=== PATIENT | female | born 1965 | race American Indian/Alaskan Native ===

== ENCOUNTER 2016-09-18 05:38 | Inpatient (IN) | payer MEDICARE ==
[2016-09-18 06:38] LABS: Urine Drugs of Abuse Note Disclamer
[2016-09-18 06:41] LABS: Bilirubin,Urine NEG (Negative); Blood,Urine NEG (Negative); Ketones,Urine NEG (Negative); Leukocyte Esterase,Urine NEG (Negative); Mucus,Urine FEW /HPF; Nitrite,Urine NEG (Negative); Urobilinogen,Urine < 2.0 mg/dL (<2.0)
[2016-09-18 06:42] LABS: Protein,Urine >500 mg/dL (Negative)
[2016-09-18 06:57] LABS: BUN/Creatinine Ratio 9.44; Calcium 8.9 mg/dL (8.4-10.2); Chloride 104.8 mmol/L (98-107); Potassium 4.7 mmol/L (3.6-5.0)
[2016-09-18] MEDS ORDERED: NACL 0.9% 1000 ML 2,000 ML IV ONE (06:59)
[2016-09-18] MEDS ORDERED: MAXIPIME/NS 2 GM/100 ML 2 GM/100 ML BAG IV ONE (07:00)
--- NOTE | 2016-09-18 07:02 | Emergency Department Report ---
ED General Adult HPI - General Chief complaint: Altered Mental Status Stated complaint: AMS Time Seen by Provider: 09/18/16 06:52 Source: EMS, RN notes reviewed Mode of arrival: Stretcher Limitations: Altered Mental Status - History of Present Illness Initial comments: This is a 51-year-old female. She is previously unknown to me. She is brought to the hospital by EMS. As per EMS documentation, the patient is a 51-year-old female, found unresponsive laying supine in her bedroom. As per EMS documentation, patient's son indicated that he hurt his mom call for help. The son stated that he came over to the patient, and that she was not talking or responding to his voice, so 911 was contacted. [facility] documentation, GCS initially 11. No indication of trauma. Patient was found to be hypoglycemic, given D50 in the field, fingerstick improved to 168, with persistent altered mental status. Upon arrival to the ER, patient was found to be hypothermic with a core temperature of 89. She denied headache, neck pain, chest pain. Denies extremity weakness. She does not endorse extremity numbness. She does complain of abdominal pain, but cannot further describe the quality or nature of the abdominal pain. Patient is unable to describe exacerbating or relieving factors -: unknown Severity scale (0 -10): 0 Consistency: constant Improves with: other (as per history of present illness) Worsens with: other (as per history of present illness) Associated Symptoms: confusion, weakness - Related Data Home Medications Medication Instructions Recorded Confirmed Last Taken Amitriptyline [Elavil] 75 mg PO DAILY 09/18/16 09/18/16 Unknown Amoxicillin [Amoxicillin TAB] 875 mg PO DAILY 09/18/16 09/18/16 Unknown Cetirizine HCl [24Hour Allergy] 10 mg PO DAILY 09/18/16 09/18/16 Unknown Clonidine HCl [Catapres] 0.3 mg PO TID 09/18/16 09/18/16 Unknown Colchicine [Colcrys] 0.6 mg PO DAILY 09/18/16 09/18/16 Unknown Diclofenac Sodium [Diclofenac 75 mg PO DAILY 09/18/16 09/18/16 Unknown Sodium ER] Doxepin [SINEquan] 25 mg PO DAILY 09/18/16 09/18/16 Unknown Eletriptan HBr [Relpax] 20 mg PO Q4H 09/18/16 09/18/16 Unknown ISOSORBIDE MONOnitrate [Imdur ER] 60 mg PO DAILY 09/18/16 09/18/16 Unknown Insulin Detemir [Levemir] 50 unit SUB-Q QHS 09/18/16 09/18/16 09/18/16 Levothyroxine [Synthroid] 100 mcg PO QAM 09/18/16 09/18/16 Unknown Methadone [Dolophine] 10 mg PO TID 09/18/16 09/18/16 Unknown Metoprolol [Lopressor TAB] 100 mg PO DAILY 09/18/16 09/18/16 Unknown [place] 5-325 mg TAB 5 mg PO Q6HR 09/18/16 09/18/16 Unknown Omeprazole [Omeprazole] 40 mg PO DAILY 09/18/16 09/18/16 Unknown Promethazine HCl [Promethazine TAB] 12.5 mg PO DAILY 09/18/16 09/18/16 Unknown Rosuvastatin (Nf) [Crestor] 10 mg PO DAILY 09/18/16 09/18/16 Unknown Sulfamethoxazole-Tmp Susp 1 tab PO BID 09/18/16 09/18/16 Unknown Tizanidine HCl [Zanaflex] 2 mg PO DAILY 09/18/16 09/18/16 09/17/16 Topiramate [Topamax] 100 mg PO DAILY 09/18/16 09/18/16 Unknown Allergies Allergy/AdvReac Type Severity Reaction Status Date / Time acetaminophen [From Percocet] AdvReac Hives Verified 08/17/15 17:52 codeine AdvReac Swelling Verified 08/17/15 17:52 oxycodone HCl [From Percocet] AdvReac Hives Verified 08/17/15 17:52 Penicillins AdvReac Swelling Verified 08/17/15 17:52 ED Review of Systems ROS: Stated complaint: AMS Other details as noted in HPI Comment: Unobtainable due to pts medical conditions ED Past Medical Hx - Past Medical History Hx Hypertension: Yes Hx Diabetes: Yes Hx Renal Disease: Yes Hx Headaches / Migraines: Yes Hx Asthma: Yes - Surgical History Hx Cholecystectomy: Yes Additional Surgical History: umbilical hernia repair. tonsilectomy. left foot fracture/[place]. right kidney removal - Social History Smoking Status: Unknown if ever smoked Substance Use Type: Other - Medications Home Medications: Home Medications Medication Instructions Recorded Confirmed Last Taken Type Amitriptyline [Elavil] 75 mg PO DAILY 09/18/16 09/18/16 Unknown History Amoxicillin [Amoxicillin TAB] 875 mg PO DAILY 09/18/16 09/18/16 Unknown History Cetirizine HCl [24Hour Allergy] 10 mg PO DAILY 09/18/16 09/18/16 Unknown History Clonidine HCl [Catapres] 0.3 mg PO TID 09/18/16 09/18/16 Unknown History Colchicine [Colcrys] 0.6 mg PO DAILY 09/18/16 09/18/16 Unknown History Diclofenac Sodium [Diclofenac 75 mg PO DAILY 09/18/16 09/18/16 Unknown History Sodium ER] Doxepin [SINEquan] 25 mg PO DAILY 09/18/16 09/18/16 Unknown History Eletriptan HBr [Relpax] 20 mg PO Q4H 09/18/16 09/18/16 Unknown History ISOSORBIDE MONOnitrate [Imdur ER] 60 mg PO DAILY 09/18/16 09/18/16 Unknown History Insulin Detemir [Levemir] 50 unit SUB-Q QHS 09/18/16 09/18/16 09/18/16 History Levothyroxine [Synthroid] 100 mcg PO QAM 09/18/16 09/18/16 Unknown History Methadone [Dolophine] 10 mg PO TID 09/18/16 09/18/16 Unknown History Metoprolol [Lopressor TAB] 100 mg PO DAILY 09/18/16 09/18/16 Unknown History [place] 5-325 mg TAB 5 mg PO Q6HR 09/18/16 09/18/16 Unknown History Omeprazole [Omeprazole] 40 mg PO DAILY 09/18/16 09/18/16 Unknown History Promethazine HCl [Promethazine TAB] 12.5 mg PO DAILY 09/18/16 09/18/16 Unknown History Rosuvastatin (Nf) [Crestor] 10 mg PO DAILY 09/18/16 09/18/16 Unknown History Sulfamethoxazole-Tmp Susp 1 tab PO BID 09/18/16 09/18/16 Unknown History Tizanidine HCl [Zanaflex] 2 mg PO DAILY 09/18/16 09/18/16 09/17/16 History Topiramate [Topamax] 100 mg PO DAILY 09/18/16 09/18/16 Unknown History ED Physical Exam - General Limitations: Altered Mental Status General appearance: in no apparent distress, lethargic - Head Head exam: Present: atraumatic, normocephalic - Eye Eye exam: Present: normal appearance, EOMI. Absent: nystagmus - ENT ENT exam: Present: normal exam, normal orophraynx, mucous membranes moist, normal external ear exam - Neck Neck exam: Present: normal inspection, full ROM. Absent: tenderness, meningismus - Respiratory Respiratory exam: Present: normal lung sounds bilaterally. Absent: respiratory distress, wheezes, rales, rhonchi, stridor, chest wall tenderness, accessory muscle use, decreased breath sounds, prolonged expiratory - Cardiovascular Cardiovascular Exam: Present: regular rate, normal rhythm, normal heart sounds. Absent: bradycardia, tachycardia, irregular rhythm, systolic murmur, diastolic murmur, rubs, gallop - GI/Abdominal GI/Abdominal exam: Present: soft, normal bowel sounds, other (there is mild lower abdominal tenderness, there is no rebound, guarding or peritoneal signs). Absent: distended, guarding, rebound, rigid, pulsatile mass - Extremities Exam Extremities exam: Present: normal inspection, full ROM, normal capillary refill. Absent: tenderness, pedal edema, joint swelling, calf tenderness - Back Exam Back exam: Present: normal inspection, full ROM. Absent: tenderness, CVA tenderness (R), CVA tenderness (L), muscle spasm, paraspinal tenderness, vertebral tenderness - Neurological Exam Neurological exam: Present: alert, oriented X3, other (Extraocular movements intact. Tongue midline. No facial droop. Facial sensation intact to light touch in the V1, V2, V3 distribution bilaterally. 5 and 5 strength in 4 extremities.. Sensation is intact to light touch in 4 extremities.). Absent: motor sensory deficit - Psychiatric Psychiatric exam: Present: flat affect - Skin Skin exam: Present: warm, dry, intact, normal color. Absent: rash ED Course Vital Signs 09/18/16 09/18/16 09/18/16 05:47 05:50 06:00 Temperature 89 F L Pulse Rate 60 60 57 L Respiratory 12 11 L 13 Rate Blood Pressure 178/103 177/93 Blood Pressure 178/103 [Left] O2 Sat by Pulse 94 Oximetry 04/08/17 04/08/17 04/08/17 06:10 06:20 06:30 Temperature Pulse Rate 61 60 63 Respiratory 11 L 9 L 10 L Rate Blood Pressure 177/93 167/100 167/106 Blood Pressure [Left] O2 Sat by Pulse Oximetry 09/18/16 09/18/16 09/18/16 06:40 06:49 06:50 Temperature Pulse Rate 61 63 Respiratory 7 L 16 9 L Rate Blood Pressure 167/106 145/81 Blood Pressure [Left] O2 Sat by Pulse Oximetry 09/18/16 09/18/16 09/18/16 06:59 07:00 07:10 Temperature Pulse Rate 62 61 62 Respiratory 16 8 L 10 L Rate Blood Pressure 136/93 136/93 Blood Pressure 132/83 [Left] O2 Sat by Pulse 100 Oximetry 09/18/16 09/18/16 09/18/16 07:20 07:30 08:14 Temperature Pulse Rate 61 60 63 Respiratory 12 12 14 Rate Blood Pressure 133/91 147/93 147/93 Blood Pressure [Left] O2 Sat by Pulse Oximetry 09/18/16 09/18/16 09/18/16 08:20 08:30 08:40 Temperature Pulse Rate 60 59 L 59 L Respiratory 9 L 11 L 7 L Rate Blood Pressure 126/73 132/83 132/83 Blood Pressure [Left] O2 Sat by Pulse Oximetry 09/18/16 09/18/16 09/18/16 08:50 09:00 09:10 Temperature Pulse Rate 67 69 70 Respiratory 11 L 12 10 L Rate Blood Pressure 147/93 147/93 133/92 Blood Pressure [Left] O2 Sat by Pulse Oximetry 09/18/16 09/18/16 09/18/16 09:20 09:30 09:40 Temperature Pulse Rate 68 68 67 Respiratory 9 L 11 L 16 Rate Blood Pressure 149/83 158/93 158/93 Blood Pressure [Left] O2 Sat by Pulse Oximetry 09/18/16 09/18/16 09/18/16 09:50 10:00 10:10 Temperature Pulse Rate 71 72 74 Respiratory 12 12 12 Rate Blood Pressure 146/108 146/108 110/80 Blood Pressure [Left] O2 Sat by Pulse Oximetry 09/18/16 09/18/16 09/18/16 10:20 10:30 10:40 Temperature Pulse Rate 72 69 73 Respiratory 18 12 13 Rate Blood Pressure 141/87 128/82 128/82 Blood Pressure [Left] O2 Sat by Pulse Oximetry 09/18/16 09/18/16 09/18/16 10:50 11:00 11:10 Temperature Pulse Rate 73 75 75 Respiratory 9 L 11 L 13 Rate Blood Pressure 136/88 143/86 143/86 Blood Pressure [Left] O2 Sat by Pulse Oximetry 09/18/16 09/18/16 09/18/16 11:20 11:23 11:30 Temperature 97.2 F L Pulse Rate 72 77 74 Respiratory 11 L 11 L Rate Blood Pressure 147/97 140/83 Blood Pressure [Left] O2 Sat by Pulse 100 Oximetry 09/18/16 09/18/16 09/18/16 11:40 11:50 12:00 Temperature Pulse Rate 73 75 74 Respiratory 10 L 11 L 11 L Rate Blood Pressure 140/83 142/88 124/80 Blood Pressure [Left] O2 Sat by Pulse Oximetry 09/18/16 09/18/16 09/18/16 12:10 12:20 12:30 Temperature Pulse Rate 82 82 77 Respiratory 11 L 13 11 L Rate Blood Pressure 142/88 136/88 131/88 Blood Pressure [Left] O2 Sat by Pulse Oximetry 09/18/16 09/18/16 09/18/16 12:40 12:50 13:00 Temperature Pulse Rate 95 H 77 76 Respiratory 16 12 11 L Rate Blood Pressure 136/88 135/85 140/76 Blood Pressure [Left] O2 Sat by Pulse Oximetry 09/18/16 09/18/16 09/18/16 13:10 13:20 13:30 Temperature Pulse Rate 77 78 84 Respiratory 16 16 12 Rate Blood Pressure 140/76 130/76 126/83 Blood Pressure [Left] O2 Sat by Pulse Oximetry 09/18/16 09/18/16 09/18/16 13:40 13:50 14:00 Temperature Pulse Rate 89 87 91 H Respiratory 16 14 19 Rate Blood Pressure 126/83 123/87 133/94 Blood Pressure [Left] O2 Sat by Pulse Oximetry 09/18/16 09/18/16 09/18/16 14:10 14:20 14:30 Temperature 98.2 F Pulse Rate 80 92 H 91 H Respiratory 16 15 15 Rate Blood Pressure 133/94 140/97 139/88 Blood Pressure 132/92 [Left] O2 Sat by Pulse 100 Oximetry 09/18/16 14:40 Temperature Pulse Rate 94 H Respiratory 12 Rate Blood Pressure 133/94 Blood Pressure [Left] O2 Sat by Pulse Oximetry - Reevaluation(s) Reevaluation #1: 09/18/16 08:18 Differential diagnosis: Bacteremia, dehydration, electrolyte derangement, acute on chronic renal insufficiency, intra-abdominal infection, intracranial injury, cervical spine injury, pneumonia, urinary tract infection Assessment and plan: 51-year-old female with acute on chronic renal failure, resolving altered mental status. She is found to be hypothermic with a core temperature of 89. Her neck is supple, she moves 4 extremities spontaneously, she is alert to name, place, year, month. Given this, I think meningitis is unlikely. An ammonia level was slightly elevated, I think patient most likely has a complex multifactorial encephalopathy. She will be treated empirically with active rewarming, IV fluids, empiric antibiotics with cefepime. As a fourth generation cephalosporin, it is structurally dissimilar to penicillin, and very unlikely for the patient to have an anaphylactic reaction. A CT scan of the head, cervical spine, abdomen/pelvis are ordered. Blood cultures, lactic acid, urine cultures ordered. The Hospital physician has been paged to arrange admission at this time. Reevaluation #2: 09/18/16 15:52 [address] Gonzalez accepts patient ct CT scan of the head, cervical spine, abdomen pelvis negative for acute traumatic intracranial pathology. Constipation suggested. The Hospital physician has contacted the critical care physician for further management recommendations. ED Medical Decision Making - Lab Data Result diagrams: 09/18/16 06:19 09/18/16 06:19 Vital Signs 09/18/16 09/18/16 09/18/16 05:47 05:50 06:00 Temperature 89 F L Pulse Rate 60 60 57 L Respiratory 12 11 L 13 Rate Blood Pressure 178/103 177/93 Blood Pressure 178/103 [Left] O2 Sat by Pulse 94 Oximetry 09/18/16 09/18/16 09/18/16 06:10 06:20 06:30 Temperature Pulse Rate 61 60 63 Respiratory 11 L 9 L 10 L Rate Blood Pressure 177/93 167/100 167/106 Blood Pressure [Left] O2 Sat by Pulse Oximetry 04/08/17 04/08/17 04/08/17 06:40 06:49 06:50 Temperature Pulse Rate 61 63 Respiratory 7 L 16 9 L Rate Blood Pressure 167/106 145/81 Blood Pressure [Left] O2 Sat by Pulse Oximetry 09/18/16 09/18/16 09/18/16 07:00 07:10 07:20 Temperature Pulse Rate 61 62 61 Respiratory 8 L 10 L 12 Rate Blood Pressure 136/93 136/93 133/91 Blood Pressure [Left] O2 Sat by Pulse Oximetry 09/18/16 07:30 Temperature Pulse Rate 60 Respiratory 12 Rate Blood Pressure 147/93 Blood Pressure [Left] O2 Sat by Pulse Oximetry Lab Results 09/18/16 09/18/16 09/18/16 Range/Units 06:19 06:19 06:19 WBC 5.0 (4.5-11.0) K/mm3 RBC 3.63 L (3.65-5.03) M/mm3 Hgb 9.7 L (10.1-14.3) gm/dl Hct 30.9 (30.3-42.9) % MCV 85 (79-97) fl MCH 27 L (28-32) pg MCHC 31 (30-34) % RDW 18.1 H (13.2-15.2) % Plt Count 285 (140-440) K/mm3 Lymph % (Auto) 24.6 (13.4-35.0) % [place] % (Auto) 6.2 (0.0-7.3) % Eos % (Auto) 1.6 (0.0-4.3) % Baso % (Auto) 0.6 (0.0-1.8) % Lymph # 1.2 (1.2-5.4) K/mm3 [place] # 0.3 (0.0-0.8) K/mm3 Eos # 0.1 (0.0-0.4) K/mm3 Baso # 0.0 (0.0-0.1) K/mm3 Seg Neutrophils % 67.0 (40.0-70.0) % Seg Neutrophils # 3.3 (1.8-7.7) K/mm3 Sodium 140 (137-145) mmol/L Potassium 4.7 (3.6-5.0) mmol/L Chloride 104.8 (98-107) mmol/L Carbon Dioxide 20 L (22-30) mmol/L Anion Gap 20 mmol/L BUN 34 H (7-17) mg/dL Creatinine 3.6 H (0.7-1.2) mg/dL Estimated GFR 16 ml/min BUN/Creatinine Ratio 9.44 % Glucose 114 H (65-100) mg/dL Lactic Acid (0.7-2.0) mmol/L Calcium 8.9 (8.4-10.2) mg/dL Magnesium (1.7-2.3) mg/dL Total Bilirubin (0.1-1.2) mg/dL Direct Bilirubin (0-0.2) mg/dL Indirect Bilirubin mg/dL AST (5-40) units/L ALT (7-56) units/L Alkaline Phosphatase (35-129) units/L Ammonia (25-60) umol/L Total Creatine Kinase (30-135) units/L Total Protein (6.3-8.2) g/dL Albumin (3.9-5) g/dL Albumin/Globulin Ratio % Urine Color (Yellow) Urine Turbidity (Clear) Urine pH (5.0-7.0) Ur Specific [place] (1.003-1.030) Urine Protein (Negative) mg/dL Urine Glucose (UA) (Negative) mg/dL Urine Ketones (Negative) mg/dL Urine Blood (Negative) Urine Nitrite (Negative) Ur Reducing Substances Urine Bilirubin (Negative) Urine Ictotest Urine Urobilinogen (<2.0) mg/dL Ur Leukocyte Esterase (Negative) Urine WBC (Auto) (0.0-6.0) /HPF Urine RBC (Auto) (0.0-6.0) /HPF U Epithel Cells (Auto) (0-13.0) /HPF Amorphous Crystals Urine Mucus /HPF Urine HCG, Qual (Negative) Salicylates (2.8-20.0) mg/dL Urine Opiates Screen Urine Methadone Screen Acetaminophen (10.0-30.0) ug/mL Ur Barbiturates Screen Ur Phencyclidine Scrn Ur Amphetamines Screen U Benzodiazepines Scrn Urine Cocaine Screen U Marijuana (THC) Screen Drugs of Abuse Note Plasma/Serum Alcohol < 0.01 (0-0.07) gm% 09/18/16 09/18/16 09/18/16 Range/Units 06:19 06:19 06:19 WBC (4.5-11.0) K/mm3 RBC (3.65-5.03) M/mm3 Hgb (10.1-14.3) gm/dl Hct (30.3-42.9) % MCV (79-97) fl MCH (28-32) pg MCHC (30-34) % RDW (13.2-15.2) % Plt Count (140-440) K/mm3 Lymph % (Auto) (13.4-35.0) % [place] % (Auto) (0.0-7.3) % Eos % (Auto) (0.0-4.3) % Baso % (Auto) (0.0-1.8) % Lymph # (1.2-5.4) K/mm3 [place] # (0.0-0.8) K/mm3 Eos # (0.0-0.4) K/mm3 Baso # (0.0-0.1) K/mm3 Seg Neutrophils % (40.0-70.0) % Seg Neutrophils # (1.8-7.7) K/mm3 Sodium (137-145) mmol/L Potassium (3.6-5.0) mmol/L Chloride (98-107) mmol/L Carbon Dioxide (22-30) mmol/L Anion Gap mmol/L BUN (7-17) mg/dL Creatinine (0.7-1.2) mg/dL Estimated GFR ml/min BUN/Creatinine Ratio % Glucose (65-100) mg/dL Lactic Acid (0.7-2.0) mmol/L Calcium (8.4-10.2) mg/dL Magnesium 1.9 (1.7-2.3) mg/dL Total Bilirubin 0.2 (0.1-1.2) mg/dL Direct Bilirubin < 0.2 (0-0.2) mg/dL Indirect Bilirubin 0.0 mg/dL AST 16 (5-40) units/L ALT 30 (7-56) units/L Alkaline Phosphatase 144 H (35-129) units/L Ammonia (25-60) umol/L Total Creatine Kinase 262 H (30-135) units/L Total Protein 7.9 (6.3-8.2) g/dL Albumin 3.6 L (3.9-5) g/dL Albumin/Globulin Ratio 0.8 % Urine Color (Yellow) Urine Turbidity (Clear) Urine pH (5.0-7.0) Ur Specific [place] (1.003-1.030) Urine Protein (Negative) mg/dL Urine Glucose (UA) (Negative) mg/dL Urine Ketones (Negative) mg/dL Urine Blood (Negative) Urine Nitrite (Negative) Ur Reducing Substances Urine Bilirubin (Negative) Urine Ictotest Urine Urobilinogen (<2.0) mg/dL Ur Leukocyte Esterase (Negative) Urine WBC (Auto) (0.0-6.0) /HPF Urine RBC (Auto) (0.0-6.0) /HPF U Epithel Cells (Auto) (0-13.0) /HPF Amorphous Crystals Urine Mucus /HPF Urine HCG, Qual (Negative) Salicylates < 0.3 L (2.8-20.0) mg/dL Urine Opiates Screen Urine Methadone Screen Acetaminophen < 15.0 (10.0-30.0) ug/mL Ur Barbiturates Screen Ur Phencyclidine Scrn Ur Amphetamines Screen U Benzodiazepines Scrn Urine Cocaine Screen U Marijuana (THC) Screen Drugs of Abuse Note Plasma/Serum Alcohol (0-0.07) gm% 09/18/16 09/18/16 09/18/16 Range/Units 06:21 06:21 07:33 WBC (4.5-11.0) K/mm3 RBC (3.65-5.03) M/mm3 Hgb (10.1-14.3) gm/dl Hct (30.3-42.9) % MCV (79-97) fl MCH (28-32) pg MCHC (30-34) % RDW (13.2-15.2) % Plt Count (140-440) K/mm3 Lymph % (Auto) (13.4-35.0) % [place] % (Auto) (0.0-7.3) % Eos % (Auto) (0.0-4.3) % Baso % (Auto) (0.0-1.8) % Lymph # (1.2-5.4) K/mm3 [place] # (0.0-0.8) K/mm3 Eos # (0.0-0.4) K/mm3 Baso # (0.0-0.1) K/mm3 Seg Neutrophils % (40.0-70.0) % Seg Neutrophils # (1.8-7.7) K/mm3 Sodium (137-145) mmol/L Potassium (3.6-5.0) mmol/L Chloride (98-107) mmol/L Carbon Dioxide (22-30) mmol/L Anion Gap mmol/L BUN (7-17) mg/dL Creatinine (0.7-1.2) mg/dL Estimated GFR ml/min BUN/Creatinine Ratio % Glucose (65-100) mg/dL Lactic Acid 1.2 (0.7-2.0) mmol/L Calcium (8.4-10.2) mg/dL Magnesium (1.7-2.3) mg/dL Total Bilirubin (0.1-1.2) mg/dL Direct Bilirubin (0-0.2) mg/dL Indirect Bilirubin mg/dL AST (5-40) units/L ALT (7-56) units/L Alkaline Phosphatase (35-129) units/L Ammonia (25-60) umol/L Total Creatine Kinase (30-135) units/L Total Protein (6.3-8.2) g/dL Albumin (3.9-5) g/dL Albumin/Globulin Ratio % Urine Color Yellow (Yellow) Urine Turbidity Clear (Clear) Urine pH 5.0 (5.0-7.0) Ur Specific [place] 1.012 (1.003-1.030) Urine Protein >500 (Negative) mg/dL Urine Glucose (UA) 50 (Negative) mg/dL Urine Ketones Neg (Negative) mg/dL Urine Blood Neg (Negative) Urine Nitrite Neg (Negative) Ur Reducing Substances Not Reportable Urine Bilirubin Neg (Negative) Urine Ictotest Not Reportable Urine Urobilinogen < 2.0 (<2.0) mg/dL Ur Leukocyte Esterase Neg (Negative) Urine WBC (Auto) 3.0 (0.0-6.0) /HPF Urine RBC (Auto) 3.0 (0.0-6.0) /HPF U Epithel Cells (Auto) < 1.0 (0-13.0) /HPF Amorphous Crystals 1+ Urine Mucus Few /HPF Urine HCG, Qual Negative (Negative) Salicylates (2.8-20.0) mg/dL Urine Opiates Screen Presumptive negative Urine Methadone Screen Presumptive positive Acetaminophen (10.0-30.0) ug/mL Ur Barbiturates Screen Presumptive negative Ur Phencyclidine Scrn Presumptive negative Ur Amphetamines Screen Presumptive negative U Benzodiazepines Scrn Presumptive negative Urine Cocaine Screen Presumptive negative U Marijuana (THC) Screen Presumptive negative Drugs of Abuse Note Disclamer Plasma/Serum Alcohol (0-0.07) gm% 09/18/16 Range/Units 07:33 WBC (4.5-11.0) K/mm3 RBC (3.65-5.03) M/mm3 Hgb (10.1-14.3) gm/dl Hct (30.3-42.9) % MCV (79-97) fl MCH (28-32) pg MCHC (30-34) % RDW (13.2-15.2) % Plt Count (140-440) K/mm3 Lymph % (Auto) (13.4-35.0) % [place] % (Auto) (0.0-7.3) % Eos % (Auto) (0.0-4.3) % Baso % (Auto) (0.0-1.8) % Lymph # (1.2-5.4) K/mm3 [place] # (0.0-0.8) K/mm3 Eos # (0.0-0.4) K/mm3 Baso # (0.0-0.1) K/mm3 Seg Neutrophils % (40.0-70.0) % Seg Neutrophils # (1.8-7.7) K/mm3 Sodium (137-145) mmol/L Potassium (3.6-5.0) mmol/L Chloride (98-107) mmol/L Carbon Dioxide (22-30) mmol/L Anion Gap mmol/L BUN (7-17) mg/dL Creatinine (0.7-1.2) mg/dL Estimated GFR ml/min BUN/Creatinine Ratio % Glucose (65-100) mg/dL Lactic Acid (0.7-2.0) mmol/L Calcium (8.4-10.2) mg/dL Magnesium (1.7-2.3) mg/dL Total Bilirubin (0.1-1.2) mg/dL Direct Bilirubin (0-0.2) mg/dL Indirect Bilirubin mg/dL AST (5-40) units/L ALT (7-56) units/L Alkaline Phosphatase (35-129) units/L Ammonia 77.0 H (25-60) umol/L Total Creatine Kinase (30-135) units/L Total Protein (6.3-8.2) g/dL Albumin (3.9-5) g/dL Albumin/Globulin Ratio % Urine Color (Yellow) Urine Turbidity (Clear) Urine pH (5.0-7.0) Ur Specific [place] (1.003-1.030) Urine Protein (Negative) mg/dL Urine Glucose (UA) (Negative) mg/dL Urine Ketones (Negative) mg/dL Urine Blood (Negative) Urine Nitrite (Negative) Ur Reducing Substances Urine Bilirubin (Negative) Urine Ictotest Urine Urobilinogen (<2.0) mg/dL Ur Leukocyte Esterase (Negative) Urine WBC (Auto) (0.0-6.0) /HPF Urine RBC (Auto) (0.0-6.0) /HPF U Epithel Cells (Auto) (0-13.0) /HPF Amorphous Crystals Urine Mucus /HPF Urine HCG, Qual (Negative) Salicylates (2.8-20.0) mg/dL Urine Opiates Screen Urine Methadone Screen Acetaminophen (10.0-30.0) ug/mL Ur Barbiturates Screen Ur Phencyclidine Scrn Ur Amphetamines Screen U Benzodiazepines Scrn Urine Cocaine Screen U Marijuana (THC) Screen Drugs of Abuse Note Plasma/Serum Alcohol (0-0.07) gm% - EKG Data -: EKG Interpreted by Me EKG shows normal: sinus rhythm Rate: normal - EKG Data 09/18/16 08:21 normal sinus bradycardia, 58 bpm, borderline left ventricular hypertrophy, T-wave inversion in aVL, QTC 481 ms, abnormal EKG, not morphologically consistent with STEMI. - Radiology Data Radiology results: pending, report reviewed, image reviewed interpreted by me: X-ray of the chest demonstrates borderline cardiomegaly, lower lobe atelectasis , no acute disease Critical Care Time: Yes Critical care time in (mins) excluding proc time.: 35 Critical care attestation.: If time is entered above; I have spent that time in minutes in the direct care of this critically ill patient, excluding procedure time. Critical Care Time: Critical care time includes multiple bedside evaluations, interpretation of laboratory studies, radiology studies, time sent resuscitating critically ill patient with acute on chronic renal failure, hypothermia, encephalopathy, requiring IV fluids, broad-spectrum antibiotics, consultation with hospital medicine. This exclusive procedure time. ED Disposition Clinical Impression: Hypothermia, Acute on chronic renal failure, Hypothyroidism Disposition: OP ADMITTED IP TO THIS HOSP Is pt being admited?: Yes Condition: Fair
[2016-09-18 07:13] LABS: Basophils % (Auto) 0.6 % (0.0-1.8); Eosinophils % (Auto) 1.6 % (0.0-4.3); Hematocrit 30.9 % (30.3-42.9); Hemoglobin 9.7 gm/dl (10.1-14.3); Mean Corpuscular HGB Conc 31 % (30-34); Mean Corpuscular Hemoglobin 27 pg (28-32); Mean Corpuscular Volume 85 fl (79-97); Platelet Count 285 K/mm3 (140-440); Red Blood Count 3.63 M/mm3 (3.65-5.03); Red Cell Distribution Width 18.1 % (13.2-15.2)
[2016-09-18 07:20] LABS: Alanine Aminotransferase 30 units/L (7-56); Albumin 3.6 g/dL (3.9-5); Albumin/Globulin Ratio 0.8 %; Alkaline Phosphatase 144 units/L (35-129); Bilirubin,Total 0.2 mg/dL (0.1-1.2); Creatine Kinase 262 units/L (30-135); Magnesium 1.9 mg/dL (1.7-2.3); Total Protein 7.9 g/dL (6.3-8.2)
[2016-09-18 07:26] LABS: Bilirubin,Direct < 0.2 mg/dL (0-0.2)
--- NOTE | 2016-09-18 08:18 | Cat Scan Report ---
FINAL REPORT PROCEDURE: CT HEAD/BRAIN WO CON TECHNIQUE: Computerized tomography of the head was performed without contrast material. HISTORY: ams COMPARISON: No prior studies are available for comparison. FINDINGS: Skull and scalp: Normal. Paranasal sinuses: Normal. Ventricles and subarachnoid spaces: Normal. Cerebrum: No evidence of acute intracranial bleed. Possible 6 x 4 millimeter macrolacunar infarct in the right temporal insula axial image 24 of indeterminate age. This could reflect an acute macrolacunar infarct. No prior CT head on file for correlation. If there is concern or clinical possibility of TIA or ischemic change followup MRI is advised to further corroborate. Cerebellum and brainstem: No evidence of hemorrhage, acute infarction or mass. Vasculature: Normal. Comments: Mild atrophy and possible minimal microischemic change with tiny micro lacunar infarct disease above the left head of caudate nucleus. IMPRESSION: No acute intracranial bleed Rule-out acute macro- lacunar infarct right temporal insula No prior CT head on file Consider followup MRI to further evaluate as warranted
--- NOTE | 2016-09-18 08:21 | Cat Scan Report ---
FINAL REPORT PROCEDURE: CT CERVICAL SPINE WO CON TECHNIQUE: Computerized tomography of the cervical spine was performed from the skull base to T1 without contrast material. HISTORY: fall, ams COMPARISON: No prior studies are available for comparison. FINDINGS: Moderate degenerative changes at the mid to lower cervical spine primarily at the levels of C5-6 with anterior osteophytes. Skull base appears intact. Trace fluid left mastoid. Facet arthropathy neuroforaminal narrowing at the upper to mid cervical spine areas mostly on the left extending from C3 through C5 and right greater than left at C5-6. No prevertebral soft tissue swelling. No evidence of acute fracture. Medial ribs clavicles appear intact. Morbid obesity IMPRESSION: No acute fracture seen at this time
--- NOTE | 2016-09-18 08:51 | Cat Scan Report ---
FINAL REPORT PROCEDURE: CT ABDOMEN PELVIS WO CON TECHNIQUE: Computerized axial tomography of the abdomen and pelvis was performed without intravenous contrast. This study is performed without intravascular contrast material and its sensitivity for abdominal and pelvic pathology, including neoplasms, inflammation, abscess, free fluid, thrombosis, arterial dissection and infarction, is reduced compared with a contrast enhanced study. HISTORY: abdomen pain COMPARISON: 08/17/2015 FINDINGS: Visualized lower thorax: Possible 9 x 6 millimeter nodule right lower lung zone near distal bronchiolectasis, stable may warrant followup CT chest. Patchy atelectasis. Posterior pleural thickening. Small calcified granuloma right lung base.. Liver: Diffuse fatty infiltration liver with low attenuated lesion towards central upper dome area 9 millimeters likely small cyst, stable Spleen: Normal size and attenuation. Gallbladder and biliary system: Metallic clips gallbladder fossa from prior cholecystectomy. Pancreas: Normal. Adrenals: Indeterminate left adrenal gland mass measuring 2.5 x 1.9 centimeters attenuation measurement 24 HU. This may warrant further workup. Adreniform enlargement of the lateral limb right adrenal gland with undulating tri-nodular change measuring in the 1.0 centimeters width range may reflect hyperplasia. These findings appear stable Kidneys: Solitary left kidney with cortical lobulation and scarring. No obstructive uropathy seen at this time.. GI tract: No oral contrast. Moderate large amount of stool throughout the large bowel consistent with constipation.. Normal caliber appendix with slight endoluminal high attenuated contents could reflect early appendicolith formation. Possible rectal wall thickening in the 1.1 centimeter range exaggerated by contraction. Underlying bowel malignancy not excludable without the use of IV and oral contrast. No definitive evidence of mesenteric stranding or evidence of colitis/diverticulitis at this time. Lymph nodes and mesentery: Scattered small lymph nodes in the 1 centimeter range denise hepatis retroperitoneum and scattered mild adenopathy in the 1.4 x 0.8 centimeter range left upper quadrant near renal vein axial 71 for example. Vasculature: Normal. Bladder: Decompressed bladder with Jackson balloon catheter. Reproductive organs: Mildly heterogeneous atrophic uterus. Calcifications in the atrophic ovaries in the adnexa Peritoneum: No free fluid. Musculoskeletal structures: Moderate disc bulging L4-5 L5-S1. Morbid obesity with over hanging panniculus. Other: Right para umbilical ventral herniation of fat without bowel involvement. Small left inguinal herniation fat without bowel involvement IMPRESSION: No acute abdominal pelvic pathology seen at this time Moderate constipation Chronic findings as described Details above Consider CT chest correlation to rule-out nodule If symptoms and or concern persist consider followup IV and oral contrast
[2016-09-18] MEDS ORDERED: CEPHULAC PO ONE (08:56)
[2016-09-18] MEDS ORDERED: SYNTHROID PO ONE ×2 (08:57→10:00)
--- NOTE | 2016-09-18 09:44 | XRay Report ---
AP CHEST: History: Hypothermia, altered mental status. Findings: There is mild cardiomegaly. Pulmonary vessels are within normal limits. The lungs are clear and fully expanded. No infiltrate, pleural effusion or pneumothorax. Normal thoracic cage. IMPRESSION: Cardiomegaly.
[2016-09-18] MEDS ORDERED: SYNTHROID IV ONE (09:54)
--- NOTE | 2016-09-18 10:19 | History and Physical Report ---
History of Present Illness Date of examination: 09/18/16 Date of admission: 09/18/16 Chief complaint: Found unresponsive at home by family this morning History of present illness: 51-year-old morbidly obese female patient with significant past medical history of hypertension , diabetes mellitus, hypothyroidism and gout and dyslipidemia, was found unresponsive in her bedroom by her son, 911 was called, EMS found her to be hypoglycemic patient received D50 with significant improvement of blood sugars Upon arrival patient was severely hypothermic with "temperature of 89 lethargic , based on warm blankets Patient became more awake responding to simple questions Complains of generalized weakness and feeling very cold, initial workup revealed very high TSH of 155.7 as well as acute on chronic renal failure, and hyperammoniemia When I evaluated the patient patient is alert and awake responding to simple questions appropriately Patient has history of hypothyroidism on Synthroid claims compliance withmeds Denies Chest pain shortness of breath,Denies headache dizziness Complaints of generalized weakness and feeling cold,Denies nausea vomiting or abdominal pain Denies urinary symptoms Past History Past Medical History: diabetes, hypertension, hyperlipidemia, hypothyroidism, other (gout) Past Surgical History: cholecystectomy, hernia repair (umbilical hernia repair) , tonsillectomy, Other (ankle surgery, tubal ligation) Social history: lives with family, full code. denies: smoking, alcohol abuse, prescription drug abuse Family history: hypertension Medications and Allergies Allergies Allergy/AdvReac Type Severity Reaction Status Date / Time acetaminophen [From Percocet] AdvReac Hives Verified 08/17/15 17:52 codeine AdvReac Swelling Verified 08/17/15 17:52 oxycodone HCl [From Percocet] AdvReac Hives Verified 08/17/15 17:52 Penicillins AdvReac Swelling Verified 08/17/15 17:52 Home Medications Medication Instructions Recorded Confirmed Last Taken Type Amitriptyline [Elavil] 75 mg PO DAILY 09/18/16 09/18/16 Unknown History Amoxicillin [Amoxicillin TAB] 875 mg PO DAILY 09/18/16 09/18/16 Unknown History Cetirizine HCl [24Hour Allergy] 10 mg PO DAILY 09/18/16 09/18/16 Unknown History Clonidine HCl [Catapres] 0.3 mg PO TID 09/18/16 09/18/16 Unknown History Colchicine [Colcrys] 0.6 mg PO DAILY 09/18/16 09/18/16 Unknown History Diclofenac Sodium [Diclofenac 75 mg PO DAILY 09/18/16 09/18/16 Unknown History Sodium ER] Doxepin [SINEquan] 25 mg PO DAILY 09/18/16 09/18/16 Unknown History Eletriptan HBr [Relpax] 20 mg PO Q4H 09/18/16 09/18/16 Unknown History ISOSORBIDE MONOnitrate [Imdur ER] 60 mg PO DAILY 09/18/16 09/18/16 Unknown History Insulin Detemir [Levemir] 50 unit SUB-Q QHS 09/18/16 09/18/16 09/18/16 History Levothyroxine [Synthroid] 100 mcg PO QAM 09/18/16 09/18/16 Unknown History Methadone [Dolophine] 10 mg PO TID 09/18/16 09/18/16 Unknown History Metoprolol [Lopressor TAB] 100 mg PO DAILY 09/18/16 09/18/16 Unknown History [place] 5-325 mg TAB 5 mg PO Q6HR 09/18/16 09/18/16 Unknown History Omeprazole [Omeprazole] 40 mg PO DAILY 09/18/16 09/18/16 Unknown History Promethazine HCl [Promethazine TAB] 12.5 mg PO DAILY 09/18/16 09/18/16 Unknown History Rosuvastatin (Nf) [Crestor] 10 mg PO DAILY 09/18/16 09/18/16 Unknown History Sulfamethoxazole-Tmp Susp 1 tab PO BID 09/18/16 09/18/16 Unknown History Tizanidine HCl [Zanaflex] 2 mg PO DAILY 09/18/16 09/18/16 09/17/16 History Topiramate [Topamax] 100 mg PO DAILY 09/18/16 09/18/16 Unknown History Review of Systems Constitutional: chills, weakness, no weight loss, no weight gain, no fever Eyes: bilateral: blurred vision (denies), diplopia (denies) Ears, nose, mouth and throat: no nasal congestion, no nasal discharge Cardiovascular: no chest pain, no orthopnea, no palpitations Respiratory: no cough with sputum, no shortness of breath Gastrointestinal: no abdominal pain, no nausea, no vomiting Genitourinary Female: no pelvic pain, no dysuria, no hematuria Musculoskeletal: no neck pain, no myalgias, no arthritis Integumentary: no rash, no lesions Neurological: no weakness, no parathesias, no seizures, no syncope Psychiatric: no anxiety, no depression Endocrine: cold intolerance, low blood sugars, no heat intolerance, no polydipsia, no polyuria Hematologic/Lymphatic: no easy bruising, no easy bleeding Allergic/Immunologic: no urticaria, no allergic rhinitis Exam - Constitutional Vitals: Temp Pulse Resp BP Pulse Ox 89 F L 60 12 147/93 94 09/18/16 05:50 09/18/16 07:30 09/18/16 07:30 09/18/16 07:30 09/18/16 05:50 General appearance: Present: mild distress, well-nourished, obese (morbidly obese) - EENT Eyes: Present: PERRL, EOM intact - Neck Neck: Present: supple, normal ROM - Respiratory Respiratory effort: normal Respiratory: bilateral: diminished, negative: rales, rhonchi, wheezing - Cardiovascular Rhythm: regular Heart Sounds: Present: S1 & S2 - Extremities Extremities: no ischemia, pulses intact, pulses symmetrical Peripheral Pulses: within normal limits - Abdominal General gastrointestinal: Present: soft, non-tender, non-distended, normal bowel sounds - Integumentary Integumentary: Present: clear, warm - Musculoskeletal Musculoskeletal: generalized weakness - Psychiatric Psychiatric: appropriate mood/affect, cooperative - Neurologic Neurologic: CNII-XII intact, moves all extremities Results - Labs CBC & Chem 7: 09/18/16 06:19 09/18/16 06:19 Labs: Abnormal lab results 09/18/16 09/18/16 09/18/16 Range/Units 06:19 06:19 06:19 RBC 3.63 L (3.65-5.03) M/mm3 Hgb 9.7 L (10.1-14.3) gm/dl MCH 27 L (28-32) pg RDW 18.1 H (13.2-15.2) % Carbon Dioxide 20 L (22-30) mmol/L BUN 34 H (7-17) mg/dL Creatinine 3.6 H (0.7-1.2) mg/dL Glucose 114 H (65-100) mg/dL Alkaline Phosphatase (35-129) units/L Ammonia (25-60) umol/L Total Creatine Kinase (30-135) units/L Albumin (3.9-5) g/dL TSH (0.270-4.200) mlU/mL Free T4 (0.76-1.46) ng/dL Salicylates < 0.3 L (2.8-20.0) mg/dL 09/18/16 09/18/16 09/18/16 Range/Units 06:19 06:19 07:33 RBC (3.65-5.03) M/mm3 Hgb (10.1-14.3) gm/dl MCH (28-32) pg RDW (13.2-15.2) % Carbon Dioxide (22-30) mmol/L BUN (7-17) mg/dL Creatinine (0.7-1.2) mg/dL Glucose (65-100) mg/dL Alkaline Phosphatase 144 H (35-129) units/L Ammonia 77.0 H (25-60) umol/L Total Creatine Kinase 262 H (30-135) units/L Albumin 3.6 L (3.9-5) g/dL TSH 155.700 H (0.270-4.200) mlU/mL Free T4 (0.76-1.46) ng/dL Salicylates (2.8-20.0) mg/dL 09/18/16 Range/Units 08:59 RBC (3.65-5.03) M/mm3 Hgb (10.1-14.3) gm/dl MCH (28-32) pg RDW (13.2-15.2) % Carbon Dioxide (22-30) mmol/L BUN (7-17) mg/dL Creatinine (0.7-1.2) mg/dL Glucose (65-100) mg/dL Alkaline Phosphatase (35-129) units/L Ammonia (25-60) umol/L Total Creatine Kinase (30-135) units/L Albumin (3.9-5) g/dL TSH (0.270-4.200) mlU/mL Free T4 0.47 L (0.76-1.46) ng/dL Salicylates (2.8-20.0) mg/dL Assessment and Plan --Severe Myxedema Labs revealed very high TSH, low T4, hypothermia Hypoglycemia, altered level of consciousness Admit to ICU, IV Synthroid, IV steroids Symptomatic management, Endocrine evaluation if available --Toxic metabolic encephalopathy Secondary to severe hypothyroidism, hypothermia Neurochecks, symptoms significantly improved --Hypothermia Due to severe hypothyroidism, supportive care, heating blankets Closely monitor in ICU --Acute on Chronic renal failure stage IV Gentle hydration, closely monitor renal function, avoid nephrotoxic medications Discussed the case with supervisor inspection room , for assistance with management Input-output monitoring --Hyperammonemia Liver function tests are normal Patient is clinically not in hepatic encephalopathy Closely monitor, lactulose if needed --Type 2 diabetes mellitus Accu-Chek sliding scale coverage and ADA diet Start low-dose of Lantus and advance as tolerated Check A1c --Chronic pain syndrome Pain medications, patient is on methadone will resume --Morbid obesity Counseling done patient strongly advised dietary modification and exercise as tolerated, weight reduction when medically stable Verbalized understanding --DVT prophylaxis Lovenox Closely monitor the patient and adjust the management as needed Critical care consult, case discussed with Dr. Suhail Reddy the Nephrology consult, case discussed with Dr. Jay Plan of care discussed with the patient and ER physician as well as the nurse Medical records reviewed Disposition; admitted to ICU for close observation Follow repeat labs Critical care time 50 minutes
--- NOTE | 2016-09-18 10:55 | Consultation ---
History of Present Illness - Reason for Consult Consult date: 09/18/16 acute renal failure, chronic renal failure, metabolic acidosis - History of Present Illness This patient is a 51-year-old AAF with history significant for Obesity, Type 2 DM, Hypertension, Hyperuricemia / Gout and chronic pain syndrome was brought to the hospital by EMS after she was found unresponsive lying in her bedroom. Her son found her unresposive and hence called 911. She was hypoglycemic and D50 was given. Upon arrival to the ER, her core temperature was 89. Patient could not much history except she woke up in the hospital. Patient c/o pain all over the body, which is not a new symptom. No h/o N, V, D, fever, chills, cough, headache, chest pain, sob, rash, dysuria, hematuria or weakness. her pcp is at [place] and baseline creatinine is unknown. Creatinine is 3.6 today increased from 2.6 last month. She is not currently followed by any [employer]. Past History Past Medical History: diabetes, hypertension Medications and Allergies Allergies Allergy/AdvReac Type Severity Reaction Status Date / Time acetaminophen [From Percocet] AdvReac Hives Verified 08/17/15 17:52 codeine AdvReac Swelling Verified 08/17/15 17:52 oxycodone HCl [From Percocet] AdvReac Hives Verified 08/17/15 17:52 Penicillins AdvReac Swelling Verified 08/17/15 17:52 Home Medications Medication Instructions Recorded Confirmed Last Taken Type Amitriptyline [Elavil] 75 mg PO DAILY 09/18/16 09/18/16 Unknown History Amoxicillin [Amoxicillin TAB] 875 mg PO DAILY 09/18/16 09/18/16 Unknown History Cetirizine HCl [24Hour Allergy] 10 mg PO DAILY 09/18/16 09/18/16 Unknown History Clonidine HCl [Catapres] 0.3 mg PO TID 09/18/16 09/18/16 Unknown History Colchicine [Colcrys] 0.6 mg PO DAILY 09/18/16 09/18/16 Unknown History Diclofenac Sodium [Diclofenac 75 mg PO DAILY 09/18/16 09/18/16 Unknown History Sodium ER] Doxepin [SINEquan] 25 mg PO DAILY 09/18/16 09/18/16 Unknown History Eletriptan HBr [Relpax] 20 mg PO Q4H 09/18/16 09/18/16 Unknown History ISOSORBIDE MONOnitrate [Imdur ER] 60 mg PO DAILY 09/18/16 09/18/16 Unknown History Insulin Detemir [Levemir] 50 unit SUB-Q QHS 09/18/16 09/18/16 09/18/16 History Levothyroxine [Synthroid] 100 mcg PO QAM 09/18/16 09/18/16 Unknown History Methadone [Dolophine] 10 mg PO TID 09/18/16 09/18/16 Unknown History Metoprolol [Lopressor TAB] 100 mg PO DAILY 09/18/16 09/18/16 Unknown History [place] 5-325 mg TAB 5 mg PO Q6HR 09/18/16 09/18/16 Unknown History Omeprazole [Omeprazole] 40 mg PO DAILY 09/18/16 Unknown History Promethazine HCl [Promethazine TAB] 12.5 mg PO DAILY 09/18/16 09/18/16 Unknown History Rosuvastatin (Nf) [Crestor] 10 mg PO DAILY 09/18/16 09/18/16 Unknown History Sulfamethoxazole-Tmp Susp 1 tab PO BID 09/18/16 09/18/16 Unknown History Tizanidine HCl [Zanaflex] 2 mg PO DAILY 09/18/16 09/18/16 09/17/16 History Topiramate [Topamax] 100 mg PO DAILY 09/18/16 09/18/16 Unknown History Active Meds: Active Medications Doxepin HCl (Sinequan) 25 mg PO QHS [facility] Heparin Sodium (Porcine) (Heparin) 5,000 unit SUB-Q Q12HR [facility] Sodium Chloride (Nacl 0.9% 1000 Ml) 1,000 mls @ 75 mls/hr IV DIRECT EMI Insulin Detemir (Levemir) 20 units SUB-Q QHS [facility] Isosorbide Mononitrate (Imdur) 60 mg PO DAILY [facility] Levothyroxine Sodium (Synthroid) 150 mcg IV DAILY@0600 [facility] Methadone HCl (Dolophine) 10 mg PO TID [facility] Methylprednisolone Sodium Succinate (Solu-Medrol) 80 mg IV Q8HR [facility] Metoprolol Tartrate (Lopressor) 100 mg PO DAILY [facility] Miscellaneous Medication (Colchicine [Mitigare]) 0.6 mg PO DAILY [facility] Pantoprazole Sodium (Protonix) 40 mg IV QDAY [facility] Topiramate (Topamax) 100 mg PO DAILY [facility] Review of Systems Constitutional: chronic pain, no weight loss, no weight gain, no fever, no chills, no anorexia, no weakness Ears, nose, mouth and throat: no sinus pain, no epistaxis Breasts: deferred Cardiovascular: no chest pain, no orthopnea, no palpitations, no edema, no shortness of breath Respiratory: no cough, no hemoptysis, no shortness of breath Gastrointestinal: no abdominal pain, no nausea, no vomiting, no diarrhea, no melena Genitourinary Female: no dysuria, no hematuria Rectal: no bleeding Musculoskeletal: neck pain, low back pain, other (pain all over the body) Integumentary: no rash, no wounds, no jaundice Neurological: no paralysis, no seizures, no lack of coordination, no vertigo Psychiatric: no hallucinations Hematologic/Lymphatic: no easy bleeding Allergic/Immunologic: no persistent infections Exam - Vital Signs Vital signs: Vital Signs Pulse Resp 60 12 09/18/16 05:47 09/18/16 05:47 - General Appearance General appearance: well-developed, well-nourished, appears stated age, obese, other (no distress) EENT: ATNC, PERRL, mucous membranes moist, hearing intact, vision intact Neck: Present: neck supple, trachea midline Respiratory: Clear to Ascultation Heart: regular, S1S2, no murmurs Gastrointestinal: Present: normoactive bowel sounds. Absent: tenderness, distended Integumentary: no rash, warm and dry Neurologic: no focal deficit, no asterixis, alert and oriented x3, CN 3-12 intact Musculoskeletal: Present: other (no edema) Psychiatric: mood/affect appropriate, cooperative Results - Lab Results 09/18/16 06:19 09/18/16 06:19 Most recent lab results Calcium 8.9 mg/dL (8.4-10.2) 09/18/16 06:19 Magnesium 1.9 mg/dL (1.7-2.3) 09/18/16 06:19 - Image Kidney/bladder ultrasound: other Assessment and Plan - Patient Problems (1) Acute on chronic renal failure Current Visit: Yes Status: Acute Plan to address problem: Acute Kidney Injury superimposed on CKD (?stage) in the setting of Hypothermia and volume depletion. CT abdomen was negative for hydronephrosis. Continue IV fluids. Monitor renal function. Suspect CKD 3-4 secondary to Diabetic Nephropathy. Renal prognosis is guarded. (2) Proteinuria Current Visit: Yes Status: Chronic Plan to address problem: Secondary to Diabetic Nephropathy. 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
[2016-09-18 11:26] LABS: Creatine Kinase MB 3.8 ng/mL (0.0-4.0)
[2016-09-18 11:27] LABS: Creatine Kinase 240 units/L (30-135)
[2016-09-18] MEDS ORDERED: NACL 0.9% 1000 ML 1,000 ML ONE (11:28)
[2016-09-18] MEDS: NACL 0.9% 1000 ML 1,000 ML IV SCH ×2 (12:33→23:39)
--- NOTE | 2016-09-18 15:07 | Consultation ---
History of Present Illness Consult date: 09/18/16 Requesting physician: SERJIO MIRZA Reason for consult: other (Altered Mental Status; Myxedema) History of present illness: PULMONARY/CCM CONSULT NOTE (Full dictation # [id number]) Please see dictated notes for full details Past History Past Medical History: diabetes, hypertension, hyperlipidemia, hypothyroidism, other (gout) Past Surgical History: cholecystectomy, hernia repair (umbilical hernia repair) , tonsillectomy, Other (ankle surgery, tubal ligation) Social history: lives with family, full code. denies: smoking, alcohol abuse, prescription drug abuse Family history: hypertension Medications and Allergies Allergies Allergy/AdvReac Type Severity Reaction Status Date / Time acetaminophen [From Percocet] AdvReac Hives Verified 08/17/15 17:52 codeine AdvReac Swelling Verified 08/17/15 17:52 oxycodone HCl [From Percocet] AdvReac Hives Verified 08/17/15 17:52 Penicillins AdvReac Swelling Verified 08/17/15 17:52 Home Medications Medication Instructions Recorded Confirmed Last Taken Type Amitriptyline [Elavil] 75 mg PO DAILY 09/18/16 09/18/16 Unknown History Amoxicillin [Amoxicillin TAB] 875 mg PO DAILY 09/18/16 09/18/16 Unknown History Cetirizine HCl [24Hour Allergy] 10 mg PO DAILY 09/18/16 09/18/16 Unknown History Clonidine HCl [Catapres] 0.3 mg PO TID 09/18/16 09/18/16 Unknown History Colchicine [Colcrys] 0.6 mg PO DAILY 09/18/16 09/18/16 Unknown History Diclofenac Sodium [Diclofenac 75 mg PO DAILY 09/18/16 09/18/16 Unknown History Sodium ER] Doxepin [SINEquan] 25 mg PO DAILY 09/18/16 09/18/16 Unknown History Eletriptan HBr [Relpax] 20 mg PO Q4H 09/18/16 09/18/16 Unknown History ISOSORBIDE MONOnitrate [Imdur ER] 60 mg PO DAILY 09/18/16 09/18/16 Unknown History Insulin Detemir [Levemir] 50 unit SUB-Q QHS 09/18/16 09/18/16 09/18/16 History Levothyroxine [Synthroid] 100 mcg PO QAM 09/18/16 09/18/16 Unknown History Methadone [Dolophine] 10 mg PO TID 09/18/16 09/18/16 Unknown History Metoprolol [Lopressor TAB] 100 mg PO DAILY 09/18/16 09/18/16 Unknown History [place] 5-325 mg TAB 5 mg PO Q6HR 09/18/16 09/18/16 Unknown History Omeprazole [Omeprazole] 40 mg PO DAILY 09/18/16 09/18/16 Unknown History Promethazine HCl [Promethazine TAB] 12.5 mg PO DAILY 09/18/16 09/18/16 Unknown History Rosuvastatin (Nf) [Crestor] 10 mg PO DAILY 09/18/16 09/18/16 Unknown History Sulfamethoxazole-Tmp Susp 1 tab PO BID 09/18/16 09/18/16 Unknown History Tizanidine HCl [Zanaflex] 2 mg PO DAILY 09/18/16 09/18/16 09/17/16 History Topiramate [Topamax] 100 mg PO DAILY 09/18/16 09/18/16 Unknown History Active Meds: Active Medications Colchicine (Colcrys) 0.6 mg PO QDAY [facility] Doxepin HCl (Sinequan) 25 mg PO QHS [facility] Heparin Sodium (Porcine) (Heparin) 5,000 unit SUB-Q Q12HR [facility] Sodium Chloride (Nacl 0.9% 1000 Ml) 1,000 mls @ 75 mls/hr IV DIRECT [facility] Last Admin: 09/18/16 12:33 Dose: 75 mls/hr Insulin Detemir (Levemir) 20 units SUB-Q QHS [facility] Isosorbide Mononitrate (Imdur) 60 mg PO DAILY [facility] Levothyroxine Sodium (Synthroid) 150 mcg IV DAILY@0600 [facility] Methadone HCl (Dolophine) 10 mg PO TID [facility] Methylprednisolone Sodium Succinate (Solu-Medrol) 80 mg IV Q8H [facility] Last Admin: 09/18/16 12:17 Dose: Not Given Metoprolol Tartrate (Lopressor) 100 mg PO DAILY [facility] Pantoprazole Sodium (Protonix) 40 mg IV QDAY [facility] Topiramate (Topamax) 100 mg PO DAILY [facility] Physical Examination Vital signs: Vital Signs Pulse Resp 60 12 09/18/16 05:47 09/18/16 05:47 Results - Laboratory Findings CBC and BMP: 09/18/16 06:19 09/18/16 06:19 Abnormal lab findings: Abnormal Labs 09/18/16 09/18/16 09/18/16 10:53 13:33 14:15 Total Creatine Kinase 240 H TSH 79.250 H Urine Creatinine 95.0 H
[2016-09-18] MEDS: DOLOPHINE PO SCH ×2 (19:21→21:33)
--- NOTE | 2016-09-18 20:58 | Consultation ---
CONSULTING PHYSICIAN: Celena Gonzalez MD REASON FOR CONSULTATION: Altered mental status, myxedema. CHIEF COMPLAINT AND HISTORY OF PRESENT ILLNESS: The patient is a 51-year-old -[place] female with past medical history significant amongst other things for a diagnosis of hypothyroidism. She was reportedly found unresponsive, lying supine in her bedroom. Her son thought that he had hurt his mother. He called for help. Emergency medical services documented a [place] Coma Scale initially of 11. She was hypoglycemic. She received some D50 in the field. When she was first found she had a core temperature of 89 degrees Fahrenheit and the plan was at that time I received a call and ICU admission and was accepted for altered mental status. When I stopped by to see her; however, she is sitting up in bed, alert, oriented, asking me for some pain medication. She states she has chronic pain all over her body. She denied nausea, vomiting, chest pain, fever or chills. This really is as much of the history of presentation as I have. Now, with regards to her tobacco use/abuse history, she denied any tobacco use. PAST MEDICAL HISTORY: Diabetes, hypertension, hyperlipidemia, hypothyroidism, gout, chronic pain. She is obese. PAST SURGICAL HISTORY: She has had a cholecystectomy. She has had a hernia repair, umbilical hernia. She has had tonsillectomy and ankle surgery, left ankle, as well as tubal ligation. MEDICATIONS: Medications she was on at the time I stopped by to see her according to the medication administration record included the following, colchicine 0.6 mg p.o. daily, doxepin 25 mg p.o. at bedtime, heparin 5000 units subcutaneous q.12h, Levemir insulin 20 units subcutaneous at bedtime, Imdur 60 mg p.o. daily. Other medications include Levoxyl 150 mcg IV daily, methadone 10 mg p.o. t.i.d., Solu-Medrol 80 mg IV q.8h. Metoprolol 100 mg p.o. daily, Protonix 40 mg IV daily and Topamax 100 mg p.o. daily. She had some normal saline going at 75 mL an hour. ALLERGIES: TYLENOL, CODEINE, OXYCODONE, PENICILLINS. NATURE OF THESE ALLERGIES IS UNKNOWN. DIET: Obese lady, denies acute weight loss or gain in the preceding few weeks to months. FAMILY AND SOCIAL HISTORY: Lives in the community, lives with family. Denies alcohol, tobacco, or illicit drug use or abuse. REVIEW OF SYSTEMS: She was found obtunded. No new onset seizures. No new onset focal weakness. No gross hematochezia or melena. No gross hematuria or dysuria. No hematemesis, no hemoptysis. No palpitations. Complete review of systems obtained. Pertinent positives and/or negatives as in body of the history above, otherwise noncontributory. PHYSICAL EXAMINATION: VITAL SIGNS: At presentation, she was hypothermic, temperature 89 degrees Fahrenheit with a pulse of 60, respiratory rate of 12, blood pressure 178/103 and oxygen saturation 94%, inspired oxygen concentration was not recorded. Most recent temperature is 98.2 degrees Fahrenheit. HEAD, EYES, EARS, NOSE AND THROAT: Pupils are equal and round, 4 mm reactive to light. Extraocular muscle movements are intact. Grossly, no palpable lymph nodes in the supraclavicular or submandibular lymph node chains. LUNGS: Auscultation of both lung kumar is unremarkable. Lungs are clear bilaterally. HEART: Heart sounds 1 and 2 are heard, regular rate and rhythm at time of my evaluation. ABDOMEN: Soft. Bowel sounds are positive, nontender. EXTREMITIES: Without overt digital clubbing, cyanosis, or pedal edema. NEUROLOGIC: The exam was grossly nonfocal. LABORATORY DATA: From my review are as follows: White cell count 5000, hemoglobin 9.7, hematocrit 30.9 and platelets 285. Serum sodium 140, potassium 4.7, chloride 105, bicarbonate 20, BUN 34, creatinine 3.6 and glucose 114. Lactic acid level is 1.2. Liver function tests within normal limits. Ammonia level was up at 77. Albumin is low at 3.6. TSH elevated at 155.7. Urinalysis is negative for nitrites and leukocyte esterase and really a bland study. Urine test is negative. Urine drug screen is positive for methadone. Alcohol, Tylenol, aspirin levels within expected limits. Radiographic studies have been reviewed. I have also reviewed the radiologist's interpretation. CT of the head was done and it was read as no acute intracranial process, but rule out an acute microlacunar infarct in the right temporal insular according to the notes. C-spine CT scan was done, no acute fracture was seen. The CT of the abdomen and pelvis was done, no acute pathology was found. It reports a possible 9 x 6 mm nodule in the right lower lobe on the CT of the abdomen and pelvis. We will pull that open and review this. Chest x-ray was also done. The chest x-ray was reported as cardiomegaly and no other finding. ASSESSMENT AND PLAN: We have a 51-year-old middle-aged lady in with altered mental status. I do not want to blame this on myxedema. She should not have turned around this fast if it was all due to myxedema. I do note the elevated TSH. We will continue the replacement of thyroid hormone. I do feel that opiate use might also have contributed significantly to her status when she had been found. All she has done since being in the room is ask for more pain medications. Respiratory messer, she is doing well. We will give supplemental oxygen as needed to keep saturations greater than or equal to over 92-94%. Aspiration precautions will be maintained as necessary. Blood pressure control will be maintained p.r.n. as needed. We will continue replacement of the hormones. We will continue stress dose steroids. The lesion in the right lower lobe appears to be calcified. I am not so sure that a CT scan of the chest will be of much benefit down the line; however, we certainly do not want to rule out an occult lung nodule or some other process going on, so we will probably get a CT of the chest to rule out any acute pathology that is unexpected. She is appropriately on GI and DVT prophylaxis. Flu and pneumonia vaccination will be per protocol. Thank you very much for the consult, Dr. Gonzalez. I must say the patient is stable now and will be transferred to the telemetry floor, so she can still be monitored. JOB# [id number] WILBUR/CHARMAINE
[2016-09-18] MEDS: HEPARIN SUB-Q SCH (21:32)
[2016-09-18] MEDS: SINEquan PO SCH (21:33)
[2016-09-18] MEDS: LEVEMIR SUB-Q SCH (21:34)
[2016-09-18] MEDS ORDERED: LEVEMIR SUB-Q SCH (22:00)
[2016-09-19 05:40] LABS: Eosinophils % (Auto) 0.1 % (0.0-4.3)
[2016-09-19 05:50] LABS: Alanine Aminotransferase 25 units/L (7-56); Albumin 3.2 g/dL (3.9-5); Albumin/Globulin Ratio 0.7 %; Alkaline Phosphatase 75 units/L (35-129); Anion Gap 18 mmol/L; Bilirubin,Direct 0.4 mg/dL (0-0.2); Bilirubin,Indirect 0.9 mg/dL; Bilirubin,Total 1.3 mg/dL (0.1-1.2); Blood Urea Nitrogen 8 mg/dL (7-17); Calcium 8.8 mg/dL (8.4-10.2); Carbon Dioxide 24 mmol/L (22-30); Chloride 102.4 mmol/L (98-107); Glucose 177 mg/dL (65-100); Phosphorous 2.2 mg/dL (2.5-4.5); Potassium 3.9 mmol/L (3.6-5.0); Sodium 140 mmol/L (137-145); Total Protein 7.5 g/dL (6.3-8.2)
[2016-09-19] MEDS ORDERED: SYNTHROID IV SCH (06:00)
[2016-09-19] MEDS ORDERED: SYNTHROID PO SCH (06:00)
[2016-09-19 06:49] LABS: Hematocrit 36.4 % (30.3-42.9); Hemoglobin 12.5 gm/dl (10.1-14.3); Red Blood Count 5.07 M/mm3 (3.65-5.03); White Blood Count 15.7 K/mm3 (4.5-11.0)
[2016-09-19 06:50] LABS: Basophils % (Auto) 0.3 % (0.0-1.8); Mean Corpuscular HGB Conc 34 % (30-34); Mean Corpuscular Hemoglobin 27 pg (28-32); Mean Corpuscular Volume 83 fl (79-97); Platelet Count 179 K/mm3 (140-440); Red Cell Distribution Width 15.5 % (13.2-15.2)
--- NOTE | 2016-09-19 07:19 | Progress Note ---
Assessment and Plan Assessment and plan: --Severe hyperparathyroidism /Myxedema very high TSH, low T4, hypothermia, Hypoglycemia, altered level of consciousness Received IV Synthroid and IV steroids at the time of admission Discontinued improvement of TSH and symptoms taper steroid dose, change Synthroid to by mouth --Toxic metabolic encephalopathy Secondary to severe hypothyroidism, hypothermia Resolved patient alert awake oriented 3 --Hypothermia Due to severe hypothyroidism, improved, temperature subnormal range --Acute on Chronic renal failure stage IV Renal function significantly improved back to baseline Closely monitor renal function avoid nephrotoxic medications Nephrology evaluation and recommendations noted and appreciated --Hyperammonemia, unknown etiology Ammonia levels trended down to normal range --Type 2 diabetes mellitus moderate control Accu-Chek sliding scale coverage and ADA diet Adjust Lantus dose Check A1c --Chronic pain syndrome Pain medications, patient is on methadone will resume --Morbid obesity Counseling done patient strongly advised dietary modification and exercise as tolerated, weight reduction when medically stable Verbalized understanding --DVT prophylaxis Lovenox Closely monitor the patient and adjust the management as needed Critical care consult, case discussed with Dr. Suhail Reddy the Nephrology consult, case discussed with Dr. Jay Plan of care discussed with the patient and ER physician as well as the nurse Medical records reviewed Disposition; admitted to ICU for close observation Follow repeat labs Critical care time 50 minutes History Interval history: Patient seen and evaluated medical records reviewed Patient's symptoms significantly improved TSH levels improved, patient feels better Denies any chest pain shortness of breath Alert awake oriented 3 not in acute distress Hospitalist Physical - Constitutional Vitals: Temp Pulse Resp BP Pulse Ox 97.6 F 92 H 18 148/64 98 09/19/16 05:21 09/19/16 05:21 09/19/16 05:21 09/19/16 05:21 09/19/16 05:21 General appearance: Present: no acute distress, well-nourished, obese (morbidly obese) - EENT Eyes: Present: PERRL, EOM intact - Neck Neck: Present: supple, normal ROM - Respiratory Respiratory effort: normal Respiratory: bilateral: diminished, negative: rales, rhonchi, wheezing - Cardiovascular Rhythm: regular Heart Sounds: Present: S1 & S2 - Extremities Extremities: no ischemia, pulses intact, pulses symmetrical Peripheral Pulses: within normal limits - Abdominal General gastrointestinal: soft, non-tender, non-distended, normal bowel sounds - Integumentary Integumentary: Present: clear, warm - Psychiatric Psychiatric: appropriate mood/affect, cooperative - Neurologic Neurologic: CNII-XII intact, moves all extremities Results - Labs CBC & Chem 7: 09/19/16 04:54 09/19/16 04:54 Labs: Laboratory Last Values WBC 15.7 K/mm3 (4.5-11.0) H 09/19/16 04:54 RBC 5.07 M/mm3 (3.65-5.03) H 09/19/16 04:54 Hgb 12.5 gm/dl (10.1-14.3) 09/19/16 04:54 Hct 36.4 % (30.3-42.9) 09/19/16 04:54 MCV 83 fl (79-97) 09/19/16 04:54 MCH 27 pg (28-32) L 09/19/16 04:54 MCHC 34 % (30-34) 09/19/16 04:54 RDW 15.5 % (13.2-15.2) H 09/19/16 04:54 Plt Count 179 K/mm3 (140-440) 09/19/16 04:54 Lymph % (Auto) 8.1 % (13.4-35.0) L 09/19/16 04:54 [place] % (Auto) 8.4 % (0.0-7.3) H 09/19/16 04:54 Eos % (Auto) 0.1 % (0.0-4.3) 09/19/16 04:54 Baso % (Auto) 0.3 % (0.0-1.8) 09/19/16 04:54 Lymph # 1.3 K/mm3 (1.2-5.4) 09/19/16 04:54 [place] # 1.3 K/mm3 (0.0-0.8) H 09/19/16 04:54 Eos # 0.0 K/mm3 (0.0-0.4) 09/19/16 04:54 Baso # 0.0 K/mm3 (0.0-0.1) 09/19/16 04:54 Seg Neutrophils % 83.1 % (40.0-70.0) H 09/19/16 04:54 Seg Neutrophils # 13.1 K/mm3 (1.8-7.7) H 09/19/16 04:54 Sodium 140 mmol/L (137-145) 09/19/16 04:54 Potassium 3.9 mmol/L (3.6-5.0) 09/19/16 04:54 Chloride 102.4 mmol/L (98-107) 09/19/16 04:54 Carbon Dioxide 24 mmol/L (22-30) 09/19/16 04:54 Anion Gap 18 mmol/L 09/19/16 04:54 BUN 8 mg/dL (7-17) 09/19/16 04:54 Creatinine 1.0 mg/dL (0.7-1.2) D 09/19/16 04:54 Estimated GFR > 60 ml/min 09/19/16 04:54 BUN/Creatinine Ratio 8.00 % 09/19/16 04:54 Glucose 177 mg/dL (65-100) H 09/19/16 04:54 POC Glucose 301 (70-105) H 09/18/16 21:27 Lactic Acid 1.2 mmol/L (0.7-2.0) 09/18/16 07:33 Calcium 8.8 mg/dL (8.4-10.2) 09/19/16 04:54 Phosphorus 2.2 mg/dL (2.5-4.5) L 09/19/16 04:54 Magnesium 2.0 mg/dL (1.7-2.3) 09/19/16 04:54 Total Bilirubin 1.3 mg/dL (0.1-1.2) H 09/19/16 04:54 Direct Bilirubin 0.4 mg/dL (0-0.2) H 09/19/16 04:54 Indirect Bilirubin 0.9 mg/dL 09/19/16 04:54 AST 22 units/L (5-40) 09/19/16 04:54 ALT 25 units/L (7-56) 09/19/16 04:54 Alkaline Phosphatase 75 units/L (35-129) 09/19/16 04:54 Ammonia 14.0 umol/L (25-60) L 09/19/16 04:54 Total Creatine Kinase 240 units/L (30-135) H 09/18/16 10:53 CK-MB (CK-2) 3.8 ng/mL (0.0-4.0) 09/18/16 10:53 CK-MB (CK-2) Rel Index 1.5 (0-4) 09/18/16 10:53 Troponin T < 0.010 ng/mL (0.00-0.029) 09/18/16 10:53 Total Protein 7.5 g/dL (6.3-8.2) 09/19/16 04:54 Albumin 3.2 g/dL (3.9-5) L 09/19/16 04:54 Albumin/Globulin Ratio 0.7 % 09/19/16 04:54 TSH 1.650 mlU/mL (0.270-4.200) 09/19/16 04:54 Free T4 0.76 ng/dL (0.76-1.46) 09/18/16 13:33 PTH Intact 70.24 pg/mL (15-65) H 09/19/16 04:54 Urine Color Yellow (Yellow) 09/18/16 06:21 Urine Turbidity Clear (Clear) 09/18/16 06:21 Urine pH 5.0 (5.0-7.0) 09/18/16 06:21 Ur Specific [place] 1.012 (1.003-1.030) 09/18/16 06:21 Urine Protein >500 mg/dL (Negative) 09/18/16 06:21 Urine Glucose (UA) 50 mg/dL (Negative) 09/18/16 06:21 Urine Ketones Neg mg/dL (Negative) 09/18/16 06:21 Urine Blood Neg (Negative) 09/18/16 06:21 Urine Nitrite Neg (Negative) 09/18/16 06:21 Ur Reducing Substances Not Reportable 09/18/16 06:21 Urine Bilirubin Neg (Negative) 09/18/16 06:21 Urine Ictotest Not Reportable 09/18/16 06:21 Urine Urobilinogen < 2.0 mg/dL (<2.0) 09/18/16 06:21 Ur Leukocyte Esterase Neg (Negative) 09/18/16 06:21 Urine WBC (Auto) 3.0 /HPF (0.0-6.0) 09/18/16 06:21 Urine RBC (Auto) 3.0 /HPF (0.0-6.0) 09/18/16 06:21 U Epithel Cells (Auto) < 1.0 /HPF (0-13.0) 09/18/16 06:21 Amorphous Crystals 1+ 09/18/16 06:21 Urine Mucus Few /HPF 09/18/16 06:21 Urine Eosinophils None seen (None Seen) 09/18/16 14:15 Urine Creatinine 95.0 mg/dL (0.1-20.0) H 09/18/16 14:15 Protein/Creatinin Ratio 7.69 09/18/16 14:15 Urine Sodium 67 mEq/L 09/18/16 14:15 Urine Total Protein 731 mg/dL (5-11.8) H 09/18/16 14:15 Urine HCG, Qual Negative (Negative) 09/18/16 06:21 Salicylates < 0.3 mg/dL (2.8-20.0) L 09/18/16 06:19 Urine Opiates Screen Presumptive negative 09/18/16 06:21 Urine Methadone Screen Presumptive positive 09/18/16 06:21 Acetaminophen < 15.0 ug/mL (10.0-30.0) 09/18/16 06:19 Ur Barbiturates Screen Presumptive negative 09/18/16 06:21 Ur Phencyclidine Scrn Presumptive negative 09/18/16 06:21 Ur Amphetamines Screen Presumptive negative 09/18/16 06:21 U Benzodiazepines Scrn Presumptive negative 09/18/16 06:21 Urine Cocaine Screen Presumptive negative 09/18/16 06:21 U Marijuana (THC) Screen Presumptive negative 09/18/16 06:21 Drugs of Abuse Note Disclamer 09/18/16 06:21 Plasma/Serum Alcohol < 0.01 gm% (0-0.07) 09/18/16 06:19
--- NOTE | 2016-09-19 08:34 | Progress Note ---
Assessment and Plan - Patient Problems (1) Acute on chronic renal failure Current Visit: Yes Status: Acute Plan to address problem: Acute Kidney Injury superimposed in the setting of Hypothermia and volume depletion. Renal function has improved. (2) Proteinuria Current Visit: Yes Status: Chronic Plan to address problem: Secondary to Diabetic Nephropathy. Start on Losartan. (3) Hypothermia Current Visit: Yes Status: Acute Qualifiers: Encounter type: E Plan to address problem: Improved. (4) Encephalopathy Current Visit: Yes Status: Acute (5) DM type 2 (diabetes mellitus, type 2) Current Visit: Yes Status: Chronic Qualifiers: Diabetes mellitus complication status: D Diabetes mellitus complication detail: D Diabetic retinopathy severity: D Proliferative retinopathy type: P Diabetes mellitus macular edema: D Diabetes mellitus fci insulin use : D Laterality: L Chronic kidney disease stage: C (6) Chronic pain syndrome Current Visit: Yes Status: Chronic Subjective Date of service: 09/19/16 Interval history: Patient is doing better. Objective - Vital Signs Vital signs: Vital Signs - 12hr 09/18/16 09/19/16 09/19/16 21:00 00:35 05:21 Temperature 98.2 F 97.6 F Pulse Rate [ 89 92 H From Monitor] Respiratory 20 20 18 Rate Blood Pressure 164/99 148/64 [Left Arm] O2 Sat by Pulse 94 98 Oximetry 09/19/16 08:00 Temperature 97.5 F L Pulse Rate [ 89 From Monitor] Respiratory 20 Rate Blood Pressure 164/98 [Left Arm] O2 Sat by Pulse 96 Oximetry - General Appearance General appearance: well-developed, well-nourished, appears stated age, obese, other (no distress) EENT: ATNC, PERRL, mucous membranes moist, hearing intact, vision intact Neck: supple Respiratory: Present: Clear to Ascultation Cardiology: regular, S1S2, no murmurs Gastrointestinal: normoactive bowel sounds, no tenderness, no distended Integumentary: no rash Neurologic: no focal deficit, no asterixis, alert and oriented x3, CN 3-12 intact Musculoskeletal: other (no edema) Psychiatric: mood/affect appropriate, cooperative - Lab 09/19/16 04:54 09/19/16 04:54 Most recent lab results Calcium 8.8 mg/dL (8.4-10.2) 09/19/16 04:54 Phosphorus 2.2 mg/dL (2.5-4.5) L 09/19/16 04:54 Magnesium 2.0 mg/dL (1.7-2.3) 09/19/16 04:54 Urine Creatinine 95.0 mg/dL (0.1-20.0) H 09/18/16 14:15 Urine Sodium 67 mEq/L 09/18/16 14:15 Urine Total Protein 731 mg/dL (5-11.8) H 09/18/16 14:15
--- NOTE | 2016-09-19 08:47 | Progress Note ---
Hospitalist Physical - Constitutional Vitals: Temp Pulse Resp BP Pulse Ox 97.5 F L 89 20 164/98 96 09/19/16 08:00 09/19/16 08:00 09/19/16 08:00 09/19/16 08:00 09/19/16 08:00 General appearance: Present: mild distress, well-nourished, obese (morbidly obese) Results - Labs CBC & Chem 7: 09/19/16 04:54 09/19/16 04:54 Labs: Laboratory Last Values WBC 15.7 K/mm3 (4.5-11.0) H 09/19/16 04:54 RBC 5.07 M/mm3 (3.65-5.03) H 09/19/16 04:54 Hgb 12.5 gm/dl (10.1-14.3) 09/19/16 04:54 Hct 36.4 % (30.3-42.9) 09/19/16 04:54 MCV 83 fl (79-97) 09/19/16 04:54 MCH 27 pg (28-32) L 09/19/16 04:54 MCHC 34 % (30-34) 09/19/16 04:54 RDW 15.5 % (13.2-15.2) H 09/19/16 04:54 Plt Count 179 K/mm3 (140-440) 09/19/16 04:54 Lymph % (Auto) 8.1 % (13.4-35.0) L 09/19/16 04:54 [place] % (Auto) 8.4 % (0.0-7.3) H 09/19/16 04:54 Eos % (Auto) 0.1 % (0.0-4.3) 09/19/16 04:54 Baso % (Auto) 0.3 % (0.0-1.8) 09/19/16 04:54 Lymph # 1.3 K/mm3 (1.2-5.4) 09/19/16 04:54 [place] # 1.3 K/mm3 (0.0-0.8) H 09/19/16 04:54 Eos # 0.0 K/mm3 (0.0-0.4) 09/19/16 04:54 Baso # 0.0 K/mm3 (0.0-0.1) 09/19/16 04:54 Seg Neutrophils % 83.1 % (40.0-70.0) H 09/19/16 04:54 Seg Neutrophils # 13.1 K/mm3 (1.8-7.7) H 09/19/16 04:54 Sodium 140 mmol/L (137-145) 09/19/16 04:54 Potassium 3.9 mmol/L (3.6-5.0) 09/19/16 04:54 Chloride 102.4 mmol/L (98-107) 09/19/16 04:54 Carbon Dioxide 24 mmol/L (22-30) 09/19/16 04:54 Anion Gap 18 mmol/L 09/19/16 04:54 BUN 8 mg/dL (7-17) 09/19/16 04:54 Creatinine 1.0 mg/dL (0.7-1.2) D 09/19/16 04:54 Estimated GFR > 60 ml/min 09/19/16 04:54 BUN/Creatinine Ratio 8.00 % 09/19/16 04:54 Glucose 177 mg/dL (65-100) H 09/19/16 04:54 POC Glucose 301 (70-105) H 09/18/16 21:27 Lactic Acid 1.2 mmol/L (0.7-2.0) 09/18/16 07:33 Calcium 8.8 mg/dL (8.4-10.2) 09/19/16 04:54 Phosphorus 2.2 mg/dL (2.5-4.5) L 09/19/16 04:54 Magnesium 2.0 mg/dL (1.7-2.3) 09/19/16 04:54 Total Bilirubin 1.3 mg/dL (0.1-1.2) H 09/19/16 04:54 Direct Bilirubin 0.4 mg/dL (0-0.2) H 09/19/16 04:54 Indirect Bilirubin 0.9 mg/dL 09/19/16 04:54 AST 22 units/L (5-40) 09/19/16 04:54 ALT 25 units/L (7-56) 09/19/16 04:54 Alkaline Phosphatase 75 units/L (35-129) 09/19/16 04:54 Ammonia 14.0 umol/L (25-60) L 09/19/16 04:54 Total Creatine Kinase 240 units/L (30-135) H 09/18/16 10:53 CK-MB (CK-2) 3.8 ng/mL (0.0-4.0) 09/18/16 10:53 CK-MB (CK-2) Rel Index 1.5 (0-4) 09/18/16 10:53 Troponin T < 0.010 ng/mL (0.00-0.029) 09/18/16 10:53 Total Protein 7.5 g/dL (6.3-8.2) 09/19/16 04:54 Albumin 3.2 g/dL (3.9-5) L 09/19/16 04:54 Albumin/Globulin Ratio 0.7 % 09/19/16 04:54 TSH 1.650 mlU/mL (0.270-4.200) 09/19/16 04:54 Free T4 0.76 ng/dL (0.76-1.46) 09/18/16 13:33 PTH Intact 70.24 pg/mL (15-65) H 09/19/16 04:54 Urine Color Yellow (Yellow) 09/18/16 06:21 Urine Turbidity Clear (Clear) 09/18/16 06:21 Urine pH 5.0 (5.0-7.0) 09/18/16 06:21 Ur Specific [place] 1.012 (1.003-1.030) 09/18/16 06:21 Urine Protein >500 mg/dL (Negative) 09/18/16 06:21 Urine Glucose (UA) 50 mg/dL (Negative) 09/18/16 06:21 Urine Ketones Neg mg/dL (Negative) 09/18/16 06:21 Urine Blood Neg (Negative) 09/18/16 06:21 Urine Nitrite Neg (Negative) 09/18/16 06:21 Ur Reducing Substances Not Reportable 09/18/16 06:21 Urine Bilirubin Neg (Negative) 09/18/16 06:21 Urine Ictotest Not Reportable 09/18/16 06:21 Urine Urobilinogen < 2.0 mg/dL (<2.0) 09/18/16 06:21 Ur Leukocyte Esterase Neg (Negative) 09/18/16 06:21 Urine WBC (Auto) 3.0 /HPF (0.0-6.0) 09/18/16 06:21 Urine RBC (Auto) 3.0 /HPF (0.0-6.0) 09/18/16 06:21 U Epithel Cells (Auto) < 1.0 /HPF (0-13.0) 09/18/16 06:21 Amorphous Crystals 1+ 09/18/16 06:21 Urine Mucus Few /HPF 09/18/16 06:21 Urine Eosinophils None seen (None Seen) 09/18/16 14:15 Urine Creatinine 95.0 mg/dL (0.1-20.0) H 09/18/16 14:15 Protein/Creatinin Ratio 7.69 09/18/16 14:15 Urine Sodium 67 mEq/L 09/18/16 14:15 Urine Total Protein 731 mg/dL (5-11.8) H 09/18/16 14:15 Urine HCG, Qual Negative (Negative) 09/18/16 06:21 Salicylates < 0.3 mg/dL (2.8-20.0) L 09/18/16 06:19 Urine Opiates Screen Presumptive negative 09/18/16 06:21 Urine Methadone Screen Presumptive positive 09/18/16 06:21 Acetaminophen < 15.0 ug/mL (10.0-30.0) 09/18/16 06:19 Ur Barbiturates Screen Presumptive negative 09/18/16 06:21 Ur Phencyclidine Scrn Presumptive negative 09/18/16 06:21 Ur Amphetamines Screen Presumptive negative 09/18/16 06:21 U Benzodiazepines Scrn Presumptive negative 09/18/16 06:21 Urine Cocaine Screen Presumptive negative 09/18/16 06:21 U Marijuana (THC) Screen Presumptive negative 09/18/16 06:21 Drugs of Abuse Note Disclamer 09/18/16 06:21 Plasma/Serum Alcohol < 0.01 gm% (0-0.07) 09/18/16 06:19
[2016-09-19] MEDS: DOLOPHINE PO SCH ×3 (09:17→20:56)
[2016-09-19] MEDS: COLCRYS PO SCH (09:18)
[2016-09-19] MEDS: LOPRESSOR PO SCH (09:19)
[2016-09-19] MEDS: IMDUR PO SCH (09:20)
[2016-09-19] MEDS: PROTONIX IV SCH (09:21)
[2016-09-19] MEDS: PHOS-NAK PO SCH ×2 (09:21→22:57)
[2016-09-19] MEDS: HEPARIN SUB-Q SCH ×2 (09:23→22:58)
[2016-09-19] MEDS: TOPAMAX PO SCH (09:38)
[2016-09-19] MEDS ORDERED: COLCHICINE 0.6 MG PO SCH (10:00)
[2016-09-19] MEDS ORDERED: COZAAR PO SCH (10:00)
[2016-09-19] MEDS ORDERED: ZOFRAN IM ONE (13:15)
[2016-09-19] MEDS ORDERED: ZOFRAN IV ONE (14:00)
[2016-09-19] MEDS: NOVOLOG SUB-Q SCH ×3 (14:23→23:34)
--- NOTE | 2016-09-19 15:27 | Progress Note ---
Subjective Date of service: 09/19/16 Principal diagnosis: Altered Mental Status Interval history: Seen and examined at bedside; 24 hour events reviewed; nursing and respiratory care staff consulted; no adverse overnight events reported to me; Objective Vital Signs - 12hr 09/19/16 09/19/16 09/19/16 05:21 08:00 09:19 Temperature 97.6 F 97.5 F L Pulse Rate 92 H Pulse Rate [ 92 H 89 From Monitor] Respiratory 18 20 Rate Blood Pressure 148/64 Blood Pressure 148/64 164/98 [Left Arm] O2 Sat by Pulse 98 96 Oximetry 09/19/16 09/19/16 09:20 11:00 Temperature 98.4 F Pulse Rate 92 H Pulse Rate [ 80 From Monitor] Respiratory 20 Rate Blood Pressure 148/64 Blood Pressure 140/102 [Left Arm] O2 Sat by Pulse 96 Oximetry CBC and BMP: 09/19/16 04:54 09/19/16 04:54 Abnormal lab findings: Abnormal Labs 09/18/16 09/18/16 09/18/16 10:53 12:07 13:33 WBC RBC MCH RDW Lymph % (Auto) [place] % (Auto) [place] # Seg Neutrophils % Seg Neutrophils # Glucose POC Glucose 294 H Phosphorus Total Bilirubin Direct Bilirubin Ammonia Total Creatine Kinase 240 H Albumin TSH 79.250 H PTH Intact Urine Creatinine Urine Total Protein 09/18/16 09/18/16 09/19/16 14:15 21:27 04:54 WBC 15.7 H RBC 5.07 H MCH 27 L RDW 15.5 H Lymph % (Auto) 8.1 L [place] % (Auto) 8.4 H [place] # 1.3 H Seg Neutrophils % 83.1 H Seg Neutrophils # 13.1 H Glucose POC Glucose 301 H Phosphorus Total Bilirubin Direct Bilirubin Ammonia Total Creatine Kinase Albumin TSH PTH Intact Urine Creatinine 95.0 H Urine Total Protein 731 H 09/19/16 09/19/16 09/19/16 04:54 04:54 04:54 WBC RBC MCH RDW Lymph % (Auto) [place] % (Auto) [place] # Seg Neutrophils % Seg Neutrophils # Glucose 177 H POC Glucose Phosphorus 2.2 L Total Bilirubin 1.3 H Direct Bilirubin 0.4 H Ammonia 14.0 L Total Creatine Kinase Albumin 3.2 L TSH PTH Intact 70.24 H Urine Creatinine Urine Total Protein 09/19/16 08:11 WBC RBC MCH RDW Lymph % (Auto) [place] % (Auto) [place] # Seg Neutrophils % Seg Neutrophils # Glucose POC Glucose 495 H Phosphorus Total Bilirubin Direct Bilirubin Ammonia Total Creatine Kinase Albumin TSH PTH Intact Urine Creatinine Urine Total Protein
[2016-09-19] MEDS: MORPHINE IV PRN (17:11)
[2016-09-19] MEDS: SINEquan PO SCH (22:56)
[2016-09-19] MEDS: LEVEMIR SUB-Q SCH (23:34)
[2016-09-20] MEDS ORDERED: SYNTHROID PO SCH ×2 (06:00→08:40)
[2016-09-20 07:03] LABS: BUN/Creatinine Ratio 12.12; Calcium 8.8 mg/dL (8.4-10.2); Chloride 101.8 mmol/L (98-107); Phosphorous 4.3 mg/dL (2.5-4.5)
[2016-09-20 07:07] LABS: Potassium 6.2 mmol/L (3.6-5.0)
[2016-09-20] MEDS ORDERED: CALCIUM CHLORIDE 1,000 MG in NACL 0.9% 100 ML IV ONE (08:30)
--- NOTE | 2016-09-20 08:54 | Progress Note ---
Assessment and Plan - Patient Problems (1) Acute on chronic renal failure Current Visit: Yes Status: Acute Plan to address problem: Acute Kidney Injury superimposed in the setting of Hypothermia and volume depletion. Creatinine is 3.3 today from 1 yesterday, was 3.6 on admission. Doubt the yesterday results are real. Suspect lab error. Stop Losartan for now. (2) Hyperkalemia Current Visit: Yes Status: Acute Plan to address problem: Kayexalate, Insulin-Dextrose ordered. Monitor potassium levels. (3) Proteinuria Current Visit: Yes Status: Chronic Plan to address problem: Secondary to Diabetic Nephropathy. (4) Hypothermia Current Visit: Yes Status: Acute Qualifiers: Encounter type: E Plan to address problem: Improved. (5) Encephalopathy Current Visit: Yes Status: Acute (6) DM type 2 (diabetes mellitus, type 2) Current Visit: Yes Status: Chronic Qualifiers: Diabetes mellitus complication status: D Diabetes mellitus complication detail: D Diabetic retinopathy severity: D Proliferative retinopathy type: P Diabetes mellitus macular edema: D Diabetes mellitus retirement insulin use : D Laterality: L Chronic kidney disease stage: C (7) Chronic pain syndrome Current Visit: Yes Status: Chronic Subjective Date of service: 09/20/16 Principal diagnosis: Altered Mental Status Interval history: Patient is doing better. Objective - Vital Signs Vital signs: Vital Signs - 12hr 09/19/16 09/20/16 09/20/16 22:00 00:00 04:00 Temperature 98.4 F 98.4 F Pulse Rate 80 Pulse Rate [ 78 78 From Monitor] Respiratory 20 20 Rate Blood Pressure 167/112 165/108 [Left Arm] O2 Sat by Pulse 90 95 Oximetry - General Appearance General appearance: well-developed, well-nourished, appears stated age, obese, other (no distress) EENT: ATNC, PERRL, mucous membranes moist, hearing intact, vision intact Neck: supple Respiratory: Present: Clear to Ascultation Cardiology: regular, S1S2, no murmurs Gastrointestinal: normoactive bowel sounds, no tenderness, no distended Integumentary: no rash, warm and dry Neurologic: no focal deficit, no asterixis, alert and oriented x3, CN 3-12 intact Musculoskeletal: other (trace pedal edema noted) Psychiatric: mood/affect appropriate, cooperative - Lab 09/19/16 04:54 09/20/16 06:15 Most recent lab results Calcium 8.8 mg/dL (8.4-10.2) 09/20/16 06:15 Phosphorus 4.3 mg/dL (2.5-4.5) D 09/20/16 06:15 Magnesium 2.0 mg/dL (1.7-2.3) 09/19/16 04:54 Urine Creatinine 95.0 mg/dL (0.1-20.0) H 09/18/16 14:15 Urine Sodium 67 mEq/L 09/18/16 14:15 Urine Total Protein 731 mg/dL (5-11.8) H 09/18/16 14:15
--- NOTE | 2016-09-20 08:59 | Admit Criteria Form ---
Admission Criteria Documentation: INTENSIVE CARE UNIT ADMISSION Intensive Care Admission Guidelines ( Place 'X' for any and all applicable criteria): Admission to ICU may be indicated when need is demonstrated by ANY ONE of the following (1)(2)(3)(4)(5)(6)(7)(8)(9) : [ ]I. Vital sign abnormalities, including ANY ONE of the following: [ ]a) Systolic arterial pressure less than 90 mm Hg, or 20 mm Hg below the patient's usual pressure [ ]b) Diastolic arterial pressure greater than 120 mm Hg [ ]c) Mean arterial pressure less than 70 mm Hg [A] [ ]d) Pulse less than 40 or greater than 140 beats per minute (in adult) [ ]e) Respiratory rate greater than 35 or less than 8 breaths per minute [ ]II. Laboratory findings (new), including ANY ONE of the following (10): [ ]a) Saturation of arterial oxygen less than 88% or partial pressure of oxygen less than 60 mm Hg (8.0 kPa) despite oxygen supplementation [ ]b) Rising partial pressure of carbon dioxide with respiratory acidosis [ ]c) pH less than 7.2 or greater than 7.65 [ ]d) Serum glucose greater than 800 mg/dL (44.4 mmol/L) [ ]e) Serum sodium less than 110 mEq/L (mmol/L) or greater than 160 mEq/L (mmol/L) [ ]f) Serum potassium less than 2 mEq/L (mmol/L) or greater than 7 mEq /L (mmol/L) [ ]g) Serum calcium greater than 15 mg/dL (3.75 mmol/L) [ ]h) Serum phosphorus less than 1 mg/dL (0.32 mmol/L) [ ]i) Toxic drug level or poisoning causing or likely to cause neurologic or Hemodynamic instability [ ]j) Less severe laboratory abnormalities contributing to ANY ONE of the following: [ ]i) Seizure [ ]ii) Altered mental status [ ]iii) Muscle weakness [ ]iv) Arrhythmias [ ]v) Hemodynamic instability [ ]vi) Other significant clinical manifestations [ ]III. Electrocardiogram (or cardiac monitoring) findings, including ANY ONE of the following: [ ]a) Inherently unstable or life-threatening arrhythmia (eg, sustained ventricular tachycardia, ventricular fibrillation, asystole) [ ]b) Arrhythmia causing severe hypotension (eg, bradycardia, tachycardia) [ ]c) Complete heart block causing severe hypotension [ ]d) Other findings indicative of a need for intensive care (eg , CT) [ ]IV.Physical findings, including ANY ONE of the following: [ ]a) Threatened airway [ ]b) Sudden altered mental status [ ]c) Repeated or prolonged seizures [ ]d) Coma [ ]e) New-onset anuria (urine output <0.1 mL/kg/hr over 4 h) [ ]f) Cyanosis (new) [ ]g) Cardiac tamponade [ ]h) Status post respiratory or cardiac arrest [ ]i) Severe friend (eg, partial thickness friend over more than 10% of body surface, third-degree friend) [ ]j) Findings consistent with abdominal emergency (eg, peritoneal signs) [ ]V.Imaging findings, such as dissecting aneurysm or ruptured viscus [ ].Specific intervention or monitoring needed, as indicated by ANY ONE of the following: [ ]a) New need for assisted ventilation, invasive or noninvasive(11) [ ]b) New need for intubation (eg, to protect airway) [ ]c) New tracheostomy (less than 48 hours old) [ ]d) Hourly vital signs or neurologic checks [ ]e) Pulmonary artery line monitoring needed [ ]f) Continuous arterial line monitoring needed [ ]g) Continuous IV vasoactive drugs [ ]h) Continuous IV antiarrhythmics [ ]i) Large volume IV fluid resuscitation (eg, greater than 6 L per day ) [ ]j) Large or rapid transfusion needs (eg, more than 6 units within 24 hours) [ ]k) High-risk IV treatment, such as bolus IV medicatns or mannitol infusion [ ]l) Acute cardiac pacing [ ]m) Intra-aortic balloon pump [ ]n) Ventricular assist device [ ]o) Cardioversion [ ]p) Pericardiocentesis [ ]q) Hemodialysis in unstable patient [ ]r) Continuous renal replacement therapy (eg, continuous veno-venous hemofiltration) [ ]s) Peritoneal dialysis initiation [ ]t) Emergency bronchoscopic therapy (eg, for hemoptysis) [ ]u) Emergency endoscopic therapy for bleeding [ ]v) Balloon tamponade for variceal bleeding [ ]w) Intracranial pressure monitoring or tissue oxygen monitoring [ ]x) Ventriculostomy monitoring [ ]y) Treatment of ongoing seizures [ ]z) Induced hypothermia or coma [ ]aa) Ongoing frequent testing and treatment for acute conditions, including ANY ONE of the following: [ ]i) Correction of severe metabolic acidosis/ alkalosis [ ]ii). Severe fluid overload [ ]iii) Cerebral edema [ ]iv) Monitoring or suctioning for respiratory insufficiency or acidosis [ ]v) Monitoring for active bleeding [ ]bb) Rapid desensitization for high-risk hypersensitivity reaction to required medication (eg, penicillin)(12) [ ]cc) Other need for treatment or monitoring not available outside the ICU [ ]VII.Cardiology diagnoses or procedures, including ANY ONE of the following (13)(14)(15)(16)(17): [ ]a) Chest pain with ANY ONE of the following: [ ]i) Hemodynamic instability [ ]ii) Suspicion of diagnoses needing ICU care (eg, aortic dissection) [ ]iii) New unstable or symptomatic arrhythmia or ECG finding (eg, ventricular tachycardia, ventricular fibrillation, advanced heart block) [ ]iv) Syncope or near-syncope [ ]v) SBP less than 100 mm Hg [ ]vi) Pulmonary edema thought to be due to ischemia [ ]vii) New or worsening mitral regurgitation murmur, S3 , or rales [ ]b) Acute CT with complications as indicated by ANY ONE of the following: [ ]i) Persistent chest pain [ ]ii) Hemodynamic instability [ ]iii) New unstable or symptomatic arrhythmia or ECG finding (eg, ventricular tachycardia, ventricular fibrillation, advanced heart block) [ ]iv) Syncope or near-syncope [ ]v) Pulmonary edema thought to be due to ischemia [ ]vi) New or worsening mitral regurgitation murmur, S3 , or rales [ ]vii) New-onset bundle branch block [ ]viii) Hemorrhagic complication (eg, intracranial or access site bleed following thrombolysis) [ ]c) Cardiac arrhythmia or conduction defect with Hemodynamic instability [ ]d) Complication of cardiac ablation, including ANY ONE of the following(18): [ ]i) Pericardial tamponade [ ]ii) Hemodynamic instability [ ]iii) Thromboembolic stroke [ ]iv) Aortic valve injury [ ]v) Vascular injuries [ ]vi) Esophageal perforation [ ]vii) Severe arrhythmia [ ]viii) Air embolism [ ]ix) Other severe complication [ ]e) Cardiogenic shock [ ]f) Hypertensive emergency, with need for ANY ONE of the following(19): [ ]i) IV antihypertensive therapy [ ]ii) Invasive hemodynamic monitoring (eg, arterial line) [ ]g) Pericardial tamponade [ ]h) Severe heart failure, with ANY ONE of the following(15): [ ]i) Respiratory failure [ ]ii) Cardiogenic shock [ ]iii) Severe arrhythmias [ ]iv) Evidence of cardiac ischemia [ ]i Myocarditis, with ANY ONE of the following [ ]i) Hemodynamic instability [ ]ii) Respiratory failure [ ]iii) Severe arrhythmias [ ]iv) Need for cardiac assist device (eg, left ventricular assist device or extracorporeal membrane oxygenator) [ ]j) Status post cardiac arrest(20) [ ]VIII. Cardiovascular Surgery diagnoses or procedures, including ANY ONE of the following.(21)(22): [ ]a) Acute aortic dissection [ ]b) Aortic surgery for ANY ONE of the following: [ ]i) Thoracic aneurysm [ ]ii) Abdominal aneurysm with ANY ONE of the following(23): [ ]1) Emergency repair [ ]2) Severe cardiopulmonary disease [ ]3) Dialysis-dependent renal failure [ ]4) Need for IV blood pressure control [ ]5) Need for ongoing ventilatory support [ ]6) Perioperative complications, including ANY ONE of the following: [ ]A. Sustained Hemodynamic instability [ ]B. Cardiac ischemia or arrhythmia [ ]C. Hypothermia (less than 35 degrees C (95 degrees F)) [ ]D. Blood transfusion greater than 3 L [ ]iii) Aortic coarctation operative excision or repair [ ]iv) Aortofemoral or aortoiliac bypass with ANY ONE of the following: [ ]1) Continued intubation [ ]2) Hemodynamic instability [ ]3) Need for IV blood pressure control [ ]4) Severe cardiopulmonary disease [ ]c) Cardiac surgery [ ]d) Carotid endarterectomy or stent placement with ANY ONE of the following: [ ]i) Blood pressure <100/60 mm Hg or >160/90 mm Hg despite 4 h of postanesthetic management [ ]ii) New or progressive neurologic defect [ ]iii) Chest pain [ ]iv) Continued intubation [ ]v) Heart failure [ ]vi) Airway compromise by hematoma or vocal cord paralysis [ ]vi) Need for IV blood pressure control [ ]e) Heart transplant [ ]f) Infrainguinal peripheral vascular surgery with ANY ONE of the following: [ ]i) Hemodynamic instability [ ]ii) Acute complications such as persistent chest pain or respiratory distress [ ]iii) Requirement for IV antiarrhythmic or vasoactive agent [ ]iv) Requirement for pulmonary artery catheter [ ]v) Severe hypertension despite 6 hours of recovery room management [ ]g) Complications of any surgery requiring ICU intervention as indicated by ANY ONE of the following(24): [ ]i) Hemodynamic instability [ ]ii) Myocardial infarction with complications (eg, severe arrhythmia, hypotension) [ ]iii) Excessive bleeding or severe coagulopathy [ ]iv) Respiratory failure [ ]v) Renal failure [ ]vi) Airway instability or obstruction [ ]vii) Neurologic deterioration [ ]viii) Infection with likelihood of sepsis syndrome or significant fluid shifts [ ]IX.Endocrinology diagnoses or procedures, including ANY ONE of the following(25)(26): [ ]a) Adrenal crisis with Hemodynamic instability(27) [ ]b) Pheochromocytoma with ANY ONE of the following(28): [ ]i) Hypertensive crisis [ ]ii) Postoperative Hemodynamic instability [ ]iii) Need for IV vasoactive therapy [ ]iv) Need for invasive arterial or central venous pressure monitoring [ ]v) Organ ischemia [ ]c) Diabetic hyperosmolar state with obtundation or coma [ ]d) Diabetic ketoacidosis with ANY ONE of the following: [ ]i) Serum pH less than 7.10 or bicarbonate level less than 10 mEq/L (mmol/L) [ ]ii) Rapidly changing electrolytes [ ]iii) Hypotension [ ]iv) Requirement for large-volume fluid resuscitation [ ]v) Respiratory insufficiency [ ]vi) Life-threatening cardiac dysrhythmias [ ]vii) Obtundation [ ]viii) Severe precipitating condition such as sepsis, stroke, or acute CT [ ]e) Severe hypoglycemia requiring continuous glucose infusion with frequent adjustment or glucagon infusion [ ]f) Hyperthyroidism associated with thyroid storm (also known as thyrotoxic crisis)(29) [X]g) Myxedema with life-threatening neurologic, cardiovascular, electrolyte, or renal dysfunction(29) [ ]h) Diabetes insipidus that cannot be controlled with routine medication (30) [ ]X. Gastroenterology diagnoses or procedures, including ANY ONE of the following: [ ]a) Esophageal perforation(31) [ ]b) Severe caustic esophageal injury(31) [ ]c) Liver disease complications with ANY ONE of the following(32): [ ]i) Severe hepatic encephalopathy (eg, stage 3 (somnolent) or higher) [ ]ii) Type 1 hepatorenal syndrome [ ]iii) Other cirrhosis-associated causes of acute renal failure ( eg, severe hypovolemia, acute tubular necrosis, abdominal compartment syndrome) [ ]iv) Hemodynamic instability [ ]v) Respiratory insufficiency due to severe ascites [ ]vi) Sepsis due to spontaneous bacterial peritonitis [ ]d) Fulminant hepatic failure when aggressive intervention or transplant is anticipated (32) [ ]e) Gastrointestinal hemorrhage (upper or lower) with ANY ONE of the following(33)(34): [ ]i) Active ongoing bleeding [ ]ii) Transfusion requirement greater than 2 units of packed red cells [ ]iii) Bleeding ulcer or nonbleeding visible vessel seen on endoscopy [ ]iv) Bleeding ulcer, visible blood vessel, bleeding (or recently bleeding) esophageal varices seen on endoscopy [ ]v) Hypotension [ ]vi) Syncope [ ]vii) Coagulopathy [ ]viii) Hepatic cirrhosis [ ]ix) Abnormal mental status [ ]x) Unstable comorbid condition or end organ dysfunction [ ]xi) Ischemia due to poor perfusion [ ]xii) Need for hemodynamic monitoring (eg, for patients with heart failure or valvular disease) [ ]f) Severe pancreatitis indicated by ANY ONE of the following (35)(36): [ ]i) Requirement for aggressive fluid resuscitation [ ]ii) Life-threatening electrolyte abnormality [ ]iii) SBP less than 90 mm Hg [ ]iv) Persistent tachycardia greater than 120 beats per minute [ ]v) Patients at high risk of rapid deterioration, including ANY ONE of the following: [ ]1) Calculated [place] II score greater than 8 [ ]2) Age older than 55 years [ ]3) BMI greater than 30 [ ]4) Greater than 30% pancreatic necrosis on CT scan [ ]5) Admission hematocrit greater than 47% (0.47) [ ]vi) Organ failure as indicated by ANY ONE of the following: [ ]1) Serum creatinine greater than 1.9 mg/dL (168 micromoles/L) [ ]2) Requirement for mechanical ventilation [ ]3) Urine output less than 50 mL/hour [ ]4) Arterial partial pressure of oxygen less than 60 mm Hg (8.0 kPa) despite supplemental oxygen [ ]5) PiO2/FiO2 ratio less than 300 [ ]vii) Expanding pseudocyst [ ]viii) Infected pancreas [ ]ix) Pleural effusion [ ]x) Encephalopathy [ ]xi) Severe comorbidities [ ]XI. General Surgery diagnoses or procedures, including ANY ONE of the following (9)(24)(37): [ ]a) Acute abdominal catastrophe (eg, ischemic bowel, perforated viscus, abdominal compartment syndrome) [ ]b) Complications of any surgery requiring ICU intervention as indicated by ANY ONE of the following: [ ]i) Hemodynamic instability [ ]ii) CT with complications (eg, severe arrhythmia, hypotension) [ ]iii) Excessive bleeding or severe coagulopathy [ ]iv) Respiratory failure [ ]v) Renal failure [ ]vi) Airway instability or obstruction [ ]vii) Neurologic deterioration [ ]viii) Infection with likelihood of sepsis syndrome or significant fluid shifts [ ]c) Multiple trauma with complicating features as indicated by ANY ONE of the following(38): [ ]i) Impending acute respiratory failure due to lung contusion, unstable chest wall, aspiration, or hemorrhage [ ]ii) Facial or neck injury threatening airway patency [ ]iii) Cardiac contusion [ ]iv) Pericardial effusion [ ]v) Bronchial tear [ ]vi) Hemodynamic instability [ ]vii) Rhabdomyolisis requiring large volume IV fluid resuscitation [ ]viii)Other significant complicating feature [ ]d) Organ transplant(39)(40) [ ]e) Esophagectomy(31) [ ]f) Whipple procedure [ ]g) Preoperative or postoperative patients requiring ICU intervention, such as hemodynamic optimization, pulmonary artery monitoring, mechanical ventilation, or extensive nursing care [ ]h) Obesity surgery patients with ANY ONE of the following(41): [ ]i) ICU management needs for comorbid conditions, such as sleep apnea or airway management needs [ ]ii) Failed postoperative extubation [ ]iii) Intraoperative complications [ ]XII. Nephrology diagnoses or procedures, including acute, or acute on chronic renal insufficiency with ANY ONE of the following(44)(45): [ ]a) Life-threatening electrolyte or acid-base disorder [ ]b) Acute pulmonary edema [ ]c) Hypotension or significant volume depletion [ ]d) Hypertensive emergency [ ]e) Underlying critical illness contributing to renal failure (eg, septic shock, hepatorenal syndrome) [ ]f) Need for continuous renal replacement therapy [ ]XIII. Neurology diagnoses or procedures, including ANY ONE of the following (46)(47) [B] : [ ]a) Intracranial hypertension requiring ANY ONE of the following(49 ): [ ]i) Induced barbiturate coma [ ]ii) Pharmacologic paralysis or deep sedation and mechanical ventilation [ ]iii) Intracranial pressure or cerebral perfusion pressure monitoring [ ]iv) IV mannitol or hypertonic saline [ ]v) Frequent serum osmolality measurements [ ]b) Seizures with ANY ONE of the following(50): [ ]i) Status epilepticus [ ]ii) Airway compromise requiring or likely to require mechanical ventilation [ ]iii) Severe electrolyte abnormalities causing seizures [ ]c) Progressive acute neurologic dysfunction requiring or likely to require ANY ONE of the following: [ ]i) Mechanical ventilation [ ]ii) Intracranial pressure or cerebral perfusion pressure monitoring [ ]d) Meningitis with obtundation or respiratory insufficiency [C])(51 ) [ ]e) Stroke with ANY ONE of the following(52)(53): [ ]i) Need for observation after thrombolysis [ ]ii) Altered mental status [ ]iii) Need for mechanical ventilation [ ]iv) Elevated intracranial pressure [ ]v) Hypertensive emergency [ ]vi) High risk of progressive infarction or deterioration based on CT scan or MRI [ ]vii) Hemorrhage [ ]f) Acute coma [ ]g) Acute spontaneous intracranial hemorrhage(53)(54) [ ]h) Drug ingestion with ANY ONE of the following(56)(57): [ ]i) Hemodynamic instability [ ]ii) Respiratory depression (partial pressure of carbon dioxide >45 mm Hg (6.0 kPa), new) [ ]iii) Patient requires or is likely to require mechanical ventilation. [ ]iv) Arrhythmias [ ]v) Seizures [ ]vi) Altered mental status ([place] coma scale score less than 12, new) [ ]vii) Significant risk for acute deterioration (eg, toxic level of hypotension or arrhythmia-producing drug) [ ]viii) Drug-induced hypothermia or hyperthermia [ ]ix) Increasing metabolic acidosis [ ]x) Severe hypoglycemia requiring glucose infusion with frequent adjustment or glucagon administration [ ]xi) Ongoing antidote administration (eg, continuous naloxone infusion, organophosphate toxicity treatment) [ ]xii) Emergency intervention need (eg, dialysis, hemoperfusion, restraints) [ ]i) Brain with preparation for organ donation [ ]j) Traumatic brain injury with ANY ONE of the following(55): [ ]i) Altered mental status (eg, new onset [place] coma scale score less than 10) [ ]ii) Cerebral edema [ ]iii) Cerebral hemorrhage [ ]iv) Increased intracranial pressure [ ]XIV. Neurosurgery diagnoses or procedures, including ANY ONE of the following(49)(58)(59): [ ]a) Emergency craniotomy for tumor, hematoma, or trauma [ ]b) Elective craniotomy for posterior fossa tumor [ ]c) Elective craniotomy (supratentorial) for tumor with ANY ONE of the following: [ ]i) Postoperative neurologic deficit or impaired consciousness 6 hours after completion of procedure [ ]ii) SBP less than 110 mm Hg or greater than 180 mm Hg despite therapy [ ]iii) Extensive operative blood loss [ ]iv) High anesthesia risk (eg, [place] [employer] score greater than 3 [ ]d) Craniotomy for aneurysm with ANY ONE of the following: [ ]i) Postoperative neurologic deficit or impaired consciousness 6 hours after completion of procedure [ ]ii) Preoperative Til[place]-Ponce grade 3 or higher [ ]iii) SBP less than 110 mm Hg or greater than 180 mm Hg despite therapy [ ]iv) Intracranial pressure monitoring [ ]e) Acute spinal cord injury [ ]f) Subarachnoid hemorrhage [ ]g) Traumatic brain injury with ANY ONE of the following: [ ]i) Acute mental status change ([place] coma scale score less than 10) [ ]ii) CT scan showing cerebral edema or hemorrhage [ ]iii) Intracranial pressure monitoring [ ]h) Complications of any surgery requiring ICU intervention as indicated by ANY ONE of the following(60): [ ]i) Hemodynamic instability [ ]ii) CT with complications (eg, severe arrhythmia, hypotension) [ ]iii) Excessive bleeding or severe coagulopathy [ ]iv) Respiratory failure [ ] v) Renal failure [ ]vi) Airway instability or obstruction [ ]vii) Neurologic deterioration [ ]viii) Infection with likelihood of sepsis syndrome or significant fluid shifts [ ]i) Preoperative or postoperative patients requiring ICU intervention, such as hemodynamic optimization, pulmonary artery monitoring, mechanical ventilation, or extensive nursing care [ ]XV.Obstetrics and Gynecology diagnoses or procedures, including ANY ONE of the ffg. (61)(62)(63): [ ]a) Severe peripartum condition as indicated by ANY ONE of the following: [ ]i) Eclampsia [ ]ii) Hypertensive emergency [ ]iii) HELLP syndrome (hemolysis, elevated liver enzymes, and low platelet count) [ ]iv) Pulmonary edema [ ]v) Respiratory failure [ ]vi) Pulmonary embolism [ ]vii) Anaphylactoid syndrome of (amniotic fluid embolus) [ ]viii) Ovarian hyperstimulation syndrome [D] [ ]ix) Acute fatty liver of (hepatic failure) [ ]x) Complications such as placental abruption or severe hemorrhage [ ]xi) Sepsis (eg, puerperal sepsis, chorioamnionitis, septic ) [ ]xii) cardiomyopathy with severe congestive heart failure (eg, respiratory failure, cardiogenic shock) [ ]b) Ruptured ectopic [ ]c) Complications of any surgery requiring ICU intervention as indicated by ANY ONE of the following: [ ]i) Hemodynamic instability [ ]ii) CT with complications (eg, severe arrhythmia, hypotension) [ ]iii) Excessive bleeding or severe coagulopathy [ ]iv) Respiratory failure [ ]v) Renal failure [ ]vi) Airway instability or obstruction [ ]vii) Neurologic deterioration [ ]viii) Infection with likelihood of sepsis syndrome or significant fluid shifts [ ]d) Preoperative or postoperative patients requiring ICU intervention , such as hemodynamic optimization, pulmonary artery monitoring, mechanical ventilation, or extensive nursing care [ ]XVI.Ophthalmology diagnoses or procedures, including ANY ONE of the following (64): [ ]a) Complications of any surgery requiring ICU intervention, such as ANY ONE of the following: [ ]i) Hemodynamic instability [ ]ii) CT with complications (eg, severe arrhythmia, hypotension) [ ]iii) Excessive bleeding or severe coagulopathy [ ]iv) Respiratory failure [ ]v) Renal failure [ ]vi) Airway instability or obstruction [ ]vii) Neurologic deterioration [ ]viii) Infection with likelihood of sepsis syndrome or significant fluid shifts [ ]b) Preoperative or postoperative patients requiring ICU intervention , such as hemodynamic optimization, pulmonary artery monitoring, mechanical ventilation, or extensive nursing care [ ]XVII.Orthopedics diagnoses or procedures, including ANY ONE of the following [phone]): [ ]a) Complications of any surgery requiring ICU intervention as indicated by ANY ONE of the following: [ ]i) Hemodynamic instability [ ]ii) CT with complications (eg, severe arrhythmia, hypotension) [ ]iii) Excessive bleeding or severe coagulopathy [ ]iv) Respiratory failure [ ]v) Renal failure [ ]vi) Airway instability or obstruction [ ] vii) Neurologic deterioration [ ]viii) Infection with likelihood of sepsis syndrome or significant fluid shifts [ ]b) Multiple trauma with complicating features as indicated by ANY ONE of the following(38): [ ]i) Impending acute respiratory failure due to lung contusion, unstable chest wall, pneumothorax, aspiration, or hemorrhage [ ]ii) Facial or neck injury threatening airway patency [ ]iii) Cardiac contusion [ ]iv) Rhabdomyolysis requiring large volume IV fluid resuscitation [ ]v) Pericardial effusion [ ]vi) Bronchial tear [ ]vii) Hemodynamic instability [ ]viii) Other significant complicating feature [ ]c) Threatened compartment syndrome [ ]d) Severe friend with ANY ONE of the following(68)(69)(70): [ ]i) Hypotension or requirement for aggressive fluid resuscitation [ ]ii) Respiratory insufficiency with requirement for high- flow oxygen or mechanical ventilation [ ]iii) Carbon monoxide poisoning [ ]iv) Life-threatening cardiac, renal, pulmonary, or neurologic dysfunction [ ]v) High-voltage (eg, 1000 volts or more) electrical burn [ ]vi) Requirement for frequent or intensive debridement and dressing changes; examples include: [ ]1) Partial thickness friend greater than 10% of body surface [ ]2) Friend on face, hands, feet, genitalia, perineum , or major joints [ ]3) Third-degree friend [ ]4) Any burn greater than 15% of body surface area [ ]vii) Inhalation lung injury [ ]viii) Concomitant trauma or other medical condition requiring ICU care [ ]e) Preoperative or postoperative patients requiring ICU intervention , such as hemodynamic optimization, pulmonary artery monitoring, mechanical ventilation, or extensive nursing care [ ]XVIII.Otolaryngology diagnoses or procedures, including ANY ONE of the following (71)(72): [ ]a) Complications of any surgery requiring ICU intervention as indicated by ANY ONE of the following: [ ]i) Hemodynamic instability [ ]ii) CT with complications (eg, severe arrhythmia, hypotension) [ ]iii) Excessive bleeding or severe coagulopathy [ ]iv) Respiratory failure [ ]v) Renal failure [ ]vi) Airway instability or obstruction [ ]vii) Neurologic deterioration [ ]viii) Infection with likelihood of sepsis syndrome or significant fluid shifts [ ]b) Airway or hemodynamic compromise that persists after 3 hours of observation in postanesthesia care unit following nasal, palate (eg, uvulopalatopharyngoplasty or palatoplasty), or tongue surgery for sleep apnea [ ]c) Preoperative or postoperative patient requiring ICU intervention, such as hemodynamic optimization, pulmonary artery monitoring, mechanical ventilation, or extensive nursing care [ ]d) Symptomatic upper airway compromise (eg, laryngeal edema, mass) [ ]e) Other airway-compromising procedure (eg, posterior nasal packing) [ ]XIX.Thoracic Surgery and Pulmonary Disease Diagnosis or procedures, including ANY ONE of the following(6): [ ]a) Asthma with ANY ONE of the following(73)(74): [ ]i) Impending or actual respiratory arrest [ ]ii) Need for mechanical ventilation [ ]iii) Peak expiratory flow rate less than 30% of predicted or personal best [ ]iv) Peak expiratory flow rate or FEV1 less than 40% predicted after 1 hour of initial treatment [ ]v) Acidosis [ ]vi) Persistent or worsening hypoxia after initial treatment [ ]vii) Hypercapnia (eg, partial pressure of carbon dioxide greater than 43 mm Hg (5.7 kPa)) [ ]viii) Severe drowsiness, confusion, or coma [ ]ix) Requiring continuous inhaled bronchodilator [ ]b) COPD with ANY ONE of the following(75): [ ]i) Need for assisted ventilation [ ]ii) Hemodynamic instability [ ]iii) Severe dyspnea unresponsive to initial treatment [ ]iv) Change in level of consciousness [ ]v) Persistent findings despite oxygen and outpatient management, including ANY ONE of the following: [ ]1) Partial pressure of oxygen less than 40 mm Hg ( 5.3 kPa) [ ]2) Partial pressure of carbon dioxide greater than 60 mm Hg (8.0 kPa) [ ]3) pH less than 7.25 [ ]4) Worsening hypoxemia or acidosis [ ]c) Cor pulmonale with ANY ONE of the following(75)(76)(77): [ ]i) Hemodynamic instability [ ]ii) Need for IV inotropic or vasoactive agent [ ]iii) Need for invasive hemodynamic monitoring (eg, central venous, pulmonary artery, or arterial catheter) [ ]iv) Hypoxemia with partial pressure of oxygen less than 40 mm Hg (5.3 kPa) [ ]v) Worsening hypoxemia or acidosis despite oxygen therapy [ ]vi) Need for assisted ventilation [ ]vii) Need for right ventricular assist device [ ]viii) Unstable atrial tachyarrhythmia [ ]ix) Need for inhaled nitric oxide [ ]d) Aspiration pneumonia with ANY ONE of the following(78): [ ]i) Acute respiratory distress syndrome (PaO2/FiO2 ratio of 300 or less) [ ]ii) Impending or actual respiratory arrest [ ]iii) Need for invasive or noninvasive mechanical ventilation [ ]e) Pneumocystis jiroveci pneumonia with ANY ONE of the following(79): [ ]i) Impending or actual respiratory arrest [ ]ii) Hypoxia (eg, PO260 mmGh (8.0 kPa) or less despite oxygen therapy) [ ]iii) Need for invasive or noninvasive mechanical ventilation [ ]f) Pneumonia with ANY ONE of the following(80)(81)(82): [ ]i) Need for invasive or noninvasive assisted ventilation [ ]ii) Hemodynamic instability [ ]iii) Severity factors as indicated by 3 or MORE of the following: [ ]1) Respiratory rate 30 breaths per minute or greater [ ]2) PaO2/FiO2 ratio of 250 or less [ ]3) Multilobed infiltrates [ ]4) Altered mental status [ ]5) BUN 20 mg/dL (7.1 mmol/L) or greater [ ]6) WBC count less than 4000/mm3 (4 x109/L) [ ]7) Platelet count <100,000/mm3 (100 x109/L) [ ]8) Temperature less than 36 degrees C (96.8 degrees F ) [ ]9) Hypotension requiring aggressive fluid resuscitation [ ]g) Pulmonary hypertension requiring initiation of parenteral pulmonary vasodilator or trial of inhaled nitric oxide (eg, need for right heart catheterization)(76) [ ]h) Impending respiratory failure as indicated by ANY ONE of the following: [ ]i) Respiratory rate greater than 30 or partial pressure of oxygen less than 60 mm Hg (8.0 kPa) on 50% oxygen or more [ ]ii) Partial pressure of carbon dioxide greater than 45 mm Hg (6.0 kPa) with pH less than 7.35 [ ]i) Respiratory failure with ANY ONE of the following (47): [ ]i) Need for invasive or noninvasive mechanical ventilation [ ]ii) High likelihood of requiring mechanical ventilation within 24 hours [ ]iii) Observation in the first several hours immediately after extubation from mechanical ventilation [ ]iv) Need for close observation and aggressive therapy, such as suctioning, chest physiotherapy, or inhalation treatments at intervals less than 1 hour [ ]v) Pharmacologic ventilatory paralysis [ ]j) Venous thromboembolism with need for systemic or catheter- directed thrombolysis (eg, for limb-threatening thrombosis, phlegmasia cerulea dolens) (83) [ ]k) Pulmonary embolus with ANY ONE of the following(83): [ ]i) Hypotension [ ]ii) Severe hypoxia [ ]iii) Dangerous arrhythmia [ ]iv) Bleeding [ ]v) Need for systemic or catheter-directed thrombolysis [ ]l) Lobectomy or other major thoracic surgery [ ]m) Lung transplant [ ]n) Symptomatic upper airway obstruction (eg, laryngeal edema, mass) [ ]o) Massive hemoptysis [ ]p) Infection or thrombosis of an intravenous device with ANY ONE of the following(6)(84): [ ]i) Hemodynamic instability [ ]ii) Requirement for frequent hemodynamic measurements [ ]iii) Shock [ ]iv) End organ dysfunction [ ] v) Acute renal failure due to missed dialysis [ ]vi) Unstable acute complication (eg, pericardial tamponade , tension pneumothorax) [ ]q) Traumatic rib fracture or fractures with ANY ONE of the following(85): [ ]i) Injury severity score of 19 or greater [ ]ii) Respiratory insufficiency [ ]iii) Flail chest [ ]iv) Sternum fracture [ ]v) Vascular injury (eg, heart or great vessels) [ ]r) Pleural effusion with ANY ONE of the following(86): [ ]i) Respiratory insufficiency [ ]ii) Hemothorax with active ongoing bleeding [ ]iii) Hemodynamic instability [ ]iv) Unstable comorbid condition (eg, sepsis or heart failure [ ]XX. Urology diagnoses or procedures, including ANY ONE of the following ( 87)(88): [ ]a) Renal transplant [ ]b) Complications of any surgery requiring ICU intervention as indicated by ANY ONE of the following: [ ]i) Hemodynamic instability [ ]ii) CT with complications (eg, severe arrhythmia, hypotension) [ ]iii) Excessive bleeding or severe coagulopathy [ ]iv) Respiratory failure [ ]v) Renal failure [ ]vi) Airway instability or obstruction [ ]vii) Neurologic deterioration [ ]viii) Infection with likelihood of sepsis syndrome or significant fluid shifts [ ]c) Preoperative or postoperative patients requiring ICU intervention , such as hemodynamic optimization, pulmonary artery monitoring, mechanical ventilation , or extensive nursing care [ ]XXI.Infectious Disease diagnoses or procedures, with ANY ONE of the following (6)(43): [ ]a) Hemodynamic instability [ ]b) Shock [ ]c) Requirement for frequent hemodynamic measurements (eg, arterial catheter, pulmonary artery catheter) [ ]d) Sepsis or suspected sepsis with end organ dysfunction (eg, acute kidney injury, acute respiratory distress syndrome) [ ]e) Necrotizing soft tissue infection [ ] XXII.Hematology - Oncology diagnoses or procedures, including chemotherapy administration with ANY ONE of the following(42): [ ]a) Hemodynamic instability [ ]b) Tumor lysis syndrome with ANY ONE of the following : [ ]1) Acute kidney injury [ ]2) Severe electrolyte abnormality [ ]3) Cardiac dysrhythmia [ ]XXIII. Systemic conditions, including ANY ONE of the following: [ ]a) Severe electrolyte or metabolic disturbance causing or likely to cause ANY ONE of the following(10)(89)(90): [ ]i) Life-threatening cardiac dysrhythmia [ ]ii) Respiratory insufficiency [ ]iii) Altered mental status [ ]iv) Seizures [ ]v) Hemodynamic instability [ ]vi) Muscular weakness [ ]b) Environmental injuries such as hypothermia, hyperthermia, electrical injuries, or near drowning(70)(91)(92) The original [facility] content created by [employer] has been revised. The portions of the content which have been revised are identified through the use of italic text or in bold, and [facility] has neither reviewed nor approved the modified material. All other unmodified content is copyright [employer]. Please see references footnoted in the original [facility] edition 2016 Admission Criteria Met: Yes
[2016-09-20] MEDS ORDERED: NACL 0.9% 1000 ML 1,000 ML IV SCH (09:00)
[2016-09-20] MEDS ORDERED: CALCIUM GLUCONATE 1,000 MG in NACL 0.9% 100 ML IV ONE (09:30)
--- NOTE | 2016-09-20 09:59 | Progress Note ---
Assessment and Plan Assessment and plan: --Severe hypothyroidism /Myxedema Presented with very high TSH, low T4, hypothermia, Hypoglycemia, altered level of consciousness Received IV Synthroid and IV steroids symptoms significantly improved Continue oral Synthroid tapering dose of steroids Patient needs to see outpatient assistant golf coach upon discharge --Toxic metabolic encephalopathy Secondary to severe hypothyroidism, hypothermia Resolved patient alert awake oriented 3 --Hypothermia, treated --Hyperkalemia Calcium gluconate, Kayexalate, closely monitor potassium levels --Acute on Chronic renal failure stage IV Closely monitor renal function avoid nephrotoxic medications Nephrology following --Type 2 diabetes mellitus uncontrolled Probably secondary to steroids Accu-Chek sliding scale coverage and ADA diet Adjust Lantus dose , Check A1c --Chronic pain syndrome Pain medications, patient is on methadone will resume --Morbid obesity Counseling done patient strongly advised dietary modification and exercise as tolerated, weight reduction when medically stable Verbalized understanding --DVT prophylaxis ,Lovenox Closely monitor the patient and adjust the management as needed Medical records reviewed Possible discharge in 1-2 days if stable History Interval history: Patient seen and evaluated in her room medical records reviewed Patient feels slightly better, complains of generalized weakness Alert awake oriented 3 not in acute distress Vital signs reviewed stable Hospitalist Physical - Constitutional Vitals: Temp Pulse Resp BP Pulse Ox 98.4 F 78 20 165/108 95 09/20/16 04:00 09/20/16 04:00 09/20/16 04:00 09/20/16 04:00 09/20/16 04:00 General appearance: Present: no acute distress, well-nourished, obese (morbidly obese) - EENT Eyes: Present: PERRL, EOM intact - Neck Neck: Present: supple, normal ROM - Respiratory Respiratory effort: normal Respiratory: bilateral: diminished, negative: rales, rhonchi, wheezing - Cardiovascular Rhythm: regular Heart Sounds: Present: S1 & S2 - Extremities Extremities: no ischemia, pulses intact, pulses symmetrical Peripheral Pulses: within normal limits - Abdominal General gastrointestinal: soft, non-tender, non-distended, normal bowel sounds - Integumentary Integumentary: Present: clear, warm - Psychiatric Psychiatric: appropriate mood/affect, cooperative - Neurologic Neurologic: CNII-XII intact, moves all extremities Results - Labs CBC & Chem 7: 09/19/16 04:54 09/20/16 06:15 Labs: Laboratory Last Values WBC 15.7 K/mm3 (4.5-11.0) H 09/19/16 04:54 RBC 5.07 M/mm3 (3.65-5.03) H 09/19/16 04:54 Hgb 12.5 gm/dl (10.1-14.3) 09/19/16 04:54 Hct 36.4 % (30.3-42.9) 09/19/16 04:54 MCV 83 fl (79-97) 09/19/16 04:54 MCH 27 pg (28-32) L 09/19/16 04:54 MCHC 34 % (30-34) 09/19/16 04:54 RDW 15.5 % (13.2-15.2) H 09/19/16 04:54 Plt Count 179 K/mm3 (140-440) 09/19/16 04:54 Lymph % (Auto) 8.1 % (13.4-35.0) L 09/19/16 04:54 [place] % (Auto) 8.4 % (0.0-7.3) H 09/19/16 04:54 Eos % (Auto) 0.1 % (0.0-4.3) 09/19/16 04:54 Baso % (Auto) 0.3 % (0.0-1.8) 09/19/16 04:54 Lymph # 1.3 K/mm3 (1.2-5.4) 09/19/16 04:54 [place] # 1.3 K/mm3 (0.0-0.8) H 09/19/16 04:54 Eos # 0.0 K/mm3 (0.0-0.4) 09/19/16 04:54 Baso # 0.0 K/mm3 (0.0-0.1) 09/19/16 04:54 Seg Neutrophils % 83.1 % (40.0-70.0) H 09/19/16 04:54 Seg Neutrophils # 13.1 K/mm3 (1.8-7.7) H 09/19/16 04:54 Sodium 132 mmol/L (137-145) L D 09/20/16 06:15 Potassium 6.2 mmol/L (3.6-5.0) H* D 09/20/16 06:15 Chloride 101.8 mmol/L (98-107) 09/20/16 06:15 Carbon Dioxide 16 mmol/L (22-30) L D 09/20/16 06:15 Anion Gap 20 mmol/L 09/20/16 06:15 BUN 40 mg/dL (7-17) H 09/20/16 06:15 Creatinine 3.3 mg/dL (0.7-1.2) H D 09/20/16 06:15 Estimated GFR 18 ml/min 09/20/16 06:15 BUN/Creatinine Ratio 12.12 % 09/20/16 06:15 Glucose 236 mg/dL (65-100) H 09/20/16 06:15 POC Glucose 250 (70-105) H 09/20/16 05:30 Lactic Acid 1.2 mmol/L (0.7-2.0) 09/18/16 07:33 Calcium 8.8 mg/dL (8.4-10.2) 09/20/16 06:15 Phosphorus 4.3 mg/dL (2.5-4.5) D 09/20/16 06:15 Magnesium 2.0 mg/dL (1.7-2.3) 09/19/16 04:54 Total Bilirubin 1.3 mg/dL (0.1-1.2) H 09/19/16 04:54 Direct Bilirubin 0.4 mg/dL (0-0.2) H 09/19/16 04:54 Indirect Bilirubin 0.9 mg/dL 09/19/16 04:54 AST 22 units/L (5-40) 09/19/16 04:54 ALT 25 units/L (7-56) 09/19/16 04:54 Alkaline Phosphatase 75 units/L (35-129) 09/19/16 04:54 Ammonia 14.0 umol/L (25-60) L 09/19/16 04:54 Total Creatine Kinase 240 units/L (30-135) H 09/18/16 10:53 CK-MB (CK-2) 3.8 ng/mL (0.0-4.0) 09/18/16 10:53 CK-MB (CK-2) Rel Index 1.5 (0-4) 09/18/16 10:53 Troponin T < 0.010 ng/mL (0.00-0.029) 09/18/16 10:53 Total Protein 7.5 g/dL (6.3-8.2) 09/19/16 04:54 Albumin 3.2 g/dL (3.9-5) L 09/19/16 04:54 Albumin/Globulin Ratio 0.7 % 09/19/16 04:54 TSH 14.350 mlU/mL (0.270-4.200) H 09/20/16 06:15 Free T4 0.76 ng/dL (0.76-1.46) 09/18/16 13:33 PTH Intact 70.24 pg/mL (15-65) H 09/19/16 04:54 Urine Color Yellow (Yellow) 09/18/16 06:21 Urine Turbidity Clear (Clear) 09/18/16 06:21 Urine pH 5.0 (5.0-7.0) 09/18/16 06:21 Ur Specific [place] 1.012 (1.003-1.030) 09/18/16 06:21 Urine Protein >500 mg/dL (Negative) 09/18/16 06:21 Urine Glucose (UA) 50 mg/dL (Negative) 09/18/16 06:21 Urine Ketones Neg mg/dL (Negative) 09/18/16 06:21 Urine Blood Neg (Negative) 09/18/16 06:21 Urine Nitrite Neg (Negative) 09/18/16 06:21 Ur Reducing Substances Not Reportable 09/18/16 06:21 Urine Bilirubin Neg (Negative) 09/18/16 06:21 Urine Ictotest Not Reportable 09/18/16 06:21 Urine Urobilinogen < 2.0 mg/dL (<2.0) 09/18/16 06:21 Ur Leukocyte Esterase Neg (Negative) 09/18/16 06:21 Urine WBC (Auto) 3.0 /HPF (0.0-6.0) 09/18/16 06:21 Urine RBC (Auto) 3.0 /HPF (0.0-6.0) 09/18/16 06:21 U Epithel Cells (Auto) < 1.0 /HPF (0-13.0) 09/18/16 06:21 Amorphous Crystals 1+ 09/18/16 06:21 Urine Mucus Few /HPF 09/18/16 06:21 Urine Eosinophils None seen (None Seen) 09/18/16 14:15 Urine Creatinine 95.0 mg/dL (0.1-20.0) H 09/18/16 14:15 Protein/Creatinin Ratio 7.69 09/18/16 14:15 Urine Sodium 67 mEq/L 09/18/16 14:15 Urine Total Protein 731 mg/dL (5-11.8) H 09/18/16 14:15 Urine HCG, Qual Negative (Negative) 09/18/16 06:21 Salicylates < 0.3 mg/dL (2.8-20.0) L 09/18/16 06:19 Urine Opiates Screen Presumptive negative 09/18/16 06:21 Urine Methadone Screen Presumptive positive 09/18/16 06:21 Acetaminophen < 15.0 ug/mL (10.0-30.0) 09/18/16 06:19 Ur Barbiturates Screen Presumptive negative 09/18/16 06:21 Ur Phencyclidine Scrn Presumptive negative 09/18/16 06:21 Ur Amphetamines Screen Presumptive negative 09/18/16 06:21 U Benzodiazepines Scrn Presumptive negative 09/18/16 06:21 Urine Cocaine Screen Presumptive negative 09/18/16 06:21 U Marijuana (THC) Screen Presumptive negative 09/18/16 06:21 Drugs of Abuse Note Disclamer 09/18/16 06:21 Plasma/Serum Alcohol < 0.01 gm% (0-0.07) 09/18/16 06:19
[2016-09-20] MEDS ORDERED: D50W (25GM) IV ONE ×2 (10:31→11:30)
[2016-09-20] MEDS: LOPRESSOR PO SCH (10:40)
[2016-09-20] MEDS: COLCRYS PO SCH (10:40)
[2016-09-20] MEDS: IMDUR PO SCH (10:42)
[2016-09-20] MEDS: TOPAMAX PO SCH (10:43)
[2016-09-20] MEDS: PROTONIX IV SCH (10:43)
[2016-09-20] MEDS: KIONEX PO SCH ×2 (10:48→18:00)
[2016-09-20] MEDS: HEPARIN SUB-Q SCH ×2 (11:26→21:15)
[2016-09-20] MEDS: NOVOLOG SUB-Q SCH ×2 (11:49→18:00)
[2016-09-20] MEDS ORDERED: PNEUMOVAX 23 IM ONE (12:00)
[2016-09-20] MEDS ORDERED: FLUARIX QUAD 2016-2017(36 MOS+) IM ONE (12:00)
[2016-09-20] MEDS: DOLOPHINE PO SCH ×3 (12:45→21:13)
[2016-09-20] MEDS: SYNTHROID PO SCH (13:00)
[2016-09-20] MEDS ORDERED: APRESOLINE ONE (15:27)
[2016-09-20] MEDS ORDERED: KIONEX PO ONE (17:47)
[2016-09-20] MEDS ORDERED: AMBIEN PO PRN (17:50)
[2016-09-20] MEDS ORDERED: ELETRIPTAN HBR 20 MG PO SCH (18:00)
--- NOTE | 2016-09-20 18:17 | Progress Note ---
Assessment and Plan Patient alert, awake,Oriented. Resting on room air. No acute respiratory distress. Patient has history of asthma Patient morbidly Obese. Patient says she snores, feeling tired get up in the morning and has insomnia. Patient may have sleep apnea. - Patient Problems (1) Bronchial asthma Current Visit: Yes Status: Acute Qualifiers: Asthma severity: A Asthma complication type: A Plan to address problem: 1. Albuterol aerosol treatments q 6 hours. 2. ABGs on room air. 3. Continue Solumedral (2) Morbid obesity with BMI of 40.0-44.9, adult Current Visit: Yes Status: Acute Plan to address problem: Nutritional consultation for weight reduction diet. Continue S/C Heparine. (3) Sleep apnea Current Visit: Yes Status: Acute Qualifiers: Sleep apnea type: S Plan to address problem: Recommend sleep study as outpatient. (4) Hypothyroidism Current Visit: Yes Status: Acute Qualifiers: Hypothyroidism type: H Plan to address problem: Patient is on Levothyroxine. (5) Acute on chronic renal failure Current Visit: Yes Status: Acute Plan to address problem: Management as per nephrology. (6) Hyperkalemia Current Visit: Yes Status: Acute Plan to address problem: Management as per nephrology. Subjective Date of service: 09/20/16 Principal diagnosis: Altered Mental Status Interval history: Patient alert, awake,Oriented. Resting on room air. No acute respiratory distress. Patient has history of asthma Patient morbidly Obese. Patient says she snores, feeling tired get up in the morning and has insomnia. Patient may have sleep apnea. Objective Vital Signs - 12hr 09/20/16 09/20/16 09/20/16 08:00 10:40 10:42 Temperature 98.3 F Pulse Rate 88 88 Pulse Rate [ 81 From Monitor] Respiratory 20 Rate Blood Pressure Blood Pressure 143/103 [Left Arm] 09/20/16 09/20/16 13:19 18:02 Temperature 98.6 F Pulse Rate Pulse Rate [ 93 H From Monitor] Respiratory 20 Rate Blood Pressure 194/120 Blood Pressure 194/122 [Left Arm] Constitutional: no acute distress Eyes: non-icteric ENT: oropharynx moist Neck: supple, no lymphadenopathy Ascultation: Bilateral: diminished breath sounds Cardiovascular: regular rate and rhythm Gastrointestinal: normoactive bowel sounds, soft, non-tender Integumentary: normal Extremities: no cyanosis, no edema Neurologic: non-focal exam, pupils equal and round, CN II-XII normal Psychiatric: anxious, other CBC and BMP: 09/19/16 04:54 09/20/16 15:52 Abnormal lab findings: Abnormal Labs 09/18/16 09/18/16 09/18/16 10:53 12:07 13:33 WBC RBC MCH RDW Lymph % (Auto) [place] % (Auto) [place] # Seg Neutrophils % Seg Neutrophils # Sodium Potassium Carbon Dioxide BUN Creatinine Glucose POC Glucose 294 H Phosphorus Total Bilirubin Direct Bilirubin Ammonia Total Creatine Kinase 240 H Albumin TSH 79.250 H PTH Intact Urine Creatinine Urine Total Protein 09/18/16 09/18/16 09/19/16 14:15 21:27 04:54 WBC 15.7 H RBC 5.07 H MCH 27 L RDW 15.5 H Lymph % (Auto) 8.1 L [place] % (Auto) 8.4 H [place] # 1.3 H Seg Neutrophils % 83.1 H Seg Neutrophils # 13.1 H Sodium Potassium Carbon Dioxide BUN Creatinine Glucose POC Glucose 301 H Phosphorus Total Bilirubin Direct Bilirubin Ammonia Total Creatine Kinase Albumin TSH PTH Intact Urine Creatinine 95.0 H Urine Total Protein 731 H 09/19/16 09/19/16 09/19/16 04:54 04:54 04:54 WBC RBC MCH RDW Lymph % (Auto) [place] % (Auto) [place] # Seg Neutrophils % Seg Neutrophils # Sodium Potassium Carbon Dioxide BUN Creatinine Glucose 177 H POC Glucose Phosphorus 2.2 L Total Bilirubin 1.3 H Direct Bilirubin 0.4 H Ammonia 14.0 L Total Creatine Kinase Albumin 3.2 L TSH PTH Intact 70.24 H Urine Creatinine Urine Total Protein 09/19/16 09/19/16 09/19/16 08:11 13:53 17:18 WBC RBC MCH RDW Lymph % (Auto) [place] % (Auto) [place] # Seg Neutrophils % Seg Neutrophils # Sodium Potassium Carbon Dioxide BUN Creatinine Glucose POC Glucose 495 H 397 H 265 H Phosphorus Total Bilirubin Direct Bilirubin Ammonia Total Creatine Kinase Albumin TSH PTH Intact Urine Creatinine Urine Total Protein 09/19/16 09/20/16 09/20/16 22:32 05:30 06:15 WBC RBC MCH RDW Lymph % (Auto) [place] % (Auto) [place] # Seg Neutrophils % Seg Neutrophils # Sodium Potassium Carbon Dioxide BUN Creatinine Glucose POC Glucose 273 H 250 H Phosphorus Total Bilirubin Direct Bilirubin Ammonia Total Creatine Kinase Albumin TSH 14.350 H PTH Intact Urine Creatinine Urine Total Protein 09/20/16 09/20/16 06:15 15:52 WBC RBC MCH RDW Lymph % (Auto) [place] % (Auto) [place] # Seg Neutrophils % Seg Neutrophils # Sodium 132 L D Potassium 6.2 H* D 5.3 H Carbon Dioxide 16 L D BUN 40 H Creatinine 3.3 H D Glucose 236 H POC Glucose Phosphorus Total Bilirubin Direct Bilirubin Ammonia Total Creatine Kinase Albumin TSH PTH Intact Urine Creatinine Urine Total Protein
[2016-09-20] MEDS ORDERED: PROVENTIL IH SCH (20:00)
[2016-09-20] MEDS: MORPHINE IV PRN (21:11)
[2016-09-20] MEDS: SINEquan PO SCH (21:13)
[2016-09-20] MEDS: APRESOLINE PO SCH (21:14)
[2016-09-20] MEDS: LEVEMIR SUB-Q SCH (21:20)
[2016-09-21] MEDS: APRESOLINE PO SCH ×3 (06:19→21:36)
[2016-09-21] MEDS: SYNTHROID PO SCH (06:19)
[2016-09-21 07:05] LABS: Alanine Aminotransferase 33 units/L (7-56); Albumin 3.4 g/dL (3.9-5); Alkaline Phosphatase 141 units/L (35-129); Anion Gap 20 mmol/L; BUN/Creatinine Ratio 13.23; Bilirubin,Total < 0.2 mg/dL (0.1-1.2); Blood Urea Nitrogen 45 mg/dL (7-17); Calcium 8.3 mg/dL (8.4-10.2); Carbon Dioxide 21 mmol/L (22-30); Chloride 103.3 mmol/L (98-107); Glucose 230 mg/dL (65-100); Phosphorous 4.1 mg/dL (2.5-4.5); Potassium 3.8 mmol/L (3.6-5.0); Sodium 140 mmol/L (137-145); Total Protein 6.9 g/dL (6.3-8.2)
--- NOTE | 2016-09-21 07:33 | Progress Note ---
Assessment and Plan - Patient Problems (1) Acute on chronic renal failure Current Visit: Yes Status: Acute Plan to address problem: Acute Kidney Injury superimposed in the setting of Hypothermia and volume depletion. Creatinine remains the same. Patient is on IV fluids. Monitor renal function. (2) Hyperkalemia Current Visit: Yes Status: Acute Plan to address problem: Improved. (3) Proteinuria Current Visit: Yes Status: Chronic Plan to address problem: Patient has about 7.7 gms of protein on spot urine. She was diagnosed with Diabetes about a year ago. Antibodies results are pending. The cause for Nephrotic syndrome is unclear. D/w patient regarding Kidney biopsy. Explained the indications, benefits and risks involved. Agreed to proceed with kidney biopsy. (4) Hypothermia Current Visit: Yes Status: Acute Qualifiers: Encounter type: E Plan to address problem: Improved. (5) Encephalopathy Current Visit: Yes Status: Acute (6) DM type 2 (diabetes mellitus, type 2) Current Visit: Yes Status: Chronic Qualifiers: Diabetes mellitus complication status: D Diabetes mellitus complication detail: D Diabetic retinopathy severity: D Proliferative retinopathy type: P Diabetes mellitus macular edema: D Diabetes mellitus longterm insulin use : D Laterality: L Chronic kidney disease stage: C (7) Chronic pain syndrome Current Visit: Yes Status: Chronic Subjective Date of service: 09/21/16 Principal diagnosis: Altered Mental Status Interval history: Patient is doing better. Objective - Vital Signs Vital signs: Vital Signs - 12hr 09/20/16 09/20/16 09/20/16 20:00 20:19 20:25 Temperature 98.4 F Pulse Rate Pulse Rate [ 90 Anterior Bilateral Throughout] Pulse Rate [ 86 From Monitor] Respiratory 18 Rate Respiratory 20 Rate [Anterior Bilateral Throughout] Blood Pressure Blood Pressure 164/92 [Left Arm] O2 Sat by Pulse 98 94 Oximetry 09/20/16 09/20/16 09/21/16 20:40 21:14 00:00 Temperature 98.4 F Pulse Rate 115 H Pulse Rate [ 92 H Anterior Bilateral Throughout] Pulse Rate [ 92 H From Monitor] Respiratory 18 Rate Respiratory 20 Rate [Anterior Bilateral Throughout] Blood Pressure 141/64 Blood Pressure 141/81 [Left Arm] O2 Sat by Pulse 98 Oximetry 09/21/16 09/21/16 02:00 04:00 Temperature 98.1 F Pulse Rate Pulse Rate [ Anterior Bilateral Throughout] Pulse Rate [ 80 92 H From Monitor] Respiratory 18 Rate Respiratory Rate [Anterior Bilateral Throughout] Blood Pressure Blood Pressure 178/104 [Left Arm] O2 Sat by Pulse 98 Oximetry - General Appearance General appearance: well-developed, well-nourished, appears stated age, obese, other (no distress) EENT: ATNC, PERRL, mucous membranes moist, hearing intact, vision intact Neck: supple Respiratory: Present: Clear to Ascultation Cardiology: regular, S1S2, no murmurs Gastrointestinal: normoactive bowel sounds, no tenderness, no distended, obese Integumentary: no rash Neurologic: no focal deficit, no asterixis, alert and oriented x3, CN 3-12 intact Musculoskeletal: other (trace pedal edema noted) Psychiatric: mood/affect appropriate, cooperative - Lab 09/19/16 04:54 09/21/16 06:11 Most recent lab results Calcium 8.3 mg/dL (8.4-10.2) L 09/21/16 06:11 Phosphorus 4.1 mg/dL (2.5-4.5) 09/21/16 06:11 Magnesium 2.0 mg/dL (1.7-2.3) 09/19/16 04:54 Urine Creatinine 95.0 mg/dL (0.1-20.0) H 09/18/16 14:15 Urine Sodium 67 mEq/L 09/18/16 14:15 Urine Total Protein 731 mg/dL (5-11.8) H 09/18/16 14:15
[2016-09-21] MEDS: NOVOLOG SUB-Q SCH ×8 (08:26→21:39)
[2016-09-21] MEDS: DOLOPHINE PO SCH ×3 (09:05→21:36)
[2016-09-21] MEDS: LOPRESSOR PO SCH (09:09)
[2016-09-21] MEDS: IMDUR PO SCH (09:10)
[2016-09-21] MEDS: PROTONIX PO SCH (09:10)
[2016-09-21] MEDS: ELAVIL PO SCH (09:10)
[2016-09-21] MEDS: HEPARIN SUB-Q SCH ×2 (09:11→21:39)
[2016-09-21] MEDS: PROVENTIL IH SCH ×3 (09:28→19:46)
[2016-09-21] MEDS: COLCRYS PO SCH ×3 (10:00→15:52)
--- NOTE | 2016-09-21 10:31 | Progress Note ---
Assessment and Plan Assessment and plan: Severe hypothyroidism/Myxedema. She presented with very high TSH, low T4, hypothermia, Hypoglycemia, altered level of consciousness. She was given Synthroid iv and IV steroids symptoms significantly improved. Will continue oral Synthroid and tapering dose of steroids. She should follow with outpatient clearance coordinator upon discharge. Toxic metabolic encephalopathy, secondary to severe hypothyroidism, hypothermia. This is now resolved. She is now AAO x 3. Hypothermia,resolved. due to hypothyroidism. Acute on Chronic renal failure stage IV. Cr 3.4 today. Avoid nephrotoxic agents. Nephrology following Hyperkalemia, now resolved after calciium gluconate, Kayexalate. Diabetes mellitus type 2 . Fingerstick qac and hs Chronic pain syndrome. She has been on Methadone. Obesity. She was counseled on losing weight DVT prophylaxis ,Lovenox Full code status. Poss d/c home tomorrow. Hospitalist Physical - Physical exam Narrative exam: Gen: Not in acute distress,obese HEENT: Aormocephalic, atraumatic Neck: supple, no JVD Lungs: Clear to auscultation bilaterally, no crackles or wheeze Heart S1-S2 regular, no murmurs rubs or gallop, Abdomen: soft, non tender,non-distended, normal bowel sounds Ext: No edema, cyanosis or clubbing, Neuro: Awake alert oriented 3, normal speech, no focal neurological weakness, - Constitutional Vitals: Temp Pulse Resp BP Pulse Ox 97.8 F 92 H 16 201/100 98 09/21/16 08:45 09/21/16 04:00 09/21/16 08:45 09/21/16 08:45 09/21/16 08:45 General appearance: Present: no acute distress, well-nourished, obese (morbidly obese) Results - Labs CBC & Chem 7: 09/19/16 04:54 09/21/16 06:11 Labs: Laboratory Last Values WBC 15.7 K/mm3 (4.5-11.0) H 09/19/16 04:54 RBC 5.07 M/mm3 (3.65-5.03) H 09/19/16 04:54 Hgb 12.5 gm/dl (10.1-14.3) 09/19/16 04:54 Hct 36.4 % (30.3-42.9) 09/19/16 04:54 MCV 83 fl (79-97) 09/19/16 04:54 MCH 27 pg (28-32) L 09/19/16 04:54 MCHC 34 % (30-34) 09/19/16 04:54 RDW 15.5 % (13.2-15.2) H 09/19/16 04:54 Plt Count 179 K/mm3 (140-440) 09/19/16 04:54 Lymph % (Auto) 8.1 % (13.4-35.0) L 09/19/16 04:54 [place] % (Auto) 8.4 % (0.0-7.3) H 09/19/16 04:54 Eos % (Auto) 0.1 % (0.0-4.3) 09/19/16 04:54 Baso % (Auto) 0.3 % (0.0-1.8) 09/19/16 04:54 Lymph # 1.3 K/mm3 (1.2-5.4) 09/19/16 04:54 [place] # 1.3 K/mm3 (0.0-0.8) H 09/19/16 04:54 Eos # 0.0 K/mm3 (0.0-0.4) 09/19/16 04:54 Baso # 0.0 K/mm3 (0.0-0.1) 09/19/16 04:54 Seg Neutrophils % 83.1 % (40.0-70.0) H 09/19/16 04:54 Seg Neutrophils # 13.1 K/mm3 (1.8-7.7) H 09/19/16 04:54 Sodium 140 mmol/L (137-145) D 09/21/16 06:11 Potassium 3.8 mmol/L (3.6-5.0) D 09/21/16 06:11 Chloride 103.3 mmol/L (98-107) 09/21/16 06:11 Carbon Dioxide 21 mmol/L (22-30) L 09/21/16 06:11 Anion Gap 20 mmol/L 09/21/16 06:11 BUN 45 mg/dL (7-17) H 09/21/16 06:11 Creatinine 3.4 mg/dL (0.7-1.2) H 09/21/16 06:11 Estimated GFR 17 ml/min 09/21/16 06:11 BUN/Creatinine Ratio 13.23 % 09/21/16 06:11 Glucose 230 mg/dL (65-100) H 09/21/16 06:11 POC Glucose 313 (70-105) H 09/20/16 22:09 Hemoglobin A1c 8.4 % (4-6) H 09/21/16 06:11 Lactic Acid 1.2 mmol/L (0.7-2.0) 09/18/16 07:33 Calcium 8.3 mg/dL (8.4-10.2) L 09/21/16 06:11 Phosphorus 4.1 mg/dL (2.5-4.5) 09/21/16 06:11 Magnesium 2.0 mg/dL (1.7-2.3) 09/19/16 04:54 Total Bilirubin < 0.2 mg/dL (0.1-1.2) 09/21/16 06:11 Direct Bilirubin 0.4 mg/dL (0-0.2) H 09/19/16 04:54 Indirect Bilirubin 0.9 mg/dL 09/19/16 04:54 AST 19 units/L (5-40) 09/21/16 06:11 ALT 33 units/L (7-56) 09/21/16 06:11 Alkaline Phosphatase 141 units/L (35-129) H 09/21/16 06:11 Ammonia 14.0 umol/L (25-60) L 09/19/16 04:54 Total Creatine Kinase 240 units/L (30-135) H 09/18/16 10:53 CK-MB (CK-2) 3.8 ng/mL (0.0-4.0) 09/18/16 10:53 CK-MB (CK-2) Rel Index 1.5 (0-4) 09/18/16 10:53 Troponin T < 0.010 ng/mL (0.00-0.029) 09/18/16 10:53 Total Protein 6.9 g/dL (6.3-8.2) 09/21/16 06:11 Albumin 3.4 g/dL (3.9-5) L 09/21/16 06:11 Albumin/Globulin Ratio 1.0 % 09/21/16 06:11 TSH 13.830 mlU/mL (0.270-4.200) H 09/21/16 06:11 Free T4 0.76 ng/dL (0.76-1.46) 09/18/16 13:33 PTH Intact 70.24 pg/mL (15-65) H 09/19/16 04:54 Total Cortisol 25.3 mcg/dL () 09/18/16 08:59 Urine Color Yellow (Yellow) 09/18/16 06:21 Urine Turbidity Clear (Clear) 09/18/16 06:21 Urine pH 5.0 (5.0-7.0) 09/18/16 06:21 Ur Specific [place] 1.012 (1.003-1.030) 09/18/16 06:21 Urine Protein >500 mg/dL (Negative) 09/18/16 06:21 Urine Glucose (UA) 50 mg/dL (Negative) 09/18/16 06:21 Urine Ketones Neg mg/dL (Negative) 09/18/16 06:21 Urine Blood Neg (Negative) 09/18/16 06:21 Urine Nitrite Neg (Negative) 09/18/16 06:21 Ur Reducing Substances Not Reportable 09/18/16 06:21 Urine Bilirubin Neg (Negative) 09/18/16 06:21 Urine Ictotest Not Reportable 09/18/16 06:21 Urine Urobilinogen < 2.0 mg/dL (<2.0) 09/18/16 06:21 Ur Leukocyte Esterase Neg (Negative) 09/18/16 06:21 Urine WBC (Auto) 3.0 /HPF (0.0-6.0) 09/18/16 06:21 Urine RBC (Auto) 3.0 /HPF (0.0-6.0) 09/18/16 06:21 U Epithel Cells (Auto) < 1.0 /HPF (0-13.0) 09/18/16 06:21 Amorphous Crystals 1+ 09/18/16 06:21 Urine Mucus Few /HPF 09/18/16 06:21 Urine Eosinophils None seen (None Seen) 09/18/16 14:15 Urine Creatinine 95.0 mg/dL (0.1-20.0) H 09/18/16 14:15 Protein/Creatinin Ratio 7.69 09/18/16 14:15 Urine Sodium 67 mEq/L 09/18/16 14:15 Urine Total Protein 731 mg/dL (5-11.8) H 09/18/16 14:15 Urine HCG, Qual Negative (Negative) 09/18/16 06:21 Salicylates < 0.3 mg/dL (2.8-20.0) L 09/18/16 06:19 Urine Opiates Screen Presumptive negative 09/18/16 06:21 Urine Methadone Screen Presumptive positive 09/18/16 06:21 Acetaminophen < 15.0 ug/mL (10.0-30.0) 09/18/16 06:19 Ur Barbiturates Screen Presumptive negative 09/18/16 06:21 Ur Phencyclidine Scrn Presumptive negative 09/18/16 06:21 Ur Amphetamines Screen Presumptive negative 09/18/16 06:21 U Benzodiazepines Scrn Presumptive negative 09/18/16 06:21 Urine Cocaine Screen Presumptive negative 09/18/16 06:21 U Marijuana (THC) Screen Presumptive negative 09/18/16 06:21 Drugs of Abuse Note Disclamer 09/18/16 06:21 Plasma/Serum Alcohol < 0.01 gm% (0-0.07) 09/18/16 06:19
[2016-09-21 10:34] LABS: ISTAT Base Excess -5; ISTAT DEVICE 0; ISTAT HCO3 21.4; ISTAT PCO2 41.6 (35-45); ISTAT PH 7.319 (7.35-7.45); ISTAT PO2 70 (80-105); ISTAT SO2 92; ISTAT TCO2 23
[2016-09-21] MEDS: TOPAMAX PO SCH (15:06)
[2016-09-21] MEDS: APRESOLINE IV PRN (18:04)
--- NOTE | 2016-09-21 19:48 | Progress Note ---
Assessment and Plan Patient alert, awake,Oriented. Resting on room air. No complaint of chest pain or shortness of breath. O2 satuaration 99% on room air. Patient has history of asthma Patient morbidly Obese. Patient says she snores, feeling tired get up in the morning and has insomnia. Patient may have sleep apnea. - Patient Problems (1) Bronchial asthma Current Visit: Yes Status: Acute Qualifiers: Asthma severity: A Asthma complication type: A Plan to address problem: 1. Albuterol aerosol treatments q 6 hours 2. Continue Solumedral (2) Morbid obesity with BMI of 40.0-44.9, adult Current Visit: Yes Status: Acute Plan to address problem: Nutritional consultation for weight reduction diet. Continue S/C Heparine. (3) Sleep apnea Current Visit: Yes Status: Acute Qualifiers: Sleep apnea type: S Plan to address problem: Recommend sleep study as outpatient. (4) Hypothyroidism Current Visit: Yes Status: Acute Qualifiers: Hypothyroidism type: H Plan to address problem: Patient is on Levothyroxine. Management as per primary care. (5) Acute on chronic renal failure Current Visit: Yes Status: Acute Plan to address problem: Management as per nephrology. (6) Hyperkalemia Current Visit: Yes Status: Acute Plan to address problem: Management as per nephrology. (7) Metabolic acidosis Current Visit: Yes Status: Acute Plan to address problem: ABGs on room air PH 7.31, PCO2 42, PO2 70, HCO3 21,O2 satuaration 92%. Metabolic acidosis likely from renal failure. Management as per nephrology. Subjective Date of service: 09/21/16 Principal diagnosis: Altered Mental Status Interval history: Patient alert, awake,Oriented. Resting on room air. No complaint of chest pain or shortness of breath. O2 satuaration 99% on room air. Patient has history of asthma Patient morbidly Obese. Patient says she snores, feeling tired get up in the morning and has insomnia. Patient may have sleep apnea. Objective Vital Signs - 12hr 09/21/16 09/21/16 09/21/16 08:00 08:45 09:28 Temperature 97.8 F Pulse Rate Pulse Rate [ 91 H Anterior Bilateral Throughout] Pulse Rate [ Anterior Right Throughout] Respiratory 16 16 Rate Respiratory 18 Rate [Anterior Bilateral Throughout] Respiratory Rate [Anterior Right Throughout] Blood Pressure Blood Pressure 201/100 [Left Arm] Blood Pressure 194/102 [Right Arm] O2 Sat by Pulse 99 98 Oximetry 09/21/16 09/21/16 09/21/16 09:38 10:00 13:40 Temperature Pulse Rate 87 Pulse Rate [ 93 H 88 Anterior Bilateral Throughout] Pulse Rate [ 88 Anterior Right Throughout] Respiratory Rate Respiratory 20 20 Rate [Anterior Bilateral Throughout] Respiratory 20 Rate [Anterior Right Throughout] Blood Pressure Blood Pressure [Left Arm] Blood Pressure [Right Arm] O2 Sat by Pulse Oximetry 09/21/16 09/21/16 09/21/16 13:50 15:22 18:04 Temperature Pulse Rate 88 Pulse Rate [ Anterior Bilateral Throughout] Pulse Rate [ 93 H Anterior Right Throughout] Respiratory Rate Respiratory Rate [Anterior Bilateral Throughout] Respiratory 20 Rate [Anterior Right Throughout] Blood Pressure 194/102 Blood Pressure [Left Arm] Blood Pressure [Right Arm] O2 Sat by Pulse Oximetry Constitutional: no acute distress, alert Eyes: non-icteric ENT: oropharynx moist Neck: supple, no lymphadenopathy Ascultation: Bilateral: diminished breath sounds Cardiovascular: regular rate and rhythm Gastrointestinal: normoactive bowel sounds, soft, non-tender Integumentary: normal Extremities: no cyanosis, no edema Neurologic: non-focal exam, pupils equal and round, CN II-XII normal Psychiatric: anxious, other CBC and BMP: 09/19/16 04:54 09/21/16 06:11 ABG, PT/INR, D-dimer: ABG POC ABG pH 7.319 (7.35-7.45) L 09/21/16 10:07 POC ABG pCO2 41.6 (35-45) 09/21/16 10:07 POC ABG pO2 70 (80-105) L 09/21/16 10:07 POC ABG HCO3 21.4 09/21/16 10:07 POC ABG Total CO2 23 09/21/16 10:07 POC ABG O2 Sat 92 09/21/16 10:07 Abnormal lab findings: Abnormal Labs 09/18/16 09/18/16 09/18/16 10:53 12:07 13:33 WBC RBC MCH RDW Lymph % (Auto) [place] % (Auto) [place] # Seg Neutrophils % Seg Neutrophils # POC ABG pH POC ABG pO2 Sodium Potassium Carbon Dioxide BUN Creatinine Glucose POC Glucose 294 H Hemoglobin A1c Calcium Phosphorus Total Bilirubin Direct Bilirubin Alkaline Phosphatase Ammonia Total Creatine Kinase 240 H Albumin TSH 79.250 H PTH Intact Urine Creatinine Urine Total Protein 09/18/16 09/18/16 09/19/16 14:15 21:27 04:54 WBC 15.7 H RBC 5.07 H MCH 27 L RDW 15.5 H Lymph % (Auto) 8.1 L [place] % (Auto) 8.4 H [place] # 1.3 H Seg Neutrophils % 83.1 H Seg Neutrophils # 13.1 H POC ABG pH POC ABG pO2 Sodium Potassium Carbon Dioxide BUN Creatinine Glucose POC Glucose 301 H Hemoglobin A1c Calcium Phosphorus Total Bilirubin Direct Bilirubin Alkaline Phosphatase Ammonia Total Creatine Kinase Albumin TSH PTH Intact Urine Creatinine 95.0 H Urine Total Protein 731 H 09/19/16 09/19/16 09/19/16 04:54 04:54 04:54 WBC RBC MCH RDW Lymph % (Auto) [place] % (Auto) [place] # Seg Neutrophils % Seg Neutrophils # POC ABG pH POC ABG pO2 Sodium Potassium Carbon Dioxide BUN Creatinine Glucose 177 H POC Glucose Hemoglobin A1c Calcium Phosphorus 2.2 L Total Bilirubin 1.3 H Direct Bilirubin 0.4 H Alkaline Phosphatase Ammonia 14.0 L Total Creatine Kinase Albumin 3.2 L TSH PTH Intact 70.24 H Urine Creatinine Urine Total Protein 09/19/16 09/19/16 09/19/16 08:11 13:53 17:18 WBC RBC MCH RDW Lymph % (Auto) [place] % (Auto) [place] # Seg Neutrophils % Seg Neutrophils # POC ABG pH POC ABG pO2 Sodium Potassium Carbon Dioxide BUN Creatinine Glucose POC Glucose 495 H 397 H 265 H Hemoglobin A1c Calcium Phosphorus Total Bilirubin Direct Bilirubin Alkaline Phosphatase Ammonia Total Creatine Kinase Albumin TSH PTH Intact Urine Creatinine Urine Total Protein 09/19/16 09/20/16 09/20/16 22:32 05:30 06:15 WBC RBC MCH RDW Lymph % (Auto) [place] % (Auto) [place] # Seg Neutrophils % Seg Neutrophils # POC ABG pH POC ABG pO2 Sodium Potassium Carbon Dioxide BUN Creatinine Glucose POC Glucose 273 H 250 H Hemoglobin A1c Calcium Phosphorus Total Bilirubin Direct Bilirubin Alkaline Phosphatase Ammonia Total Creatine Kinase Albumin TSH 14.350 H PTH Intact Urine Creatinine Urine Total Protein 09/20/16 09/20/16 09/20/16 06:15 11:06 15:52 WBC RBC MCH RDW Lymph % (Auto) [place] % (Auto) [place] # Seg Neutrophils % Seg Neutrophils # POC ABG pH POC ABG pO2 Sodium 132 L D Potassium 6.2 H* D 5.3 H Carbon Dioxide 16 L D BUN 40 H Creatinine 3.3 H D Glucose 236 H POC Glucose 282 H Hemoglobin A1c Calcium Phosphorus Total Bilirubin Direct Bilirubin Alkaline Phosphatase Ammonia Total Creatine Kinase Albumin TSH PTH Intact Urine Creatinine Urine Total Protein 09/20/16 09/20/16 09/21/16 17:02 22:09 06:11 WBC RBC MCH RDW Lymph % (Auto) [place] % (Auto) [place] # Seg Neutrophils % Seg Neutrophils # POC ABG pH POC ABG pO2 Sodium Potassium Carbon Dioxide BUN Creatinine Glucose POC Glucose 280 H 313 H Hemoglobin A1c Calcium Phosphorus Total Bilirubin Direct Bilirubin Alkaline Phosphatase Ammonia Total Creatine Kinase Albumin TSH 13.830 H PTH Intact Urine Creatinine Urine Total Protein 09/21/16 09/21/16 09/21/16 06:11 06:11 10:07 WBC RBC MCH RDW Lymph % (Auto) [place] % (Auto) [place] # Seg Neutrophils % Seg Neutrophils # POC ABG pH 7.319 L POC ABG pO2 70 L Sodium Potassium Carbon Dioxide 21 L BUN 45 H Creatinine 3.4 H Glucose 230 H POC Glucose Hemoglobin A1c 8.4 H Calcium 8.3 L Phosphorus Total Bilirubin Direct Bilirubin Alkaline Phosphatase 141 H Ammonia Total Creatine Kinase Albumin 3.4 L TSH PTH Intact Urine Creatinine Urine Total Protein
[2016-09-21] MEDS: SINEquan PO SCH (21:36)
[2016-09-21] MEDS: LEVEMIR SUB-Q SCH (21:39)
[2016-09-21] MEDS: MORPHINE IV PRN (22:44)
[2016-09-22] MEDS: MORPHINE IV PRN (04:37)
[2016-09-22] MEDS: APRESOLINE PO SCH ×2 (05:54→13:56)
[2016-09-22] MEDS: SYNTHROID PO SCH (05:54)
[2016-09-22 07:12] LABS: BUN/Creatinine Ratio 14.68; Calcium 8.1 mg/dL (8.4-10.2); Chloride 99.3 mmol/L (98-107); Potassium 4.1 mmol/L (3.6-5.0)
[2016-09-22] MEDS: PROVENTIL IH SCH ×2 (07:33→13:47)
--- NOTE | 2016-09-22 07:54 | Progress Note ---
Assessment and Plan - Patient Problems (1) Acute on chronic renal failure Current Visit: Yes Status: Acute Plan to address problem: Patient with CKD stage 4 with baseline creatinine around 3. Mild TAYLOR in the setting of Hypothermia and volume depletion. Creatinine remains stable. Monitor renal function. (2) Hyperkalemia Current Visit: Yes Status: Acute Plan to address problem: Improved. (3) Proteinuria Current Visit: Yes Status: Chronic Plan to address problem: Patient has about 7.7 gms of protein on spot urine. Antibodies results are pending. S/p kidney biopsy. Patient to follow up with me in 1 week to discuss the results. (4) Hypothermia Current Visit: Yes Status: Acute Qualifiers: Encounter type: E Plan to address problem: Improved. (5) Encephalopathy Current Visit: Yes Status: Acute Plan to address problem: Improved. (6) DM type 2 (diabetes mellitus, type 2) Current Visit: Yes Status: Chronic Qualifiers: Diabetes mellitus complication status: D Diabetes mellitus complication detail: D Diabetic retinopathy severity: D Proliferative retinopathy type: P Diabetes mellitus macular edema: D Diabetes mellitus middle or intermediate school principal insulin use : D Laterality: L Chronic kidney disease stage: C (7) Chronic pain syndrome Current Visit: Yes Status: Chronic Subjective Date of service: 09/22/16 Principal diagnosis: Altered Mental Status Interval history: Patient had CT guided kidney biopsy done today. Objective - Vital Signs Vital signs: Vital Signs - 12hr 09/21/16 09/21/16 09/21/16 20:01 20:11 20:23 Temperature Pulse Rate 98 H Pulse Rate [ 92 H Apical] Pulse Rate [ 93 H Bilateral Throughout] Respiratory 22 Rate Respiratory 22 Rate [Abdomen] Respiratory 20 Rate [Bilateral Throughout] Blood Pressure Blood Pressure [Right Arm] O2 Sat by Pulse 99 Oximetry 09/21/16 09/21/16 09/21/16 21:36 22:36 22:44 Temperature 98.7 F Pulse Rate 101 H Pulse Rate [ 101 H Apical] Pulse Rate [ Bilateral Throughout] Respiratory 20 20 20 Rate Respiratory Rate [Abdomen] Respiratory Rate [Bilateral Throughout] Blood Pressure 180/84 Blood Pressure 180/84 [Right Arm] O2 Sat by Pulse 99 Oximetry 09/21/16 09/21/16 09/22/16 23:02 23:14 01:04 Temperature 98.4 F Pulse Rate Pulse Rate [ 101 H Apical] Pulse Rate [ Bilateral Throughout] Respiratory 20 20 Rate Respiratory 20 Rate [Abdomen] Respiratory Rate [Bilateral Throughout] Blood Pressure Blood Pressure 129/91 [Right Arm] O2 Sat by Pulse 95 Oximetry 09/22/16 09/22/16 09/22/16 04:37 05:07 05:54 Temperature Pulse Rate 90 Pulse Rate [ Apical] Pulse Rate [ Bilateral Throughout] Respiratory 20 20 Rate Respiratory Rate [Abdomen] Respiratory Rate [Bilateral Throughout] Blood Pressure 120/78 Blood Pressure [Right Arm] O2 Sat by Pulse Oximetry 09/22/16 09/22/16 06:04 07:34 Temperature 97.6 F Pulse Rate Pulse Rate [ 95 H Apical] Pulse Rate [ 94 H Bilateral Throughout] Respiratory 20 Rate Respiratory Rate [Abdomen] Respiratory 16 Rate [Bilateral Throughout] Blood Pressure Blood Pressure 167/88 [Right Arm] O2 Sat by Pulse 97 Oximetry - General Appearance General appearance: well-developed, well-nourished, appears stated age, obese, other (no distress) EENT: ATNC, PERRL, mucous membranes moist, hearing intact, vision intact Neck: supple Respiratory: Present: Clear to Ascultation Cardiology: regular, S1S2 Gastrointestinal: normoactive bowel sounds, no tenderness, no distended Integumentary: no rash, warm and dry Neurologic: no focal deficit, no asterixis, alert and oriented x3, CN 3-12 intact Musculoskeletal: other (no edema) Psychiatric: mood/affect appropriate, cooperative - Lab 09/19/16 04:54 09/22/16 06:23 Most recent lab results Calcium 8.1 mg/dL (8.4-10.2) L 09/22/16 06:23 Phosphorus 4.1 mg/dL (2.5-4.5) 09/21/16 06:11 Magnesium 2.0 mg/dL (1.7-2.3) 09/19/16 04:54 Urine Creatinine 95.0 mg/dL (0.1-20.0) H 09/18/16 14:15 Urine Sodium 67 mEq/L 09/18/16 14:15 Urine Total Protein 731 mg/dL (5-11.8) H 09/18/16 14:15
[2016-09-22] MEDS ORDERED: LEVEMIR SUB-Q SCH (07:56)
[2016-09-22] MEDS: ELAVIL PO SCH ×2 (08:52→09:05)
[2016-09-22] MEDS: COLCRYS PO SCH ×2 (08:52→09:05)
[2016-09-22] MEDS: LOPRESSOR PO SCH ×2 (08:52→09:06)
[2016-09-22] MEDS: HEPARIN SUB-Q SCH ×2 (08:53→09:06)
[2016-09-22] MEDS: IMDUR PO SCH ×2 (08:53→09:06)
[2016-09-22] MEDS: DOLOPHINE PO SCH ×2 (08:53→13:55)
[2016-09-22] MEDS: NOVOLOG SUB-Q SCH ×2 (08:54→13:57)
[2016-09-22] MEDS: PROTONIX PO SCH ×2 (08:54→09:06)
[2016-09-22] MEDS: TOPAMAX PO SCH (09:06)
[2016-09-22 09:39] LABS: INR 1.02 (0.87-1.13); Partial Thromboplastin Time 22.4 Sec. (24.2-36.6)
[2016-09-22] MEDS ORDERED: SUBLIMAZE ONE (10:40)
[2016-09-22] MEDS ORDERED: VERSED IV ONE ×2 (10:40→11:06)
--- NOTE | 2016-09-22 11:13 | Discharge Summary ---
Providers - Providers Date of Admission: 09/18/16 10:21 Date of discharge: 09/22/16 Attending physician: IDANIA JACKSON 09/18/16 10:25 Consult to Physician [CONS] Routine Consulting Provider: LUIS ENRIQUE MISHRA Reason For Exam: severe myxedema/cr care consult Place consult to:: CC CNA Notified:: Y Was contact made?: Yes Comment:: DR MIRZA 09/18/16 10:34 Consult to Physician [CONS] Routine Consulting Provider: RADHA CERVANTES Reason For Exam: ac on chronic renal failure Place consult to:: nephro Notified:: y Was contact made?: Yes If yes, spoke with:: DR CERVANTES Time called:: 10:45 Primary care physician: PCAT INSTRUCTOR Hospitalization Condition: Fair Disposition: DISCHARGED TO HOME OR SELFCARE - Discharge Diagnoses (1) Acute renal failure superimposed on stage 4 chronic kidney disease Status: Acute Core Measure Documentation - Palliative Care Palliative Care/ Comfort Measures: Not Applicable - Core Measures Any of the following diagnoses?: none Exam - Constitutional Vitals: Temp Pulse Resp BP Pulse Ox 98.6 F 96 H 16 195/95 97 09/22/16 08:47 09/22/16 09:38 09/22/16 09:18 09/22/16 08:53 09/22/16 08:47 Plan Activity: advance as tolerated Diet: low fat, low cholesterol, low salt, renal Additional Instructions: 1.Follow up with Dr. Romero, PCP in 1 week. 2.Follow up with Dr. Lucero, Nephrology in 1 week. 3.Follow up with Dr. Haynes in 1 week for outpatient sleep study Follow up with: PRIMARY CARE,MD [Primary Care Provider] - 3-5 Days Prescriptions: Albuterol Sulfate [Ventolin HFA] 2 puff IH Q4H PRN #1 pump PRN Reason: Shortness Of Breath hydrALAZINE [Apresoline TAB] 50 mg PO Q8HR #90 tablet Insulin Detemir [Levemir] 40 units SUB-Q QHS #1 vial Levothyroxine [Synthroid] 150 mcg PO DAILY@0600 #30 tablet Prednisone [predniSONE 10 mg (6-Day Pack, 21 Tabs)] 10 mg PO .TAPER #1 tab.ds.pk
[2016-09-22] MEDS ORDERED: SUBLIMAZE IV ONE (12:30)
--- NOTE | 2016-09-22 12:52 | Cat Scan Report ---
CT BIOPSY RENAL LEFT HISTORY: Nephrotic syndrome. DESCRIPTION OF PROCEDURE: Informed consent was obtained. Sterile technique was utilized. 1% lidocaine for skin anesthesia. Conscious sedation was accomplished with Versed and fentanyl. The patient was sedated for 15 minutes. Independent cardiorespiratory monitoring by RN. Intraobserver time of [address] guidance, a 17-gauge introducer needle was advanced to the inferior pole of the left kidney. Two 18-gauge core biopsies were obtained. Followup scan demonstrated a small perinephric hemorrhage at the biopsy site. The patient was asymptomatic. Impression: Successful CT-guided biopsy at the inferior pole of the left kidney.
[2016-09-22] MEDS: APRESOLINE IV PRN (17:16)
[2016-09-22 17:17] VITALS: BP 182/107
[2016-09-23 17:13] LABS: Gamma Globulin 1.2 g/dL (0.8-1.7)
[2016-09-23 17:57] LABS: Myeloperoxidase Antibody <1.0 AI (<1.0)
== END 2016-09-22 18:40 | disposition home or self-care (01) | DRG 643 ==
LOC: ED 05:38 → EEVIPCON 05:38 → CC1 10:21 → 4A 22:51
PROVIDERS: ADMIT Internal Medicine; ATTEND Internal Medicine
PROC: 4A033R1 Measurement of Arterial Saturation, Peripheral, Percutaneous Approach (ICD-10-PCS; 2016-09-21)
PROC: 0TB13ZX Excision of Left Kidney, Percutaneous Approach, Diagnostic (ICD-10-PCS; principal; 2016-09-22)
DX: E03.9 Hypothyroidism, unspecified (principal); G92 Toxic encephalopathy; N17.9 Acute kidney failure, unspecified; E72.20 Disorder of urea cycle metabolism, unspecified; E87.2 Acidosis; Z68.41 Body mass index [BMI] 40.0-44.9, adult; N18.4 Chronic kidney disease, stage 4 (severe); E66.01 Morbid (severe) obesity due to excess calories; E11.649 Type 2 diabetes mellitus with hypoglycemia without coma; G47.30 Sleep apnea, unspecified; E11.21 Type 2 diabetes mellitus with diabetic nephropathy; E11.65 Type 2 diabetes mellitus with hyperglycemia; G89.4 Chronic pain syndrome; J45.909 Unspecified asthma, uncomplicated; E11.22 Type 2 diabetes mellitus with diabetic chronic kidney disease; E78.5 Hyperlipidemia, unspecified; Z88.6 Allergy status to analgesic agent; Z88.0 Allergy status to penicillin; Z88.8 Allergy status to other drugs, medicaments and biological substances; Z90.49 Acquired absence of other specified parts of digestive tract; Z90.5 Acquired absence of kidney; Z79.899 Other long term (current) drug therapy; Z98.51 Tubal ligation status; Z82.49 Family history of ischemic heart disease and other diseases of the circulatory system; Z71.3 Dietary counseling and surveillance
CPT/HCPCS: 36415; 36600; 70450; 71010; 72125; 74176; 77012; 80048; 80053; 80074; 80307; 80320; 81001; 81025; 82140; 82533; 82550; 82553; 82570; 82803; 82962; 83036; 83735; 83970; 84100; 84132; 84156; 84165; 84300; 84439; 84443; 84484; 85025; 85610; 85730; 86021; 86038; 86160; 87040; 87086; 89050; 90686; 90732; 93005; 93010; 94640; 96365; 96375; C9113; G0480; J0360; J0610; J0692; J1644; J1720; J1815; J1818; J2250; J2270; J2405; J2920; J2930; J3010; J7030

== ENCOUNTER 2016-09-25 17:39 | Emergency (ER) | payer MEDICARE ==
[2016-09-25 19:34] VITALS: BP 174/100
[2016-09-25 20:16] LABS: Basophils % (Auto) 0.3 % (0.0-1.8); Eosinophils % (Auto) 1.5 % (0.0-4.3); Hematocrit 30.6 % (30.3-42.9); Hemoglobin 9.3 gm/dl (10.1-14.3); Mean Corpuscular HGB Conc 30 % (30-34); Mean Corpuscular Hemoglobin 27 pg (28-32); Mean Corpuscular Volume 88 fl (79-97); Platelet Count 225 K/mm3 (140-440); Red Blood Count 3.49 M/mm3 (3.65-5.03); Red Cell Distribution Width 18.5 % (13.2-15.2)
[2016-09-25 20:30] LABS: BUN/Creatinine Ratio 11.81; Calcium 8.9 mg/dL (8.4-10.2); Chloride 100.8 mmol/L (98-107); Potassium 4.5 mmol/L (3.6-5.0)
[2016-09-25 22:43] LABS: Bilirubin,Urine NEG (Negative); Blood,Urine NEG (Negative); Ketones,Urine NEG (Negative); Leukocyte Esterase,Urine TR (Negative); Mucus,Urine FEW /HPF; Nitrite,Urine NEG (Negative); Urobilinogen,Urine < 2.0 mg/dL (<2.0)
[2016-09-25 22:49] LABS: Protein,Urine >500 mg/dL (Negative)
--- NOTE | 2016-09-26 10:51 | ED Elopement Review ---
ED Pt Elopement review - Results review Lab results: Laboratory Tests 09/25/16 09/25/16 09/25/16 20:02 20:02 Unknown WBC 6.0 RBC 3.49 L Hgb 9.3 L Hct 30.6 MCV 88 MCH 27 L MCHC 30 RDW 18.5 H Plt Count 225 Lymph % (Auto) 11.8 L [place] % (Auto) 3.9 Eos % (Auto) 1.5 Baso % (Auto) 0.3 Lymph # 0.7 L [place] # 0.2 Eos # 0.1 Baso # 0.0 Seg Neutrophils % 82.5 H Seg Neutrophils # 4.9 Sodium 138 Potassium 4.5 Chloride 100.8 Carbon Dioxide 23 Anion Gap 19 BUN 39 H Creatinine 3.3 H Estimated GFR 18 BUN/Creatinine Ratio 11.81 Glucose 322 H Calcium 8.9 Urine Color Straw Urine Turbidity Clear Urine pH 6.0 Ur Specific [place] 1.011 Urine Protein >500 Urine Glucose (UA) >=500 Urine Ketones Neg Urine Blood Neg Urine Nitrite Neg Urine Bilirubin Neg Urine Urobilinogen < 2.0 Ur Leukocyte Esterase Tr Urine WBC (Auto) 15.0 H Urine RBC (Auto) 3.0 U Epithel Cells (Auto) 2.0 Urine Mucus Few Urine HCG, Qual Negative - Call Back decision Pt Call Back Decision: Pt to F/U with PMD (renal failure dropped hgb UTI?)
== END 2016-09-26 03:24 | disposition left against medical advice (07) ==
LOC: ED 17:39
DX: H57.13 Ocular pain, bilateral (principal); J02.9 Acute pharyngitis, unspecified; R10.9 Unspecified abdominal pain; J45.909 Unspecified asthma, uncomplicated; E11.9 Type 2 diabetes mellitus without complications; G43.909 Migraine, unspecified, not intractable, without status migrainosus; I10 Essential (primary) hypertension; Z88.8 Allergy status to other drugs, medicaments and biological substances; Z88.5 Allergy status to narcotic agent; Z88.0 Allergy status to penicillin; Z53.21 Procedure and treatment not carried out due to patient leaving prior to being seen by health care provider
CPT/HCPCS: 36415; 80048; 81001; 81025; 85025

== ENCOUNTER 2016-11-23 22:50 | Inpatient (IN) | payer MEDICARE ==
[2016-11-23] MEDS ORDERED: D50W (25GM) IV ONE ×3 (23:18→23:21)
--- NOTE | 2016-11-23 23:41 | Emergency Department Report ---
HPI - General Chief Complaint: Weakness Time Seen by Provider: 11/23/16 23:26 - HPI HPI: Room 26 The patient is a 51-year-old female presenting with a chief complaint of hypoglycemia. The patient states at home she began to feel dizzy. Patient states her son checked her blood sugar was found to be low in the 40s. The patient states she attempted to eat something to get her blood sugar that is her last memory. The patient states her next memory is coming to the emergency department. Patient was administered D50 and improved. Patient states she has had diffuse abdominal pain since she's been in the emergency department Location: Abdomen, blood sugar Duration: [see above] Quality: Pain, hyperglycemia Severity: Glucose 26 Modifying factors: [see above] Context: [see above] Mode of transportation: [not driving] ED Past Medical Hx - Past Medical History Hx Hypertension: Yes Hx Diabetes: Yes Hx Deep Vein Thrombosis: Yes Hx Renal Disease: Yes Hx Headaches / Migraines: Yes Hx Asthma: Yes Additional medical history: gout hyperthyroidism - Surgical History Hx Cholecystectomy: Yes Additional Surgical History: umbilical hernia repair x2. tonsilectomy. left foot fracture/[place]. right kidney removal - Family History Family history: no significant - Social History Smoking Status: Unknown if ever smoked Substance Use Type: None - Medications Home Medications: Home Medications Medication Instructions Recorded Confirmed Last Taken Type Amitriptyline [Elavil] 75 mg PO DAILY 09/18/16 10/31/16 Unknown History Cetirizine HCl [24Hour Allergy] 10 mg PO DAILY 09/18/16 10/31/16 Unknown History Colchicine [Colcrys] 0.6 mg PO DAILY 09/18/16 10/31/16 Unknown History Doxepin [SINEquan] 25 mg PO DAILY 09/18/16 10/31/16 Unknown History Eletriptan HBr [Relpax] 20 mg PO Q4H 09/18/16 10/31/16 Unknown History ISOSORBIDE MONOnitrate [Imdur ER] 60 mg PO DAILY 09/18/16 10/31/16 Unknown History Methadone [Dolophine] 10 mg PO TID 09/18/16 10/31/16 Unknown History Metoprolol [Lopressor TAB] 100 mg PO DAILY 09/18/16 10/31/16 Unknown History Omeprazole 40 mg PO DAILY 09/18/16 10/31/16 Unknown History Rosuvastatin (Nf) [Crestor] 10 mg PO DAILY 09/18/16 10/31/16 Unknown History Tizanidine HCl [Zanaflex] 2 mg PO DAILY 09/18/16 10/31/16 09/17/16 History Topiramate [Topamax] 100 mg PO DAILY 09/18/16 10/31/16 Unknown History Albuterol Sulfate [Ventolin HFA] 2 puff IH Q4H PRN #1 pump 09/22/16 10/31/16 Unknown Rx Levothyroxine [Synthroid] 150 mcg PO DAILY@0600 #30 tablet 09/22/16 10/31/16 Unknown Rx hydrALAZINE [Apresoline TAB] 50 mg PO Q8HR #90 tablet 09/22/16 10/31/16 Unknown Rx Insulin Detemir [Levemir] 20 units SUB-Q QHS #1 vial 11/12/16 10/31/16 Unknown Rx Lactulose 20 gm PO DAILY #900 ml 11/19/16 Unknown Rx Warfarin [Coumadin] 10 mg PO QDAY #7 tablet 11/19/16 Unknown Rx ED Review of Systems ROS: Stated complaint: HYPOGLYCEMIA Other details as noted in HPI Comment: All other systems reviewed and negative Eyes: denies: eye pain, eye discharge, vision change ENT: denies: ear pain, throat pain Respiratory: denies: cough, shortness of breath, wheezing Cardiovascular: denies: chest pain, palpitations Endocrine: other (hypoglycemia) Gastrointestinal: abdominal pain. denies: nausea, vomiting Genitourinary: denies: urgency, dysuria, discharge Musculoskeletal: denies: back pain, joint swelling, arthralgia Skin: denies: rash, lesions Neurological: confusion Psychiatric: denies: anxiety, depression Hematological/Lymphatic: denies: easy bleeding, easy bruising Physical Exam - Physical Exam Vital Signs: Vital Signs 11/23/16 23:05 Pulse Rate 78 Respiratory 18 Rate Blood Pressure 145/93 O2 Sat by Pulse 100 Oximetry Physical Exam: GENERAL: The patient is well-developed well-nourished female lying on stretcher not not appearing to be in acute distress. [] HEENT: Normocephalic. Atraumatic. Extraocular motions are intact. Patient has moist mucous membranes. NECK: Supple. Trachea midline CHEST/LUNGS: Clear to auscultation. There is no respiratory distress noted. HEART/CARDIOVASCULAR: Regular. There is no tachycardia. There is no gallop rub or murmur. ABDOMEN: Abdomen is soft, with diffuse discomfort to palpation. Patient has normal bowel sounds. There is no abdominal distention. SKIN: There is no rash. There is no edema. There is no diaphoresis. NEURO: The patient is awake, alert, and oriented. The patient is cooperative. The patient has normal speech MUSCULOSKELETAL: There is no evidence of acute injury. ED Course Vital Signs 11/23/16 23:05 Pulse Rate 78 Respiratory 18 Rate Blood Pressure 145/93 O2 Sat by Pulse 100 Oximetry ED Medical Decision Making - Lab Data Result diagrams: 11/23/16 23:32 11/23/16 23:39 Laboratory Tests 11/23/16 11/23/16 11/23/16 22:39 23:16 23:32 WBC 5.8 RBC 3.01 L Hgb 8.2 L Hct 26.6 L MCV 88 MCH 27 L MCHC 31 RDW 16.5 H Plt Count 247 Lymph % (Auto) 17.6 [place] % (Auto) 4.9 Eos % (Auto) 2.1 Baso % (Auto) 0.7 Lymph # 1.0 L [place] # 0.3 Eos # 0.1 Baso # 0.0 Seg Neutrophils % 74.7 H Seg Neutrophils # 4.3 PT 21.6 H INR 1.88 H APTT 42.1 H Sodium Potassium Chloride Carbon Dioxide Anion Gap BUN Creatinine Estimated GFR BUN/Creatinine Ratio Glucose POC Glucose 44 L Calcium Total Bilirubin AST ALT Alkaline Phosphatase Total Protein Albumin Albumin/Globulin Ratio Amylase Lipase 11/23/16 11/23/16 11/24/16 23:39 23:51 02:24 WBC RBC Hgb Hct MCV MCH MCHC RDW Plt Count Lymph % (Auto) [place] % (Auto) Eos % (Auto) Baso % (Auto) Lymph # [place] # Eos # Baso # Seg Neutrophils % Seg Neutrophils # PT INR APTT Sodium 138 Potassium 5.5 H Chloride 104.4 Carbon Dioxide 18 L Anion Gap 21 BUN 34 H Creatinine 5.1 H Estimated GFR 11 BUN/Creatinine Ratio 6.66 Glucose 129 H POC Glucose 132 H 125 H Calcium 7.9 L Total Bilirubin < 0.20 AST 16 ALT 25 Alkaline Phosphatase 205 H Total Protein 6.5 Albumin 2.3 L Albumin/Globulin Ratio 0.5 Amylase 45 Lipase 39 - EKG Data -: EKG Interpreted by Me EKG shows normal: sinus rhythm Rate: normal - EKG Data When compared to previous EKG there are: no significant change Interpretation: unchanged when compared t (11/01/2016) - Radiology Data Radiology results: report reviewed (CT abdomen and pelvis), image reviewed (CT abdomen and pelvis) CT abdomen and pelvis (read by radiologist)-previously seen by dilatation of small bowel loops has resolved. Large and small bowel loops are normal in caliber on today's exam. No inflammatory changes of the appendix. Stable inspissated stool versus appendicolith remain within the appendix. - Differential Diagnosis hypoglycemia, gastritis, gastroenteritis Critical care attestation.: If time is entered above; I have spent that time in minutes in the direct care of this critically ill patient, excluding procedure time. ED Disposition Clinical Impression: Hypoglycemia, Hyperkalemia, End stage renal disease, Hypocalcemia Disposition: 09 OP ADMIT IP TO THIS HOSP Is pt being admited?: Yes Does the pt Need Aspirin: Yes Condition: Fair Referrals: PRIMARY CARE, [Primary Care Provider] - 3-5 Days Time of Disposition: 03:34 (hospitalist paged)
[2016-11-24 00:16] LABS: Basophils % (Auto) 0.7 % (0.0-1.8); Eosinophils % (Auto) 2.1 % (0.0-4.3); Hematocrit 26.6 % (30.3-42.9); Hemoglobin 8.2 gm/dl (10.1-14.3); Mean Corpuscular HGB Conc 31 % (30-34); Mean Corpuscular Hemoglobin 27 pg (28-32); Mean Corpuscular Volume 88 fl (79-97); Platelet Count 247 K/mm3 (140-440); Red Blood Count 3.01 M/mm3 (3.65-5.03); Red Cell Distribution Width 16.5 % (13.2-15.2); White Blood Count 5.8 K/mm3 (4.5-11.0)
[2016-11-24 00:24] LABS: Alanine Aminotransferase 25 units/L (7-56); Albumin 2.3 g/dL (3.9-5); Albumin/Globulin Ratio 0.5 %; Alkaline Phosphatase 205 units/L (35-129); Amylase 45 units/L (27-131); BUN/Creatinine Ratio 6.66; Bilirubin,Total < 0.20 mg/dL (0.1-1.2); Blood Urea Nitrogen 34 mg/dL (7-17); Calcium 7.9 mg/dL (8.4-10.2); Carbon Dioxide 18 mmol/L (22-30); Chloride 104.4 mmol/L (98-107); Glucose 129 mg/dL (65-100); Lipase 39 units/L (13-60); Potassium 5.5 mmol/L (3.6-5.0); Sodium 138 mmol/L (137-145); Total Protein 6.5 g/dL (6.3-8.2)
[2016-11-24 00:26] LABS: INR 1.88 (0.87-1.13); Partial Thromboplastin Time 42.1 Sec. (24.2-36.6)
[2016-11-24 00:33] LABS: Anion Gap 21 mmol/L
[2016-11-24] MEDS ORDERED: CALCIUM GLUCONATE 1,000 MG in NACL 0.9% 100 ML IV ONE (00:53)
[2016-11-24] MEDS ORDERED: SODIUM BICARBONATE IV ONE (00:53)
[2016-11-24] MEDS ORDERED: KIONEX PO ONE (00:54)
--- NOTE | 2016-11-24 01:58 | Cat Scan Report ---
FINAL REPORT EXAM: CT ABDOMEN PELVIS WO CON HISTORY: diffuse abdominal pain COMPARISON: CT of the abdomen pelvis October 2016. TECHNIQUE: Contiguous axial images were obtained. Additional sagittal and coronal reformatted images were obtained. FINDINGS: Previously seen distension of small bowel loops has resolved. No residual ileus or small-bowel obstruction on today's exam. Large and small bowel loops are normal in caliber. Small to moderate amount of stool in the colon. There appendicular less versus inspissated barium or stool in the appendix. The appendix measures 5 millimeters in diameter. No adjacent fat stranding or fluid. Peritoneal dialysis catheter remains coiled left hemipelvis with small amount of fluid in the pelvis likely relating to presence of the catheter. No loculated collection. No free air in the pelvis. There is a small umbilical hernia containing fluid. This is stable from prior exam. Hernia sac measures approximately 4 x 3 centimeters in axial dimension. Mild linear scarring or atelectasis at the lung bases. Stable mild cardiac enlargement and trace pericardial fluid. Stable subcentimeter low-attenuation lesion in the caudate lobe likely reflecting a small cyst or benign hemangioma. Gallbladder surgically absent. Spleen and pancreas are grossly unremarkable. Stable nodular thickening of the adrenal glands. Stable left adrenal nodule measuring 2.6 x 1.2 centimeters. Internal Hounsfield units 8. Right kidney is surgically absent. No nephrolithiasis or hydronephrosis of the left kidney. Multiple pelvic phleboliths. No distal ureteral urinary bladder calculi. Uterus and ovaries are grossly unremarkable. Mild degenerative changes of the lumbar spine. Bony pelvis is grossly intact. IMPRESSION: Previously seen dilatation of small bowel loops has resolved. Large and small bowel loops are normal in caliber on today's exam. No inflammatory changes of the appendix. Stable inspissated stool versus appendicolith remain within the appendix. Left-sided peroneal dialysis catheter remains in place with small amount of fluid in the pelvis. No loculated collection to suggest abscess. Small umbilical hernia containing fluid. Prior right nephrectomy. No nephrolithiasis or hydronephrosis of the remaining left kidney. No other acute findings.
[2016-11-24] MEDS ORDERED: ZOFRAN IV ONE (02:22)
[2016-11-24] MEDS ORDERED: MORPHINE IV ONE (02:22)
[2016-11-24] MEDS ORDERED: MILK OF MAGNESIA PO PRN (04:57)
[2016-11-24] MEDS ORDERED: DULCOLAX PR PRN (04:57)
--- NOTE | 2016-11-24 05:01 | History and Physical Report ---
History of Present Illness Date of examination: 11/24/16 History of present illness: 51-year-old man history of hypertension, diabetes, hyperlipidemia, hypothyroidism, back comes emergency room with complaints of passing out. She states she was watching TV, passed out and now weeks up in the emergency room. Her blood sugar at home was found to be 40. She complains of abdominal pain, all over, has not improved since the last admission when pain started. Patient denies chest pain, palpitation, shortness of breath, cough, hematochezia, dysuria, frequency, focal weakness, dysarthria, fever chills, polydipsia polyuria, hot or cold intolerance, easy bruisability, or rash or bleeding from mucosal membrane, rhinorrhea, epistaxis, earache, tinnitus, blurry vision, eye discharge, anxiety, depression. Other review of systems negative PAST SURGICAL HISTORY: Nephrectomy, cholecystectomy, hernia repair, tonsillectomy, ankle, tubal ligation SOCIAL HISTORY: Denies alcohol, tobacco, drugs FAMILY HISTORY: Hypertension Medications and Allergies Allergies Allergy/AdvReac Type Severity Reaction Status Date / Time hydrocodone bitartrate Allergy Hives Verified 10/31/16 00:57 [From Lortab] acetaminophen [From Percocet] AdvReac Hives Verified 10/31/16 00:57 codeine AdvReac Swelling Verified 10/31/16 00:57 oxycodone HCl [From Percocet] AdvReac Hives Verified 10/31/16 00:57 Penicillins AdvReac Swelling Verified 10/31/16 00:57 Home Medications Medication Instructions Recorded Confirmed Last Taken Type Amitriptyline [Elavil] 75 mg PO DAILY 09/18/16 11/24/16 Unknown History Cetirizine HCl [24Hour Allergy] 10 mg PO DAILY 09/18/16 11/24/16 Unknown History Colchicine [Colcrys] 0.6 mg PO DAILY 09/18/16 11/24/16 Unknown History Doxepin [SINEquan] 25 mg PO DAILY 09/18/16 11/24/16 Unknown History Eletriptan HBr [Relpax] 20 mg PO Q4H 09/18/16 11/24/16 Unknown History ISOSORBIDE MONOnitrate [Imdur ER] 60 mg PO DAILY 09/18/16 11/24/16 Unknown History Methadone [Dolophine] 10 mg PO TID 09/18/16 11/24/16 Unknown History Metoprolol [Lopressor TAB] 100 mg PO DAILY 09/18/16 11/24/16 Unknown History Omeprazole 40 mg PO DAILY 09/18/16 11/24/16 Unknown History Rosuvastatin (Nf) [Crestor] 10 mg PO DAILY 09/18/16 11/24/16 Unknown History Tizanidine HCl [Zanaflex] 2 mg PO DAILY 09/18/16 11/24/16 09/17/16 History Topiramate [Topamax] 100 mg PO DAILY 09/18/16 11/24/16 Unknown History Albuterol Sulfate [Ventolin HFA] 2 puff IH Q4H PRN #1 pump 09/22/16 11/24/16 Unknown Rx Levothyroxine [Synthroid] 150 mcg PO DAILY@0600 #30 tablet 09/22/16 11/24/16 Unknown Rx hydrALAZINE [Apresoline TAB] 50 mg PO Q8HR #90 tablet 09/22/16 11/24/16 Unknown Rx Insulin Detemir [Levemir] 20 units SUB-Q QHS #1 vial 11/12/16 11/24/16 Unknown Rx Lactulose 20 gm PO DAILY #900 ml 11/19/16 11/24/16 Unknown Rx Warfarin [Coumadin] 10 mg PO QDAY #7 tablet 11/19/16 11/24/16 Unknown Rx Active Meds: Active Medications Acetaminophen (Tylenol) 650 mg PO Q4H PRN PRN Reason: Pain MILD(1-3)/Fever >100.5/LANDA Bisacodyl (Dulcolax) 10 mg UT QDAY PRN PRN Reason: Constipation unrelieved by MOM Magnesium Hydroxide (Milk Of Magnesia) 30 ml PO Q4H PRN PRN Reason: Constipation Ondansetron HCl (Zofran) 4 mg IV Q8H PRN PRN Reason: N/V unrelieved by Reglan Exam - Physical Exam Narrative exam: Gen. appearance: Patient lying in bed, no apparent distress HEENT: Normocephalic, atraumatic, pupils equally round and reactive to light, extraocular movement intact, and no sclericterus,. No JVD or thyromegaly or nodule,neck supple, no carotid bruit ,mucous membranes moist, no exudate or erythema Heart: S1, S2, regular rate and rhythm Lungs: Clear to auscultation bilaterally, breathing comfortable Abdomen: Positive bowel sounds, nontender, nondistended, no organomegaly Extremity: No edema, cyanosis, clubbing Skin: No rash, nodules, warm, dry Neuro: Oriented 3, cranial nerves II-12 intact, speech is fluent, motor and sensory intact - Constitutional Vitals: Temp Pulse Resp BP Pulse Ox 79 20 139/87 98 11/24/16 00:50 11/24/16 02:28 11/24/16 00:50 11/24/16 02:19 Results - Labs CBC & Chem 7: 11/28/16 08:35 11/27/16 06:22 Labs: Abnormal lab results 11/23/16 11/23/16 11/23/16 Range/Units 22:39 23:16 23:32 RBC 3.01 L (3.65-5.03) M/mm3 Hgb 8.2 L (10.1-14.3) gm/dl Hct 26.6 L (30.3-42.9) % MCH 27 L (28-32) pg RDW 16.5 H (13.2-15.2) % Lymph # 1.0 L (1.2-5.4) K/mm3 Seg Neutrophils % 74.7 H (40.0-70.0) % PT 21.6 H (12.2-14.9) Sec. INR 1.88 H (0.87-1.13) APTT 42.1 H (24.2-36.6) Sec. Potassium (3.6-5.0) mmol/L Carbon Dioxide (22-30) mmol/L BUN (7-17) mg/dL Creatinine (0.7-1.2) mg/dL Glucose (65-100) mg/dL POC Glucose 44 L (70-105) Calcium (8.4-10.2) mg/dL Alkaline Phosphatase (35-129) units/L Albumin (3.9-5) g/dL 11/23/16 11/23/16 11/24/16 Range/Units 23:39 23:51 02:24 RBC (3.65-5.03) M/mm3 Hgb (10.1-14.3) gm/dl Hct (30.3-42.9) % MCH (28-32) pg RDW (13.2-15.2) % Lymph # (1.2-5.4) K/mm3 Seg Neutrophils % (40.0-70.0) % PT (12.2-14.9) Sec. INR (0.87-1.13) APTT (24.2-36.6) Sec. Potassium 5.5 H (3.6-5.0) mmol/L Carbon Dioxide 18 L (22-30) mmol/L BUN 34 H (7-17) mg/dL Creatinine 5.1 H (0.7-1.2) mg/dL Glucose 129 H (65-100) mg/dL POC Glucose 132 H 125 H (70-105) Calcium 7.9 L (8.4-10.2) mg/dL Alkaline Phosphatase 205 H (35-129) units/L Albumin 2.3 L (3.9-5) g/dL - Imaging and Cardiology EKG: image reviewed CT scan - abdomen: report reviewed CT scan - pelvis: report reviewed Assessment and Plan Hypoglycemia improving End-stage renal disease on peritoneal dialysis Abdominal pain nonspecific Hypertension Diabetes of 2 Hyperlipidemia Hypothyroidism Gout Admit\ to medicine Check fingersticks, hold insulin Consult renal for dialysis Continue outpatient medication, DVT prophylaxis INR greater than 1.8
--- NOTE | 2016-11-24 05:11 | Admit Criteria Form ---
Admission Criteria Documentation: RENAL FAILURE, CHRONIC Clinical Indications for Admission to Inpatient Care (Place 'X' for any and all applicable criteria): Admission is indicated for ANY ONE of the following (1)(2)(3)(4)(5): [ X]I. Inpatient admission required rather than observation care (Use Renal Failure, Chronic: Observation Care Criteria as appropriate) because of ANY ONE of the following: [ ]a) Volume overload or uremic symptoms (eg, clinically significant pulmonary edema, hypertension, pericarditis, acidosis) too severe for, or not responsive (eg, for over 24 hours) to emergency department or observation care dialysis or treatment regimen (11) [ ]b) Hemodynamic instability that is severe or persistent [ ]c) Respiratory distress that is severe or persistent (11) [ X]d) Clinically significant electrolyte abnormality that requires inpatient care (eg,hyperkalemia with severe ECG findings)[B] [ ]e) Supplement O2 or respiratory therapy for over 24hrs that is performable only in acute inpatient setting [ ]f) Continuous IV infusion of anticoagulation, platelet inhibitor, vasoactive, or Antiarrhythmic medication (15), [ ]g) Pulmonary artery catheter monitoring [ ]h) Temporary pacemaker placement [ ]i) Emergent pericardiocentesis [ ]j) Other condition, treatment or monitoring requiring inpatient admission [ ]II. Unexplained syncope [A] [ ]III. Recurrent seizures [ ]IV. Severe infections not treatable in outpatient setting (eg, peritonitis)(9 ) [ ]V. Cardiac arrhythmias of immediate concern [ ]. Encephalopathy [ ]VII.Bleeding abnormalities (eg, platelet dysfunction) with active (eg, gastrointestinal) bleeding Extended stay beyond goal length of stay may be needed for (3)(4)(35)(36): [ ]a) Continuing uremic complications [ ]b) Comorbidities or complications The original [employer] content created by [employer] has been revised. The portions of the content which have been revised are identified through the use of italic text or in bold, and [employer] has neither reviewed nor approved the modified material. All other unmodified content is copyright [employer]. Please see references footnoted in the original [employer] edition 2016 Admission Criteria Met: Yes
[2016-11-24 06:33] LABS: Creatine Kinase MB 4.4 ng/mL (0.0-4.0)
[2016-11-24] MEDS ORDERED: TYLENOL ONE (07:51)
[2016-11-24 09:49] LABS: Creatine Kinase MB 4.1 ng/mL (0.0-4.0)
--- NOTE | 2016-11-24 11:20 | Progress Note ---
Assessment and Plan Assessment and plan: Hypoglycemia. Improving. Continue D5 IV fluids and monitor blood glucose closely. End-stage renal disease on peritoneal dialysis. Renal consultation pending. Abdominal pain. CT scan of the abdomen reveal previously seen dilatation of small bowel loops resolved. Large and small bowel loops are normal in caliber. Hypertension. Resume home medications. Diabetes mellitus type 2. As above. Hyperlipidemia. Hypothyroidism. Hyperkalemia. Patient status post Kayexalate. Continue dialysis per nephrology. Gout. History Interval history: No new issues overnight. Hospitalist Physical - Constitutional Vitals: Temp Pulse Resp BP Pulse Ox 99.1 F 91 H 20 166/102 98 11/24/16 09:05 11/24/16 09:05 11/24/16 09:05 11/24/16 09:05 11/24/16 09:05 General appearance: Present: no acute distress, well-nourished - EENT Eyes: Present: PERRL, EOM intact ENT: hearing intact, clear oral mucosa, dentition normal - Neck Neck: Present: supple, normal ROM - Respiratory Respiratory effort: normal Respiratory: bilateral: CTA - Cardiovascular Rhythm: regular Heart Sounds: Present: S1 & S2. Absent: gallop, rub - Extremities Extremities: no ischemia, No edema, Full ROM - Abdominal General gastrointestinal: soft, non-tender, non-distended, normal bowel sounds - Integumentary Integumentary: Present: clear, warm, dry - Neurologic Neurologic: CNII-XII intact, moves all extremities Results - Labs CBC & Chem 7: 11/23/16 23:32 11/23/16 23:39 Labs: Laboratory Last Values WBC 5.8 K/mm3 (4.5-11.0) 11/23/16 23:32 RBC 3.01 M/mm3 (3.65-5.03) L 11/23/16 23:32 Hgb 8.2 gm/dl (10.1-14.3) L 11/23/16 23:32 Hct 26.6 % (30.3-42.9) L 11/23/16 23:32 MCV 88 fl (79-97) 11/23/16 23:32 MCH 27 pg (28-32) L 11/23/16 23:32 MCHC 31 % (30-34) 11/23/16 23:32 RDW 16.5 % (13.2-15.2) H 11/23/16 23:32 Plt Count 247 K/mm3 (140-440) 11/23/16 23:32 Lymph % (Auto) 17.6 % (13.4-35.0) 11/23/16 23:32 [place] % (Auto) 4.9 % (0.0-7.3) 11/23/16 23:32 Eos % (Auto) 2.1 % (0.0-4.3) 11/23/16 23:32 Baso % (Auto) 0.7 % (0.0-1.8) 11/23/16 23:32 Lymph # 1.0 K/mm3 (1.2-5.4) L 11/23/16 23:32 [place] # 0.3 K/mm3 (0.0-0.8) 11/23/16 23:32 Eos # 0.1 K/mm3 (0.0-0.4) 11/23/16 23:32 Baso # 0.0 K/mm3 (0.0-0.1) 11/23/16 23:32 Seg Neutrophils % 74.7 % (40.0-70.0) H 11/23/16 23:32 Seg Neutrophils # 4.3 K/mm3 (1.8-7.7) 11/23/16 23:32 PT 21.6 Sec. (12.2-14.9) H 11/23/16 22:39 INR 1.88 (0.87-1.13) H 11/23/16 22:39 APTT 42.1 Sec. (24.2-36.6) H 11/23/16 22:39 D-Dimer 787.66 ng/mlDDU (0-234) H 11/24/16 05:25 Sodium 138 mmol/L (137-145) 11/23/16 23:39 Potassium 5.5 mmol/L (3.6-5.0) H 11/23/16 23:39 Chloride 104.4 mmol/L (98-107) 11/23/16 23:39 Carbon Dioxide 18 mmol/L (22-30) L 11/23/16 23:39 Anion Gap 21 mmol/L 11/23/16 23:39 BUN 34 mg/dL (7-17) H 11/23/16 23:39 Creatinine 5.1 mg/dL (0.7-1.2) H 11/23/16 23:39 Estimated GFR 11 ml/min 11/23/16 23:39 BUN/Creatinine Ratio 6.66 % 11/23/16 23:39 Glucose 129 mg/dL (65-100) H 11/23/16 23:39 POC Glucose 125 (70-105) H 11/24/16 02:24 Calcium 7.9 mg/dL (8.4-10.2) L 11/23/16 23:39 Total Bilirubin < 0.20 mg/dL (0.1-1.2) 11/23/16 23:39 AST 16 units/L (5-40) 11/23/16 23:39 ALT 25 units/L (7-56) 11/23/16 23:39 Alkaline Phosphatase 205 units/L (35-129) H 11/23/16 23:39 Total Creatine Kinase 65 units/L (30-135) 11/24/16 08:51 CK-MB (CK-2) 4.1 ng/mL (0.0-4.0) H 11/24/16 08:51 CK-MB (CK-2) Rel Index 6.3 (0-4) H 11/24/16 08:51 Troponin T 0.063 ng/mL (0.00-0.029) H 11/24/16 08:51 Total Protein 6.5 g/dL (6.3-8.2) 11/23/16 23:39 Albumin 2.3 g/dL (3.9-5) L 11/23/16 23:39 Albumin/Globulin Ratio 0.5 % 11/23/16 23:39 Triglycerides 101 mg/dL (2-149) 11/24/16 05:25 Cholesterol 137 mg/dL (50-199) 11/24/16 05:25 LDL Cholesterol Direct 60 mg/dL (50-130) 11/24/16 05:25 HDL Cholesterol 57 mg/dL (40-59) 11/24/16 05:25 Cholesterol/HDL Ratio 2.40 % 11/24/16 05:25 Amylase 45 units/L (27-131) 11/23/16 23:39 Lipase 39 units/L (13-60) 11/23/16 23:39
--- NOTE | 2016-11-24 11:20 | Consultation ---
History of Present Illness - Reason for Consult Consult date: 11/24/16 end stage renal disease - History of Present Illness This is a 51 year old female who presented to the E.R with a chief complaint of having abdominal pain which is generalized. Patient was found to be Hypoglycemic and was treated with D50. Abdominal CT scan did not reveal any acute findings. Patient does have a PD catheter to left lower quadrant of abdomen that is not in use due to malfunctioning. Patient has history of ESRD, Hypertension, Diabetes Mellitus and Hypothyroidism. Patient was previously admitted here last week and was treated for Ileus and Pulmonary Embolism. We are being consulted for management of this patient's renal disease. Past History Past Medical History: diabetes, ESRD, hypertension, hypothyroidism, pulmonary embolism, renal failure Past Surgical History: Other (PD catheter placement) Social history: no significant social history Family history: no significant family history Medications and Allergies Allergies Allergy/AdvReac Type Severity Reaction Status Date / Time hydrocodone bitartrate Allergy Hives Verified 10/31/16 00:57 [From Lortab] acetaminophen [From Percocet] AdvReac Hives Verified 10/31/16 00:57 codeine AdvReac Swelling Verified 10/31/16 00:57 oxycodone HCl [From Percocet] AdvReac Hives Verified 10/31/16 00:57 Penicillins AdvReac Swelling Verified 10/31/16 00:57 Home Medications Medication Instructions Recorded Confirmed Last Taken Type Amitriptyline [Elavil] 75 mg PO DAILY 09/18/16 11/24/16 Unknown History Cetirizine HCl [24Hour Allergy] 10 mg PO DAILY 09/18/16 11/24/16 Unknown History Colchicine [Colcrys] 0.6 mg PO DAILY 09/18/16 11/24/16 Unknown History Doxepin [SINEquan] 25 mg PO DAILY 09/18/16 11/24/16 Unknown History Eletriptan HBr [Relpax] 20 mg PO Q4H 09/18/16 11/24/16 Unknown History ISOSORBIDE MONOnitrate [Imdur ER] 60 mg PO DAILY 09/18/16 11/24/16 Unknown History Methadone [Dolophine] 10 mg PO TID 09/18/16 11/24/16 Unknown History Metoprolol [Lopressor TAB] 100 mg PO DAILY 09/18/16 11/24/16 Unknown History Omeprazole 40 mg PO DAILY 09/18/16 11/24/16 Unknown History Rosuvastatin (Nf) [Crestor] 10 mg PO DAILY 09/18/16 11/24/16 Unknown History Tizanidine HCl [Zanaflex] 2 mg PO DAILY 09/18/16 11/24/16 09/17/16 History Topiramate [Topamax] 100 mg PO DAILY 09/18/16 11/24/16 Unknown History Albuterol Sulfate [Ventolin HFA] 2 puff IH Q4H PRN #1 pump 09/22/16 11/24/16 Unknown Rx Levothyroxine [Synthroid] 150 mcg PO DAILY@0600 #30 tablet 09/22/16 11/24/16 Unknown Rx hydrALAZINE [Apresoline TAB] 50 mg PO Q8HR #90 tablet 09/22/16 11/24/16 Unknown Rx Insulin Detemir [Levemir] 20 units SUB-Q QHS #1 vial 11/12/16 11/24/16 Unknown Rx Lactulose 20 gm PO DAILY #900 ml 11/19/16 11/24/16 Unknown Rx Warfarin [Coumadin] 10 mg PO QDAY #7 tablet 11/19/16 11/24/16 Unknown Rx Active Meds: Active Medications Acetaminophen (Tylenol) 650 mg PO Q4H PRN PRN Reason: Pain MILD(1-3)/Fever >100.5/LANDA Bisacodyl (Dulcolax) 10 mg IN QDAY PRN PRN Reason: Constipation unrelieved by [facility] Magnesium Hydroxide (Milk Of Magnesia) 30 ml PO Q4H PRN PRN Reason: Constipation Ondansetron HCl (Zofran) 4 mg IV Q8H PRN PRN Reason: N/V unrelieved by Reglan Review of Systems Constitutional: fatigue, no weight loss, no weight gain, no fever, no chills, no sweats Ears, nose, mouth and throat: no ear pain, no ear discharge, no tinnitis, no decreased hearing, no nose pain, no nasal congestion Cardiovascular: no chest pain, no orthopnea, no palpitations, no rapid/ irregular heart beat, no edema, no syncope Respiratory: no cough with sputum, no excessive sputum, no hemoptysis, no shortness of breath Gastrointestinal: abdominal pain, no nausea, no vomiting, no diarrhea, no constipation, no change in bowel habits Genitourinary Female: no dysmenorrhea, no pelvic pain, no flank pain, no menorrhagia, no dysuria, no urinary frequency Menstruation: no premenarcheal, no post hysterectomy, no ammenorrhea, no ammenorrhea on BC, no period normal Musculoskeletal: no neck stiffness, no neck pain, no shooting arm pain, no arm numbness/tingling, no low back pain Integumentary: no rash, no pruritis, no redness, no sores, no wounds Neurological: no paralysis, no weakness, no parathesias, no numbness, no tingling, no seizures Psychiatric: no memory loss, no change in sleep habits, no sleep disturbances, no insomnia, no hypersomnia Endocrine: no cold intolerance, no heat intolerance, no polyphagia, no excessive thirst, no polydipsia, no polyuria, no nocturia Exam - Vital Signs Vital signs: Vital Signs Pulse Resp 83 15 11/23/16 22:54 11/23/16 22:54 - General Appearance General appearance: well-developed, well-nourished, appears stated age EENT: ATNC, PERRL, hearing intact, vision intact Neck: Present: neck supple, trachea midline Respiratory: Clear to Ascultation Heart: tachycardia, S1S2 Gastrointestinal: Present: normoactive bowel sounds, other (generalized tenderness on palpation) Integumentary: warm and dry Neurologic: alert and oriented x3 Musculoskeletal: Present: other (No edema to bLE) Psychiatric: cooperative Results - Lab Results 11/23/16 23:32 11/23/16 23:39 Most recent lab results Calcium 7.9 mg/dL (8.4-10.2) L 11/23/16 23:39 Assessment and Plan - Patient Problems (1) CKD (chronic kidney disease) stage 5, GFR less than 15 ml/min Current Visit: No Status: Acute Plan to address problem: Chronic Kidney Disease, Stage 5, secondary to Hypertensive Nephrosclerosis and Diabetic Nephropathy Will consult Dr. Garcia for malfunctioning PD catheter Avoid Nephrotoxins Renally dose medications Obtain daily weights Monitor I/O's (2) Hypoglycemia Current Visit: Yes Status: Acute Plan to address problem: Treated with D50 (3) Hyperkalemia Current Visit: Yes Status: Acute Plan to address problem: Received Kayexalate and Bicarb (4) Anemia in chronic kidney disease (CKD) Current Visit: No Status: Acute Qualifiers: Chronic kidney disease stage: C Plan to address problem: Epogen 10,000 units SQ TIW (5) Hypertensive nephrosclerosis, 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 Current Visit: No Status: Acute Plan to address problem: Resume anti-hypertensive agents
[2016-11-24] MEDS: MORPHINE IV PRN ×3 (13:58→22:32)
[2016-11-24] MEDS ORDERED: PNEUMOVAX 23 IM ONE (14:00)
--- NOTE | 2016-11-24 16:16 | Consultation ---
History of Present Illness Consult date: 11/24/16 Reason for consult: abdominal pain (passed out) Requesting physician: RIAZ MCCONNELL - History of present illness History of present illness: This is a 51-year-old female with a history of end-stage disease who was recently readmitted to the hospital after passing out. In the ED patient was found to have a glucose level of 40 given her diagnosis of hypoglycemia. She is well-known to the service, as she has had an insertion of a peritoneal dialysis catheter done by Dr. Jose khan in September. She was recently discharged from [facility] for a PE. The plan at that time was to continue treatment for her PE and follow-up with us as an outpatient. We have been reconsult at this time for malfunctioning of her peritoneal dialysis catheter. Is being maintained with hemodialysis. Currently the patient complains of generalized abdominal pain. He denies fevers , chills, diarrhea, or constipation. She does admit to some pain with eating. She is currently undergoing a workup for peritonitis. Past History Past Medical History: diabetes, ESRD, hypertension, hypothyroidism, pulmonary embolism, renal failure Past Surgical History: Other (PD catheter placement) Social history: no significant social history Family history: no significant family history Medications and Allergies Allergies Allergy/AdvReac Type Severity Reaction Status Date / Time hydrocodone bitartrate Allergy Hives Verified 10/31/16 00:57 [From Lortab] acetaminophen [From Percocet] AdvReac Hives Verified 10/31/16 00:57 codeine AdvReac Swelling Verified 10/31/16 00:57 oxycodone HCl [From Percocet] AdvReac Hives Verified 10/31/16 00:57 Penicillins AdvReac Swelling Verified 10/31/16 00:57 Home Medications Medication Instructions Recorded Confirmed Last Taken Type Amitriptyline [Elavil] 75 mg PO DAILY 09/18/16 11/24/16 Unknown History Cetirizine HCl [24Hour Allergy] 10 mg PO DAILY 09/18/16 11/24/16 Unknown History Colchicine [Colcrys] 0.6 mg PO DAILY 09/18/16 11/24/16 Unknown History Doxepin [SINEquan] 25 mg PO DAILY 09/18/16 11/24/16 Unknown History Eletriptan HBr [Relpax] 20 mg PO Q4H 09/18/16 11/24/16 Unknown History ISOSORBIDE MONOnitrate [Imdur ER] 60 mg PO DAILY 09/18/16 11/24/16 Unknown History Methadone [Dolophine] 10 mg PO TID 09/18/16 11/24/16 Unknown History Metoprolol [Lopressor TAB] 100 mg PO DAILY 09/18/16 11/24/16 Unknown History Omeprazole 40 mg PO DAILY 09/18/16 11/24/16 Unknown History Rosuvastatin (Nf) [Crestor] 10 mg PO DAILY 09/18/16 11/24/16 Unknown History Tizanidine HCl [Zanaflex] 2 mg PO DAILY 09/18/16 11/24/16 09/17/16 History Topiramate [Topamax] 100 mg PO DAILY 09/18/16 11/24/16 Unknown History Albuterol Sulfate [Ventolin HFA] 2 puff IH Q4H PRN #1 pump 09/22/16 11/24/16 Unknown Rx Levothyroxine [Synthroid] 150 mcg PO DAILY@0600 #30 tablet 09/22/16 11/24/16 Unknown Rx hydrALAZINE [Apresoline TAB] 50 mg PO Q8HR #90 tablet 09/22/16 11/24/16 Unknown Rx Insulin Detemir [Levemir] 20 units SUB-Q QHS #1 vial 11/12/16 11/24/16 Unknown Rx Lactulose 20 gm PO DAILY #900 ml 11/19/16 11/24/16 Unknown Rx Warfarin [Coumadin] 10 mg PO QDAY #7 tablet 11/19/16 11/24/16 Unknown Rx Active Meds: Active Medications Acetaminophen (Tylenol) 650 mg PO Q4H PRN PRN Reason: Pain MILD(1-3)/Fever >100.5/LANDA Bisacodyl (Dulcolax) 10 mg NM QDAY PRN PRN Reason: Constipation unrelieved by MOM Epoetin Primo (Procrit) 10,000 unit SUB-Q SYED EMI Lactulose (Cephulac) 20 gm PO Q6HR EMI Magnesium Hydroxide (Milk Of Magnesia) 30 ml PO Q4H PRN PRN Reason: Constipation Morphine Sulfate (Morphine) 1 mg IV Q4H PRN PRN Reason: Pain, Moderate (4-6) Last Admin: 11/24/16 13:58 Dose: 1 mg Ondansetron HCl (Zofran) 4 mg IV Q8H PRN PRN Reason: N/V unrelieved by Reglan Peritoneal Dialysis Solution (Dianeal Low Calcium W/1.5% Dextrose) 500 ml IP ONCE ONE Stop: 11/24/16 16:31 Exam Vital Signs Pulse Resp 83 15 11/23/16 22:54 11/23/16 22:54 - General physical appearance Positive: well developed, well nourished, no distress - Respiratory Positive: normal expansion, normal respiratory effort - Cardiovascular Rhythm: regular - Abdomen Abdomen: Present: soft, tender, other (peritoneal dialysis catheter Noted in the left lower quadrant). Absent: rebound (neurolysed), guarding - Neurologic Neurologic: alert and oriented to time, place and person, motor strength and sensation are grossly intact - Psychiatric Psychiatric: appropriate mood/affect, cooperative Results - Labs 11/23/16 23:32 11/23/16 23:39 Abnormal lab results 11/24/16 11/24/16 11/24/16 Range/Units 05:25 05:25 08:51 D-Dimer 787.66 H (0-234) ng/mlDDU CK-MB (CK-2) 4.4 H 4.1 H (0.0-4.0) ng/mL CK-MB (CK-2) Rel Index 6.0 H 6.3 H (0-4) Troponin T 0.053 H 0.063 H (0.00-0.029) ng/mL Diabetes panel 11/24/16 Range/Units 05:25 Triglycerides 101 (2-149) mg/dL HDL Cholesterol 57 (40-59) mg/dL Assessment and Plan 1. MalFunctioning PD-catheter. The patient is currently undergoing treatment for her PE. She has been taking Coumadin to achieve her current INR of 1.8 which is subtherapeutic. This would preclude her from having any surgical intervention and as she is undergoing hemodialysis, repositioning of the catheter can be done on an elective basis. 2. Generalized abdominal pain. The patient is currently undergoing treatment and workup for peritonitis. She would need antibiotic therapy and monitoring. Surgery for removal of the catheter only for failure of medical management. 3. Hypoglycemia. Management per primary. 4. End-stage renal disease. Patient being managed with hemodialysis. Given the current medical state of the patient, I do not recommend any surgical intervention at this time. Patient has been seen and we have discussed her surgical options. She is to follow-up as an outpatient once she has been cleared to discontinue anticoagulation for the repositioning of her malfunctioning catheter. We'll sign off at this time please call for any questions thank you for allowing us to participate in the treatment of this patient.
[2016-11-24] MEDS ORDERED: DIANEAL LOW CALCIUM W/1.5% DEXTROSE IP ONE (16:30)
[2016-11-24] MEDS: CEPHULAC PO SCH (19:01)
[2016-11-24] MEDS: ZOFRAN IV PRN (22:32)
[2016-11-25] MEDS: MORPHINE IV PRN ×4 (01:59→18:24)
[2016-11-25] MEDS: CEPHULAC PO SCH ×3 (04:03→18:13)
[2016-11-25 08:30] LABS: Basophils % (Auto) 0.6 % (0.0-1.8); Eosinophils % (Auto) 2.5 % (0.0-4.3); Hematocrit 24.5 % (30.3-42.9); Hemoglobin 8.1 gm/dl (10.1-14.3); Mean Corpuscular HGB Conc 33 % (30-34); Mean Corpuscular Hemoglobin 28 pg (28-32); Mean Corpuscular Volume 86 fl (79-97); Platelet Count 224 K/mm3 (140-440); Red Blood Count 2.86 M/mm3 (3.65-5.03); Red Cell Distribution Width 16.6 % (13.2-15.2); White Blood Count 7.1 K/mm3 (4.5-11.0)
[2016-11-25 09:14] LABS: Basophils Body Fluid 0 %; Eosinophils Body Fluid 0 %; Reactive Lymph Body Fluid 0 %
[2016-11-25 11:23] LABS: BUN/Creatinine Ratio 6.59; Calcium 7.6 mg/dL (8.4-10.2); Chloride 111.6 mmol/L (98-107); Phosphorous 3.3 mg/dL (2.5-4.5); Potassium 5.3 mmol/L (3.6-5.0)
--- NOTE | 2016-11-25 12:25 | Progress Note ---
Assessment and Plan Assessment and plan: Hypoglycemia. Improving. Continue D5 IV fluids and monitor blood glucose closely. End-stage renal disease on peritoneal dialysis. Renal following. Surgery consulted for malfunctioning PD catheter. Abdominal pain. CT scan of the abdomen reveal previously seen dilatation of small bowel loops resolved. Large and small bowel loops are normal in caliber. Patient showing no signs of acute peritonitis. GI consultation. Hypertension. Resume home medications. Diabetes mellitus type 2. As above. Hyperlipidemia. Hypothyroidism. Hyperkalemia. Patient status post Kayexalate. Continue dialysis per nephrology. Gout. s/p fall. Patient complains of headache. CT scan of the head without contrast. History Interval history: No new issues overnight. Patient states that she has some bleeding at her peritoneal site yesterday. Patient also found by a nurse this morning on the floor. She reports a fall and headache Hospitalist Physical - Constitutional Vitals: Temp Pulse Resp BP Pulse Ox 98.2 F 110 H 22 180/98 98 11/25/16 11:08 11/25/16 11:08 11/25/16 11:08 11/25/16 11:08 11/25/16 07:00 General appearance: Present: no acute distress, well-nourished - EENT Eyes: Present: PERRL, EOM intact ENT: hearing intact, clear oral mucosa, dentition normal - Neck Neck: Present: supple, normal ROM - Respiratory Respiratory effort: normal Respiratory: bilateral: CTA - Cardiovascular Rhythm: regular Heart Sounds: Present: S1 & S2. Absent: gallop, rub - Extremities Extremities: no ischemia, No edema, Full ROM - Abdominal General gastrointestinal: soft, non-tender, non-distended, normal bowel sounds - Integumentary Integumentary: Present: clear, warm, dry - Neurologic Neurologic: CNII-XII intact, moves all extremities Results - Labs CBC & Chem 7: 11/25/16 08:05 11/25/16 08:05 Labs: Laboratory Last Values WBC 7.1 K/mm3 (4.5-11.0) 11/25/16 08:05 RBC 2.86 M/mm3 (3.65-5.03) L 11/25/16 08:05 Hgb 8.1 gm/dl (10.1-14.3) L 11/25/16 08:05 Hct 24.5 % (30.3-42.9) L 11/25/16 08:05 MCV 86 fl (79-97) 11/25/16 08:05 MCH 28 pg (28-32) 11/25/16 08:05 MCHC 33 % (30-34) 11/25/16 08:05 RDW 16.6 % (13.2-15.2) H 11/25/16 08:05 Plt Count 224 K/mm3 (140-440) 11/25/16 08:05 Lymph % (Auto) 11.7 % (13.4-35.0) L 11/25/16 08:05 [place] % (Auto) 4.5 % (0.0-7.3) 11/25/16 08:05 Eos % (Auto) 2.5 % (0.0-4.3) 11/25/16 08:05 Baso % (Auto) 0.6 % (0.0-1.8) 11/25/16 08:05 Lymph # 0.8 K/mm3 (1.2-5.4) L 11/25/16 08:05 [place] # 0.3 K/mm3 (0.0-0.8) 11/25/16 08:05 Eos # 0.2 K/mm3 (0.0-0.4) 11/25/16 08:05 Baso # 0.0 K/mm3 (0.0-0.1) 11/25/16 08:05 Seg Neutrophils % 80.7 % (40.0-70.0) H 11/25/16 08:05 Seg Neutrophils # 5.7 K/mm3 (1.8-7.7) 11/25/16 08:05 PT 21.6 Sec. (12.2-14.9) H 11/23/16 22:39 INR 1.88 (0.87-1.13) H 11/23/16 22:39 APTT 42.1 Sec. (24.2-36.6) H 11/23/16 22:39 D-Dimer 787.66 ng/mlDDU (0-234) H 11/24/16 05:25 Sodium 140 mmol/L (137-145) 11/25/16 08:05 Potassium 5.3 mmol/L (3.6-5.0) H 11/25/16 08:05 Chloride 111.6 mmol/L (98-107) H 11/25/16 08:05 Carbon Dioxide 18 mmol/L (22-30) L 11/25/16 08:05 Anion Gap 16 mmol/L 11/25/16 08:05 BUN 29 mg/dL (7-17) H 11/25/16 08:05 Creatinine 4.4 mg/dL (0.7-1.2) H 11/25/16 08:05 Estimated GFR 13 ml/min 11/25/16 08:05 BUN/Creatinine Ratio 6.59 % 11/25/16 08:05 Glucose 133 mg/dL (65-100) H 11/25/16 08:05 POC Glucose 97 (70-105) 11/25/16 11:51 Calcium 7.6 mg/dL (8.4-10.2) L 11/25/16 08:05 Phosphorus 3.30 mg/dL (2.5-4.5) 11/25/16 08:05 Total Bilirubin < 0.20 mg/dL (0.1-1.2) 11/23/16 23:39 AST 16 units/L (5-40) 11/23/16 23:39 ALT 25 units/L (7-56) 11/23/16 23:39 Alkaline Phosphatase 205 units/L (35-129) H 11/23/16 23:39 Total Creatine Kinase 65 units/L (30-135) 11/24/16 08:51 CK-MB (CK-2) 4.1 ng/mL (0.0-4.0) H 11/24/16 08:51 CK-MB (CK-2) Rel Index 6.3 (0-4) H 11/24/16 08:51 Troponin T 0.063 ng/mL (0.00-0.029) H 11/24/16 08:51 Total Protein 6.5 g/dL (6.3-8.2) 11/23/16 23:39 Albumin 2.3 g/dL (3.9-5) L 11/23/16 23:39 Albumin/Globulin Ratio 0.5 % 11/23/16 23:39 Triglycerides 101 mg/dL (2-149) 11/24/16 05:25 Cholesterol 137 mg/dL (50-199) 11/24/16 05:25 LDL Cholesterol Direct 60 mg/dL (50-130) 11/24/16 05:25 HDL Cholesterol 57 mg/dL (40-59) 11/24/16 05:25 Cholesterol/HDL Ratio 2.40 % 11/24/16 05:25 Amylase 45 units/L (27-131) 11/23/16 23:39 Lipase 39 units/L (13-60) 11/23/16 23:39 Fluid Type Peritoneal 11/25/16 06:30 Fluid Color [place] 11/25/16 06:30 Fluid Appearance Cloudy 11/25/16 06:30 Fluid WBC 4750 /mm3 11/25/16 06:30 Fluid RBC 9600 /mm3 11/25/16 06:30 Fluid Seg Neutrophils 90.0 % 11/25/16 06:30 Fluid Lymphocytes 5.0 % 11/25/16 06:30 Fluid Reactive Lymphs 0 % 11/25/16 06:30 Fluid Monocytes 5.0 % 11/25/16 06:30 Fluid Eosinophils 0 % 11/25/16 06:30 Fluid Basophils 0 % 11/25/16 06:30
--- NOTE | 2016-11-25 13:00 | Cat Scan Report ---
CT HEAD WITHOUT CONTRAST: HISTORY: Head injury. Serial contiguous axial images were obtained through the cranium. Intravenous contrast material was not administered. The ventricles are normal in size and appearance. There is no mass effect or midline shift. No areas of abnormally increased or decreased attenuation are seen. No mass lesion is seen. The mastoid air cells and visualized portions of the sinuses are normal. IMPRESSION: Cranial CT scan within normal limits. No change since 11/04/16.
[2016-11-25] MEDS ORDERED: VANCOMYCIN PHARMACY TO DOSE IV SCH (14:00)
--- NOTE | 2016-11-25 14:06 | Progress Note ---
Assessment and Plan (1) CKD (chronic kidney disease) stage 5, GFR less than 15 ml/min Current Visit: No Status: Acute Plan to address problem: Chronic Kidney Disease, Stage 5, secondary to Hypertensive Nephrosclerosis and Diabetic Nephropathy PD fluid suggestive of peritonitis, will start vanco and levaquin IV, possible need for PD cathter removal, Dr Mg group was consulted Avoid Nephrotoxins Renally dose medications Obtain daily weights Monitor I/O's (2) Hypoglycemia Current Visit: Yes Status: Acute Plan to address problem: resolved (3) Hyperkalemia Current Visit: Yes Status: Acute Plan to address problem: stable (4) Anemia in chronic kidney disease (CKD) Current Visit: No Status: Acute Qualifiers: Chronic kidney disease stage: C Plan to address problem: Epogen 10,000 units SQ TIW (5) Hypertensive nephrosclerosis, 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 Current Visit: No Status: Acute Plan to address problem: Resume anti-hypertensive agents Subjective Date of service: 11/25/16 Principal diagnosis: ESRD Interval history: cont to have abdominal pain Objective - Vital Signs Vital signs: Vital Signs - 12hr 11/25/16 11/25/16 11/25/16 07:00 09:52 11:08 Temperature 98.1 F 98.2 F Pulse Rate [ 99 H 110 H Left Radial] Respiratory 20 18 22 Rate Blood Pressure 162/94 180/98 [Left Arm] O2 Sat by Pulse 98 Oximetry 11/25/16 11/25/16 12:00 14:00 Temperature 98.3 F Pulse Rate [ 107 H Left Radial] Respiratory 20 18 Rate Blood Pressure 184/105 [Left Arm] O2 Sat by Pulse 98 Oximetry - General Appearance General appearance: well-developed, well-nourished, obese EENT: ATNC, PERRL, mucous membranes moist Neck: no JVD, no carotid bruit Respiratory: Present: Clear to Ascultation, Normal Exam Cardiology: regular, S1S2 Gastrointestinal: normoactive bowel sounds, no tenderness, no distended, no masses Integumentary: no rash, warm and dry Neurologic: no focal deficit, no asterixis, alert and oriented x3 Musculoskeletal: other (no edema in BLE) Psychiatric: mood/affect appropriate, cooperative - Lab 11/25/16 08:05 11/25/16 08:05 Most recent lab results Calcium 7.6 mg/dL (8.4-10.2) L 11/25/16 08:05 Phosphorus 3.30 mg/dL (2.5-4.5) 11/25/16 08:05
[2016-11-25] MEDS ORDERED: VANCOMYCIN VIAL IV ONE (14:15)
[2016-11-25] MEDS ORDERED: CATHFLO MC ONE ×3 (14:48→23:00)
[2016-11-25] MEDS ORDERED: LEVAQUIN 750MG/150ML 750 MG/150 ML BAG IV ONE (15:30)
[2016-11-25] MEDS ORDERED: VANCOMYCIN 1,500 MG in NACL 0.9% 500 ML 500 ML IV ONE (16:00)
[2016-11-25] MEDS: IMDUR PO SCH (17:20)
[2016-11-25] MEDS: TOPROL XL PO SCH (17:20)
[2016-11-25] MEDS ORDERED: WATER FOR INJ (PF) 10 ML ONE ×2 (17:44→23:00)
[2016-11-25] MEDS: ZOFRAN IV PRN (21:00)
[2016-11-25] MEDS: TYLENOL PO PRN (21:00)
[2016-11-26] MEDS: APRESOLINE PO SCH ×4 (04:32→22:00)
[2016-11-26] MEDS: ZOFRAN IV PRN (04:34)
[2016-11-26] MEDS: MORPHINE IV PRN ×5 (04:34→23:55)
[2016-11-26] MEDS: CEPHULAC PO SCH ×3 (04:59→18:13)
[2016-11-26 08:10] LABS: Basophils % (Auto) 0.2 % (0.0-1.8); Eosinophils % (Auto) 0.8 % (0.0-4.3); Hematocrit 23.1 % (30.3-42.9); Hemoglobin 7.6 gm/dl (10.1-14.3); Mean Corpuscular HGB Conc 33 % (30-34); Mean Corpuscular Hemoglobin 28 pg (28-32); Mean Corpuscular Volume 86 fl (79-97); Platelet Count 238 K/mm3 (140-440); Red Cell Distribution Width 16.8 % (13.2-15.2)
--- NOTE | 2016-11-26 09:09 | Progress Note ---
Assessment and Plan We will remain available and follow until it is known if the PD peritonitis can be cleared. If it can not be cleared then we will remove the PD catheter. If it can be cleared then we will set her up for PD catheter repositioning to try to get it functional. Subjective Date of service: 11/26/16 Patient Reports: Positive: other (She is complaining of abdominal pain) Objective Vital Signs - 12hr 11/25/16 11/26/16 11/26/16 23:00 04:32 04:49 Temperature 99.3 F 98.2 F Pulse Rate 80 Pulse Rate [ 82 74 Left Radial] Respiratory 18 18 Rate Blood Pressure 140/100 Blood Pressure 160/94 162/89 [Left Arm] O2 Sat by Pulse Oximetry 11/26/16 07:00 Temperature 98.3 F Pulse Rate Pulse Rate [ 74 Left Radial] Respiratory 18 Rate Blood Pressure Blood Pressure 151/88 [Left Arm] O2 Sat by Pulse 98 Oximetry - General physical appearance well developed, well nourished, no distress - Abdomen soft, tender (mild diffuse tenderness), bowel sounds normal, not distended, other (PD catheter in place) - Labs 11/26/16 07:43 11/25/16 08:05 Diabetes panel 11/25/16 Range/Units 08:05 Sodium 140 (137-145) mmol/L Potassium 5.3 H (3.6-5.0) mmol/L Chloride 111.6 H (98-107) mmol/L Carbon Dioxide 18 L (22-30) mmol/L BUN 29 H (7-17) mg/dL Creatinine 4.4 H (0.7-1.2) mg/dL Glucose 133 H (65-100) mg/dL Calcium 7.6 L (8.4-10.2) mg/dL Calcium panel 11/25/16 11/26/16 Range/Units 08:05 07:43 Calcium 7.6 L (8.4-10.2) mg/dL Phosphorus 3.30 3.70 (2.5-4.5) mg/dL Pituitary panel 11/25/16 Range/Units 08:05 Sodium 140 (137-145) mmol/L Potassium 5.3 H (3.6-5.0) mmol/L Chloride 111.6 H (98-107) mmol/L Carbon Dioxide 18 L (22-30) mmol/L BUN 29 H (7-17) mg/dL Creatinine 4.4 H (0.7-1.2) mg/dL Glucose 133 H (65-100) mg/dL Calcium 7.6 L (8.4-10.2) mg/dL Adrenal panel 11/25/16 Range/Units 08:05 Sodium 140 (137-145) mmol/L Potassium 5.3 H (3.6-5.0) mmol/L Chloride 111.6 H (98-107) mmol/L Carbon Dioxide 18 L (22-30) mmol/L BUN 29 H (7-17) mg/dL Creatinine 4.4 H (0.7-1.2) mg/dL Glucose 133 H (65-100) mg/dL Calcium 7.6 L (8.4-10.2) mg/dL
--- NOTE | 2016-11-26 09:51 | Progress Note ---
Assessment and Plan (1) CKD (chronic kidney disease) stage 5, GFR less than 15 ml/min Current Visit: No Status: Acute Plan to address problem: Chronic Kidney Disease, Stage 5, secondary to Hypertensive Nephrosclerosis and Diabetic Nephropathy cont to IV vanco and levaquin fir peritonitis TPA was placed in PD catheter, will try to flush it today Avoid Nephrotoxins Renally dose medications Obtain daily weights Monitor I/O's (2) Hypoglycemia Current Visit: Yes Status: Acute Plan to address problem: resolved (3) Hyperkalemia Current Visit: Yes Status: Acute Plan to address problem: stable (4) Anemia in chronic kidney disease (CKD) Current Visit: No Status: Acute Qualifiers: Chronic kidney disease stage: C Plan to address problem: iron studies in AM (5) Hypertensive nephrosclerosis, 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 Current Visit: No Status: Acute Plan to address problem: will add amlodipine 10 mg qday Subjective Date of service: 11/26/16 Principal diagnosis: ESRD Interval history: abdominal is mildly better this AM Objective - Vital Signs Vital signs: Vital Signs - 12hr 11/25/16 11/26/16 11/26/16 23:00 04:32 04:49 Temperature 99.3 F 98.2 F Pulse Rate 80 Pulse Rate [ 82 74 Left Radial] Respiratory 18 18 Rate Blood Pressure 140/100 Blood Pressure 160/94 162/89 [Left Arm] O2 Sat by Pulse Oximetry 11/26/16 07:00 Temperature 98.3 F Pulse Rate Pulse Rate [ 74 Left Radial] Respiratory 18 Rate Blood Pressure Blood Pressure 151/88 [Left Arm] O2 Sat by Pulse 98 Oximetry - General Appearance General appearance: well-developed, well-nourished EENT: ATNC, PERRL, mucous membranes moist Neck: no JVD, no carotid bruit Respiratory: Present: Clear to Ascultation. Absent: Rales, Ronchi Cardiology: regular, S1S2 Gastrointestinal: normoactive bowel sounds, no tenderness, no distended, no masses, obese Integumentary: no rash, warm and dry Neurologic: no focal deficit, no asterixis, alert and oriented x3 Musculoskeletal: other (no edema in BLE) Psychiatric: mood/affect appropriate, cooperative - Lab 11/26/16 07:43 11/25/16 08:05 Most recent lab results Calcium 7.6 mg/dL (8.4-10.2) L 11/25/16 08:05 Phosphorus 3.70 mg/dL (2.5-4.5) 11/26/16 07:43
[2016-11-26] MEDS: TOPROL XL PO SCH (10:07)
[2016-11-26] MEDS: IMDUR PO SCH (10:10)
[2016-11-26] MEDS: BENTYL PO SCH ×4 (10:16→21:12)
[2016-11-26] MEDS: NORVASC PO SCH (10:31)
[2016-11-26] MEDS ORDERED: DIANEAL LOW CALCIUM W/1.5% DEXTROSE IP ONE (11:00)
--- NOTE | 2016-11-26 11:47 | Progress Note ---
Assessment and Plan Assessment and plan: Acute peritonitis. Continue current antibiotics. PD catheter to remain at present in hopes to possibly cleared the infection. Surgery following. Follow- up culture results. Hypoglycemia. Resolved. End-stage renal disease on peritoneal dialysis. Renal following. Surgery following for malfunctioning PD catheter. Catheter was repositioned. Continue to monitor function. Avoid nephrotoxins. Renally dose medications. Monitor daily weights and I & Os. Hypertension. Resume home medications. Diabetes mellitus type 2. As above. Hyperlipidemia. Hypothyroidism. Hyperkalemia. Patient status post Kayexalate. Continue dialysis per nephrology. Gout. s/p fall. Headache resolved. CT scan of the head negative. History Interval history: No new issues overnight. Patient complains of abdominal pain. Hospitalist Physical - Constitutional Vitals: Temp Pulse Resp BP Pulse Ox 98.3 F 74 18 160/86 98 11/26/16 07:00 11/26/16 07:00 11/26/16 07:00 11/26/16 10:10 11/26/16 07:00 General appearance: Present: no acute distress, well-nourished - EENT Eyes: Present: PERRL, EOM intact ENT: hearing intact, clear oral mucosa, dentition normal - Neck Neck: Present: supple, normal ROM - Respiratory Respiratory effort: normal Respiratory: bilateral: CTA - Cardiovascular Rhythm: regular Heart Sounds: Present: S1 & S2. Absent: gallop, rub - Extremities Extremities: no ischemia, No edema, Full ROM - Abdominal General gastrointestinal: soft, tender, non-distended, normal bowel sounds Localized gastrointestinal: tender: diffuse - Integumentary Integumentary: Present: clear, warm, dry - Neurologic Neurologic: CNII-XII intact, moves all extremities Results - Labs CBC & Chem 7: 11/26/16 07:43 11/25/16 08:05 Labs: Laboratory Last Values WBC 9.0 K/mm3 (4.5-11.0) 11/26/16 07:43 RBC 2.70 M/mm3 (3.65-5.03) L 11/26/16 07:43 Hgb 7.6 gm/dl (10.1-14.3) L 11/26/16 07:43 Hct 23.1 % (30.3-42.9) L 11/26/16 07:43 MCV 86 fl (79-97) 11/26/16 07:43 MCH 28 pg (28-32) 11/26/16 07:43 MCHC 33 % (30-34) 11/26/16 07:43 RDW 16.8 % (13.2-15.2) H 11/26/16 07:43 Plt Count 238 K/mm3 (140-440) 11/26/16 07:43 Lymph % (Auto) 8.3 % (13.4-35.0) L 11/26/16 07:43 [place] % (Auto) 5.7 % (0.0-7.3) 11/26/16 07:43 Eos % (Auto) 0.8 % (0.0-4.3) 11/26/16 07:43 Baso % (Auto) 0.2 % (0.0-1.8) 11/26/16 07:43 Lymph # 0.7 K/mm3 (1.2-5.4) L 11/26/16 07:43 [place] # 0.5 K/mm3 (0.0-0.8) 11/26/16 07:43 Eos # 0.1 K/mm3 (0.0-0.4) 11/26/16 07:43 Baso # 0.0 K/mm3 (0.0-0.1) 11/26/16 07:43 Seg Neutrophils % 85.0 % (40.0-70.0) H 11/26/16 07:43 Seg Neutrophils # 7.6 K/mm3 (1.8-7.7) 11/26/16 07:43 PT 21.6 Sec. (12.2-14.9) H 11/23/16 22:39 INR 1.88 (0.87-1.13) H 11/23/16 22:39 APTT 42.1 Sec. (24.2-36.6) H 11/23/16 22:39 D-Dimer 787.66 ng/mlDDU (0-234) H 11/24/16 05:25 Sodium 140 mmol/L (137-145) 11/25/16 08:05 Potassium 5.3 mmol/L (3.6-5.0) H 11/25/16 08:05 Chloride 111.6 mmol/L (98-107) H 11/25/16 08:05 Carbon Dioxide 18 mmol/L (22-30) L 11/25/16 08:05 Anion Gap 16 mmol/L 11/25/16 08:05 BUN 29 mg/dL (7-17) H 11/25/16 08:05 Creatinine 4.4 mg/dL (0.7-1.2) H 11/25/16 08:05 Estimated GFR 13 ml/min 11/25/16 08:05 BUN/Creatinine Ratio 6.59 % 11/25/16 08:05 Glucose 133 mg/dL (65-100) H 11/25/16 08:05 POC Glucose 193 (70-105) H 11/26/16 06:27 Calcium 7.6 mg/dL (8.4-10.2) L 11/25/16 08:05 Phosphorus 3.70 mg/dL (2.5-4.5) 11/26/16 07:43 Total Bilirubin < 0.20 mg/dL (0.1-1.2) 11/23/16 23:39 AST 16 units/L (5-40) 11/23/16 23:39 ALT 25 units/L (7-56) 11/23/16 23:39 Alkaline Phosphatase 205 units/L (35-129) H 11/23/16 23:39 Total Creatine Kinase 65 units/L (30-135) 11/24/16 08:51 CK-MB (CK-2) 4.1 ng/mL (0.0-4.0) H 11/24/16 08:51 CK-MB (CK-2) Rel Index 6.3 (0-4) H 11/24/16 08:51 Troponin T 0.025 ng/mL (0.00-0.029) 11/26/16 Unknown Total Protein 6.5 g/dL (6.3-8.2) 11/23/16 23:39 Albumin 2.3 g/dL (3.9-5) L 11/23/16 23:39 Albumin/Globulin Ratio 0.5 % 11/23/16 23:39 Triglycerides 101 mg/dL (2-149) 11/24/16 05:25 Cholesterol 137 mg/dL (50-199) 11/24/16 05:25 LDL Cholesterol Direct 60 mg/dL (50-130) 11/24/16 05:25 HDL Cholesterol 57 mg/dL (40-59) 11/24/16 05:25 Cholesterol/HDL Ratio 2.40 % 11/24/16 05:25 Amylase 45 units/L (27-131) 11/23/16 23:39 Lipase 39 units/L (13-60) 11/23/16 23:39 Fluid Type Peritoneal 11/25/16 06:30 Fluid Color [place] 11/25/16 06:30 Fluid Appearance Cloudy 11/25/16 06:30 Fluid WBC 4750 /mm3 11/25/16 06:30 Fluid RBC 9600 /mm3 11/25/16 06:30 Fluid Diff Comment 11/25/16 06:30 Fluid Seg Neutrophils 90.0 % 11/25/16 06:30 Fluid Lymphocytes 5.0 % 11/25/16 06:30 Fluid Reactive Lymphs 0 % 11/25/16 06:30 Fluid Monocytes 5.0 % 11/25/16 06:30 Fluid Eosinophils 0 % 11/25/16 06:30 Fluid Basophils 0 % 11/25/16 06:30
--- NOTE | 2016-11-26 12:53 | Gastroenterology Progress Note ---
Assessment and Plan - Patient Problems (1) Peritonitis associated with peritoneal dialysis Current Visit: Yes Status: Acute Qualifiers: Encounter type: E Plan to address problem: The patient has an apparent staph peritonitis. She is on antibiotics. I will s /o at this point and f/u PRN. Subjective Date of service: 11/26/16 Principal diagnosis: peritonitis Interval history: The patient reports abdominal pain Objective - Constitutional Vitals: Temp Pulse Resp BP Pulse Ox 97.8 F 78 19 181/101 98 11/26/16 12:00 11/26/16 12:00 11/26/16 12:00 11/26/16 12:00 11/26/16 07:00 General appearance: no acute distress - EENT ENT: hearing intact, clear oral mucosa, dentition normal - Neck Neck: supple, normal ROM - Respiratory Respiratory effort: normal Respiratory: bilateral: CTA - Cardiovascular Rhythm: regular - Gastrointestinal General gastrointestinal: Present: soft, tender (Diffusely), non-distended, normal bowel sounds - Neurologic Neurological: alert and oriented x3 - Labs CBC & Chem 7: 11/26/16 07:43 11/25/16 08:05 Labs: Laboratory Results - last 24 hr 11/25/16 11/25/16 11/25/16 06:30 08:05 15:58 WBC RBC Hgb Hct MCV MCH MCHC RDW Plt Count Lymph % (Auto) [place] % (Auto) Eos % (Auto) Baso % (Auto) Lymph # [place] # Eos # Baso # Seg Neutrophils % Seg Neutrophils # POC Glucose 127 H Phosphorus Troponin T 0.032 H D Fluid Diff Comment 11/26/16 11/26/16 11/26/16 06:27 07:43 07:43 WBC 9.0 RBC 2.70 L Hgb 7.6 L Hct 23.1 L MCV 86 MCH 28 MCHC 33 RDW 16.8 H Plt Count 238 Lymph % (Auto) 8.3 L [place] % (Auto) 5.7 Eos % (Auto) 0.8 Baso % (Auto) 0.2 Lymph # 0.7 L [place] # 0.5 Eos # 0.1 Baso # 0.0 Seg Neutrophils % 85.0 H Seg Neutrophils # 7.6 POC Glucose 193 H Phosphorus 3.70 Troponin T Fluid Diff Comment 11/26/16 11/26/16 07:43 Unknown WBC RBC Hgb Hct MCV MCH MCHC RDW Plt Count Lymph % (Auto) [place] % (Auto) Eos % (Auto) Baso % (Auto) Lymph # [place] # Eos # Baso # Seg Neutrophils % Seg Neutrophils # POC Glucose Phosphorus Troponin T 0.022 0.025 Fluid Diff Comment
--- NOTE | 2016-11-26 18:59 | Consultation ---
INDICATION: Abdominal pain. HISTORY OF PRESENT ILLNESS: The patient is a 51-year-old black female with history of hypertension, diabetes, high cholesterol, and hypothyroidism. The patient was brought back to the Emergency Room, after she was reportedly passed out while watching TV. The patient reports that she has been having abdominal pain. The patient recently was seen in the hospital when she was admitted and had a CT scan, which showed some dilated small bowel. She reports no diarrhea or constipation. She reports no rectal bleeding. The patient reports the pain has no obvious inciting factor. She reports no fevers or chills. She denies any other specific problems or complaints. The patient does have a history of end-stage renal disease and is on dialysis. The patient is unclear as to when her last colonoscopy was. PAST MEDICAL HISTORY: 1. End-stage renal disease, on dialysis. 2. Hypertension. 3. High cholesterol. 4. Diabetes. PAST SURGICAL HISTORY: 1. Status post nephrectomy. 2. Status post cholecystectomy. 3. Status post hernia repair. 4. Status post tubal ligation. MEDICATIONS: See chart. ALLERGIES: No known drug allergies. SOCIAL HISTORY: Denies alcohol, tobacco, or drug abuse. FAMILY HISTORY: Negative for colon cancer. REVIEW OF SYSTEMS: GENERAL: Reports mild weakness. HEENT: No visual complaints or tinnitus. PULMONARY: No shortness of breath. No cough. No chest pain. GASTROINTESTINAL: Reports abdominal pain. All points of 13-point review of systems otherwise negative. PHYSICAL EXAMINATION: VITAL SIGNS: Temperature 99.2, pulse 120, blood pressure 180/90. GENERAL: Fairly nourished black female, in no acute distress. HEENT: Pupils equal, round, reactive to light and accommodation. Extraocular movements intact. PULMONARY: Clear to auscultation bilaterally. CARDIOVASCULAR: Regular rate and rhythm. Normal S1, S2. ABDOMEN: Positive bowel sounds, soft, mild diffuse pain. No guarding, no rebound. SKIN: No obvious rashes. LABORATORY DATA: Labs pertinent for white count 7.1, hemoglobin and hematocrit of 8.1 and 24.5, platelet count of 224. Chem-7: Sodium of 140, potassium 5.3, chloride 112, CO2 of 18, BUN and creatinine of 29 and 4.4. ASSESSMENT AND PLAN: This is a 51-year-old female who presented with recent abdominal pain with CT scan showing reportedly some dilated ducts. The patient presented with weakness and reported syncopal episode. CT scan showed no obvious GI pathology, previously small bowel loops, but now resolved. There is a small amount of free fluid around the dialysis catheter. ASSESSMENT: This is a 51-year-old female with history as noted above with end-stage renal disease, on peritoneal dialysis, now with abdominal pain. CT scan was benign except for small amount of free fluid in the area of the peritoneal catheter. Possibility of peritonitis versus colitis versus other. Surgery has seen the patient and decided that there is no surgical intervention necessary. PLAN: 1. We will await fluid analysis from peritoneal fluid. 2. Bentyl 20 mg p.o. q.8 hours p.r.n. 3. We will review CT scan. 4. No plans for colonoscopy at this time. 5. We will follow. [facility]# [id number] SHREYA/CHARMAINE BRAMBILA
[2016-11-27] MEDS: CEPHULAC PO SCH ×4 (00:04→19:54)
[2016-11-27] MEDS: MORPHINE IV PRN ×4 (04:08→20:37)
[2016-11-27] MEDS: APRESOLINE PO SCH ×3 (06:00→21:24)
[2016-11-27 07:09] LABS: Basophils % (Auto) 0.4 % (0.0-1.8); Eosinophils % (Auto) 1.5 % (0.0-4.3); Hematocrit 25.4 % (30.3-42.9); Hemoglobin 8.1 gm/dl (10.1-14.3); Mean Corpuscular HGB Conc 32 % (30-34); Mean Corpuscular Hemoglobin 27 pg (28-32); Mean Corpuscular Volume 86 fl (79-97); Platelet Count 261 K/mm3 (140-440); Red Blood Count 2.97 M/mm3 (3.65-5.03); Red Cell Distribution Width 16.8 % (13.2-15.2); White Blood Count 5.2 K/mm3 (4.5-11.0)
[2016-11-27 07:28] LABS: BUN/Creatinine Ratio 6.95; Chloride 107.8 mmol/L (98-107); Phosphorous 3.5 mg/dL (2.5-4.5); Potassium 5.3 mmol/L (3.6-5.0)
--- NOTE | 2016-11-27 09:53 | Progress Note ---
Assessment and Plan (1) CKD (chronic kidney disease) stage 5, GFR less than 15 ml/min Current Visit: No Status: Acute Plan to address problem: catheter remians malfunctioned after TPA, case discussed with Dr Mg, he thinks she is a poor candidate for PD catheter repair due to a lot of adhesions and poor compliance will request permcath palacement and start HD when available case management consult requested for for outpatient HD in [facility] peritoneal fluid culture is + for Staph Aureus, currnetly on vanc, will discuss with surgery regarding removing PD catheter Avoid Nephrotoxins Renally dose medications Obtain daily weights Monitor I/O's (2) Hypoglycemia Current Visit: Yes Status: Acute Plan to address problem: resolved (3) Hyperkalemia Current Visit: Yes Status: Acute Plan to address problem: stable (4) Anemia in chronic kidney disease (CKD) Current Visit: No Status: Acute Qualifiers: Chronic kidney disease stage: C Plan to address problem: on Epogen (5) Hypertensive nephrosclerosis, 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 Current Visit: No Status: Acute Plan to address problem: cont amlodipine 10 mg qday Subjective Date of service: 11/27/16 Principal diagnosis: peritonitis Interval history: was not able to flush catheter after after TPA placement yesterday Objective - Vital Signs Vital signs: Vital Signs - 12hr 11/26/16 11/26/16 11/27/16 22:00 23:00 00:25 Temperature 99.1 F Pulse Rate 80 Pulse Rate [ 80 Left Radial] Respiratory 20 16 18 Rate Respiratory 18 Rate [unable to assess] Blood Pressure 171/107 Blood Pressure 166/91 [Left Arm] 11/27/16 11/27/16 11/27/16 04:00 04:08 04:38 Temperature 98.9 F Pulse Rate Pulse Rate [ 78 Left Radial] Respiratory 16 18 18 Rate Respiratory Rate [unable to assess] Blood Pressure Blood Pressure 154/89 [Left Arm] 11/27/16 11/27/16 06:00 08:00 Temperature 98.3 F Pulse Rate 82 Pulse Rate [ 80 Left Radial] Respiratory 18 Rate Respiratory Rate [unable to assess] Blood Pressure 154/84 Blood Pressure 148/88 [Left Arm] - General Appearance General appearance: well-developed, well-nourished EENT: ATNC, PERRL, mucous membranes moist Neck: no JVD, no carotid bruit Respiratory: Present: Clear to Ascultation Cardiology: regular, S1S2 Gastrointestinal: normoactive bowel sounds, no distended, no masses, no guarding Integumentary: no rash, warm and dry Neurologic: no focal deficit, no asterixis, alert and oriented x3 Musculoskeletal: other (no edema in BLE) Psychiatric: mood/affect appropriate, cooperative - Lab 11/27/16 06:22 11/27/16 06:22 Most recent lab results Calcium 8.0 mg/dL (8.4-10.2) L 11/27/16 06:22 Phosphorus 3.50 mg/dL (2.5-4.5) 11/27/16 06:22
[2016-11-27] MEDS: NORVASC PO SCH (11:18)
[2016-11-27] MEDS: BENTYL PO SCH ×4 (11:19→21:24)
[2016-11-27] MEDS: IMDUR PO SCH (11:19)
[2016-11-27] MEDS: TOPROL XL PO SCH (11:20)
--- NOTE | 2016-11-27 12:37 | Consultation ---
History of Present Illness - Reason for Consult Consult date: 11/27/16 Requesting physician: TIMOTHY CABALLERO - History of Present Illness The patient is a 51-year-old female who was admitted to the hospital after being brought to the emergency department with mental status changes secondary to hypoglycemia. She has a history of end-stage renal disease and is currently on peritoneal dialysis. Since admission he was discovered that her peritoneal dialysis catheter does not function well despite indwelling TPA. Per the notes general surgery does not follow this recommended to adjust catheter secondary to multiple abdominal adhesions. We were consulted for placement of a permacath for initiation of hemodialysis. Past History Past Medical History: diabetes, ESRD, hypertension, hypothyroidism, pulmonary embolism, renal failure Past Surgical History: Other (PD catheter placement) Social history: no significant social history Family history: no significant family history Medications and Allergies Allergies Allergy/AdvReac Type Severity Reaction Status Date / Time hydrocodone bitartrate Allergy Hives Verified 10/31/16 00:57 [From Lortab] acetaminophen [From Percocet] AdvReac Hives Verified 10/31/16 00:57 codeine AdvReac Swelling Verified 10/31/16 00:57 oxycodone HCl [From Percocet] AdvReac Hives Verified 10/31/16 00:57 Penicillins AdvReac Swelling Verified 10/31/16 00:57 Home Medications Medication Instructions Recorded Confirmed Last Taken Type Amitriptyline [Elavil] 75 mg PO DAILY 09/18/16 11/24/16 Unknown History Cetirizine HCl [24Hour Allergy] 10 mg PO DAILY 09/18/16 11/24/16 Unknown History Colchicine [Colcrys] 0.6 mg PO DAILY 09/18/16 11/24/16 Unknown History Doxepin [SINEquan] 25 mg PO DAILY 09/18/16 11/24/16 Unknown History Eletriptan HBr [Relpax] 20 mg PO Q4H 09/18/16 11/24/16 Unknown History ISOSORBIDE MONOnitrate [Imdur ER] 60 mg PO DAILY 09/18/16 11/24/16 Unknown History Methadone [Dolophine] 10 mg PO TID 09/18/16 11/24/16 Unknown History Metoprolol [Lopressor TAB] 100 mg PO DAILY 09/18/16 11/24/16 Unknown History Omeprazole 40 mg PO DAILY 09/18/16 11/24/16 Unknown History Rosuvastatin (Nf) [Crestor] 10 mg PO DAILY 09/18/16 11/24/16 Unknown History Tizanidine HCl [Zanaflex] 2 mg PO DAILY 09/18/16 11/24/16 09/17/16 History Topiramate [Topamax] 100 mg PO DAILY 09/18/16 11/24/16 Unknown History Albuterol Sulfate [Ventolin HFA] 2 puff IH Q4H PRN #1 pump 09/22/16 11/24/16 Unknown Rx Levothyroxine [Synthroid] 150 mcg PO DAILY@0600 #30 tablet 09/22/16 11/24/16 Unknown Rx hydrALAZINE [Apresoline TAB] 50 mg PO Q8HR #90 tablet 09/22/16 11/24/16 Unknown Rx Insulin Detemir [Levemir] 20 units SUB-Q QHS #1 vial 11/12/16 11/24/16 Unknown Rx Lactulose 20 gm PO DAILY #900 ml 11/19/16 11/24/16 Unknown Rx Warfarin [Coumadin] 10 mg PO QDAY #7 tablet 11/19/16 11/24/16 Unknown Rx Active Meds: Active Medications Acetaminophen (Tylenol) 650 mg PO Q4H PRN PRN Reason: Pain MILD(1-3)/Fever >100.5/LANDA Last Admin: 11/25/16 21:00 Dose: 650 mg Amlodipine Besylate (Norvasc) 10 mg PO QDAY [facility] Last Admin: 11/27/16 11:18 Dose: 10 mg Bisacodyl (Dulcolax) 10 mg [place] QDAY PRN PRN Reason: Constipation unrelieved by MOM Dicyclomine HCl (Bentyl) 20 mg PO QID [facility] Last Admin: 11/27/16 11:19 Dose: 20 mg Epoetin Primo (Procrit) 10,000 unit SUB-Q SYED EMI Hydralazine HCl (Apresoline) 50 mg PO Q8HR [facility] Last Admin: 11/27/16 06:00 Dose: 50 mg Levofloxacin/Dextrose (Levaquin 500mg/100ml) 500 mg in 100 mls @ 100 mls/hr IV Q48H [facility] Isosorbide Mononitrate (Imdur) 60 mg PO QDAY [facility] Last Admin: 11/27/16 11:19 Dose: 60 mg Lactulose (Cephulac) 20 gm PO Q6HR [facility] Last Admin: 11/27/16 06:00 Dose: Not Given Magnesium Hydroxide (Milk Of Magnesia) 30 ml PO Q4H PRN PRN Reason: Constipation Metoprolol Succinate (Toprol Xl) 100 mg PO QDAY [facility] Last Admin: 11/26/16 10:07 Dose: 100 mg Morphine Sulfate (Morphine) 2 mg IV Q4H PRN PRN Reason: Pain, Moderate (4-6) Last Admin: 11/27/16 11:20 Dose: 2 mg Ondansetron HCl (Zofran) 4 mg IV Q8H PRN PRN Reason: N/V unrelieved by Cari Last Admin: 11/26/16 04:34 Dose: 4 mg Vancomycin HCl (Vancomycin Pharmacy To Dose) 1 each IV PKCONSULT [facility] PRN Reason: Protocol Review of Systems All systems: negative Exam - Constitutional Vitals: Temp Pulse Resp BP Pulse Ox 98.3 F 80 18 148/88 97 11/27/16 08:00 11/27/16 08:00 11/27/16 08:00 11/27/16 08:00 11/27/16 08:00 General appearance: Present: no acute distress - Respiratory Respiratory effort: normal - Extremities Extremities: no ischemia - Abdominal General gastrointestinal: Present: soft, other (peritoneal dialysis catheter in place) - Psychiatric Psychiatric: agitated Results - Labs CBC & Chem 7: 11/27/16 06:22 11/27/16 06:22 Labs: Abnormal lab results 11/27/16 11/27/16 11/27/16 Range/Units 06:22 06:22 06:34 RBC 2.97 L (3.65-5.03) M/mm3 Hgb 8.1 L (10.1-14.3) gm/dl Hct 25.4 L (30.3-42.9) % MCH 27 L (28-32) pg RDW 16.8 H (13.2-15.2) % Lymph # 0.8 L (1.2-5.4) K/mm3 Seg Neutrophils % 77.1 H (40.0-70.0) % Potassium 5.3 H (3.6-5.0) mmol/L Chloride 107.8 H (98-107) mmol/L Carbon Dioxide 20 L (22-30) mmol/L BUN 32 H (7-17) mg/dL Creatinine 4.6 H (0.7-1.2) mg/dL Glucose 140 H (65-100) mg/dL POC Glucose 164 H (70-105) Calcium 8.0 L (8.4-10.2) mg/dL Iron 28 L (37-170) ug/dL TIBC 87 L (250-450) mcg/dL Assessment and Plan Patient is a 51-year-old female with a history of end-stage renal disease currently on peritoneal dialysis. She has a poorly functioning catheter and it is felt that she is not a candidate for revision of the catheter. I discussed with her the placement of a permacath for initiation of hemodialysis. She has agreed to the permacath placement however is adamant that she will not be on long-term hemodialysis and will like a second opinion for adjustment of the peritoneal dialysis catheter. We will plan to place the permacath on Tuesday.
[2016-11-27] MEDS ORDERED: D50W (25GM) IV PRN (13:48)
--- NOTE | 2016-11-27 13:50 | Progress Note ---
Assessment and Plan Assessment and plan: Acute peritonitis. Continue current antibiotics. PD catheter to remain at present in hopes to possibly cleared the infection. Surgery following. Follow- up culture results. Preliminary culture results reveal Staph aureus Hypoglycemia. Resolved. End-stage renal disease on peritoneal dialysis. Renal following. Vascular Surgery following for malfunctioning PD catheter. Catheter was repositioned. Continue to monitor function. Avoid nephrotoxins. Renally dose medications. Monitor daily weights and I & Os. Permacath placement on Tuesday per vascular surgery. Hypertension. Resume home medications. Diabetes mellitus type 2. As above. Hyperlipidemia. Hypothyroidism. Hyperkalemia. Patient status post Kayexalate. Continue dialysis per nephrology. Gout. s/p fall. Headache resolved. CT scan of the head negative. History Interval history: No new issues overnight. Patient complains of abdominal pain but reports slight improvement. Hospitalist Physical - Constitutional Vitals: Temp Pulse Resp BP Pulse Ox 98.5 F 91 H 18 168/91 98 11/27/16 12:00 11/27/16 12:00 11/27/16 12:00 11/27/16 12:00 11/27/16 12:00 General appearance: Present: no acute distress - EENT Eyes: Present: PERRL, EOM intact ENT: hearing intact, clear oral mucosa, dentition normal - Neck Neck: Present: supple, normal ROM - Respiratory Respiratory effort: normal Respiratory: bilateral: CTA - Cardiovascular Rhythm: regular Heart Sounds: Present: S1 & S2. Absent: gallop, rub - Extremities Extremities: no ischemia, No edema, Full ROM - Abdominal General gastrointestinal: soft, non-tender, non-distended, normal bowel sounds - Integumentary Integumentary: Present: clear, warm, dry - Neurologic Neurologic: CNII-XII intact, moves all extremities Results - Labs CBC & Chem 7: 11/27/16 06:22 11/27/16 06:22 Labs: Laboratory Last Values WBC 5.2 K/mm3 (4.5-11.0) 11/27/16 06:22 RBC 2.97 M/mm3 (3.65-5.03) L 11/27/16 06:22 Hgb 8.1 gm/dl (10.1-14.3) L 11/27/16 06:22 Hct 25.4 % (30.3-42.9) L 11/27/16 06:22 MCV 86 fl (79-97) 11/27/16 06:22 MCH 27 pg (28-32) L 11/27/16 06:22 MCHC 32 % (30-34) 11/27/16 06:22 RDW 16.8 % (13.2-15.2) H 11/27/16 06:22 Plt Count 261 K/mm3 (140-440) 11/27/16 06:22 Lymph % (Auto) 15.1 % (13.4-35.0) 11/27/16 06:22 [place] % (Auto) 5.9 % (0.0-7.3) 11/27/16 06:22 Eos % (Auto) 1.5 % (0.0-4.3) 11/27/16 06:22 Baso % (Auto) 0.4 % (0.0-1.8) 11/27/16 06:22 Lymph # 0.8 K/mm3 (1.2-5.4) L 11/27/16 06:22 [place] # 0.3 K/mm3 (0.0-0.8) 11/27/16 06:22 Eos # 0.1 K/mm3 (0.0-0.4) 11/27/16 06:22 Baso # 0.0 K/mm3 (0.0-0.1) 11/27/16 06:22 Seg Neutrophils % 77.1 % (40.0-70.0) H 11/27/16 06:22 Seg Neutrophils # 4.0 K/mm3 (1.8-7.7) 11/27/16 06:22 PT 21.6 Sec. (12.2-14.9) H 11/23/16 22:39 INR 1.88 (0.87-1.13) H 11/23/16 22:39 APTT 42.1 Sec. (24.2-36.6) H 11/23/16 22:39 D-Dimer 787.66 ng/mlDDU (0-234) H 11/24/16 05:25 Sodium 139 mmol/L (137-145) 11/27/16 06:22 Potassium 5.3 mmol/L (3.6-5.0) H 11/27/16 06:22 Chloride 107.8 mmol/L (98-107) H 11/27/16 06:22 Carbon Dioxide 20 mmol/L (22-30) L 11/27/16 06:22 Anion Gap 17 mmol/L 11/27/16 06:22 BUN 32 mg/dL (7-17) H 11/27/16 06:22 Creatinine 4.6 mg/dL (0.7-1.2) H 11/27/16 06:22 Estimated GFR 12 ml/min 11/27/16 06:22 BUN/Creatinine Ratio 6.95 % 11/27/16 06:22 Glucose 140 mg/dL (65-100) H 11/27/16 06:22 POC Glucose 84 (70-105) 11/27/16 12:26 Calcium 8.0 mg/dL (8.4-10.2) L 11/27/16 06:22 Phosphorus 3.50 mg/dL (2.5-4.5) 11/27/16 06:22 Iron 28 ug/dL (37-170) L 11/27/16 06:22 TIBC 87 mcg/dL (250-450) L 11/27/16 06:22 Total Bilirubin < 0.20 mg/dL (0.1-1.2) 11/23/16 23:39 AST 16 units/L (5-40) 11/23/16 23:39 ALT 25 units/L (7-56) 11/23/16 23:39 Alkaline Phosphatase 205 units/L (35-129) H 11/23/16 23:39 Total Creatine Kinase 65 units/L (30-135) 11/24/16 08:51 CK-MB (CK-2) 4.1 ng/mL (0.0-4.0) H 11/24/16 08:51 CK-MB (CK-2) Rel Index 6.3 (0-4) H 11/24/16 08:51 Troponin T 0.025 ng/mL (0.00-0.029) 11/26/16 Unknown Total Protein 6.5 g/dL (6.3-8.2) 11/23/16 23:39 Albumin 2.3 g/dL (3.9-5) L 11/23/16 23:39 Albumin/Globulin Ratio 0.5 % 11/23/16 23:39 Triglycerides 101 mg/dL (2-149) 11/24/16 05:25 Cholesterol 137 mg/dL (50-199) 11/24/16 05:25 LDL Cholesterol Direct 60 mg/dL (50-130) 11/24/16 05:25 HDL Cholesterol 57 mg/dL (40-59) 11/24/16 05:25 Cholesterol/HDL Ratio 2.40 % 11/24/16 05:25 Amylase 45 units/L (27-131) 11/23/16 23:39 Lipase 39 units/L (13-60) 11/23/16 23:39 Fluid Type Peritoneal 11/25/16 06:30 Fluid Color [place] 11/25/16 06:30 Fluid Appearance Cloudy 11/25/16 06:30 Fluid WBC 4750 /mm3 11/25/16 06:30 Fluid RBC 9600 /mm3 11/25/16 06:30 Fluid Diff Comment 11/25/16 06:30 Fluid Seg Neutrophils 90.0 % 11/25/16 06:30 Fluid Lymphocytes 5.0 % 11/25/16 06:30 Fluid Reactive Lymphs 0 % 11/25/16 06:30 Fluid Monocytes 5.0 % 11/25/16 06:30 Fluid Eosinophils 0 % 11/25/16 06:30 Fluid Basophils 0 % 11/25/16 06:30
[2016-11-27] MEDS: LEVAQUIN 500MG/100ML 500 MG/100 ML BAG IV SCH (19:55)
[2016-11-28] MEDS: MORPHINE IV PRN ×4 (03:40→21:19)
[2016-11-28 09:27] LABS: Basophils % (Auto) 0.5 % (0.0-1.8); Eosinophils % (Auto) 3.2 % (0.0-4.3); Hematocrit 22.4 % (30.3-42.9); Hemoglobin 7.3 gm/dl (10.1-14.3); Mean Corpuscular HGB Conc 32 % (30-34); Mean Corpuscular Hemoglobin 29 pg (28-32); Mean Corpuscular Volume 88 fl (79-97); Platelet Count 255 K/mm3 (140-440); Red Blood Count 2.54 M/mm3 (3.65-5.03); Red Cell Distribution Width 16.4 % (13.2-15.2)
--- NOTE | 2016-11-28 09:54 | Progress Note ---
Assessment and Plan (1) CKD (chronic kidney disease) stage 5, GFR less than 15 ml/min Current Visit: No Status: Acute Plan to address problem: permcath to be placed tomorrow, HD after case management consult requested for for outpatient HD in [facility] peritoneal fluid culture is + for Staph Aureus, currnetly on vanc, will discuss with surgery regarding removing PD catheter Avoid Nephrotoxins Renally dose medications Obtain daily weights Monitor I/O's (2) Hypoglycemia Current Visit: Yes Status: Acute Plan to address problem: resolved (3) Hyperkalemia Current Visit: Yes Status: Acute Plan to address problem: BMP is pending (4) Anemia in chronic kidney disease (CKD) Current Visit: No Status: Acute Qualifiers: Chronic kidney disease stage: C Plan to address problem: on Epogen (5) Hypertensive nephrosclerosis, 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 Current Visit: No Status: Acute Plan to address problem: cont amlodipine 10 mg qday Subjective Date of service: 11/28/16 Principal diagnosis: peritonitis Interval history: denies overnight events Objective - Vital Signs Vital signs: Vital Signs - 12hr 11/27/16 11/28/16 11/28/16 22:00 00:00 04:00 Temperature 98.0 F 98.4 F Pulse Rate [ Apical] Pulse Rate [ 80 80 86 Left Radial] Respiratory 20 20 20 Rate Respiratory Rate [unable to assess] Blood Pressure 127/80 134/76 [Left Arm] O2 Sat by Pulse 98 97 Oximetry 11/28/16 11/28/16 11/28/16 07:53 07:59 08:02 Temperature Pulse Rate [ 77 Apical] Pulse Rate [ Left Radial] Respiratory 18 18 Rate Respiratory 18 Rate [unable to assess] Blood Pressure [Left Arm] O2 Sat by Pulse Oximetry 11/28/16 08:27 Temperature 98.4 F Pulse Rate [ 72 Apical] Pulse Rate [ Left Radial] Respiratory 18 Rate Respiratory Rate [unable to assess] Blood Pressure 153/86 [Left Arm] O2 Sat by Pulse 98 Oximetry - General Appearance General appearance: well-developed, well-nourished EENT: ATNC, PERRL, mucous membranes moist Neck: no JVD, no carotid bruit Respiratory: Present: Clear to Ascultation. Absent: Rales, Ronchi Cardiology: regular, S1S2 Gastrointestinal: normoactive bowel sounds Integumentary: no rash, warm and dry Neurologic: no focal deficit, no asterixis, alert and oriented x3 Musculoskeletal: other (no edema in BLE) Psychiatric: mood/affect appropriate, cooperative - Lab 11/28/16 08:35 11/27/16 06:22 Most recent lab results Calcium 8.0 mg/dL (8.4-10.2) L 11/27/16 06:22 Phosphorus 3.80 mg/dL (2.5-4.5) 11/28/16 08:35
--- NOTE | 2016-11-28 10:05 | Progress Note ---
Assessment and Plan Assessment and plan: Acute peritonitis. Continue current antibiotics. PD catheter to remain at present in hopes to possibly clear the infection. Surgery following. Follow- up culture results. Preliminary culture results reveal Staph aureus Hypoglycemia. Resolved. End-stage renal disease on peritoneal dialysis. Renal following. Vascular Surgery following for malfunctioning PD catheter. Catheter was repositioned. Continue to monitor function. Avoid nephrotoxins. Renally dose medications. Monitor daily weights and I & Os. Permacath placement on Tuesday per vascular surgery. Hypertension. Resume home medications. Diabetes mellitus type 2. As above. Hyperlipidemia. Hypothyroidism. Hyperkalemia. Patient status post Kayexalate. Continue dialysis per nephrology. Gout. s/p fall. Headache resolved. CT scan of the head negative. History Interval history: No new issues overnight. Patient complains of abdominal pain but reports slight improvement. Hospitalist Physical - Constitutional Vitals: Temp Pulse Resp BP Pulse Ox 98.4 F 72 18 153/86 98 11/28/16 08:27 11/28/16 08:27 11/28/16 08:27 11/28/16 08:27 11/28/16 08:27 General appearance: Present: no acute distress - EENT Eyes: Present: PERRL, EOM intact ENT: hearing intact, clear oral mucosa, dentition normal - Neck Neck: Present: supple, normal ROM - Respiratory Respiratory effort: normal Respiratory: bilateral: CTA - Cardiovascular Rhythm: regular Heart Sounds: Present: S1 & S2. Absent: gallop, rub - Extremities Extremities: no ischemia, No edema, Full ROM - Abdominal General gastrointestinal: soft, non-tender, non-distended, normal bowel sounds - Integumentary Integumentary: Present: clear, warm, dry - Neurologic Neurologic: CNII-XII intact, moves all extremities Results - Labs CBC & Chem 7: 11/28/16 08:35 11/27/16 06:22 Labs: Laboratory Last Values WBC 5.0 K/mm3 (4.5-11.0) 11/28/16 08:35 RBC 2.54 M/mm3 (3.65-5.03) L 11/28/16 08:35 Hgb 7.3 gm/dl (10.1-14.3) L 11/28/16 08:35 Hct 22.4 % (30.3-42.9) L 11/28/16 08:35 MCV 88 fl (79-97) 11/28/16 08:35 MCH 29 pg (28-32) 11/28/16 08:35 MCHC 32 % (30-34) 11/28/16 08:35 RDW 16.4 % (13.2-15.2) H 11/28/16 08:35 Plt Count 255 K/mm3 (140-440) 11/28/16 08:35 Lymph % (Auto) 19.1 % (13.4-35.0) 11/28/16 08:35 [place] % (Auto) 6.2 % (0.0-7.3) 11/28/16 08:35 Eos % (Auto) 3.2 % (0.0-4.3) 11/28/16 08:35 Baso % (Auto) 0.5 % (0.0-1.8) 11/28/16 08:35 Lymph # 1.0 K/mm3 (1.2-5.4) L 11/28/16 08:35 [place] # 0.3 K/mm3 (0.0-0.8) 11/28/16 08:35 Eos # 0.2 K/mm3 (0.0-0.4) 11/28/16 08:35 Baso # 0.0 K/mm3 (0.0-0.1) 11/28/16 08:35 Seg Neutrophils % 71.0 % (40.0-70.0) H 11/28/16 08:35 Seg Neutrophils # 3.5 K/mm3 (1.8-7.7) 11/28/16 08:35 PT 21.6 Sec. (12.2-14.9) H 11/23/16 22:39 INR 1.88 (0.87-1.13) H 11/23/16 22:39 APTT 42.1 Sec. (24.2-36.6) H 11/23/16 22:39 D-Dimer 787.66 ng/mlDDU (0-234) H 11/24/16 05:25 Sodium 139 mmol/L (137-145) 11/27/16 06:22 Potassium 5.3 mmol/L (3.6-5.0) H 11/27/16 06:22 Chloride 107.8 mmol/L (98-107) H 11/27/16 06:22 Carbon Dioxide 20 mmol/L (22-30) L 11/27/16 06:22 Anion Gap 17 mmol/L 11/27/16 06:22 BUN 32 mg/dL (7-17) H 11/27/16 06:22 Creatinine 4.6 mg/dL (0.7-1.2) H 11/27/16 06:22 Estimated GFR 12 ml/min 11/27/16 06:22 BUN/Creatinine Ratio 6.95 % 11/27/16 06:22 Glucose 140 mg/dL (65-100) H 11/27/16 06:22 POC Glucose 83 (70-105) 11/28/16 05:18 Calcium 8.0 mg/dL (8.4-10.2) L 11/27/16 06:22 Phosphorus 3.80 mg/dL (2.5-4.5) 11/28/16 08:35 Iron 28 ug/dL (37-170) L 11/27/16 06:22 TIBC 87 mcg/dL (250-450) L 11/27/16 06:22 Total Bilirubin < 0.20 mg/dL (0.1-1.2) 11/23/16 23:39 AST 16 units/L (5-40) 11/23/16 23:39 ALT 25 units/L (7-56) 11/23/16 23:39 Alkaline Phosphatase 205 units/L (35-129) H 11/23/16 23:39 Total Creatine Kinase 65 units/L (30-135) 11/24/16 08:51 CK-MB (CK-2) 4.1 ng/mL (0.0-4.0) H 11/24/16 08:51 CK-MB (CK-2) Rel Index 6.3 (0-4) H 11/24/16 08:51 Troponin T 0.025 ng/mL (0.00-0.029) 11/26/16 Unknown Total Protein 6.5 g/dL (6.3-8.2) 11/23/16 23:39 Albumin 2.3 g/dL (3.9-5) L 11/23/16 23:39 Albumin/Globulin Ratio 0.5 % 11/23/16 23:39 Triglycerides 101 mg/dL (2-149) 11/24/16 05:25 Cholesterol 137 mg/dL (50-199) 11/24/16 05:25 LDL Cholesterol Direct 60 mg/dL (50-130) 11/24/16 05:25 HDL Cholesterol 57 mg/dL (40-59) 11/24/16 05:25 Cholesterol/HDL Ratio 2.40 % 11/24/16 05:25 Amylase 45 units/L (27-131) 11/23/16 23:39 Lipase 39 units/L (13-60) 11/23/16 23:39 Fluid Type Peritoneal 11/25/16 06:30 Fluid Color [place] 11/25/16 06:30 Fluid Appearance Cloudy 11/25/16 06:30 Fluid WBC 4750 /mm3 11/25/16 06:30 Fluid RBC 9600 /mm3 11/25/16 06:30 Fluid Diff Comment 11/25/16 06:30 Fluid Seg Neutrophils 90.0 % 11/25/16 06:30 Fluid Lymphocytes 5.0 % 11/25/16 06:30 Fluid Reactive Lymphs 0 % 11/25/16 06:30 Fluid Monocytes 5.0 % 11/25/16 06:30 Fluid Eosinophils 0 % 11/25/16 06:30 Fluid Basophils 0 % 11/25/16 06:30
[2016-11-28] MEDS: BENTYL PO SCH ×3 (10:47→21:32)
[2016-11-28] MEDS: IMDUR PO SCH (10:47)
[2016-11-28] MEDS: NORVASC PO SCH (10:47)
[2016-11-28] MEDS: TOPROL XL PO SCH (10:48)
[2016-11-28] MEDS: CEPHULAC PO SCH ×4 (13:01→19:30)
[2016-11-28] MEDS: APRESOLINE PO SCH ×2 (13:16→21:30)
[2016-11-28] MEDS ORDERED: VANCOMYCIN 1,500 MG in NACL 0.9% 500 ML 500 ML IV ONE (14:00)
[2016-11-29] MEDS: CEPHULAC PO SCH ×4 (00:45→20:26)
[2016-11-29] MEDS: APRESOLINE PO SCH ×3 (07:01→22:47)
[2016-11-29 07:54] LABS: Hematocrit 24.4 % (30.3-42.9); Hemoglobin 7.8 gm/dl (10.1-14.3); Mean Corpuscular HGB Conc 32 % (30-34); Mean Corpuscular Hemoglobin 28 pg (28-32); Mean Corpuscular Volume 87 fl (79-97); Platelet Count 278 K/mm3 (140-440); Red Cell Distribution Width 16.5 % (13.2-15.2); White Blood Count 4.9 K/mm3 (4.5-11.0)
[2016-11-29 08:10] LABS: BUN/Creatinine Ratio 6.95; Chloride 108.2 mmol/L (98-107); Phosphorous 3.8 mg/dL (2.5-4.5); Potassium 5.6 mmol/L (3.6-5.0)
[2016-11-29 09:00] LABS: Basophils % (Manual) 0 % (0.0-1.8); Blastocytes % (Manual) 0 %
[2016-11-29 09:01] LABS: Anisocytosis Few; Diff Status Complete
--- NOTE | 2016-11-29 09:01 | Progress Note ---
Assessment and Plan - Patient Problems (1) CKD (chronic kidney disease) stage 5, GFR less than 15 ml/min Current Visit: No Status: Acute Plan to address problem: Chronic Kidney Disease, Stage 5, secondary to Hypertensive Nephrosclerosis and Diabetic Nephropathy Peritoneal fluid culture is + for Staph Aureus, currently on vanc, Surgery will need to remove PD catheter Hemodialysis today after perm-catheter is placed Avoid Nephrotoxins Renally dose medications Obtain daily weights Monitor I/O's Assess dialysis needs daily Consult travelers' aid worker for outpatient HD arrangement to [facility] (2) Hyperkalemia Current Visit: Yes Status: Acute Plan to address problem: Hemodialysis today (3) Anemia in chronic kidney disease (CKD) Current Visit: No Status: Acute Qualifiers: Chronic kidney disease stage: C Plan to address problem: Epogen 10,000 units SQ TIW (4) Hypertensive nephrosclerosis, 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 States she is hungry. Awake and alert. Objective - Vital Signs Vital signs: Vital Signs - 12hr 11/28/16 11/28/16 11/29/16 21:30 22:00 00:00 Temperature 98.6 F Pulse Rate 80 Pulse Rate [ 80 Apical] Pulse Rate [ 87 Left Radial] Respiratory 22 20 Rate Blood Pressure 130/80 Blood Pressure 156/84 [Left Arm] O2 Sat by Pulse 95 94 Oximetry 11/29/16 08:00 Temperature 97.3 F L Pulse Rate Pulse Rate [ Apical] Pulse Rate [ 80 Left Radial] Respiratory 20 Rate Blood Pressure Blood Pressure 146/95 [Left Arm] O2 Sat by Pulse Oximetry - General Appearance General appearance: well-developed, appears stated age EENT: ATNC, PERRL, hearing intact, vision intact Neck: no JVD, supple Respiratory: Present: Decreased Breath Sounds Cardiology: regular, S1S2 Gastrointestinal: normal, other (PD catheter intact) Integumentary: warm and dry Neurologic: alert and oriented x3 Musculoskeletal: other (No edema) - Lab 11/29/16 07:10 11/29/16 07:10 Most recent lab results Calcium 8.0 mg/dL (8.4-10.2) L 11/29/16 07:10 Phosphorus 3.80 mg/dL (2.5-4.5) 11/29/16 07:10
[2016-11-29] MEDS: MORPHINE IV PRN ×3 (10:16→21:30)
--- NOTE | 2016-11-29 12:12 | Progress Note ---
Assessment and Plan Assessment and plan: Acute peritonitis. Continue current antibiotics. PD catheter to remain at present in hopes to possibly clear the infection. Surgery following. Follow- up culture results. Preliminary culture results reveal Staph aureus Hypoglycemia. Resolved. End-stage renal disease on peritoneal dialysis. Renal following. Vascular Surgery following for malfunctioning PD catheter. Catheter was repositioned. Continue to monitor function. Avoid nephrotoxins. Renally dose medications. Monitor daily weights and I & Os. Permacath placement on Tuesday per vascular surgery. Hypertension. Resume home medications. Diabetes mellitus type 2. As above. Hyperlipidemia. Hypothyroidism. Hyperkalemia. Patient status post Kayexalate. Continue dialysis per nephrology. Gout. s/p fall. Headache resolved. CT scan of the head negative. History Interval history: No new issues overnight. Patient complains of abdominal pain but reports slight improvement. Hospitalist Physical - Constitutional Vitals: Temp Pulse Resp BP Pulse Ox 97.8 F 84 20 161/94 95 11/29/16 11:45 11/29/16 11:45 11/29/16 11:45 11/29/16 11:45 11/29/16 11:45 General appearance: Present: no acute distress - EENT Eyes: Present: PERRL, EOM intact ENT: hearing intact, clear oral mucosa, dentition normal - Neck Neck: Present: supple, normal ROM - Respiratory Respiratory effort: normal Respiratory: bilateral: CTA - Cardiovascular Rhythm: regular Heart Sounds: Present: S1 & S2. Absent: gallop, rub - Extremities Extremities: no ischemia, No edema, Full ROM - Abdominal General gastrointestinal: soft, non-tender, non-distended, normal bowel sounds - Integumentary Integumentary: Present: clear, warm, dry - Neurologic Neurologic: CNII-XII intact, moves all extremities Results - Labs CBC & Chem 7: 11/29/16 07:10 11/29/16 07:10 Labs: Laboratory Last Values WBC 4.9 K/mm3 (4.5-11.0) 11/29/16 07:10 RBC 2.80 M/mm3 (3.65-5.03) L 11/29/16 07:10 Hgb 7.8 gm/dl (10.1-14.3) L 11/29/16 07:10 Hct 24.4 % (30.3-42.9) L 11/29/16 07:10 MCV 87 fl (79-97) 11/29/16 07:10 MCH 28 pg (28-32) 11/29/16 07:10 MCHC 32 % (30-34) 11/29/16 07:10 RDW 16.5 % (13.2-15.2) H 11/29/16 07:10 Plt Count 278 K/mm3 (140-440) 11/29/16 07:10 Lymph % (Auto) 19.1 % (13.4-35.0) 11/28/16 08:35 [place] % (Auto) 6.2 % (0.0-7.3) 11/28/16 08:35 Eos % (Auto) 3.2 % (0.0-4.3) 11/28/16 08:35 Baso % (Auto) 0.5 % (0.0-1.8) 11/28/16 08:35 Lymph # 1.0 K/mm3 (1.2-5.4) L 11/28/16 08:35 [place] # 0.3 K/mm3 (0.0-0.8) 11/28/16 08:35 Eos # 0.2 K/mm3 (0.0-0.4) 11/28/16 08:35 Baso # 0.0 K/mm3 (0.0-0.1) 11/28/16 08:35 Add Manual Diff Complete 11/29/16 07:10 Total Counted 100 11/29/16 07:10 Seg Neutrophils % 71.0 % (40.0-70.0) H 11/28/16 08:35 Seg Neuts % (Manual) 61.0 % (40.0-70.0) 11/29/16 07:10 Band Neutrophils % 4.0 % 11/29/16 07:10 Lymphocytes % (Manual) 29.0 % (13.4-35.0) 11/29/16 07:10 Reactive Lymphs % (Man) 0 % 11/29/16 07:10 Monocytes % (Manual) 4.0 % (0.0-7.3) 11/29/16 07:10 Eosinophils % (Manual) 2.0 % (0.0-4.3) 11/29/16 07:10 Basophils % (Manual) 0 % (0.0-1.8) 11/29/16 07:10 Metamyelocytes % 0 % 11/29/16 07:10 Myelocytes % 0 % 11/29/16 07:10 Promyelocytes % 0 % 11/29/16 07:10 Blast Cells % 0 % 11/29/16 07:10 Nucleated RBC % Not Reportable 11/29/16 07:10 Seg Neutrophils # 3.5 K/mm3 (1.8-7.7) 11/28/16 08:35 Seg Neutrophils # Man 3.0 K/mm3 (1.8-7.7) 11/29/16 07:10 Band Neutrophils # 0.2 K/mm3 11/29/16 07:10 Lymphocytes # (Manual) 1.4 K/mm3 (1.2-5.4) 11/29/16 07:10 Abs React Lymphs (Man) 0.0 K/mm3 11/29/16 07:10 Monocytes # (Manual) 0.2 K/mm3 (0.0-0.8) 11/29/16 07:10 Eosinophils # (Manual) 0.1 K/mm3 (0.0-0.4) 11/29/16 07:10 Basophils # (Manual) 0.0 K/mm3 (0.0-0.1) 11/29/16 07:10 Metamyelocytes # 0.0 K/mm3 11/29/16 07:10 Myelocytes # 0.0 K/mm3 11/29/16 07:10 Promyelocytes # 0.0 K/mm3 11/29/16 07:10 Blast Cells # 0.0 K/mm3 11/29/16 07:10 WBC Morphology Not Reportable 11/29/16 07:10 Hypersegmented Neuts Not Reportable 11/29/16 07:10 Hyposegmented Neuts Not Reportable 11/29/16 07:10 Hypogranular Neuts Not Reportable 11/29/16 07:10 Smudge Cells Not Reportable 11/29/16 07:10 Toxic Granulation Not Reportable 11/29/16 07:10 Toxic Vacuolation Not Reportable 11/29/16 07:10 Dohle Bodies Not Reportable 11/29/16 07:10 Pelger-Huet Anomaly Not Reportable 11/29/16 07:10 Jacob Rods Not Reportable 11/29/16 07:10 Platelet Estimate Not Reportable 11/29/16 07:10 Clumped Platelets Not Reportable 11/29/16 07:10 Plt Clumps, EDTA Not Reportable 11/29/16 07:10 Large Platelets Not Reportable 11/29/16 07:10 Giant Platelets Not Reportable 11/29/16 07:10 Platelet Satelliting Not Reportable 11/29/16 07:10 Plt Morphology Comment Not Reportable 11/29/16 07:10 RBC Morphology Not Reportable 11/29/16 07:10 Dimorphic RBCs Not Reportable 11/29/16 07:10 Polychromasia Not Reportable 11/29/16 07:10 Hypochromasia Not Reportable 11/29/16 07:10 Poikilocytosis Not Reportable 11/29/16 07:10 Anisocytosis Few 11/29/16 07:10 Microcytosis Not Reportable 11/29/16 07:10 Macrocytosis Not Reportable 11/29/16 07:10 Spherocytes Not Reportable 11/29/16 07:10 Pappenheimer Bodies Not Reportable 11/29/16 07:10 Sickle Cells Not Reportable 11/29/16 07:10 Target Cells Not Reportable 11/29/16 07:10 Tear Drop Cells Not Reportable 11/29/16 07:10 Ovalocytes Not Reportable 11/29/16 07:10 Helmet Cells Not Reportable 11/29/16 07:10 Henriquez-Anson Bodies Not Reportable 11/29/16 07:10 Jack Rings Not Reportable 11/29/16 07:10 [place] Cells Not Reportable 11/29/16 07:10 Bite Cells Not Reportable 11/29/16 07:10 Crenated Cell Not Reportable 11/29/16 07:10 Elliptocytes Not Reportable 11/29/16 07:10 Acanthocytes (Spur) Not Reportable 11/29/16 07:10 Rouleaux Not Reportable 11/29/16 07:10 Hemoglobin C Crystals Not Reportable 11/29/16 07:10 Schistocytes Not Reportable 11/29/16 07:10 Malaria parasites Not Reportable 11/29/16 07:10 Jarad Bodies Not Reportable 11/29/16 07:10 Hem Pathologist Commnt No 11/29/16 07:10 PT 21.6 Sec. (12.2-14.9) H 11/23/16 22:39 INR 1.88 (0.87-1.13) H 11/23/16 22:39 APTT 42.1 Sec. (24.2-36.6) H 11/23/16 22:39 D-Dimer 787.66 ng/mlDDU (0-234) H 11/24/16 05:25 Sodium 138 mmol/L (137-145) 11/29/16 07:10 Potassium 5.6 mmol/L (3.6-5.0) H 11/29/16 07:10 Chloride 108.2 mmol/L (98-107) H 11/29/16 07:10 Carbon Dioxide 18 mmol/L (22-30) L 11/29/16 07:10 Anion Gap 17 mmol/L 11/29/16 07:10 BUN 32 mg/dL (7-17) H 11/29/16 07:10 Creatinine 4.6 mg/dL (0.7-1.2) H 11/29/16 07:10 Estimated GFR 12 ml/min 11/29/16 07:10 BUN/Creatinine Ratio 6.95 % 11/29/16 07:10 Glucose 70 mg/dL (65-100) 11/29/16 07:10 POC Glucose 79 (70-105) 11/29/16 05:25 Calcium 8.0 mg/dL (8.4-10.2) L 11/29/16 07:10 Phosphorus 3.80 mg/dL (2.5-4.5) 11/29/16 07:10 Iron 28 ug/dL (37-170) L 11/27/16 06:22 TIBC 87 mcg/dL (250-450) L 11/27/16 06:22 Total Bilirubin < 0.20 mg/dL (0.1-1.2) 11/23/16 23:39 AST 16 units/L (5-40) 11/23/16 23:39 ALT 25 units/L (7-56) 11/23/16 23:39 Alkaline Phosphatase 205 units/L (35-129) H 11/23/16 23:39 Total Creatine Kinase 65 units/L (30-135) 11/24/16 08:51 CK-MB (CK-2) 4.1 ng/mL (0.0-4.0) H 11/24/16 08:51 CK-MB (CK-2) Rel Index 6.3 (0-4) H 11/24/16 08:51 Troponin T 0.025 ng/mL (0.00-0.029) 11/26/16 Unknown Total Protein 6.5 g/dL (6.3-8.2) 11/23/16 23:39 Albumin 2.3 g/dL (3.9-5) L 11/23/16 23:39 Albumin/Globulin Ratio 0.5 % 11/23/16 23:39 Triglycerides 101 mg/dL (2-149) 11/24/16 05:25 Cholesterol 137 mg/dL (50-199) 11/24/16 05:25 LDL Cholesterol Direct 60 mg/dL (50-130) 11/24/16 05:25 HDL Cholesterol 57 mg/dL (40-59) 11/24/16 05:25 Cholesterol/HDL Ratio 2.40 % 11/24/16 05:25 Amylase 45 units/L (27-131) 11/23/16 23:39 Lipase 39 units/L (13-60) 11/23/16 23:39 Fluid Type Peritoneal 11/25/16 06:30 Fluid Color [place] 11/25/16 06:30 Fluid Appearance Cloudy 11/25/16 06:30 Fluid WBC 4750 /mm3 11/25/16 06:30 Fluid RBC 9600 /mm3 11/25/16 06:30 Fluid Diff Comment 11/25/16 06:30 Fluid Seg Neutrophils 90.0 % 11/25/16 06:30 Fluid Lymphocytes 5.0 % 11/25/16 06:30 Fluid Reactive Lymphs 0 % 11/25/16 06:30 Fluid Monocytes 5.0 % 11/25/16 06:30 Fluid Eosinophils 0 % 11/25/16 06:30 Fluid Basophils 0 % 11/25/16 06:30 Random Vancomycin 13.3 ug/mL (0-40.0) 11/28/16 08:35
[2016-11-29] MEDS ORDERED: HEPARIN/NS 5000 UNIT/500ML(CATH LAB) 500 ML IR ONE (13:54)
[2016-11-29] MEDS ORDERED: XYLOCAINE 2% INFILTRATI ONE (13:54)
[2016-11-29] MEDS ORDERED: SUBLIMAZE ONE (13:54)
[2016-11-29] MEDS ORDERED: VERSED ONE (13:54)
[2016-11-29] MEDS ORDERED: VANCOMYCIN/NS 1 GM/250 ML 1 GM/250 ML BAG IV ONE (13:54)
[2016-11-29] MEDS: HEPARIN 10,000 UNITS/10 ML ONE ×2 (14:24→14:25)
--- NOTE | 2016-11-29 14:34 | Operative Report ---
Operative Report Operative Report: EXAM: ULTRASOUND AND FLUOROSCOPIC GUIDED PLACEMENT OF TUNNELED HEMODIALYSIS CATHETER CLINICAL INDICATION: END-STAGE RENAL DISEASE REQUIRING DIALYSIS ACCESS, PERITONEAL CATHETER NOT WORKING DATE: 11/29/2016 PROCEDURE: Following an explanation of the risks, benefits and alternatives; written informed consent was obtained. The patient was brought to the angiographic suite and placed in supine position on the examination table. Initial ultrasound evaluation of the right neck demonstrated a patent right internal jugular vein. The right neck and chest wall were prepped and draped in the usual sterile fashion. 1% lidocaine was used for anesthesia. Under ultrasound guidance, the right internal jugular vein was cannulated with a 7 cm 18-gauge needle. A 0.035 guidewire was advanced into the IVC under fluoroscopy to document intravenous positioning. The needle was removed. An appropriate catheter exit site was chosen along the anterior right chest wall. 1% lidocaine was used for anesthesia at the catheter exit site and along the tunnel tract. A Bard 23 cm glidepath tunneled hemodialysis catheter was then tunneled antegrade from the catheter exit site to the venotomy site. Following serial dilation over the guidewire under fluoroscopy, a 16 Japanese peel -away sheath was placed over the guidewire under fluoroscopy the guidewire and trocar were removed. The catheter was placed through the peel-away sheath and positioned with the tip in the proximal right atrium. The peel-away sheath was removed. Both ports flushed and aspirated easily and were then locked with appropriate volumes of heparin. The venotomy was closed using 3-0 Vicryl suture and Dermabond. Dermabond was also applied to the catheter exit site. Sterile dressings were then applied. The patient tolerated the procedure well. There were no immediate post procedure complications. Conscious sedation was performed under the guidance of radiologic nursing. Continuous cardiopulmonary monitoring was utilized. IMPRESSION: 1) Ultrasound and fluoroscopic guided placement of tunneled hemodialysis catheter.
--- NOTE | 2016-11-29 15:22 | Progress Note ---
Assessment and Plan A/P: 1. The patient's abdominal tenderness is improved. She is currently on vanco for staph in her PD fluid. We will f/u with nephrology regarding removal of PD catheter or if repositioning would be more appropriate. Subjective Date of service: 11/29/16 Narrative: The patient is resting in bed. She just underwent her vascath procedure. She states that her abdominal pain is much improved but still present. She denies any N/V. Objective Vital Signs - 12hr 11/29/16 11/29/16 08:00 11:45 Temperature 97.3 F L 97.8 F Pulse Rate [ 80 84 Left Radial] Respiratory 20 20 Rate Blood Pressure 146/95 161/94 [Left Arm] O2 Sat by Pulse 96 95 Oximetry - Abdomen soft (minimal mid abdominal tenderness to paplation, PD catheter in place) - Labs 11/29/16 07:10 11/29/16 07:10 Diabetes panel 11/29/16 Range/Units 07:10 Sodium 138 (137-145) mmol/L Potassium 5.6 H (3.6-5.0) mmol/L Chloride 108.2 H (98-107) mmol/L Carbon Dioxide 18 L (22-30) mmol/L BUN 32 H (7-17) mg/dL Creatinine 4.6 H (0.7-1.2) mg/dL Glucose 70 (65-100) mg/dL Calcium 8.0 L (8.4-10.2) mg/dL Calcium panel 11/29/16 Range/Units 07:10 Calcium 8.0 L (8.4-10.2) mg/dL Phosphorus 3.80 (2.5-4.5) mg/dL Pituitary panel 11/29/16 Range/Units 07:10 Sodium 138 (137-145) mmol/L Potassium 5.6 H (3.6-5.0) mmol/L Chloride 108.2 H (98-107) mmol/L Carbon Dioxide 18 L (22-30) mmol/L BUN 32 H (7-17) mg/dL Creatinine 4.6 H (0.7-1.2) mg/dL Glucose 70 (65-100) mg/dL Calcium 8.0 L (8.4-10.2) mg/dL Adrenal panel 11/29/16 Range/Units 07:10 Sodium 138 (137-145) mmol/L Potassium 5.6 H (3.6-5.0) mmol/L Chloride 108.2 H (98-107) mmol/L Carbon Dioxide 18 L (22-30) mmol/L BUN 32 H (7-17) mg/dL Creatinine 4.6 H (0.7-1.2) mg/dL Glucose 70 (65-100) mg/dL Calcium 8.0 L (8.4-10.2) mg/dL
[2016-11-29] MEDS: BENTYL PO SCH ×5 (16:13→22:45)
[2016-11-29] MEDS: LEVAQUIN 500MG/100ML 500 MG/100 ML BAG IV SCH (16:33)
[2016-11-29] MEDS ORDERED: NACL 0.9 (PRIMING MACHINE ONLY DIALYSIS) MC ONE (19:11)
[2016-11-29] MEDS: HEPARIN IV PRN ×2 (19:15→19:22)
[2016-11-29] MEDS: IMDUR PO SCH (20:26)
[2016-11-29] MEDS: NORVASC PO SCH (20:27)
[2016-11-29] MEDS: TOPROL XL PO SCH (20:27)
[2016-11-30] MEDS: CEPHULAC PO SCH ×6 (01:23→23:28)
[2016-11-30] MEDS: ZOFRAN IV PRN ×2 (04:06→16:19)
[2016-11-30] MEDS: MORPHINE IV PRN ×4 (04:06→20:53)
[2016-11-30 05:40] LABS: Basophils % (Auto) 0.8 % (0.0-1.8); Eosinophils % (Auto) 2.9 % (0.0-4.3); Hematocrit 26.9 % (30.3-42.9); Hemoglobin 8.9 gm/dl (10.1-14.3); Mean Corpuscular HGB Conc 33 % (30-34); Mean Corpuscular Hemoglobin 28 pg (28-32); Mean Corpuscular Volume 84 fl (79-97); Platelet Count 303 K/mm3 (140-440); Red Cell Distribution Width 16.2 % (13.2-15.2); White Blood Count 5.4 K/mm3 (4.5-11.0)
[2016-11-30] MEDS: APRESOLINE PO SCH ×3 (07:01→23:29)
--- NOTE | 2016-11-30 09:36 | Vascular Lab Report ---
MISCELLANEOUS VESSEL IDENTIFICATION: COMMENTS ON THE SCAN: The right internal jugular vein was identified and under real-time ultrasound guidance was cannulated. IMPRESSION: Successful ultrasound guided vein cannulation.
--- NOTE | 2016-11-30 11:01 | Progress Note ---
Assessment and Plan - Patient Problems (1) CKD (chronic kidney disease) stage 5, GFR less than 15 ml/min Current Visit: No Status: Acute Plan to address problem: Due to Peritoneal fluid culture + for Staph Aureus, PD catheter not draining coupled with poor sterile technique on patient's part as while attempts were being made to flush the PD catheter on 11/27/16, at one point patient had disconnected her PD catheter exposing her transfer set, went to bathroom and the got back in bed while transfer set was being exposed during that entire time creating more risk for infection. Patient is not a good candidate for PD Nephrology plans to keep patient on hemodialysis permanently Patient is in denial about this as she wants to stay on PD Surgery will need to make arrangements to remove PD catheter Eventually patient will need vein mapping and AVF placement but this can be done outpatiently Received short hemodialysis treatment yesterday Hemodialysis again today for UF and clearance Renally dose medications Obtain daily weights Monitor I/O's Assess dialysis needs daily Consulted drug abuse worker for outpatient HD arrangement to [facility]. (2) Anemia in chronic kidney disease (CKD) Current Visit: No Status: Acute Qualifiers: Chronic kidney disease stage: C Plan to address problem: Epogen 10,000 units SQ TIW (3) Hypertensive nephrosclerosis, 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 Current Visit: No Status: Acute Plan to address problem: Continue on anti-hypertensive agents Subjective Date of service: 11/30/16 Principal diagnosis: peritonitis Interval history: Patient seen in HD unit. Tolerating HD well. Awake and alert. Complains of pain all over body Objective - Vital Signs Vital signs: Vital Signs - 12hr 11/29/16 11/30/16 11/30/16 23:35 04:00 07:51 Temperature 99.1 F 97.7 F Pulse Rate [ 93 H Apical] Pulse Rate [ 93 H 104 H Right From Monitor] Respiratory 20 20 20 Rate Respiratory Rate [unable to assess] Blood Pressure 198/104 200/106 [Right Arm] O2 Sat by Pulse 97 98 Oximetry 11/30/16 11/30/16 11/30/16 07:59 08:00 08:01 Temperature 98.0 F Pulse Rate [ Apical] Pulse Rate [ 95 H Right From Monitor] Respiratory 20 18 Rate Respiratory 20 Rate [unable to assess] Blood Pressure 188/102 [Right Arm] O2 Sat by Pulse 97 Oximetry - General Appearance General appearance: well-developed, appears stated age EENT: ATNC, PERRL, hearing intact, vision intact Neck: no JVD, supple Respiratory: Present: Clear to Ascultation Cardiology: tachycardia, S1S2 Gastrointestinal: other (PD catheter intact ) Integumentary: warm and dry Neurologic: alert and oriented x3 Musculoskeletal: other (No edema to BLE. Right IJ perm-catheter intact) - Lab 11/30/16 05:11 11/29/16 07:10 Most recent lab results Calcium 8.0 mg/dL (8.4-10.2) L 11/29/16 07:10 Phosphorus 2.70 mg/dL (2.5-4.5) D 11/30/16 05:11
--- NOTE | 2016-11-30 11:32 | Progress Note ---
Assessment and Plan Assessment and plan: Acute peritonitis. Continue current antibiotics End-stage renal disease on peritoneal dialysis. Patient is not a good candidate for PD. Surgery to make arrangements to remove PD catheter. Nephrology plan is to keep on hemodialysis permanently. Eventually patient will need vein mapping and AVF placement as an outpatient. Bilateral pulmonary emboli. Patient with recent hospitalization/diagnosis of acute bilateral pulmonary emboli. Heparin drip for now. We'll discontinue heparin drip was surgery plans to do procedure as noted above. After procedure , we will transition to Coumadin. Hypertension. Resume home medications. Diabetes mellitus type 2. Continue sliding-scale insulin and Accu-Cheks. Hyperlipidemia. Hypothyroidism. Hyperkalemia. Resolved. Continue hemodialysis per nephrology. Gout. History Interval history: No new issues overnight. Patient complains of abdominal pain but reports slight improvement. Hospitalist Physical - Constitutional Vitals: Temp Pulse Resp BP Pulse Ox 98.0 F 95 H 20 188/102 97 11/30/16 08:00 11/30/16 08:00 11/30/16 08:01 11/30/16 08:00 11/30/16 08:00 General appearance: Present: no acute distress - EENT Eyes: Present: PERRL, EOM intact ENT: hearing intact, clear oral mucosa, dentition normal - Neck Neck: Present: supple, normal ROM - Respiratory Respiratory effort: normal Respiratory: bilateral: CTA - Cardiovascular Rhythm: regular Heart Sounds: Present: S1 & S2. Absent: gallop, rub - Extremities Extremities: no ischemia, No edema, Full ROM - Abdominal General gastrointestinal: soft, non-tender, non-distended, normal bowel sounds - Integumentary Integumentary: Present: clear, warm, dry - Neurologic Neurologic: CNII-XII intact, moves all extremities Results - Labs CBC & Chem 7: 11/30/16 05:11 11/29/16 07:10 Labs: Laboratory Last Values WBC 5.4 K/mm3 (4.5-11.0) 11/30/16 05:11 RBC 3.20 M/mm3 (3.65-5.03) L 11/30/16 05:11 Hgb 8.9 gm/dl (10.1-14.3) L 11/30/16 05:11 Hct 26.9 % (30.3-42.9) L 11/30/16 05:11 MCV 84 fl (79-97) D 11/30/16 05:11 MCH 28 pg (28-32) 11/30/16 05:11 MCHC 33 % (30-34) 11/30/16 05:11 RDW 16.2 % (13.2-15.2) H 11/30/16 05:11 Plt Count 303 K/mm3 (140-440) 11/30/16 05:11 Lymph % (Auto) 19.3 % (13.4-35.0) 11/30/16 05:11 [place] % (Auto) 7.2 % (0.0-7.3) 11/30/16 05:11 Eos % (Auto) 2.9 % (0.0-4.3) 11/30/16 05:11 Baso % (Auto) 0.8 % (0.0-1.8) 11/30/16 05:11 Lymph # 1.0 K/mm3 (1.2-5.4) L 11/30/16 05:11 [place] # 0.4 K/mm3 (0.0-0.8) 11/30/16 05:11 Eos # 0.2 K/mm3 (0.0-0.4) 11/30/16 05:11 Baso # 0.0 K/mm3 (0.0-0.1) 11/30/16 05:11 Add Manual Diff Complete 11/29/16 07:10 Total Counted 100 11/29/16 07:10 Seg Neutrophils % 69.8 % (40.0-70.0) 11/30/16 05:11 Seg Neuts % (Manual) 61.0 % (40.0-70.0) 11/29/16 07:10 Band Neutrophils % 4.0 % 11/29/16 07:10 Lymphocytes % (Manual) 29.0 % (13.4-35.0) 11/29/16 07:10 Reactive Lymphs % (Man) 0 % 11/29/16 07:10 Monocytes % (Manual) 4.0 % (0.0-7.3) 11/29/16 07:10 Eosinophils % (Manual) 2.0 % (0.0-4.3) 11/29/16 07:10 Basophils % (Manual) 0 % (0.0-1.8) 11/29/16 07:10 Metamyelocytes % 0 % 11/29/16 07:10 Myelocytes % 0 % 11/29/16 07:10 Promyelocytes % 0 % 11/29/16 07:10 Blast Cells % 0 % 11/29/16 07:10 Nucleated RBC % Not Reportable 11/29/16 07:10 Seg Neutrophils # 3.8 K/mm3 (1.8-7.7) 11/30/16 05:11 Seg Neutrophils # Man 3.0 K/mm3 (1.8-7.7) 11/29/16 07:10 Band Neutrophils # 0.2 K/mm3 11/29/16 07:10 Lymphocytes # (Manual) 1.4 K/mm3 (1.2-5.4) 11/29/16 07:10 Abs React Lymphs (Man) 0.0 K/mm3 11/29/16 07:10 Monocytes # (Manual) 0.2 K/mm3 (0.0-0.8) 11/29/16 07:10 Eosinophils # (Manual) 0.1 K/mm3 (0.0-0.4) 11/29/16 07:10 Basophils # (Manual) 0.0 K/mm3 (0.0-0.1) 11/29/16 07:10 Metamyelocytes # 0.0 K/mm3 11/29/16 07:10 Myelocytes # 0.0 K/mm3 11/29/16 07:10 Promyelocytes # 0.0 K/mm3 11/29/16 07:10 Blast Cells # 0.0 K/mm3 11/29/16 07:10 WBC Morphology Not Reportable 11/29/16 07:10 Hypersegmented Neuts Not Reportable 11/29/16 07:10 Hyposegmented Neuts Not Reportable 11/29/16 07:10 Hypogranular Neuts Not Reportable 11/29/16 07:10 Smudge Cells Not Reportable 11/29/16 07:10 Toxic Granulation Not Reportable 11/29/16 07:10 Toxic Vacuolation Not Reportable 11/29/16 07:10 Dohle Bodies Not Reportable 11/29/16 07:10 Pelger-Huet Anomaly Not Reportable 11/29/16 07:10 Jacob Rods Not Reportable 11/29/16 07:10 Platelet Estimate Not Reportable 11/29/16 07:10 Clumped Platelets Not Reportable 11/29/16 07:10 Plt Clumps, EDTA Not Reportable 11/29/16 07:10 Large Platelets Not Reportable 11/29/16 07:10 Giant Platelets Not Reportable 11/29/16 07:10 Platelet Satelliting Not Reportable 11/29/16 07:10 Plt Morphology Comment Not Reportable 11/29/16 07:10 RBC Morphology Not Reportable 11/29/16 07:10 Dimorphic RBCs Not Reportable 11/29/16 07:10 Polychromasia Not Reportable 11/29/16 07:10 Hypochromasia Not Reportable 11/29/16 07:10 Poikilocytosis Not Reportable 11/29/16 07:10 Anisocytosis Few 11/29/16 07:10 Microcytosis Not Reportable 11/29/16 07:10 Macrocytosis Not Reportable 11/29/16 07:10 Spherocytes Not Reportable 11/29/16 07:10 Pappenheimer Bodies Not Reportable 11/29/16 07:10 Sickle Cells Not Reportable 11/29/16 07:10 Target Cells Not Reportable 11/29/16 07:10 Tear Drop Cells Not Reportable 11/29/16 07:10 Ovalocytes Not Reportable 11/29/16 07:10 Helmet Cells Not Reportable 11/29/16 07:10 [place] Bodies Not Reportable 11/29/16 07:10 [place] Rings Not Reportable 11/29/16 07:10 Sarah Cells Not Reportable 11/29/16 07:10 Bite Cells Not Reportable 11/29/16 07:10 Crenated Cell Not Reportable 11/29/16 07:10 Elliptocytes Not Reportable 11/29/16 07:10 Acanthocytes (Spur) Not Reportable 11/29/16 07:10 Rouleaux Not Reportable 11/29/16 07:10 Hemoglobin C Crystals Not Reportable 11/29/16 07:10 Schistocytes Not Reportable 11/29/16 07:10 Malaria parasites Not Reportable 11/29/16 07:10 Jarad Bodies Not Reportable 11/29/16 07:10 Hem Pathologist Commnt No 11/29/16 07:10 PT 21.6 Sec. (12.2-14.9) H 11/23/16 22:39 INR 1.88 (0.87-1.13) H 11/23/16 22:39 APTT 42.1 Sec. (24.2-36.6) H 11/23/16 22:39 D-Dimer 787.66 ng/mlDDU (0-234) H 11/24/16 05:25 Sodium 138 mmol/L (137-145) 11/29/16 07:10 Potassium 5.6 mmol/L (3.6-5.0) H 11/29/16 07:10 Chloride 108.2 mmol/L (98-107) H 11/29/16 07:10 Carbon Dioxide 18 mmol/L (22-30) L 11/29/16 07:10 Anion Gap 17 mmol/L 11/29/16 07:10 BUN 32 mg/dL (7-17) H 11/29/16 07:10 Creatinine 4.6 mg/dL (0.7-1.2) H 11/29/16 07:10 Estimated GFR 12 ml/min 11/29/16 07:10 BUN/Creatinine Ratio 6.95 % 11/29/16 07:10 Glucose 70 mg/dL (65-100) 11/29/16 07:10 POC Glucose 94 (70-105) 11/30/16 05:44 Calcium 8.0 mg/dL (8.4-10.2) L 11/29/16 07:10 Phosphorus 2.70 mg/dL (2.5-4.5) D 11/30/16 05:11 Iron 28 ug/dL (37-170) L 11/27/16 06:22 TIBC 87 mcg/dL (250-450) L 11/27/16 06:22 Total Bilirubin < 0.20 mg/dL (0.1-1.2) 11/23/16 23:39 AST 16 units/L (5-40) 11/23/16 23:39 ALT 25 units/L (7-56) 11/23/16 23:39 Alkaline Phosphatase 205 units/L (35-129) H 11/23/16 23:39 Total Creatine Kinase 65 units/L (30-135) 11/24/16 08:51 CK-MB (CK-2) 4.1 ng/mL (0.0-4.0) H 11/24/16 08:51 CK-MB (CK-2) Rel Index 6.3 (0-4) H 11/24/16 08:51 Troponin T 0.025 ng/mL (0.00-0.029) 11/26/16 Unknown Total Protein 6.5 g/dL (6.3-8.2) 11/23/16 23:39 Albumin 2.3 g/dL (3.9-5) L 11/23/16 23:39 Albumin/Globulin Ratio 0.5 % 11/23/16 23:39 Triglycerides 101 mg/dL (2-149) 11/24/16 05:25 Cholesterol 137 mg/dL (50-199) 11/24/16 05:25 LDL Cholesterol Direct 60 mg/dL (50-130) 11/24/16 05:25 HDL Cholesterol 57 mg/dL (40-59) 11/24/16 05:25 Cholesterol/HDL Ratio 2.40 % 11/24/16 05:25 Amylase 45 units/L (27-131) 11/23/16 23:39 Lipase 39 units/L (13-60) 11/23/16 23:39 Fluid Type Peritoneal 11/25/16 06:30 Fluid Color Olean 11/25/16 06:30 Fluid Appearance Cloudy 11/25/16 06:30 Fluid WBC 4750 /mm3 11/25/16 06:30 Fluid RBC 9600 /mm3 11/25/16 06:30 Fluid Diff Comment 11/25/16 06:30 Fluid Seg Neutrophils 90.0 % 11/25/16 06:30 Fluid Lymphocytes 5.0 % 11/25/16 06:30 Fluid Reactive Lymphs 0 % 11/25/16 06:30 Fluid Monocytes 5.0 % 11/25/16 06:30 Fluid Eosinophils 0 % 11/25/16 06:30 Fluid Basophils 0 % 11/25/16 06:30 Random Vancomycin 28.2 ug/mL (0-40.0) 11/30/16 05:11 Hepatitis A IgM Ab Non-reactive (NonReactive) 11/29/16 19:15 Hep Bs Antigen Non-reactive (Negative) 11/29/16 19:15 Hep B Core IgM Ab Non-reactive (NonReactive) 11/29/16 19:15 Hepatitis C Antibody Non-reactive (NonReactive) 11/29/16 19:15
[2016-11-30] MEDS ORDERED: HEPARIN/ 0.45% NACL-25,000 UNIT/500 ML 25,000 UNIT/500 ML BAG IV SCH (12:00)
[2016-11-30] MEDS ORDERED: NACL 0.9% 100 ML IV PRN (13:16)
[2016-11-30 13:27] LABS: Hematocrit 24.6 % (30.3-42.9); Hemoglobin 8.3 gm/dl (10.1-14.3)
[2016-11-30 13:39] LABS: INR 1.15 (0.87-1.13); Partial Thromboplastin Time 25.1 Sec. (24.2-36.6)
[2016-11-30] MEDS ORDERED: NACL 0.9 (PRIMING MACHINE ONLY DIALYSIS) MC ONE (13:39)
[2016-11-30] MEDS: HEPARIN IV PRN (13:56)
--- NOTE | 2016-11-30 14:53 | Progress Note ---
Subjective Date of service: 11/30/16 Narrative: Pt is undergoing hemodialyssi now. Dr Garnica's progress noted, disc with him 2 times to day Abd - mild diffuse tenderness , no rebound , No exit site drainage or purulence On Vanoc/ Levo For PE she is switched over to IV Heparin Today INR 1.1 Imp - PD peritonitis, non compliance Plan - Agree with Dr Garnica - will remove the PD cath now to relieve sepsis and abd pain . No attempt at laparoscopy as there is greater risk of bowel injury due to peritonitis Pt is in denial , wants to do PD - will consider this at a later date - ui.e 3- 4 months later For PD cath removal on 12/02 - consent done [place] top IV heparin 4 hrs before Objective Vital Signs - 12hr 11/30/16 11/30/16 11/30/16 04:00 07:51 07:59 Temperature 97.7 F Pulse Rate Pulse Rate [ 93 H Apical] Pulse Rate [ 104 H Right From Monitor] Respiratory 20 20 20 Rate Respiratory Rate [unable to assess] Blood Pressure Blood Pressure 200/106 [Right Arm] O2 Sat by Pulse 98 Oximetry 11/30/16 11/30/16 11/30/16 08:00 08:01 10:25 Temperature 98.0 F 98.3 F Pulse Rate 101 H Pulse Rate [ Apical] Pulse Rate [ 95 H Right From Monitor] Respiratory 18 18 Rate Respiratory 20 Rate [unable to assess] Blood Pressure 181/108 Blood Pressure 188/102 [Right Arm] O2 Sat by Pulse 97 Oximetry 11/30/16 11/30/16 11/30/16 10:30 10:45 11:00 Temperature Pulse Rate 97 H 95 H 100 H Pulse Rate [ Apical] Pulse Rate [ Right From Monitor] Respiratory Rate Respiratory Rate [unable to assess] Blood Pressure 191/117 164/116 167/107 Blood Pressure [Right Arm] O2 Sat by Pulse Oximetry 11/30/16 11/30/16 11/30/16 11:15 11:30 11:45 Temperature Pulse Rate 114 H 107 H 102 H Pulse Rate [ Apical] Pulse Rate [ Right From Monitor] Respiratory Rate Respiratory Rate [unable to assess] Blood Pressure 163/121 181/121 160/102 Blood Pressure [Right Arm] O2 Sat by Pulse Oximetry 11/30/16 11/30/16 11/30/16 12:00 12:15 12:25 Temperature Pulse Rate 108 H 108 H 109 H Pulse Rate [ Apical] Pulse Rate [ Right From Monitor] Respiratory Rate Respiratory Rate [unable to assess] Blood Pressure 140/103 143/116 117/49 Blood Pressure [Right Arm] O2 Sat by Pulse Oximetry 11/30/16 11/30/16 11/30/16 12:30 12:45 13:00 Temperature Pulse Rate 102 H 95 H 97 H Pulse Rate [ Apical] Pulse Rate [ Right From Monitor] Respiratory Rate Respiratory Rate [unable to assess] Blood Pressure 170/109 163/106 150/113 Blood Pressure [Right Arm] O2 Sat by Pulse Oximetry 11/30/16 11/30/16 11/30/16 13:15 13:30 13:43 Temperature 98.2 F Pulse Rate 101 H 102 H 101 H Pulse Rate [ Apical] Pulse Rate [ Right From Monitor] Respiratory 18 Rate Respiratory Rate [unable to assess] Blood Pressure 152/109 143/110 171/114 Blood Pressure [Right Arm] O2 Sat by Pulse Oximetry - Labs 11/30/16 11:40 11/29/16 07:10 Calcium panel 11/30/16 Range/Units 05:11 Phosphorus 2.70 D (2.5-4.5) mg/dL
[2016-11-30] MEDS: Renal Caps PO SCH (15:25)
[2016-11-30] MEDS: NORVASC PO SCH (15:25)
[2016-11-30] MEDS: TOPROL XL PO SCH (15:26)
[2016-11-30] MEDS: IMDUR PO SCH (15:27)
[2016-11-30] MEDS: BENTYL PO SCH ×4 (15:28→23:30)
[2016-11-30] MEDS: ELAVIL PO SCH (23:29)
[2016-12-01] MEDS: APRESOLINE PO SCH ×5 (04:00→22:17)
[2016-12-01] MEDS: MORPHINE IV PRN ×3 (08:34→19:38)
[2016-12-01 09:02] LABS: Hematocrit 23.9 % (30.3-42.9); Hemoglobin 7.9 gm/dl (10.1-14.3); Mean Corpuscular HGB Conc 33 % (30-34); Mean Corpuscular Hemoglobin 28 pg (28-32); Mean Corpuscular Volume 85 fl (79-97); Platelet Count 211 K/mm3 (140-440); Red Blood Count 2.81 M/mm3 (3.65-5.03); Red Cell Distribution Width 16.1 % (13.2-15.2); White Blood Count 5.2 K/mm3 (4.5-11.0)
[2016-12-01 09:25] LABS: BUN/Creatinine Ratio 4.37; Calcium 7.5 mg/dL (8.4-10.2); Chloride 101.8 mmol/L (98-107); Phosphorous 3.1 mg/dL (2.5-4.5); Potassium 4.2 mmol/L (3.6-5.0)
[2016-12-01 10:14] LABS: Anisocytosis 2+; Basophils % (Manual) 0 % (0.0-1.8); Blastocytes % (Manual) 0 %; Diff Status Complete; Hypochromasia 1+; Microcytosis Few; Polychromasia Few; Tear Drop Cells Rare
[2016-12-01] MEDS: Renal Caps PO SCH (10:43)
[2016-12-01] MEDS: LEVAQUIN PO SCH (10:43)
--- NOTE | 2016-12-01 11:03 | Anesthesia Consultation ---
Anesthesia Consult and Med Hx Date of service: 12/01/16 - Airway Anesthetic Teeth Evaluation: Good ROM Head & Neck: Adequate Mental/Hyoid Distance: Adequate Mallampati Class: Class II Intubation Access Assessment: Probably Good - Pulmonary Exam CTA: Yes - Cardiac Exam Cardiac Exam: RRR - Pre-Operative Health Status ASA Pre-Surgery Classification: ASA3 Proposed Anesthetic Plan: General - Pulmonary Hx Smoking: No Hx Asthma: Yes (inhaler prn, last used 1 m ago) COPD: No Hx Pneumonia: No - Cardiovascular System Hx Hypertension: Yes Hx Heart Attack/AMI: No Hx Angina: No Hx Peripheral Vascular Disease: No (blood clot on heparin drip) - Central Nervous System Hx Seizures: No CVA: No Hx Back Pain: No (gout) Hx Psychiatric Problems: No - Endocrine Hx Renal Disease: Yes (rt nephrectomy at 14 yo) Hx End Stage Renal Disease: Yes (dialyse thur PD cath) Hx Liver Disease: No Hx Non-Insulin Dependent Diabetes: Yes Hx Hypothyroidism: Yes - Hematic Hx Anemia: Yes Hx Sickle Cell Disease: No - Other Systems Hx Obesity: Yes - Additional Comments Anesthesia Medical History Comments: NAC
--- NOTE | 2016-12-01 11:15 | Progress Note ---
Assessment and Plan Assessment and plan: Acute peritonitis. Continue current antibiotics End-stage renal disease on peritoneal dialysis. Patient is not a good candidate for PD. Surgery to make arrangements to remove PD catheter on . Nephrology plan is to keep on hemodialysis permanently. Eventually patient will need vein mapping and AVF placement as an outpatient. Bilateral pulmonary emboli. Patient with recent hospitalization/diagnosis of acute bilateral pulmonary emboli. Heparin drip for now. We'll discontinue heparin drip when surgery plans to do procedure as noted above. After procedure , we will transition to Coumadin. Hypertension. Resume home medications. Diabetes mellitus type 2. Continue sliding-scale insulin and Accu-Cheks. Hyperlipidemia. Hypothyroidism. Hyperkalemia. Resolved. Continue hemodialysis per nephrology. Gout. History Interval history: No new issues overnight. Patient complains of abdominal pain but reports slight improvement. Hospitalist Physical - Constitutional Vitals: Temp Pulse Resp BP Pulse Ox 98.7 F 80 20 161/86 99 12/01/16 08:00 12/01/16 08:00 12/01/16 08:00 12/01/16 08:00 12/01/16 08:00 General appearance: Present: no acute distress - EENT Eyes: Present: PERRL, EOM intact ENT: hearing intact, clear oral mucosa, dentition normal - Neck Neck: Present: supple, normal ROM - Respiratory Respiratory effort: normal Respiratory: bilateral: CTA - Cardiovascular Rhythm: regular Heart Sounds: Present: S1 & S2. Absent: gallop, rub - Extremities Extremities: no ischemia, No edema, Full ROM - Abdominal General gastrointestinal: soft, non-tender, non-distended, normal bowel sounds - Integumentary Integumentary: Present: clear, warm, dry - Neurologic Neurologic: CNII-XII intact, moves all extremities Results - Labs CBC & Chem 7: 12/01/16 08:32 12/01/16 08:32 Labs: Laboratory Last Values WBC 5.2 K/mm3 (4.5-11.0) 12/01/16 08:32 RBC 2.81 M/mm3 (3.65-5.03) L 12/01/16 08:32 Hgb 7.9 gm/dl (10.1-14.3) L 12/01/16 08:32 Hct 23.9 % (30.3-42.9) L 12/01/16 08:32 MCV 85 fl (79-97) 12/01/16 08:32 MCH 28 pg (28-32) 12/01/16 08:32 MCHC 33 % (30-34) 12/01/16 08:32 RDW 16.1 % (13.2-15.2) H 12/01/16 08:32 Plt Count 211 K/mm3 (140-440) 12/01/16 08:32 Lymph % (Auto) 19.3 % (13.4-35.0) 11/30/16 05:11 [place] % (Auto) 7.2 % (0.0-7.3) 11/30/16 05:11 Eos % (Auto) 2.9 % (0.0-4.3) 11/30/16 05:11 Baso % (Auto) 0.8 % (0.0-1.8) 11/30/16 05:11 Lymph # 1.0 K/mm3 (1.2-5.4) L 11/30/16 05:11 [place] # 0.4 K/mm3 (0.0-0.8) 11/30/16 05:11 Eos # 0.2 K/mm3 (0.0-0.4) 11/30/16 05:11 Baso # 0.0 K/mm3 (0.0-0.1) 11/30/16 05:11 Add Manual Diff Complete 12/01/16 08:32 Total Counted 100 12/01/16 08:32 Seg Neutrophils % 69.8 % (40.0-70.0) 11/30/16 05:11 Seg Neuts % (Manual) 70.0 % (40.0-70.0) 12/01/16 08:32 Band Neutrophils % 5.0 % 12/01/16 08:32 Lymphocytes % (Manual) 21.0 % (13.4-35.0) 12/01/16 08:32 Reactive Lymphs % (Man) 0 % 12/01/16 08:32 Monocytes % (Manual) 2.0 % (0.0-7.3) 12/01/16 08:32 Eosinophils % (Manual) 1.0 % (0.0-4.3) 12/01/16 08:32 Basophils % (Manual) 0 % (0.0-1.8) 12/01/16 08:32 Metamyelocytes % 1.0 % 12/01/16 08:32 Myelocytes % 0 % 12/01/16 08:32 Promyelocytes % 0 % 12/01/16 08:32 Blast Cells % 0 % 12/01/16 08:32 Nucleated RBC % Not Reportable 12/01/16 08:32 Seg Neutrophils # 3.8 K/mm3 (1.8-7.7) 11/30/16 05:11 Seg Neutrophils # Man 3.6 K/mm3 (1.8-7.7) 12/01/16 08:32 Band Neutrophils # 0.3 K/mm3 12/01/16 08:32 Lymphocytes # (Manual) 1.1 K/mm3 (1.2-5.4) L 12/01/16 08:32 Abs React Lymphs (Man) 0.0 K/mm3 12/01/16 08:32 Monocytes # (Manual) 0.1 K/mm3 (0.0-0.8) 12/01/16 08:32 Eosinophils # (Manual) 0.1 K/mm3 (0.0-0.4) 12/01/16 08:32 Basophils # (Manual) 0.0 K/mm3 (0.0-0.1) 12/01/16 08:32 Metamyelocytes # 0.1 K/mm3 12/01/16 08:32 Myelocytes # 0.0 K/mm3 12/01/16 08:32 Promyelocytes # 0.0 K/mm3 12/01/16 08:32 Blast Cells # 0.0 K/mm3 12/01/16 08:32 WBC Morphology Not Reportable 12/01/16 08:32 Hypersegmented Neuts Not Reportable 12/01/16 08:32 Hyposegmented Neuts Not Reportable 12/01/16 08:32 Hypogranular Neuts Not Reportable 12/01/16 08:32 Smudge Cells Not Reportable 12/01/16 08:32 Toxic Granulation Not Reportable 12/01/16 08:32 Toxic Vacuolation Not Reportable 12/01/16 08:32 Dohle Bodies Not Reportable 12/01/16 08:32 Pelger-Huet Anomaly Not Reportable 12/01/16 08:32 Jcaob Rods Not Reportable 12/01/16 08:32 Platelet Estimate Appears normal 12/01/16 08:32 Clumped Platelets Not Reportable 12/01/16 08:32 Plt Clumps, EDTA Not Reportable 12/01/16 08:32 Large Platelets Not Reportable 12/01/16 08:32 Giant Platelets Not Reportable 12/01/16 08:32 Platelet Satelliting Not Reportable 12/01/16 08:32 Plt Morphology Comment Not Reportable 12/01/16 08:32 RBC Morphology Not Reportable 12/01/16 08:32 Dimorphic RBCs Not Reportable 12/01/16 08:32 Polychromasia Few 12/01/16 08:32 Hypochromasia 1+ 12/01/16 08:32 Poikilocytosis Not Reportable 12/01/16 08:32 Anisocytosis 2+ 12/01/16 08:32 Microcytosis Few 12/01/16 08:32 Macrocytosis Not Reportable 12/01/16 08:32 Spherocytes Not Reportable 12/01/16 08:32 Pappenheimer Bodies Not Reportable 12/01/16 08:32 Sickle Cells Not Reportable 12/01/16 08:32 Target Cells Not Reportable 12/01/16 08:32 Tear Drop Cells Rare 12/01/16 08:32 Ovalocytes Not Reportable 12/01/16 08:32 Helmet Cells Not Reportable 12/01/16 08:32 Henri[place] Bodies Not Reportable 12/01/16 08:32 [place] Rings Not Reportable 12/01/16 08:32 [place] Cells Not Reportable 12/01/16 08:32 Bite Cells Not Reportable 12/01/16 08:32 Crenated Cell Not Reportable 12/01/16 08:32 Elliptocytes Not Reportable 12/01/16 08:32 Acanthocytes (Spur) Not Reportable 12/01/16 08:32 Rouleaux Not Reportable 12/01/16 08:32 Hemoglobin C Crystals Not Reportable 12/01/16 08:32 Schistocytes Not Reportable 12/01/16 08:32 Malaria parasites Not Reportable 12/01/16 08:32 Jarad Bodies Not Reportable 12/01/16 08:32 Hem Pathologist Commnt No 12/01/16 08:32 PT 14.6 Sec. (12.2-14.9) 11/30/16 Unknown INR 1.15 (0.87-1.13) H 11/30/16 Unknown APTT 25.1 Sec. (24.2-36.6) 11/30/16 Unknown D-Dimer 787.66 ng/mlDDU (0-234) H 11/24/16 05:25 Heparin Anti-Xa Level 1.08 U.I./ml (0.3-0.7) H 11/30/16 22:08 Sodium 138 mmol/L (137-145) 12/01/16 08:32 Potassium 4.2 mmol/L (3.6-5.0) D 12/01/16 08:32 Chloride 101.8 mmol/L (98-107) 12/01/16 08:32 Carbon Dioxide 26 mmol/L (22-30) D 12/01/16 08:32 Anion Gap 14 mmol/L 12/01/16 08:32 BUN 14 mg/dL (7-17) 12/01/16 08:32 Creatinine 3.2 mg/dL (0.7-1.2) H 12/01/16 08:32 Estimated GFR 19 ml/min 12/01/16 08:32 BUN/Creatinine Ratio 4.37 % 12/01/16 08:32 Glucose 74 mg/dL (65-100) 12/01/16 08:32 POC Glucose 85 (70-105) 12/01/16 06:20 Calcium 7.5 mg/dL (8.4-10.2) L 12/01/16 08:32 Phosphorus 3.10 mg/dL (2.5-4.5) 12/01/16 08:32 Iron 28 ug/dL (37-170) L 11/27/16 06:22 TIBC 87 mcg/dL (250-450) L 11/27/16 06:22 Total Bilirubin < 0.20 mg/dL (0.1-1.2) 11/23/16 23:39 AST 16 units/L (5-40) 11/23/16 23:39 ALT 25 units/L (7-56) 11/23/16 23:39 Alkaline Phosphatase 205 units/L (35-129) H 11/23/16 23:39 Total Creatine Kinase 65 units/L (30-135) 11/24/16 08:51 CK-MB (CK-2) 4.1 ng/mL (0.0-4.0) H 11/24/16 08:51 CK-MB (CK-2) Rel Index 6.3 (0-4) H 11/24/16 08:51 Troponin T 0.025 ng/mL (0.00-0.029) 11/26/16 Unknown Total Protein 6.5 g/dL (6.3-8.2) 11/23/16 23:39 Albumin 2.3 g/dL (3.9-5) L 11/23/16 23:39 Albumin/Globulin Ratio 0.5 % 11/23/16 23:39 Triglycerides 101 mg/dL (2-149) 11/24/16 05:25 Cholesterol 137 mg/dL (50-199) 11/24/16 05:25 LDL Cholesterol Direct 60 mg/dL (50-130) 11/24/16 05:25 HDL Cholesterol 57 mg/dL (40-59) 11/24/16 05:25 Cholesterol/HDL Ratio 2.40 % 11/24/16 05:25 Amylase 45 units/L (27-131) 11/23/16 23:39 Lipase 39 units/L (13-60) 11/23/16 23:39 Fluid Type Peritoneal 11/25/16 06:30 Fluid Color [place] 11/25/16 06:30 Fluid Appearance Cloudy 11/25/16 06:30 Fluid WBC 4750 /mm3 11/25/16 06:30 Fluid RBC 9600 /mm3 11/25/16 06:30 Fluid Diff Comment 11/25/16 06:30 Fluid Seg Neutrophils 90.0 % 11/25/16 06:30 Fluid Lymphocytes 5.0 % 11/25/16 06:30 Fluid Reactive Lymphs 0 % 11/25/16 06:30 Fluid Monocytes 5.0 % 11/25/16 06:30 Fluid Eosinophils 0 % 11/25/16 06:30 Fluid Basophils 0 % 11/25/16 06:30 Random Vancomycin 28.2 ug/mL (0-40.0) 11/30/16 05:11 Hepatitis A IgM Ab Non-reactive (NonReactive) 11/29/16 19: Hep Bs Antigen Non-reactive (Negative) 11/29/16 19:15 Hep B Core IgM Ab Non-reactive (NonReactive) 11/29/16 19:15 Hepatitis C Antibody Non-reactive (NonReactive) 11/29/16 19:15
--- NOTE | 2016-12-01 11:56 | Progress Note ---
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 Reviewed renal plan with patient to include dialysis today and PD catheter removal tomorrow. Objective - Vital Signs Vital signs: Vital Signs - 12hr 12/01/16 08:00 Temperature 98.7 F Pulse Rate 80 Respiratory 20 Rate Blood Pressure 161/86 [Left] O2 Sat by Pulse 99 Oximetry - General Appearance General appearance: well-developed, well-nourished, appears stated age EENT: ATNC, PERRL, hearing intact, vision intact Neck: no JVD, supple Respiratory: Present: Clear to Ascultation Cardiology: regular, S1S2 Gastrointestinal: normoactive bowel sounds, other (PD catheter present) Integumentary: warm and dry Neurologic: alert and oriented x3 Musculoskeletal: other (No edema) - Lab 12/01/16 08:32 12/01/16 08:32 Most recent lab results Calcium 7.5 mg/dL (8.4-10.2) L 12/01/16 08:32 Phosphorus 3.10 mg/dL (2.5-4.5) 12/01/16 08:32
[2016-12-01] MEDS: ZOFRAN IV PRN ×2 (12:49→19:39)
[2016-12-01] MEDS: BENTYL PO SCH ×4 (12:50→22:16)
[2016-12-01] MEDS: IMDUR PO SCH (12:51)
[2016-12-01] MEDS: TOPROL XL PO SCH (13:23)
[2016-12-01] MEDS: NORVASC PO SCH (13:24)
[2016-12-01] MEDS: CEPHULAC PO SCH ×2 (13:25→19:36)
--- NOTE | 2016-12-01 15:54 | Progress Note ---
Assessment and Plan A/P: 1. The patient is scheduled to have her PD catheter removed tomorrow. 2. NPO past midnight. The heparin drip will be held at 4:30 Am tomorrow morning (12/02). This was communicated to the nursing staff. Subjective Date of service: 12/01/16 Narrative: The patient has no complaints at this point. She is scheduled to have her PD catheter removed tomorrow. Objective Vital Signs - 12hr 12/01/16 12/01/16 12/01/16 08:00 12:51 13:23 Temperature 98.7 F Pulse Rate 80 78 Respiratory 20 Rate Blood Pressure 182/106 182/106 Blood Pressure 161/86 [Left] O2 Sat by Pulse 99 Oximetry 12/01/16 12/01/16 13:24 14:50 Temperature 98.4 F Pulse Rate 86 80 Respiratory 16 Rate Blood Pressure 182/106 129/87 Blood Pressure [Left] O2 Sat by Pulse Oximetry - Abdomen soft (minimal tenderness around catheter, good BS) - Labs 12/01/16 08:32 12/01/16 08:32 Diabetes panel 12/01/16 Range/Units 08:32 Sodium 138 (137-145) mmol/L Potassium 4.2 D (3.6-5.0) mmol/L Chloride 101.8 (98-107) mmol/L Carbon Dioxide 26 D (22-30) mmol/L BUN 14 (7-17) mg/dL Creatinine 3.2 H (0.7-1.2) mg/dL Glucose 74 (65-100) mg/dL Calcium 7.5 L (8.4-10.2) mg/dL Calcium panel 12/01/16 Range/Units 08:32 Calcium 7.5 L (8.4-10.2) mg/dL Phosphorus 3.10 (2.5-4.5) mg/dL Pituitary panel 12/01/16 Range/Units 08:32 Sodium 138 (137-145) mmol/L Potassium 4.2 D (3.6-5.0) mmol/L Chloride 101.8 (98-107) mmol/L Carbon Dioxide 26 D (22-30) mmol/L BUN 14 (7-17) mg/dL Creatinine 3.2 H (0.7-1.2) mg/dL Glucose 74 (65-100) mg/dL Calcium 7.5 L (8.4-10.2) mg/dL Adrenal panel 12/01/16 Range/Units 08:32 Sodium 138 (137-145) mmol/L Potassium 4.2 D (3.6-5.0) mmol/L Chloride 101.8 (98-107) mmol/L Carbon Dioxide 26 D (22-30) mmol/L BUN 14 (7-17) mg/dL Creatinine 3.2 H (0.7-1.2) mg/dL Glucose 74 (65-100) mg/dL Calcium 7.5 L (8.4-10.2) mg/dL
[2016-12-01] MEDS ORDERED: NACL 0.9 (PRIMING MACHINE ONLY DIALYSIS) MC ONE (16:06)
[2016-12-01] MEDS: PROCRIT SUB-Q SCH (16:32)
[2016-12-01] MEDS: HEPARIN IV PRN (17:03)
[2016-12-01] MEDS: ELAVIL PO SCH (22:17)
[2016-12-02] MEDS: CEPHULAC PO SCH ×5 (00:16→20:09)
[2016-12-02] MEDS: MORPHINE IV PRN ×3 (05:17→20:19)
[2016-12-02] MEDS: APRESOLINE PO SCH ×3 (05:19→22:16)
[2016-12-02 06:04] LABS: Hematocrit 25.8 % (30.3-42.9); Hemoglobin 8.3 gm/dl (10.1-14.3); Mean Corpuscular HGB Conc 32 % (30-34); Mean Corpuscular Hemoglobin 27 pg (28-32); Mean Corpuscular Volume 85 fl (79-97); Platelet Count 239 K/mm3 (140-440); Red Blood Count 3.03 M/mm3 (3.65-5.03); Red Cell Distribution Width 16.5 % (13.2-15.2); White Blood Count 6.9 K/mm3 (4.5-11.0)
[2016-12-02 06:15] LABS: BUN/Creatinine Ratio 2.91; Calcium 7.9 mg/dL (8.4-10.2); Phosphorous 2.4 mg/dL (2.5-4.5)
[2016-12-02 06:16] LABS: Chloride 99.6 mmol/L (98-107); Potassium 3.8 mmol/L (3.6-5.0)
[2016-12-02 07:32] LABS: Anisocytosis 2+; Basophils % (Manual) 0 % (0.0-1.8); Blastocytes % (Manual) 0 %; Hypochromasia 1+; Polychromasia Few
[2016-12-02 07:33] LABS: Diff Status Complete; Smudge Cells Rare; Spherocytes Few
[2016-12-02] MEDS ORDERED: VERSED IV NR (09:00)
[2016-12-02] MEDS ORDERED: NACL 0.9% 1000 ML 1,000 ML IV SCH (09:00)
[2016-12-02] MEDS ORDERED: PEPCID PO NR (09:00)
[2016-12-02] MEDS ORDERED: DILAUDID ONE (09:43)
[2016-12-02] MEDS ORDERED: DIPRIVAN 10 MG/ML IV ONE (09:43)
[2016-12-02] MEDS ORDERED: NEO SYNEPHRINE ONE (09:45)
[2016-12-02] MEDS ORDERED: XYLOCAINE MPF 2% ONE (09:45)
--- NOTE | 2016-12-02 10:06 | Progress Note ---
Assessment and Plan Assessment and plan: Acute peritonitis. Continue current antibiotics End-stage renal disease on peritoneal dialysis. Patient is not a good candidate for PD. Surgery to make arrangements to remove PD catheter today. Nephrology plan is to keep on hemodialysis permanently. Eventually patient will need vein mapping and AVF placement as an outpatient. Bilateral pulmonary emboli. Patient with recent hospitalization/diagnosis of acute bilateral pulmonary emboli. Heparin drip for now. We'll discontinue heparin drip when surgery plans to do procedure as noted above. After procedure , we will transition to Coumadin. Hypertension. Resume home medications. Diabetes mellitus type 2. Continue sliding-scale insulin and Accu-Cheks. Hyperlipidemia. Hypothyroidism. Hyperkalemia. Resolved. Continue hemodialysis per nephrology. Gout. History Interval history: No new issues overnight. Hospitalist Physical - Constitutional Vitals: Temp Pulse Resp BP Pulse Ox 99.9 F H 101 H 18 165/96 94 12/02/16 08:00 12/02/16 08:00 12/02/16 08:00 12/02/16 08:00 12/02/16 08:00 General appearance: Present: no acute distress - EENT Eyes: Present: PERRL, EOM intact ENT: hearing intact, clear oral mucosa, dentition normal - Neck Neck: Present: supple, normal ROM - Respiratory Respiratory effort: normal Respiratory: bilateral: CTA - Cardiovascular Rhythm: regular Heart Sounds: Present: S1 & S2. Absent: gallop, rub - Extremities Extremities: no ischemia, No edema, Full ROM - Abdominal General gastrointestinal: soft, non-tender, non-distended, normal bowel sounds - Integumentary Integumentary: Present: clear, warm, dry - Neurologic Neurologic: CNII-XII intact, moves all extremities Results - Labs CBC & Chem 7: 12/02/16 Unknown 12/02/16 05:00 Labs: Laboratory Last Values WBC 6.9 K/mm3 (4.5-11.0) 12/02/16 Unknown RBC 3.03 M/mm3 (3.65-5.03) L 12/02/16 Unknown Hgb 8.3 gm/dl (10.1-14.3) L 12/02/16 Unknown Hct 25.8 % (30.3-42.9) L 12/02/16 Unknown MCV 85 fl (79-97) 12/02/16 Unknown MCH 27 pg (28-32) L 12/02/16 Unknown MCHC 32 % (30-34) 12/02/16 Unknown RDW 16.5 % (13.2-15.2) H 12/02/16 Unknown Plt Count 239 K/mm3 (140-440) 12/02/16 Unknown Lymph % (Auto) 19.3 % (13.4-35.0) 11/30/16 05:11 [place] % (Auto) 7.2 % (0.0-7.3) 11/30/16 05:11 Eos % (Auto) 2.9 % (0.0-4.3) 11/30/16 05:11 Baso % (Auto) 0.8 % (0.0-1.8) 11/30/16 05:11 Lymph # 1.0 K/mm3 (1.2-5.4) L 11/30/16 05:11 [place] # 0.4 K/mm3 (0.0-0.8) 11/30/16 05:11 Eos # 0.2 K/mm3 (0.0-0.4) 11/30/16 05:11 Baso # 0.0 K/mm3 (0.0-0.1) 11/30/16 05:11 Add Manual Diff Complete 12/02/16 Unknown Total Counted 100 12/02/16 Unknown Seg Neutrophils % 69.8 % (40.0-70.0) 11/30/16 05:11 Seg Neuts % (Manual) 64.0 % (40.0-70.0) 12/02/16 Unknown Band Neutrophils % 8.0 % 12/02/16 Unknown Lymphocytes % (Manual) 15.0 % (13.4-35.0) 12/02/16 Unknown Reactive Lymphs % (Man) 0 % 12/02/16 Unknown Monocytes % (Manual) 5.0 % (0.0-7.3) 12/02/16 Unknown Eosinophils % (Manual) 4.0 % (0.0-4.3) 12/02/16 Unknown Basophils % (Manual) 0 % (0.0-1.8) 12/02/16 Unknown Metamyelocytes % 4.0 % 12/02/16 Unknown Myelocytes % 0 % 12/02/16 Unknown Promyelocytes % 0 % 12/02/16 Unknown Blast Cells % 0 % 12/02/16 Unknown Nucleated RBC % 3.0 % (0.0-0.9) H 12/02/16 Unknown Seg Neutrophils # 3.8 K/mm3 (1.8-7.7) 11/30/16 05:11 Seg Neutrophils # Man 4.4 K/mm3 (1.8-7.7) 12/02/16 Unknown Band Neutrophils # 0.6 K/mm3 12/02/16 Unknown Lymphocytes # (Manual) 1.0 K/mm3 (1.2-5.4) L 12/02/16 Unknown Abs React Lymphs (Man) 0.0 K/mm3 12/02/16 Unknown Monocytes # (Manual) 0.3 K/mm3 (0.0-0.8) 12/02/16 Unknown Eosinophils # (Manual) 0.3 K/mm3 (0.0-0.4) 12/02/16 Unknown Basophils # (Manual) 0.0 K/mm3 (0.0-0.1) 12/02/16 Unknown Metamyelocytes # 0.3 K/mm3 12/02/16 Unknown Myelocytes # 0.0 K/mm3 12/02/16 Unknown Promyelocytes # 0.0 K/mm3 12/02/16 Unknown Blast Cells # 0.0 K/mm3 12/02/16 Unknown WBC Morphology Not Reportable 12/02/16 Unknown Hypersegmented Neuts Not Reportable 12/02/16 Unknown Hyposegmented Neuts Not Reportable 12/02/16 Unknown Hypogranular Neuts Not Reportable 12/02/16 Unknown Smudge Cells Rare 12/02/16 Unknown Toxic Granulation Not Reportable 12/02/16 Unknown Toxic Vacuolation Not Reportable 12/02/16 Unknown Dohle Bodies Not Reportable 12/02/16 Unknown Pelger-Huet Anomaly Not Reportable 12/02/16 Unknown Jacob Rods Not Reportable 12/02/16 Unknown Platelet Estimate Appears normal 12/02/16 Unknown Clumped Platelets Not Reportable 12/02/16 Unknown Plt Clumps, EDTA Not Reportable 12/02/16 Unknown Large Platelets Not Reportable 12/02/16 Unknown Giant Platelets Not Reportable 12/02/16 Unknown Platelet Satelliting Not Reportable 12/02/16 Unknown Plt Morphology Comment Not Reportable 12/02/16 Unknown RBC Morphology Not Reportable 12/02/16 Unknown Dimorphic RBCs Not Reportable 12/02/16 Unknown Polychromasia Few 12/02/16 Unknown Hypochromasia 1+ 12/02/16 Unknown Poikilocytosis Not Reportable 12/02/16 Unknown Anisocytosis 2+ 12/02/16 Unknown Microcytosis Not Reportable 12/02/16 Unknown Macrocytosis Not Reportable 12/02/16 Unknown Spherocytes Few 12/02/16 Unknown Pappenheimer Bodies Not Reportable 12/02/16 Unknown Sickle Cells Not Reportable 12/02/16 Unknown Target Cells Not Reportable 12/02/16 Unknown Tear Drop Cells Not Reportable 12/02/16 Unknown Ovalocytes Not Reportable 12/02/16 Unknown Helmet Cells Not Reportable 12/02/16 Unknown Henriquez-[place] Bodies Not Reportable 12/02/16 Unknown [place] Rings Not Reportable 12/02/16 Unknown [place] Cells Not Reportable 12/02/16 Unknown Bite Cells Not Reportable 12/02/16 Unknown Crenated Cell Not Reportable 12/02/16 Unknown Elliptocytes Not Reportable 12/02/16 Unknown Acanthocytes (Spur) Not Reportable 12/02/16 Unknown Rouleaux Not Reportable 12/02/16 Unknown Hemoglobin C Crystals Not Reportable 12/02/16 Unknown Schistocytes Not Reportable 12/02/16 Unknown Malaria parasites Not Reportable 12/02/16 Unknown Jarad Bodies Not Reportable 12/02/16 Unknown Hem Pathologist Commnt No 12/02/16 Unknown PT 14.6 Sec. (12.2-14.9) 11/30/16 Unknown INR 1.15 (0.87-1.13) H 11/30/16 Unknown APTT 25.1 Sec. (24.2-36.6) 11/30/16 Unknown D-Dimer 787.66 ng/mlDDU (0-234) H 11/24/16 05:25 Heparin Anti-Xa Level 0.55 U.I./ml (0.3-0.7) 12/01/16 21:49 Sodium 138 mmol/L (137-145) 12/02/16 05:00 Potassium 3.8 mmol/L (3.6-5.0) 12/02/16 05:00 Chloride 99.6 mmol/L (98-107) 12/02/16 05:00 Carbon Dioxide 26 mmol/L (22-30) 12/02/16 05:00 Anion Gap 16 mmol/L 12/02/16 05:00 BUN 7 mg/dL (7-17) 12/02/16 05:00 Creatinine 2.4 mg/dL (0.7-1.2) H 12/02/16 05:00 Estimated GFR 26 ml/min 12/02/16 05:00 BUN/Creatinine Ratio 2.91 % 12/02/16 05:00 Glucose 93 mg/dL (65-100) 12/02/16 05:00 POC Glucose 99 (70-105) 12/02/16 05:41 Calcium 7.9 mg/dL (8.4-10.2) L 12/02/16 05:00 Phosphorus 2.40 mg/dL (2.5-4.5) L D 12/02/16 05:00 Iron 28 ug/dL (37-170) L 11/27/16 06:22 TIBC 87 mcg/dL (250-450) L 11/27/16 06:22 Total Bilirubin < 0.20 mg/dL (0.1-1.2) 11/23/16 23:39 AST 16 units/L (5-40) 11/23/16 23:39 ALT 25 units/L (7-56) 11/23/16 23:39 Alkaline Phosphatase 205 units/L (35-129) H 11/23/16 23:39 Total Creatine Kinase 65 units/L (30-135) 11/24/16 08:51 CK-MB (CK-2) 4.1 ng/mL (0.0-4.0) H 11/24/16 08:51 CK-MB (CK-2) Rel Index 6.3 (0-4) H 11/24/16 08:51 Troponin T 0.025 ng/mL (0.00-0.029) 11/26/16 Unknown Total Protein 6.5 g/dL (6.3-8.2) 11/23/16 23:39 Albumin 2.3 g/dL (3.9-5) L 11/23/16 23:39 Albumin/Globulin Ratio 0.5 % 11/23/16 23:39 Triglycerides 101 mg/dL (2-149) 11/24/16 05:25 Cholesterol 137 mg/dL (50-199) 11/24/16 05:25 LDL Cholesterol Direct 60 mg/dL (50-130) 11/24/16 05:25 HDL Cholesterol 57 mg/dL (40-59) 11/24/16 05:25 Cholesterol/HDL Ratio 2.40 % 11/24/16 05:25 Amylase 45 units/L (27-131) 11/23/16 23:39 Lipase 39 units/L (13-60) 11/23/16 23:39 Fluid Type Peritoneal 11/25/16 06:30 Fluid Color [place] 11/25/16 06:30 Fluid Appearance Cloudy 11/25/16 06:30 Fluid WBC 4750 /mm3 11/25/16 06:30 Fluid RBC 9600 /mm3 11/25/16 06:30 Fluid Diff Comment 11/25/16 06:30 Fluid Seg Neutrophils 90.0 % 11/25/16 06:30 Fluid Lymphocytes 5.0 % 11/25/16 06:30 Fluid Reactive Lymphs 0 % 11/25/16 06:30 Fluid Monocytes 5.0 % 11/25/16 06:30 Fluid Eosinophils 0 % 11/25/16 06:30 Fluid Basophils 0 % 11/25/16 06:30 Random Vancomycin 28.2 ug/mL (0-40.0) 11/30/16 05:11 Hepatitis A IgM Ab Non-reactive (NonReactive) 11/29/16 19:15 Hep Bs Antigen Non-reactive (Negative) 11/29/16 19:15 Hep B Core IgM Ab Non-reactive (NonReactive) 11/29/16 19:15 Hepatitis C Antibody Non-reactive (NonReactive) 11/29/16 19:15
[2016-12-02] MEDS: IMDUR PO SCH (10:12)
[2016-12-02] MEDS: BENTYL PO SCH ×4 (10:12→22:15)
[2016-12-02] MEDS: NORVASC PO SCH (10:12)
[2016-12-02] MEDS: TOPROL XL PO SCH (10:13)
[2016-12-02] MEDS: Renal Caps PO SCH (10:13)
[2016-12-02] MEDS ORDERED: ZEMURON IV ONE (10:53)
[2016-12-02] MEDS ORDERED: MARCAINE 0.25% INFILTRATI ONE ×3 (11:17→11:34)
[2016-12-02] MEDS ORDERED: XYLOCAINE 1%/ EPI 1:100,000 INFILTRATI ONE (11:17)
[2016-12-02] MEDS ORDERED: CLEOCIN 600 MG/50 mL 600 MG/50 ML BAG IV ONE (11:32)
[2016-12-02] MEDS ORDERED: NACL 0.9% IR ONE (11:34)
--- NOTE | 2016-12-02 11:36 | Progress Note ---
Assessment and Plan - Patient Problems (1) CKD (chronic kidney disease) stage 5, GFR less than 15 ml/min Current Visit: No Status: Acute Plan to address problem: No acute indication for HD today Undergoing PD catheter removal today Renally dose medications Obtain daily weights Monitor I/O's Assess dialysis needs daily Patient can be discharged home once outpatient HD is arranged She is accepted at [facility] on TTS schedule at 10:45 a.m (2) Anemia in chronic kidney disease (CKD) Current Visit: No Status: Acute Qualifiers: Chronic kidney disease stage: C Plan to address problem: Epogen 10,000 units SQ TIW (3) Hypertensive nephrosclerosis, 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 Current Visit: No Status: Acute Plan to address problem: Continue on anti-hypertensive agents Subjective Date of service: 12/02/16 Principal diagnosis: peritonitis Interval history: Patient off floor undergoing surgery for Peritoneal Dialysis catheter removal Objective - Exam Narrative Exam: Patient off floor undergoing surgery - Vital Signs Vital signs: Vital Signs - 12hr 12/02/16 12/02/16 08:00 09:25 Temperature 99.9 F H 97.8 F Pulse Rate 101 H 85 Respiratory 18 20 Rate Blood Pressure 141/79 Blood Pressure 165/96 [Left] O2 Sat by Pulse 94 96 Oximetry - Lab 12/02/16 Unknown 12/02/16 05:00 Most recent lab results Calcium 7.9 mg/dL (8.4-10.2) L 12/02/16 05:00 Phosphorus 2.40 mg/dL (2.5-4.5) L D 12/02/16 05:00
[2016-12-02] MEDS ORDERED: BREVIBLOC IV ONE (12:30)
[2016-12-02] MEDS ORDERED: ZOFRAN ONE (12:38)
[2016-12-02] MEDS ORDERED: DECADRON ONE (12:38)
[2016-12-02] MEDS ORDERED: ROBINUL ONE (12:38)
[2016-12-02] MEDS ORDERED: NEOSTIGMINE ONE (12:38)
--- NOTE | 2016-12-02 13:15 | Operative Report ---
Operative Report Operative Report: Preop diagnosis - infected peritoneal dialysis catheter Postop diagnosis - same Procedure - removal of peritoneal dialysis catheter Surgeon - Phillip Walden MD Anesthesia - GETA Complications - none Procedure - Informed consent was obtained form the patient. The patient was taken to the operating room. Appropriate preop antibiotics were given. A timeout was called before the procedure was started. The patient's abdomen was prepped/draped in sterile fashion. 1% lidocaine was infiltrated at the original lower abdominal incision. A #10 scalpel was used to make an incision at the old incision site and the scar was removed. Both blunt and sharp dissection was used to identify and dissect out the distal cuff of the PD catheter. A#15 scalpel was then used to make an elliptical incision around the proximal end of the catheter at the skin opening. Blunt and sharp dissection was used to identify and then dissect out the proximal cuff. The catheter was now free and pulled out of the abdomen and passed off the field. 0- vicryl suture was then used to close the fascia at the lower abdominal incision. 3-0 vicryl sutures were used to close the subcutaneous tissue at both incisions. 4-0 monocry was used for subcutaneous skin closures for both incisions. The abdomen was then cleaned and skin glue was placed on both incisions. The patient tolerated the procedure well and was extubated and transferred to PACU instable condition.
[2016-12-02] MEDS ORDERED: DILAUDID IV PRN (13:24)
[2016-12-02] MEDS ORDERED: LOPRESSOR IV ONE (13:27)
[2016-12-02] MEDS ORDERED: VANCOMYCIN/NS 1 GM/250 ML 1 GM/250 ML BAG IV ONE (15:00)
[2016-12-02] MEDS: ELAVIL PO SCH (22:14)
[2016-12-03] MEDS: CEPHULAC PO SCH ×4 (01:22→21:01)
[2016-12-03] MEDS: MORPHINE IV PRN ×4 (01:35→23:49)
[2016-12-03] MEDS: APRESOLINE PO SCH ×3 (06:59→23:52)
--- NOTE | 2016-12-03 07:19 | XRay Report ---
Chest 2 views: Compared to 11/15/16. History: ASD placement, infectious disease process. Findings: Cardiomegaly. Trachea is midline. Tip of the large bore vascular catheter in mid superior vena cava. No consolidation or pleural effusion. Impression: Stable right venous catheter. No acute lung changes.
[2016-12-03 09:20] LABS: BUN/Creatinine Ratio 3.5; Calcium 7.7 mg/dL (8.4-10.2); Chloride 102.4 mmol/L (98-107); Potassium 3.8 mmol/L (3.6-5.0)
[2016-12-03 09:51] LABS: Hematocrit 24.4 % (30.3-42.9); Hemoglobin 8.1 gm/dl (10.1-14.3); Mean Corpuscular HGB Conc 33 % (30-34); Mean Corpuscular Hemoglobin 28 pg (28-32); Mean Corpuscular Volume 84 fl (79-97); Platelet Count 240 K/mm3 (140-440); Red Cell Distribution Width 16.5 % (13.2-15.2); White Blood Count 7.7 K/mm3 (4.5-11.0)
--- NOTE | 2016-12-03 09:54 | Discharge Summary ---
Providers - Providers Date of Admission: 11/24/16 04:57 Date of discharge: 12/03/16 Attending physician: RIAZ MCCONNELL 11/25/16 12:24 Consult to Physician [CONS] Routine Consulting Provider: NADIA HOLLIDAY Reason For Exam: abd pain Place consult to:: DR.C. EID Notified:: OFFICE Phone number called:: [phone] Was contact made?: Yes If yes, spoke with:: JAG Kay called:: 13:15 Comment:: JUAN JOSÉ NOTIFIED 11/25/16 13:34 Consult to Physician [CONS] Routine Consulting Provider: TAMARA ARAGON I Reason For Exam: malfunctioned PD cathter Place consult to:: DR. GARRETT Notified:: DR. GARRETT Time called:: 09:00 Comment:: SEEN PT 11/26/16 11/27/16 09:47 Consult to Physician [CONS] Routine Consulting Provider: MANNY PATRICIO Reason For Exam: permcath placement for HD initiation Place consult to:: DR. GERRY COLINDRES Notified:: CAMPBELL COLINDRES Phone number called:: [phone] Was contact made?: Yes If yes, spoke with:: SANG Kay called:: 10:25 Comment:: TYESHA NOTIFIED 11/27/16 09:48 Consult to Case Management [CONS] Routine Services Needed at Discharge: Other Notified:: COPY LEFT FOR CM Additional Physician Instructions[facility] Address: [address] [place] [address] Primary care physician: RUBBER STAMP DIES INSPECTOR Hospitalization Reason for admission: AMS, hypoglycemia, peritonitis Condition: Fair Hospital course: This is a 51-year-old female with significant past medical history of ESRD, hypertension, diabetes mellitus and hypothyroidism who presented to the emergency room with a chief complaint of generalized abdominal pain. Patient was noted to have hypoglycemia that was treated with D50. Abdominal CT scan did not reveal any acute findings. Patient however had a PD catheter to the left lower quadrant of the abdomen that was not use due to malfunctioning. During the hospitalization, it was discovered that her peritoneal catheter did not function and nephrology felt that patient was not a good candidate for continued peritoneal dialysis due to her poor sterile technique. Patient was found to have peritoneal fluid culture on this hospitalization positive for staph aureus. Patient was treated appropriately with IV antibiotics. Vascular surgery was consulted for placement of permacath for hemodialysis which was completed. General surgery was then consulted for removal of peritoneal dialysis catheter which was also completed. Case management was consulted for arrangement of outpatient hemodialysis. Dedicated discharge time 32 minutes. Disposition: DC-01 TO HOME OR SELFCARE Time spent for discharge: 32 - Discharge Diagnoses (1) End stage renal disease Status: Acute (2) Peritonitis associated with peritoneal dialysis Status: Acute Qualifiers: Encounter type: E (3) Encephalopathy Status: Acute (4) HTN (hypertension) Status: Acute Qualifiers: Hypertension type: H (5) Pulmonary embolism Status: Acute Qualifiers: Pulmonary embolism type: P Chronicity: C Acute cor pulmonale presence: A Core Measure Documentation - Palliative Care Palliative Care/ Comfort Measures: Not Applicable - Core Measures Any of the following diagnoses?: none Exam - Constitutional Vitals: Temp Pulse Resp BP Pulse Ox 98.2 F 92 H 18 157/97 98 12/03/16 09:00 12/03/16 09:00 12/03/16 09:00 12/03/16 09:00 12/03/16 09:00 General appearance: Present: no acute distress, well-nourished - EENT Eyes: Present: PERRL ENT: hearing intact, clear oral mucosa - Neck Neck: Present: supple, normal ROM - Respiratory Respiratory effort: normal Respiratory: bilateral: CTA - Cardiovascular Heart Sounds: Present: S1 & S2. Absent: rub, click - Extremities Extremities: pulses symmetrical, No edema Peripheral Pulses: within normal limits - Abdominal General gastrointestinal: Present: soft, non-tender, non-distended, normal bowel sounds Female genitourinary: Present: normal - Integumentary Integumentary: Present: clear, warm, dry - Musculoskeletal Musculoskeletal: gait normal, strength equal bilaterally - Psychiatric Psychiatric: appropriate mood/affect, intact judgment & insight - Neurologic Neurologic: CNII-XII intact, moves all extremities Plan Activity: no restrictions Weight Bearing Status: Full Weight Bearing Diet: regular Follow up with: PRIMARY CARE, [Primary Care Provider] - 3-5 Days Prescriptions: Albuterol Sulfate [Ventolin HFA] 2 puff IH Q4H PRN #1 pump PRN Reason: Shortness Of Breath Amitriptyline [Elavil] 75 mg PO DAILY #30 tablet Cetirizine HCl [24Hour Allergy] 10 mg PO DAILY #30 tablet Colchicine [Colcrys] 0.6 mg PO DAILY #30 tablet Doxepin [SINEquan] 25 mg PO DAILY #30 capsule Eletriptan HBr [Relpax] 20 mg PO Q4H #30 tablet hydrALAZINE [Apresoline TAB] 50 mg PO Q8HR #90 tablet Insulin Detemir [Levemir] 20 units SUB-Q QHS #1 vial ISOSORBIDE MONOnitrate [Imdur ER] 60 mg PO DAILY #30 tablet Levofloxacin [Levaquin TAB] 500 mg PO Q48HR #7 tablet Levothyroxine [Synthroid] 150 mcg PO DAILY@0600 #30 tablet Methadone [Dolophine] 10 mg PO TID #90 tablet Metoprolol [Lopressor TAB] 100 mg PO DAILY #30 tablet Omeprazole 40 mg PO DAILY #30 capsule. Rosuvastatin (Nf) [Crestor] 10 mg PO DAILY #30 tablet Tizanidine HCl [Zanaflex] 2 mg PO DAILY #30 capsule Topiramate [Topamax] 100 mg PO DAILY #30 tablet Warfarin [Coumadin] 10 mg PO QDAY #7 tablet
--- NOTE | 2016-12-03 10:11 | Progress Note ---
Assessment and Plan Assessment and plan: Acute peritonitis. Continue current antibiotics End-stage renal disease on peritoneal dialysis. Patient with permacath placed. Outpatient hemodialysis arranged. PD catheter removed. Bilateral pulmonary emboli. Resume heparin drip for bridge to Coumadin. Restart Coumadin. Hypertension. Resume home medications. Diabetes mellitus type 2. Continue sliding-scale insulin and Accu-Cheks. Hyperlipidemia. Hypothyroidism. Hyperkalemia. Resolved. Continue hemodialysis per nephrology. Gout. - Patient Problems (1) End stage renal disease Current Visit: Yes Status: Acute (2) Peritonitis associated with peritoneal dialysis Current Visit: Yes Status: Acute Qualifiers: Encounter type: E (3) Encephalopathy Current Visit: No Status: Acute (4) HTN (hypertension) Current Visit: No Status: Acute Qualifiers: Hypertension type: H (5) Pulmonary embolism Current Visit: No Status: Acute Qualifiers: Pulmonary embolism type: P Chronicity: C Acute cor pulmonale presence: A History Interval history: No new issues overnight. Hospitalist Physical - Constitutional Vitals: Temp Pulse Resp BP Pulse Ox 98.2 F 92 H 18 157/97 98 12/03/16 09:00 12/03/16 09:00 12/03/16 09:00 12/03/16 09:00 12/03/16 09:00 General appearance: Present: no acute distress, well-nourished - EENT Eyes: Present: PERRL, EOM intact ENT: hearing intact, clear oral mucosa, dentition normal - Neck Neck: Present: supple, normal ROM - Respiratory Respiratory effort: normal Respiratory: bilateral: CTA - Cardiovascular Rhythm: regular Heart Sounds: Present: S1 & S2. Absent: gallop, rub - Extremities Extremities: no ischemia, No edema, Full ROM - Abdominal General gastrointestinal: soft, non-tender, non-distended, normal bowel sounds - Integumentary Integumentary: Present: clear, warm, dry - Neurologic Neurologic: CNII-XII intact, moves all extremities Results - Labs CBC & Chem 7: 12/03/16 08:01 12/03/16 08:01 Labs: Laboratory Last Values WBC 7.7 K/mm3 (4.5-11.0) 12/03/16 08:01 RBC 2.90 M/mm3 (3.65-5.03) L 12/03/16 08:01 Hgb 8.1 gm/dl (10.1-14.3) L 12/03/16 08:01 Hct 24.4 % (30.3-42.9) L 12/03/16 08:01 MCV 84 fl (79-97) 12/03/16 08:01 MCH 28 pg (28-32) 12/03/16 08:01 MCHC 33 % (30-34) 12/03/16 08:01 RDW 16.5 % (13.2-15.2) H 12/03/16 08:01 Plt Count 240 K/mm3 (140-440) 12/03/16 08:01 Lymph % (Auto) 19.3 % (13.4-35.0) 11/30/16 05:11 [place] % (Auto) 7.2 % (0.0-7.3) 11/30/16 05:11 Eos % (Auto) 2.9 % (0.0-4.3) 11/30/16 05:11 Baso % (Auto) 0.8 % (0.0-1.8) 11/30/16 05:11 Lymph # 1.0 K/mm3 (1.2-5.4) L 11/30/16 05:11 [place] # 0.4 K/mm3 (0.0-0.8) 11/30/16 05:11 Eos # 0.2 K/mm3 (0.0-0.4) 11/30/16 05:11 Baso # 0.0 K/mm3 (0.0-0.1) 11/30/16 05:11 Add Manual Diff Complete 12/02/16 Unknown Total Counted 100 12/02/16 Unknown Seg Neutrophils % 69.8 % (40.0-70.0) 11/30/16 05:11 Seg Neuts % (Manual) 64.0 % (40.0-70.0) 12/02/16 Unknown Band Neutrophils % 8.0 % 12/02/16 Unknown Lymphocytes % (Manual) 15.0 % (13.4-35.0) 12/02/16 Unknown Reactive Lymphs % (Man) 0 % 12/02/16 Unknown Monocytes % (Manual) 5.0 % (0.0-7.3) 12/02/16 Unknown Eosinophils % (Manual) 4.0 % (0.0-4.3) 12/02/16 Unknown Basophils % (Manual) 0 % (0.0-1.8) 12/02/16 Unknown Metamyelocytes % 4.0 % 12/02/16 Unknown Myelocytes % 0 % 12/02/16 Unknown Promyelocytes % 0 % 12/02/16 Unknown Blast Cells % 0 % 12/02/16 Unknown Nucleated RBC % 3.0 % (0.0-0.9) H 12/02/16 Unknown Seg Neutrophils # 3.8 K/mm3 (1.8-7.7) 11/30/16 05:11 Seg Neutrophils # Man 4.4 K/mm3 (1.8-7.7) 12/02/16 Unknown Band Neutrophils # 0.6 K/mm3 12/02/16 Unknown Lymphocytes # (Manual) 1.0 K/mm3 (1.2-5.4) L 12/02/16 Unknown Abs React Lymphs (Man) 0.0 K/mm3 12/02/16 Unknown Monocytes # (Manual) 0.3 K/mm3 (0.0-0.8) 12/02/16 Unknown Eosinophils # (Manual) 0.3 K/mm3 (0.0-0.4) 12/02/16 Unknown Basophils # (Manual) 0.0 K/mm3 (0.0-0.1) 12/02/16 Unknown Metamyelocytes # 0.3 K/mm3 12/02/16 Unknown Myelocytes # 0.0 K/mm3 12/02/16 Unknown Promyelocytes # 0.0 K/mm3 12/02/16 Unknown Blast Cells # 0.0 K/mm3 12/02/16 Unknown WBC Morphology Not Reportable 12/02/16 Unknown Hypersegmented Neuts Not Reportable 12/02/16 Unknown Hyposegmented Neuts Not Reportable 12/02/16 Unknown Hypogranular Neuts Not Reportable 12/02/16 Unknown Smudge Cells Rare 12/02/16 Unknown Toxic Granulation Not Reportable 12/02/16 Unknown Toxic Vacuolation Not Reportable 12/02/16 Unknown Dohle Bodies Not Reportable 12/02/16 Unknown Pelger-Huet Anomaly Not Reportable 12/02/16 Unknown Jacob Rods Not Reportable 12/02/16 Unknown Platelet Estimate Appears normal 12/02/16 Unknown Clumped Platelets Not Reportable 12/02/16 Unknown Plt Clumps, EDTA Not Reportable 12/02/16 Unknown Large Platelets Not Reportable 12/02/16 Unknown Giant Platelets Not Reportable 12/02/16 Unknown Platelet Satelliting Not Reportable 12/02/16 Unknown Plt Morphology Comment Not Reportable 12/02/16 Unknown RBC Morphology Not Reportable 12/02/16 Unknown Dimorphic RBCs Not Reportable 12/02/16 Unknown Polychromasia Few 12/02/16 Unknown Hypochromasia 1+ 12/02/16 Unknown Poikilocytosis Not Reportable 12/02/16 Unknown Anisocytosis 2+ 12/02/16 Unknown Microcytosis Not Reportable 12/02/16 Unknown Macrocytosis Not Reportable 12/02/16 Unknown Spherocytes Few 12/02/16 Unknown Pappenheimer Bodies Not Reportable 12/02/16 Unknown Sickle Cells Not Reportable 12/02/16 Unknown Target Cells Not Reportable 12/02/16 Unknown Tear Drop Cells Not Reportable 12/02/16 Unknown Ovalocytes Not Reportable 12/02/16 Unknown Helmet Cells Not Reportable 12/02/16 Unknown [place] Bodies Not Reportable 12/02/16 Unknown [place] Rings Not Reportable 12/02/16 Unknown Sarah Cells Not Reportable 12/02/16 Unknown Bite Cells Not Reportable 12/02/16 Unknown Crenated Cell Not Reportable 12/02/16 Unknown Elliptocytes Not Reportable 12/02/16 Unknown Acanthocytes (Spur) Not Reportable 12/02/16 Unknown Rouleaux Not Reportable 12/02/16 Unknown Hemoglobin C Crystals Not Reportable 12/02/16 Unknown Schistocytes Not Reportable 12/02/16 Unknown Malaria parasites Not Reportable 12/02/16 Unknown Jarad Bodies Not Reportable 12/02/16 Unknown Hem Pathologist Commnt No 12/02/16 Unknown PT 14.6 Sec. (12.2-14.9) 11/30/16 Unknown INR 1.15 (0.87-1.13) H 11/30/16 Unknown APTT 25.1 Sec. (24.2-36.6) 11/30/16 Unknown D-Dimer 787.66 ng/mlDDU (0-234) H 11/24/16 05:25 Heparin Anti-Xa Level < 0.10 U.I./ml (0.3-0.7) L 12/02/16 22:45 Sodium 140 mmol/L (137-145) 12/03/16 08:01 Potassium 3.8 mmol/L (3.6-5.0) 12/03/16 08:01 Chloride 102.4 mmol/L (98-107) 12/03/16 08:01 Carbon Dioxide 25 mmol/L (22-30) 12/03/16 08:01 Anion Gap 16 mmol/L 12/03/16 08:01 BUN 14 mg/dL (7-17) 12/03/16 08:01 Creatinine 4.0 mg/dL (0.7-1.2) H D 12/03/16 08:01 Estimated GFR 14 ml/min 12/03/16 08:01 BUN/Creatinine Ratio 3.50 % 12/03/16 08:01 Glucose 79 mg/dL (65-100) 12/03/16 08:01 POC Glucose 90 (70-105) 12/03/16 06:02 Calcium 7.7 mg/dL (8.4-10.2) L 12/03/16 08:01 Phosphorus 2.40 mg/dL (2.5-4.5) L D 12/02/16 05:00 Iron 28 ug/dL (37-170) L 11/27/16 06:22 TIBC 87 mcg/dL (250-450) L 11/27/16 06:22 Total Bilirubin < 0.20 mg/dL (0.1-1.2) 11/23/16 23:39 AST 16 units/L (5-40) 11/23/16 23:39 ALT 25 units/L (7-56) 11/23/16 23:39 Alkaline Phosphatase 205 units/L (35-129) H 11/23/16 23:39 Total Creatine Kinase 65 units/L (30-135) 11/24/16 08:51 CK-MB (CK-2) 4.1 ng/mL (0.0-4.0) H 11/24/16 08:51 CK-MB (CK-2) Rel Index 6.3 (0-4) H 11/24/16 08:51 Troponin T 0.025 ng/mL (0.00-0.029) 11/26/16 Unknown Total Protein 6.5 g/dL (6.3-8.2) 11/23/16 23:39 Albumin 2.3 g/dL (3.9-5) L 11/23/16 23:39 Albumin/Globulin Ratio 0.5 % 11/23/16 23:39 Triglycerides 101 mg/dL (2-149) 11/24/16 05:25 Cholesterol 137 mg/dL (50-199) 11/24/16 05:25 LDL Cholesterol Direct 60 mg/dL (50-130) 11/24/16 05:25 HDL Cholesterol 57 mg/dL (40-59) 11/24/16 05:25 Cholesterol/HDL Ratio 2.40 % 11/24/16 05:25 Amylase 45 units/L (27-131) 11/23/16 23:39 Lipase 39 units/L (13-60) 11/23/16 23:39 Fluid Type Peritoneal 11/25/16 06:30 Fluid Color [place] 11/25/16 06:30 Fluid Appearance Cloudy 11/25/16 06:30 Fluid WBC 4750 /mm3 11/25/16 06:30 Fluid RBC 9600 /mm3 11/25/16 06:30 Fluid Diff Comment 11/25/16 06:30 Fluid Seg Neutrophils 90.0 % 11/25/16 06:30 Fluid Lymphocytes 5.0 % 11/25/16 06:30 Fluid Reactive Lymphs 0 % 11/25/16 06:30 Fluid Monocytes 5.0 % 11/25/16 06:30 Fluid Eosinophils 0 % 11/25/16 06:30 Fluid Basophils 0 % 11/25/16 06:30 Random Vancomycin 10.9 ug/mL (0-40.0) 12/02/16 07:57 Hepatitis A IgM Ab Non-reactive (NonReactive) 11/29/16 19:15 Hep Bs Antigen Non-reactive (Negative) 11/29/16 19:15 Hep B Core IgM Ab Non-reactive (NonReactive) 11/29/16 19:15 Hepatitis C Antibody Non-reactive (NonReactive) 11/29/16 19:15
[2016-12-03 10:58] LABS: Basophils % (Manual) 0 % (0.0-1.8); Blastocytes % (Manual) 0 %
[2016-12-03 10:59] LABS: Anisocytosis 1+; Hypochromasia 1+; Polychromasia 1+
[2016-12-03 11:00] LABS: Diff Status Complete
[2016-12-03] MEDS: BENTYL PO SCH ×4 (11:46→23:53)
[2016-12-03] MEDS: IMDUR PO SCH (11:46)
[2016-12-03] MEDS: LEVAQUIN PO SCH (11:47)
[2016-12-03] MEDS ORDERED: NACL 0.9 (PRIMING MACHINE ONLY DIALYSIS) MC ONE (12:15)
[2016-12-03] MEDS: PROCRIT SUB-Q SCH (12:50)
[2016-12-03] MEDS: NORVASC PO SCH (12:56)
[2016-12-03] MEDS: Renal Caps PO SCH (12:57)
[2016-12-03] MEDS: HEPARIN IV PRN (13:08)
[2016-12-03 13:28] LABS: Hematocrit 26.4 % (30.3-42.9); Hemoglobin 8.6 gm/dl (10.1-14.3)
[2016-12-03 13:44] LABS: INR 1.09 (0.87-1.13)
--- NOTE | 2016-12-03 14:21 | Progress Note ---
Assessment and Plan A/P: s/p POD 1 of removal of infected PD catheter 1) The patient is stable for discharge from a surgical standpoint. Subjective Date of service: 12/03/16 Narrative: The patient has no complaints. Objective Vital Signs - 12hr 12/03/16 12/03/16 12/03/16 06:59 09:00 09:40 Temperature 98.2 F 98.4 F Pulse Rate 90 92 H 96 H Respiratory 18 18 Rate Blood Pressure 138/70 150/95 Blood Pressure 157/97 [Left] O2 Sat by Pulse 98 Oximetry 12/03/16 12/03/16 12/03/16 09:45 10:00 10:15 Temperature Pulse Rate 97 H 94 H 106 H Respiratory Rate Blood Pressure 180/95 167/111 123/97 Blood Pressure [Left] O2 Sat by Pulse Oximetry 12/03/16 12/03/16 12/03/16 10:30 10:45 11:00 Temperature Pulse Rate 96 H 93 H 94 H Respiratory Rate Blood Pressure 146/105 159/100 153/95 Blood Pressure [Left] O2 Sat by Pulse Oximetry 12/03/16 12/03/16 12/03/16 11:15 11:30 11:45 Temperature Pulse Rate 91 H 93 H 96 H Respiratory Rate Blood Pressure 140/93 136/90 144/101 Blood Pressure [Left] O2 Sat by Pulse Oximetry 12/03/16 12/03/16 12/03/16 12:00 12:15 12:30 Temperature Pulse Rate 110 H 103 H 99 H Respiratory Rate Blood Pressure 145/96 132/110 149/99 Blood Pressure [Left] O2 Sat by Pulse Oximetry 12/03/16 12/03/16 12:45 12:55 Temperature 98.1 F Pulse Rate 95 H 97 H Respiratory 16 Rate Blood Pressure 151/106 149/97 Blood Pressure [Left] O2 Sat by Pulse Oximetry - Abdomen soft (non tender, non distended, incisions healing well) - Labs 12/03/16 13:00 12/03/16 08:01 Diabetes panel 12/03/16 Range/Units 08:01 Sodium 140 (137-145) mmol/L Potassium 3.8 (3.6-5.0) mmol/L Chloride 102.4 (98-107) mmol/L Carbon Dioxide 25 (22-30) mmol/L BUN 14 (7-17) mg/dL Creatinine 4.0 H D (0.7-1.2) mg/dL Glucose 79 (65-100) mg/dL Calcium 7.7 L (8.4-10.2) mg/dL Calcium panel 12/03/16 Range/Units 08:01 Calcium 7.7 L (8.4-10.2) mg/dL Pituitary panel 12/03/16 Range/Units 08:01 Sodium 140 (137-145) mmol/L Potassium 3.8 (3.6-5.0) mmol/L Chloride 102.4 (98-107) mmol/L Carbon Dioxide 25 (22-30) mmol/L BUN 14 (7-17) mg/dL Creatinine 4.0 H D (0.7-1.2) mg/dL Glucose 79 (65-100) mg/dL Calcium 7.7 L (8.4-10.2) mg/dL Adrenal panel 12/03/16 Range/Units 08:01 Sodium 140 (137-145) mmol/L Potassium 3.8 (3.6-5.0) mmol/L Chloride 102.4 (98-107) mmol/L Carbon Dioxide 25 (22-30) mmol/L BUN 14 (7-17) mg/dL Creatinine 4.0 H D (0.7-1.2) mg/dL Glucose 79 (65-100) mg/dL Calcium 7.7 L (8.4-10.2) mg/dL
--- NOTE | 2016-12-03 16:06 | Progress Note ---
Assessment and Plan - Patient Problems (1) CKD (chronic kidney disease) stage 5, GFR less than 15 ml/min Current Visit: No Status: Acute Plan to address problem: Received hemodialysis today S/P PD catheter removal yesterday Renally dose medications Obtain daily weights Monitor I/O's Assess dialysis needs daily She is accepted at [facility] on TTS schedule at 10:45 a.m Awaiting INR level to reach goal before can discharge (2) Anemia in chronic kidney disease (CKD) Current Visit: No Status: Acute Qualifiers: Chronic kidney disease stage: C Plan to address problem: Epogen 10,000 units SQ TIW (3) Hypertensive nephrosclerosis, 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 Objective - Vital Signs Vital signs: Vital Signs - 12hr 12/03/16 12/03/16 12/03/16 06:59 09:00 09:40 Temperature 98.2 F 98.4 F Pulse Rate 90 92 H 96 H Respiratory 18 18 Rate Blood Pressure 138/70 150/95 Blood Pressure 157/97 [Left] O2 Sat by Pulse 98 Oximetry 12/03/16 12/03/16 12/03/16 09:45 10:00 10:15 Temperature Pulse Rate 97 H 94 H 106 H Respiratory Rate Blood Pressure 180/95 167/111 123/97 Blood Pressure [Left] O2 Sat by Pulse Oximetry 12/03/16 12/03/16 12/03/16 10:30 10:45 11:00 Temperature Pulse Rate 96 H 93 H 94 H Respiratory Rate Blood Pressure 146/105 159/100 153/95 Blood Pressure [Left] O2 Sat by Pulse Oximetry 12/03/16 12/03/16 12/03/16 11:15 11:30 11:45 Temperature Pulse Rate 91 H 93 H 96 H Respiratory Rate Blood Pressure 140/93 136/90 144/101 Blood Pressure [Left] O2 Sat by Pulse Oximetry 12/03/16 12/03/16 12/03/16 12:00 12:15 12:30 Temperature Pulse Rate 110 H 103 H 99 H Respiratory Rate Blood Pressure 145/96 132/110 149/99 Blood Pressure [Left] O2 Sat by Pulse Oximetry 12/03/16 12/03/16 12/03/16 12:45 12:55 14:57 Temperature 98.1 F Pulse Rate 95 H 97 H 92 H Respiratory 16 Rate Blood Pressure 151/106 149/97 157/97 Blood Pressure [Left] O2 Sat by Pulse Oximetry - General Appearance General appearance: well-developed, appears stated age EENT: ATNC, PERRL, hearing intact, vision intact Neck: no JVD, no thyromegaly, no carotid bruit, supple Respiratory: Present: Clear to Ascultation Cardiology: regular, S1S2 Gastrointestinal: normoactive bowel sounds Integumentary: warm and dry Neurologic: alert and oriented x3 Musculoskeletal: no deformities, no erythema, no cyanosis, no clubbing Psychiatric: cooperative - Lab 12/03/16 13:00 12/03/16 08:01 Most recent lab results Calcium 7.7 mg/dL (8.4-10.2) L 12/03/16 08:01 Phosphorus 2.40 mg/dL (2.5-4.5) L D 12/02/16 05:00
[2016-12-03] MEDS: TOPROL XL PO SCH (21:00)
[2016-12-03] MEDS: HEPARIN/ 0.45% NACL-25,000 UNIT/500 ML 25,000 UNIT/500 ML BAG IV SCH (22:58)
[2016-12-03] MEDS ORDERED: HEPARIN 10,000 UNITS/10 ML IV ONE (23:05)
[2016-12-03] MEDS: ELAVIL PO SCH (23:53)
[2016-12-03] MEDS: COUMADIN PO SCH (23:55)
[2016-12-04] MEDS: CEPHULAC PO SCH ×4 (01:05→17:39)
[2016-12-04 06:13] LABS: Hematocrit 26.5 % (30.3-42.9); Hemoglobin 8.4 gm/dl (10.1-14.3)
[2016-12-04] MEDS: APRESOLINE PO SCH ×3 (06:43→23:03)
--- NOTE | 2016-12-04 09:16 | Progress Note ---
Assessment and Plan Assessment and plan: Acute peritonitis. Continue current antibiotics. Patient will continue with IV vancomycin after discharge. I discussed the case with Dr. Garnica. End-stage renal disease on peritoneal dialysis. Patient with permacath placed. Outpatient hemodialysis arranged. PD catheter removed. Anemia of chronic kidney disease. Continue Epogen Bilateral pulmonary emboli. Resume heparin drip for bridge to Coumadin. Restarted Coumadin. Awaiting INR level to reach goal 2-3. Hypertension. Continue antihypertensive medications. Diabetes mellitus type 2. Continue sliding-scale insulin and Accu-Cheks. Hyperlipidemia. Hypothyroidism. Hyperkalemia. Resolved. Continue hemodialysis per nephrology. Gout. - Patient Problems (1) End stage renal disease Current Visit: Yes Status: Acute (2) Peritonitis associated with peritoneal dialysis Current Visit: Yes Status: Acute Qualifiers: Encounter type: E (3) Encephalopathy Current Visit: No Status: Acute (4) HTN (hypertension) Current Visit: No Status: Acute Qualifiers: Hypertension type: H (5) Pulmonary embolism Current Visit: No Status: Acute Qualifiers: Pulmonary embolism type: P Chronicity: C Acute cor pulmonale presence: A History Interval history: No new issues overnight. Hospitalist Physical - Constitutional Vitals: Temp Pulse Resp BP Pulse Ox 98.6 F 103 H 18 176/98 98 12/04/16 07:00 12/04/16 07:00 12/04/16 07:00 12/04/16 07:00 12/04/16 07:00 General appearance: Present: no acute distress, well-nourished - EENT Eyes: Present: PERRL, EOM intact ENT: hearing intact, clear oral mucosa, dentition normal - Neck Neck: Present: supple, normal ROM - Respiratory Respiratory effort: normal Respiratory: bilateral: CTA - Cardiovascular Rhythm: regular Heart Sounds: Present: S1 & S2. Absent: gallop, rub - Extremities Extremities: no ischemia, No edema, Full ROM - Abdominal General gastrointestinal: soft, non-tender, non-distended, normal bowel sounds - Integumentary Integumentary: Present: clear, warm, dry - Neurologic Neurologic: CNII-XII intact, moves all extremities Results - Labs CBC & Chem 7: 12/04/16 05:08 12/03/16 08:01 Labs: Laboratory Last Values WBC 7.7 K/mm3 (4.5-11.0) 06/23/17 08:01 RBC 2.90 M/mm3 (3.65-5.03) L 12/03/16 08:01 Hgb 8.4 gm/dl (10.1-14.3) L 12/04/16 05:08 Hct 26.5 % (30.3-42.9) L 12/04/16 05:08 MCV 84 fl (79-97) 12/03/16 08:01 MCH 28 pg (28-32) 12/03/16 08:01 MCHC 33 % (30-34) 12/03/16 08:01 RDW 16.5 % (13.2-15.2) H 12/03/16 08:01 Plt Count 215 K/mm3 (140-440) 12/04/16 05:08 Lymph % (Auto) 19.3 % (13.4-35.0) 11/30/16 05:11 [place] % (Auto) 7.2 % (0.0-7.3) 11/30/16 05:11 Eos % (Auto) 2.9 % (0.0-4.3) 11/30/16 05:11 Baso % (Auto) 0.8 % (0.0-1.8) 11/30/16 05:11 Lymph # 1.0 K/mm3 (1.2-5.4) L 11/30/16 05:11 [place] # 0.4 K/mm3 (0.0-0.8) 11/30/16 05:11 Eos # 0.2 K/mm3 (0.0-0.4) 11/30/16 05:11 Baso # 0.0 K/mm3 (0.0-0.1) 11/30/16 05:11 Add Manual Diff Complete 12/03/16 08:01 Total Counted 100 12/03/16 08:01 Seg Neutrophils % 69.8 % (40.0-70.0) 11/30/16 05:11 Seg Neuts % (Manual) 74.0 % (40.0-70.0) H 12/03/16 08:01 Band Neutrophils % 7.0 % 12/03/16 08:01 Lymphocytes % (Manual) 15.0 % (13.4-35.0) 12/03/16 08:01 Reactive Lymphs % (Man) 0 % 12/03/16 08:01 Monocytes % (Manual) 3.0 % (0.0-7.3) 12/03/16 08:01 Eosinophils % (Manual) 1.0 % (0.0-4.3) 12/03/16 08:01 Basophils % (Manual) 0 % (0.0-1.8) 12/03/16 08:01 Metamyelocytes % 0 % 12/03/16 08:01 Myelocytes % 0 % 12/03/16 08:01 Promyelocytes % 0 % 12/03/16 08:01 Blast Cells % 0 % 12/03/16 08:01 Nucleated RBC % Not Reportable 12/03/16 08:01 Seg Neutrophils # 3.8 K/mm3 (1.8-7.7) 11/30/16 05:11 Seg Neutrophils # Man 5.7 K/mm3 (1.8-7.7) 12/03/16 08:01 Band Neutrophils # 0.5 K/mm3 12/03/16 08:01 Lymphocytes # (Manual) 1.2 K/mm3 (1.2-5.4) 12/03/16 08:01 Abs React Lymphs (Man) 0.0 K/mm3 12/03/16 08:01 Monocytes # (Manual) 0.2 K/mm3 (0.0-0.8) 12/03/16 08:01 Eosinophils # (Manual) 0.1 K/mm3 (0.0-0.4) 12/03/16 08:01 Basophils # (Manual) 0.0 K/mm3 (0.0-0.1) 12/03/16 08:01 Metamyelocytes # 0.0 K/mm3 12/03/16 08:01 Myelocytes # 0.0 K/mm3 12/03/16 08:01 Promyelocytes # 0.0 K/mm3 12/03/16 08:01 Blast Cells # 0.0 K/mm3 12/03/16 08:01 WBC Morphology Not Reportable 12/03/16 08:01 Hypersegmented Neuts Not Reportable 12/03/16 08:01 Hyposegmented Neuts Not Reportable 12/03/16 08:01 Hypogranular Neuts Not Reportable 12/03/16 08:01 Smudge Cells Not Reportable 12/03/16 08:01 Toxic Granulation Not Reportable 12/03/16 08:01 Toxic Vacuolation Not Reportable 12/03/16 08:01 Dohle Bodies Not Reportable 12/03/16 08:01 Pelger-Huet Anomaly Not Reportable 12/03/16 08:01 Jacob Rods Not Reportable 12/03/16 08:01 Platelet Estimate Not Reportable 12/03/16 08:01 Clumped Platelets Not Reportable 12/03/16 08:01 Plt Clumps, EDTA Not Reportable 12/03/16 08:01 Large Platelets Not Reportable 12/03/16 08:01 Giant Platelets Not Reportable 12/03/16 08:01 Platelet Satelliting Not Reportable 12/03/16 08:01 Plt Morphology Comment Not Reportable 12/03/16 08:01 RBC Morphology Not Reportable 12/03/16 08:01 Dimorphic RBCs Not Reportable 12/03/16 08:01 Polychromasia 1+ 12/03/16 08:01 Hypochromasia 1+ 12/03/16 08:01 Poikilocytosis Not Reportable 12/03/16 08:01 Anisocytosis 1+ 12/03/16 08:01 Microcytosis Not Reportable 12/03/16 08:01 Macrocytosis Not Reportable 12/03/16 08:01 Spherocytes Not Reportable 12/03/16 08:01 Pappenheimer Bodies Not Reportable 12/03/16 08:01 Sickle Cells Not Reportable 12/03/16 08:01 Target Cells Not Reportable 12/03/16 08:01 Tear Drop Cells Not Reportable 12/03/16 08:01 Ovalocytes Not Reportable 12/03/16 08:01 Helmet Cells Not Reportable 12/03/16 08:01 Henriquez-Start Bodies Not Reportable 12/03/16 08:01 [place] Rings Not Reportable 12/03/16 08:01 Angela Cells Not Reportable 12/03/16 08:01 Bite Cells Not Reportable 12/03/16 08:01 Crenated Cell Not Reportable 12/03/16 08:01 Elliptocytes Not Reportable 12/03/16 08:01 Acanthocytes (Spur) Not Reportable 12/03/16 08:01 Rouleaux Not Reportable 12/03/16 08:01 Hemoglobin C Crystals Not Reportable 12/03/16 08:01 Schistocytes Not Reportable 12/03/16 08:01 Malaria parasites Not Reportable 12/03/16 08:01 Jarad Bodies Not Reportable 12/03/16 08:01 Hem Pathologist Commnt No 12/03/16 08:01 PT 14.0 Sec. (12.2-14.9) 12/03/16 13:00 INR 1.09 (0.87-1.13) 12/03/16 13:00 APTT 46.0 Sec. (24.2-36.6) H 12/03/16 13:00 D-Dimer 787.66 ng/mlDDU (0-234) H 11/24/16 05:25 Heparin Anti-Xa Level 1.45 U.I./ml (0.3-0.7) H 12/04/16 05:08 Sodium 140 mmol/L (137-145) 12/03/16 08:01 Potassium 3.8 mmol/L (3.6-5.0) 12/03/16 08:01 Chloride 102.4 mmol/L (98-107) 12/03/16 08:01 Carbon Dioxide 25 mmol/L (22-30) 12/03/16 08:01 Anion Gap 16 mmol/L 12/03/16 08:01 BUN 14 mg/dL (7-17) 12/03/16 08:01 Creatinine 4.0 mg/dL (0.7-1.2) H D 12/03/16 08:01 Estimated GFR 14 ml/min 12/03/16 08:01 BUN/Creatinine Ratio 3.50 % 12/03/16 08:01 Glucose 79 mg/dL (65-100) 12/03/16 08:01 POC Glucose 93 (70-105) 12/04/16 06:03 Calcium 7.7 mg/dL (8.4-10.2) L 12/03/16 08:01 Phosphorus 2.40 mg/dL (2.5-4.5) L D 12/02/16 05:00 Iron 28 ug/dL (37-170) L 11/27/16 06:22 TIBC 87 mcg/dL (250-450) L 11/27/16 06:22 Total Bilirubin < 0.20 mg/dL (0.1-1.2) 11/23/16 23:39 AST 16 units/L (5-40) 11/23/16 23:39 ALT 25 units/L (7-56) 11/23/16 23:39 Alkaline Phosphatase 205 units/L (35-129) H 11/23/16 23:39 Total Creatine Kinase 65 units/L (30-135) 11/24/16 08:51 CK-MB (CK-2) 4.1 ng/mL (0.0-4.0) H 11/24/16 08:51 CK-MB (CK-2) Rel Index 6.3 (0-4) H 11/24/16 08:51 Troponin T 0.025 ng/mL (0.00-0.029) 11/26/16 Unknown Total Protein 6.5 g/dL (6.3-8.2) 11/23/16 23:39 Albumin 2.3 g/dL (3.9-5) L 11/23/16 23:39 Albumin/Globulin Ratio 0.5 % 11/23/16 23:39 Triglycerides 101 mg/dL (2-149) 11/24/16 05:25 Cholesterol 137 mg/dL (50-199) 11/24/16 05:25 LDL Cholesterol Direct 60 mg/dL (50-130) 11/24/16 05:25 HDL Cholesterol 57 mg/dL (40-59) 11/24/16 05:25 Cholesterol/HDL Ratio 2.40 % 11/24/16 05:25 Amylase 45 units/L (27-131) 11/23/16 23:39 Lipase 39 units/L (13-60) 11/23/16 23:39 Fluid Type Peritoneal 11/25/16 06:30 Fluid Color [place] 11/25/16 06:30 Fluid Appearance Cloudy 11/25/16 06:30 Fluid WBC 4750 /mm3 11/25/16 06:30 Fluid RBC 9600 /mm3 11/25/16 06:30 Fluid Diff Comment 11/25/16 06:30 Fluid Seg Neutrophils 90.0 % 11/25/16 06:30 Fluid Lymphocytes 5.0 % 11/25/16 06:30 Fluid Reactive Lymphs 0 % 11/25/16 06:30 Fluid Monocytes 5.0 % 11/25/16 06:30 Fluid Eosinophils 0 % 11/25/16 06:30 Fluid Basophils 0 % 11/25/16 06:30 Random Vancomycin 15.9 ug/mL (0-40.0) 12/04/16 05:08 Hepatitis A IgM Ab Non-reactive (NonReactive) 11/29/16 19:15 Hep Bs Antigen Non-reactive (Negative) 11/29/16 19:15 Hep B Core IgM Ab Non-reactive (NonReactive) 11/29/16 19:15 Hepatitis C Antibody Non-reactive (NonReactive) 11/29/16 19:15
[2016-12-04] MEDS: MORPHINE IV PRN ×2 (09:33→13:44)
[2016-12-04] MEDS: Renal Caps PO SCH (10:14)
[2016-12-04] MEDS: TOPROL XL PO SCH (10:15)
[2016-12-04] MEDS: NORVASC PO SCH (10:15)
[2016-12-04] MEDS: IMDUR PO SCH (10:16)
[2016-12-04] MEDS: BENTYL PO SCH ×4 (10:21→22:21)
[2016-12-04] MEDS: COLCRYS PO SCH ×2 (11:01→11:02)
--- NOTE | 2016-12-04 12:56 | Progress Note ---
Assessment and Plan - Patient Problems (1) Pulmonary embolism Current Visit: No Status: Acute Qualifiers: Pulmonary embolism type: P Chronicity: C Acute cor pulmonale presence: A Plan to address problem: On Heparin drip and warfain, planning on discharge once INR within therapeutic range 2-3 (2) End stage renal disease Current Visit: Yes Status: Acute Plan to address problem: Status post Hemodialysis yesterday for UF and clearance No acute indication for HD today Assess need for HD on daily basis Renally dose medications Epogen dosing during HD for anemia management Uric acid level pending, started on colchicine 0.6 mg orally once a day On Levaquin Status post Peritoneal Dialysis Catheter removed on 12/02/16 Outpatient HD arranged at [facility] every T,Th, S at 1045 am Obtain daily weight Strict intake and output Renal plan discussed with Dr Garnica Continue supportive therapy (3) Hypertensive chronic kidney disease Current Visit: No Status: Acute Plan to address problem: Monitor blood pressure on current regimen, adjust medications if needed (4) Anemia in chronic kidney disease (CKD) Current Visit: No Status: Acute Qualifiers: Chronic kidney disease stage: C Plan to address problem: Epogen dosing during HD for anemia management (5) DM type 2 (diabetes mellitus, type 2) Current Visit: No Status: Chronic Qualifiers: Diabetes mellitus complication status: D Diabetes mellitus complication detail: D Diabetic retinopathy severity: D Proliferative retinopathy type: P Diabetes mellitus macular edema: D Diabetes mellitus intermediate accountant insulin use : D Laterality: L Chronic kidney disease stage: C Plan to address problem: As per primary team Subjective Date of service: 12/04/16 Principal diagnosis: peritonitis Interval history: Patient eating lunch, states right right foot is hurting which she believes may be secondary to gout. Patient reports less abdominal pain today. No family at bedside. Objective - Vital Signs Vital signs: Vital Signs - 12hr 12/04/16 12/04/16 12/04/16 06:43 07:00 10:15 Temperature 98.6 F Pulse Rate 95 H 103 H Pulse Rate [ 103 H Right From Monitor] Respiratory 18 Rate Blood Pressure 179/110 176/98 Blood Pressure 176/98 [Right Arm] O2 Sat by Pulse 98 Oximetry 12/04/16 10:16 Temperature Pulse Rate 103 H Pulse Rate [ Right From Monitor] Respiratory Rate Blood Pressure 176/98 Blood Pressure [Right Arm] O2 Sat by Pulse Oximetry - General Appearance General appearance: well-nourished (no acute distress) EENT: ATNC Neck: no JVD Respiratory: Present: Other (Lung sounds decreased bilaterally, unlabored) Cardiology: regular, S1S2, other (ACCESS: Right Perm Catheter intact) Gastrointestinal: normoactive bowel sounds, no tenderness Integumentary: warm and dry Neurologic: alert and oriented x3 Musculoskeletal: other (trace edema to both lower extremities; right foot pain) Psychiatric: mood/affect appropriate, cooperative - Lab 12/04/16 05:08 12/03/16 08:01 Most recent lab results Calcium 7.7 mg/dL (8.4-10.2) L 12/03/16 08:01 Phosphorus 2.40 mg/dL (2.5-4.5) L D 12/02/16 05:00
[2016-12-04] MEDS: HEPARIN/ 0.45% NACL-25,000 UNIT/500 ML 25,000 UNIT/500 ML BAG IV SCH (16:00)
[2016-12-04] MEDS: COUMADIN PO SCH (16:05)
[2016-12-04] MEDS: ELAVIL PO SCH (22:21)
[2016-12-05] MEDS: CEPHULAC PO SCH ×4 (00:57→17:22)
[2016-12-05] MEDS ORDERED: AMBIEN PO ONE (01:06)
[2016-12-05] MEDS: APRESOLINE PO SCH ×3 (05:47→22:00)
[2016-12-05] MEDS: TOPROL XL PO SCH (10:30)
[2016-12-05] MEDS: IMDUR PO SCH (10:30)
[2016-12-05] MEDS: NORVASC PO SCH (10:31)
[2016-12-05] MEDS: LEVAQUIN PO SCH (10:31)
[2016-12-05] MEDS: BENTYL PO SCH ×4 (10:31→22:00)
[2016-12-05] MEDS: Renal Caps PO SCH (10:31)
[2016-12-05] MEDS: COLCRYS PO SCH (10:54)
[2016-12-05 11:26] LABS: Hematocrit 26.2 % (30.3-42.9); Hemoglobin 8.5 gm/dl (10.1-14.3); Mean Corpuscular HGB Conc 33 % (30-34); Mean Corpuscular Hemoglobin 28 pg (28-32); Mean Corpuscular Volume 86 fl (79-97); Platelet Count 253 K/mm3 (140-440); Red Blood Count 3.05 M/mm3 (3.65-5.03); Red Cell Distribution Width 16.5 % (13.2-15.2); White Blood Count 9.9 K/mm3 (4.5-11.0)
[2016-12-05 11:33] LABS: INR 0.98 (0.87-1.13)
[2016-12-05 11:40] LABS: BUN/Creatinine Ratio 3.78; Calcium 8.1 mg/dL (8.4-10.2); Chloride 98.1 mmol/L (98-107); Potassium 3.5 mmol/L (3.6-5.0)
--- NOTE | 2016-12-05 15:15 | Progress Note ---
Assessment and Plan - Patient Problems (1) Pulmonary embolism Current Visit: No Status: Acute Qualifiers: Pulmonary embolism type: P Chronicity: C Acute cor pulmonale presence: A Plan to address problem: On Heparin drip and warfain, planning on discharge once INR within therapeutic range 2-3 (2) End stage renal disease Current Visit: Yes Status: Acute Plan to address problem: No acute indication for HD today Hemodialysis tomorrow for UF and clearance HD prescription adjusted to [facility] for hypokalemia management Assess need for HD on daily basis Renally dose medications Epogen dosing during HD for anemia management Uric acid level 4.3, remains on colchicine 0.6 mg orally once a day On Levaquin 500 mg IVPB every 48 hours Status post Peritoneal Dialysis Catheter removed on 12/02/16 Outpatient HD arranged at [facility] every T,, S at 1045 am Obtain daily weight Strict intake and output Renal plan discussed with Dr Garnica Continue supportive therapy (3) Hypertensive chronic kidney disease Current Visit: No Status: Acute Plan to address problem: Monitor blood pressure on current regimen, adjust medications if needed (4) Anemia in chronic kidney disease (CKD) Current Visit: No Status: Acute Qualifiers: Chronic kidney disease stage: C Plan to address problem: Epogen dosing during HD for anemia management (5) DM type 2 (diabetes mellitus, type 2) Current Visit: No Status: Chronic Qualifiers: Diabetes mellitus complication status: D Diabetes mellitus complication detail: D Diabetic retinopathy severity: D Proliferative retinopathy type: P Diabetes mellitus macular edema: D Diabetes mellitus vermin exterminator insulin use : D Laterality: L Chronic kidney disease stage: C Plan to address problem: As per primary team Subjective Date of service: 12/05/16 Principal diagnosis: peritonitis Interval history: Patient reports having abdominal pain today. No family at bedside. Objective - Vital Signs Vital signs: Vital Signs - 12hr 12/05/16 12/05/16 12/05/16 05:47 08:00 10:30 Temperature 98 F Pulse Rate 91 H 82 Pulse Rate [ 82 Right From Monitor] Respiratory 16 Rate Blood Pressure 125/82 134/72 Blood Pressure 134/72 [Right Arm] O2 Sat by Pulse 97 Oximetry 12/05/16 12/05/16 10:31 14:10 Temperature Pulse Rate 82 89 Pulse Rate [ Right From Monitor] Respiratory Rate Blood Pressure 134/72 100/65 Blood Pressure [Right Arm] O2 Sat by Pulse Oximetry - General Appearance General appearance: well-nourished (no acute distress) EENT: ATNC Neck: no JVD Respiratory: Present: Other (Lung sounds decreased bilaterally, unlabored) Cardiology: regular, S1S2, other (ACCESS: Right Perm Catheter intact) Gastrointestinal: normoactive bowel sounds, tenderness Integumentary: warm and dry Neurologic: alert and oriented x3 Musculoskeletal: other (trace edema to both lower extremities) Psychiatric: mood/affect appropriate, cooperative - Lab 12/05/16 10:46 12/05/16 10:46 Most recent lab results Calcium 8.1 mg/dL (8.4-10.2) L 12/05/16 10:46 Phosphorus 2.40 mg/dL (2.5-4.5) L D 12/02/16 05:00
[2016-12-05] MEDS: MORPHINE IV PRN ×2 (15:16→22:04)
[2016-12-05 15:42] LABS: Basophils % (Manual) 0 % (0.0-1.8); Blastocytes % (Manual) 0 %; Eosinophils % (Manual) 0 % (0.0-4.3)
[2016-12-05 15:43] LABS: Polychromasia Few
[2016-12-05 15:44] LABS: Anisocytosis 2+; Hypochromasia 1+; Poikilocytosis Few
[2016-12-05 15:45] LABS: Elliptocytes Few; Tear Drop Cells Few
[2016-12-05 15:46] LABS: Diff Status Complete
[2016-12-05] MEDS: COUMADIN PO SCH (17:32)
[2016-12-05] MEDS: HEPARIN/ 0.45% NACL-25,000 UNIT/500 ML 25,000 UNIT/500 ML BAG IV SCH (17:42)
--- NOTE | 2016-12-05 18:49 | Progress Note ---
Assessment and Plan Bilateral pulmonary emboli. Resume heparin drip for bridge to Coumadin. Restarted Coumadin. Awaiting INR level to reach goal 2-3. Acute peritonitis. Continue current antibiotics. Patient will continue with IV vancomycin after discharge. Dr Blakely discussed the case with Dr. Garnica. End-stage renal disease on peritoneal dialysis. Patient with permacath placed. Outpatient hemodialysis arranged. PD catheter removed. Anemia of chronic kidney disease. Continue Epogen Hypertension. Continue antihypertensive medications. Diabetes mellitus type 2. Continue sliding-scale insulin and Accu-Cheks. Hyperlipidemia. Hypothyroidism. Hyperkalemia. Resolved. Continue hemodialysis per nephrology. Gout. Subjective Date of service: 12/05/16 Principal diagnosis: peritonitis Interval history: Doing better Objective - Exam Narrative Exam: Lying comfortably - Constitutional Vitals: Vital Signs - 12hr 12/05/16 12/05/16 12/05/16 08:00 10:30 10:31 Temperature 98 F Pulse Rate 82 82 Pulse Rate [ 82 Right From Monitor] Respiratory 16 Rate Blood Pressure 134/72 134/72 Blood Pressure 134/72 [Right Arm] O2 Sat by Pulse 97 Oximetry 12/05/16 12/05/16 14:10 16:56 Temperature 97.8 F Pulse Rate 89 Pulse Rate [ 72 Right From Monitor] Respiratory 14 Rate Blood Pressure 100/65 Blood Pressure 104/62 [Right Arm] O2 Sat by Pulse 97 Oximetry General appearance: Present: no acute distress, well-nourished - EENT Eyes: PERRL, EOM intact ENT: hearing intact, clear oral mucosa Ears: bilateral: normal - Neck Neck: supple, normal ROM - Respiratory Respiratory effort: normal Respiratory: bilateral: CTA - Breasts Breasts: normal - Cardiovascular Rhythm: regular Heart Sounds: Present: S1 & S2. Absent: gallop, rub Extremities: pulses intact, No edema, normal color, Full ROM - Gastrointestinal General gastrointestinal: Present: soft, non-tender, non-distended, normal bowel sounds - Genitourinary Female genitourinary: normal - Integumentary Integumentary: clear, warm, dry - Musculoskeletal Musculoskeletal: 1, strength equal bilaterally - Neurologic Neurologic: moves all extremities - Psychiatric Psychiatric: memory intact, appropriate mood/affect, intact judgment & insight - Labs CBC & Chem 7: 12/06/16 06:21 12/05/16 10:46 Labs: Abnormal lab results 12/04/16 12/05/16 12/05/16 Range/Units 22:41 02:08 10:46 RBC 3.05 L (3.65-5.03) M/mm3 Hgb 8.5 L (10.1-14.3) gm/dl Hct 26.2 L (30.3-42.9) % RDW 16.5 H (13.2-15.2) % Nucleated RBC % 4.0 H (0.0-0.9) % Heparin Anti-Xa Level 0.87 H (0.3-0.7) U.I./ml Sodium (137-145) mmol/L Potassium (3.6-5.0) mmol/L Creatinine (0.7-1.2) mg/dL Glucose (65-100) mg/dL POC Glucose 209 H (70-105) Calcium (8.4-10.2) mg/dL 12/05/16 12/05/16 12/05/16 Range/Units 10:46 10:46 11:23 RBC (3.65-5.03) M/mm3 Hgb (10.1-14.3) gm/dl Hct (30.3-42.9) % RDW (13.2-15.2) % Nucleated RBC % (0.0-0.9) % Heparin Anti-Xa Level 1.14 H (0.3-0.7) U.I./ml Sodium 136 L (137-145) mmol/L Potassium 3.5 L (3.6-5.0) mmol/L Creatinine 3.7 H (0.7-1.2) mg/dL Glucose 118 H (65-100) mg/dL POC Glucose 175 H (70-105) Calcium 8.1 L (8.4-10.2) mg/dL 12/05/16 Range/Units 16:27 RBC (3.65-5.03) M/mm3 Hgb (10.1-14.3) gm/dl Hct (30.3-42.9) % RDW (13.2-15.2) % Nucleated RBC % (0.0-0.9) % Heparin Anti-Xa Level (0.3-0.7) U.I./ml Sodium (137-145) mmol/L Potassium (3.6-5.0) mmol/L Creatinine (0.7-1.2) mg/dL Glucose (65-100) mg/dL POC Glucose 171 H (70-105) Calcium (8.4-10.2) mg/dL
[2016-12-05] MEDS: ZOFRAN IV PRN (20:27)
[2016-12-05] MEDS: ELAVIL PO SCH (22:00)
[2016-12-06] MEDS: CEPHULAC PO SCH ×4 (00:49→17:44)
[2016-12-06] MEDS: APRESOLINE PO SCH ×3 (05:58→21:50)
[2016-12-06 06:52] LABS: Hemoglobin 7.9 gm/dl (10.1-14.3)
[2016-12-06 07:04] LABS: INR 1.06 (0.87-1.13)
[2016-12-06] MEDS: MORPHINE IV PRN ×2 (09:44→21:51)
[2016-12-06] MEDS: Renal Caps PO SCH (10:36)
--- NOTE | 2016-12-06 11:14 | Progress Note ---
Assessment and Plan - Patient Problems (1) Pulmonary embolism Current Visit: No Status: Acute Qualifiers: Pulmonary embolism type: P Chronicity: C Acute cor pulmonale presence: A Plan to address problem: Awaiting INR level to reach goal range of 2-3 before can be discharged Current INR level today is 1.06 On Heparin drip bridging with Coumadin 7.5 mg po daily (2) End-stage renal disease on hemodialysis Current Visit: Yes Status: Acute Plan to address problem: Hemodialysis today for UF and clearance Peritoneal Dialysis Catheter removed on 12/02/16 due to Peritonitis On IV Levaquin 500 mg every 48 hours and Vancomycin IV being pulse dosed by pharmacy Patient is accepted at [facility] on TTS schedule at 10:45 a.m to receive outpatient dialysis treatments Fluid restriction of 1 liter per day Renally dose medications Obtain daily weights Monitor I/O's Continue on current hemodialysis regimen and adjust as needed (3) Anemia in chronic kidney disease (CKD) Current Visit: No Status: Acute Qualifiers: Chronic kidney disease stage: C Plan to address problem: Epogen 10,000 units SQ TIW (4) Hypertensive nephrosclerosis, 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 Current Visit: No Status: Acute Plan to address problem: Continue on anti-hypertensive agents (5) DM type 2 (diabetes mellitus, type 2) Current Visit: No Status: Chronic Qualifiers: Diabetes mellitus complication status: D Diabetes mellitus complication detail: D Diabetic retinopathy severity: D Proliferative retinopathy type: P Diabetes mellitus macular edema: D Diabetes mellitus intermediate accountant insulin use : D Laterality: L Chronic kidney disease stage: C Plan to address problem: On Insulin as per Attending Subjective Date of service: 12/06/16 Principal diagnosis: Peritonitis, ESRD Interval history: Patient seen in dialysis unit undergoing HD. Tolerating HD well. States she wants to eat. Objective - Vital Signs Vital signs: Vital Signs - 12hr 12/06/16 05:58 Pulse Rate 78 Blood Pressure 121/76 - General Appearance General appearance: well-developed, well-nourished, appears stated age EENT: ATNC, PERRL, hearing intact, vision intact, other Neck: no JVD, supple, other (Has right IJ perm-catheter intact) Respiratory: Present: Clear to Ascultation Cardiology: regular, S1S2 Gastrointestinal: normoactive bowel sounds Integumentary: warm and dry Neurologic: alert and oriented x3 Musculoskeletal: other (No edema.) Psychiatric: cooperative - Lab 12/06/16 06:21 12/05/16 10:46 Most recent lab results Calcium 8.1 mg/dL (8.4-10.2) L 12/05/16 10:46 Phosphorus 2.40 mg/dL (2.5-4.5) L D 12/02/16 05:00
[2016-12-06] MEDS: ZOFRAN IV PRN ×2 (11:58→21:51)
[2016-12-06] MEDS ORDERED: NACL 0.9 (PRIMING MACHINE ONLY DIALYSIS) MC ONE (11:59)
[2016-12-06] MEDS: PROCRIT SUB-Q SCH (12:47)
[2016-12-06] MEDS: HEPARIN IV PRN (13:46)
[2016-12-06] MEDS: IMDUR PO SCH (14:08)
[2016-12-06] MEDS: BENTYL PO SCH ×4 (14:09→21:51)
[2016-12-06] MEDS: NORVASC PO SCH (14:09)
[2016-12-06] MEDS: TOPROL XL PO SCH (14:09)
[2016-12-06] MEDS: COLCRYS PO SCH (14:10)
--- NOTE | 2016-12-06 17:24 | Progress Note ---
Assessment and Plan Assessment and plan: Bilateral pulmonary emboli. Resume heparin drip for bridge to Coumadin. Subtherapeutic INR , target level 2 -3 Acute peritonitis. Continue current antibiotics. Patient will continue with IV vancomycin after discharge. Dr Blakely discussed the case with Dr. Garnica. End-stage renal disease on peritoneal dialysis. Patient with permacath placed. Outpatient hemodialysis arranged. PD catheter removed. Anemia of chronic kidney disease. Continue Epogen Hypertension. Continue antihypertensive medications. Diabetes mellitus type 2. Continue sliding-scale insulin and Accu-Cheks. Hyperlipidemia. Stable On Medications Hypothyroidism. Continue Synthroid Hyperkalemia. Resolved. Continue hemodialysis per nephrology. Gout. Stable DC planning to case management Plan of care discussed with the patient, the nurse and case management History Interval history: Patient seen and evaluated medical records reviewed No new events reported by the nursing staff On chronic anticoagulation secondary to PE End-stage renal disease on hemodialysis Hospitalist Physical - Constitutional Vitals: Temp Pulse Resp BP Pulse Ox 98.4 F 89 20 157/99 99 12/06/16 13:20 12/06/16 13:20 12/06/16 13:20 12/06/16 13:20 12/05/16 22:00 General appearance: Present: no acute distress, well-nourished - EENT Eyes: Present: PERRL, EOM intact - Neck Neck: Present: supple, normal ROM - Respiratory Respiratory effort: normal Respiratory: bilateral: diminished, negative: rales, rhonchi, wheezing - Cardiovascular Rhythm: regular Heart Sounds: Present: S1 & S2 - Extremities Extremities: no ischemia, pulses intact, pulses symmetrical Peripheral Pulses: within normal limits - Abdominal General gastrointestinal: soft, non-tender, non-distended, normal bowel sounds - Integumentary Integumentary: Present: clear, warm - Psychiatric Psychiatric: appropriate mood/affect, cooperative - Neurologic Neurologic: CNII-XII intact, moves all extremities Results - Labs CBC & Chem 7: 12/06/16 06:21 12/05/16 10:46 Labs: Laboratory Last Values WBC 9.9 K/mm3 (4.5-11.0) 12/05/16 10:46 RBC 3.05 M/mm3 (3.65-5.03) L 12/05/16 10:46 Hgb 7.9 gm/dl (10.1-14.3) L 12/06/16 06:21 Hct 24.0 % (30.3-42.9) L 12/06/16 06:21 MCV 86 fl (79-97) 12/05/16 10:46 MCH 28 pg (28-32) 12/05/16 10:46 MCHC 33 % (30-34) 12/05/16 10:46 RDW 16.5 % (13.2-15.2) H 12/05/16 10:46 Plt Count 225 K/mm3 (140-440) 12/06/16 06:21 Lymph % (Auto) 19.3 % (13.4-35.0) 11/30/16 05:11 [place] % (Auto) 7.2 % (0.0-7.3) 11/30/16 05:11 Eos % (Auto) 2.9 % (0.0-4.3) 11/30/16 05:11 Baso % (Auto) 0.8 % (0.0-1.8) 11/30/16 05:11 Lymph # 1.0 K/mm3 (1.2-5.4) L 11/30/16 05:11 [place] # 0.4 K/mm3 (0.0-0.8) 11/30/16 05:11 Eos # 0.2 K/mm3 (0.0-0.4) 11/30/16 05:11 Baso # 0.0 K/mm3 (0.0-0.1) 11/30/16 05:11 Add Manual Diff Complete 12/05/16 10:46 Total Counted 100 12/05/16 10:46 Seg Neutrophils % 69.8 % (40.0-70.0) 11/30/16 05:11 Seg Neuts % (Manual) 57.0 % (40.0-70.0) 12/05/16 10:46 Band Neutrophils % 9.0 % 12/05/16 10:46 Lymphocytes % (Manual) 25.0 % (13.4-35.0) 12/05/16 10:46 Reactive Lymphs % (Man) 1.0 % 12/05/16 10:46 Monocytes % (Manual) 4.0 % (0.0-7.3) 12/05/16 10:46 Eosinophils % (Manual) 0 % (0.0-4.3) 12/05/16 10:46 Basophils % (Manual) 0 % (0.0-1.8) 12/05/16 10:46 Metamyelocytes % 4.0 % 12/05/16 10:46 Myelocytes % 0 % 12/05/16 10:46 Promyelocytes % 0 % 12/05/16 10:46 Blast Cells % 0 % 12/05/16 10:46 Nucleated RBC % 4.0 % (0.0-0.9) H 12/05/16 10:46 Seg Neutrophils # 3.8 K/mm3 (1.8-7.7) 11/30/16 05:11 Seg Neutrophils # Man 5.6 K/mm3 (1.8-7.7) 12/05/16 10:46 Band Neutrophils # 0.9 K/mm3 12/05/16 10:46 Lymphocytes # (Manual) 2.5 K/mm3 (1.2-5.4) 12/05/16 10:46 Abs React Lymphs (Man) 0.1 K/mm3 12/05/16 10:46 Monocytes # (Manual) 0.4 K/mm3 (0.0-0.8) 12/05/16 10:46 Eosinophils # (Manual) 0.0 K/mm3 (0.0-0.4) 12/05/16 10:46 Basophils # (Manual) 0.0 K/mm3 (0.0-0.1) 12/05/16 10:46 Metamyelocytes # 0.4 K/mm3 12/05/16 10:46 Myelocytes # 0.0 K/mm3 12/05/16 10:46 Promyelocytes # 0.0 K/mm3 12/05/16 10:46 Blast Cells # 0.0 K/mm3 12/05/16 10:46 WBC Morphology Not Reportable 12/05/16 10:46 Hypersegmented Neuts Not Reportable 12/05/16 10:46 Hyposegmented Neuts Not Reportable 12/05/16 10:46 Hypogranular Neuts Not Reportable 12/05/16 10:46 Smudge Cells Not Reportable 12/05/16 10:46 Toxic Granulation Not Reportable 12/05/16 10:46 Toxic Vacuolation Not Reportable 12/05/16 10:46 Dohle Bodies Not Reportable 12/05/16 10:46 Pelger-Huet Anomaly Not Reportable 12/05/16 10:46 Jacob Rods Not Reportable 12/05/16 10:46 Platelet Estimate Appears normal 12/05/16 10:46 Clumped Platelets Not Reportable 12/05/16 10:46 Plt Clumps, EDTA Not Reportable 12/05/16 10:46 Large Platelets Not Reportable 12/05/16 10:46 Giant Platelets Not Reportable 12/05/16 10:46 Platelet Satelliting Not Reportable 12/05/16 10:46 Plt Morphology Comment Not Reportable 12/05/16 10:46 RBC Morphology Not Reportable 12/05/16 10:46 Dimorphic RBCs Not Reportable 12/05/16 10:46 Polychromasia Few 12/05/16 10:46 Hypochromasia 1+ 12/05/16 10:46 Poikilocytosis Few 12/05/16 10:46 Anisocytosis 2+ 12/05/16 10:46 Microcytosis Not Reportable 12/05/16 10:46 Macrocytosis Not Reportable 12/05/16 10:46 Spherocytes Not Reportable 12/05/16 10:46 Pappenheimer Bodies Not Reportable 12/05/16 10:46 Sickle Cells Not Reportable 12/05/16 10:46 Target Cells Not Reportable 12/05/16 10:46 Tear Drop Cells Few 12/05/16 10:46 Ovalocytes Not Reportable 12/05/16 10:46 Helmet Cells Not Reportable 12/05/16 10:46 Henriquez-[place] Bodies Not Reportable 12/05/16 10:46 [place] Rings Not Reportable 12/05/16 10:46 [place] Cells Not Reportable 12/05/16 10:46 Bite Cells Not Reportable 12/05/16 10:46 Crenated Cell Not Reportable 12/05/16 10:46 Elliptocytes Few 12/05/16 10:46 Acanthocytes (Spur) Not Reportable 12/05/16 10:46 Rouleaux Not Reportable 12/05/16 10:46 Hemoglobin C Crystals Not Reportable 12/05/16 10:46 Schistocytes Not Reportable 12/05/16 10:46 Malaria parasites Not Reportable 12/05/16 10:46 Jarad Bodies Not Reportable 12/05/16 10:46 Hem Pathologist Commnt No 12/05/16 10:46 PT 14.3 Sec. (12.2-14.9) 12/06/16 06:21 INR 1.06 (0.87-1.13) 12/06/16 06:21 APTT 46.0 Sec. (24.2-36.6) H 12/03/16 13:00 D-Dimer 787.66 ng/mlDDU (0-234) H 11/24/16 05:25 Heparin Anti-Xa Level 0.47 U.I./ml (0.3-0.7) 12/05/16 20:37 Sodium 136 mmol/L (137-145) L 12/05/16 10:46 Potassium 3.5 mmol/L (3.6-5.0) L 12/05/16 10:46 Chloride 98.1 mmol/L (98-107) 12/05/16 10:46 Carbon Dioxide 23 mmol/L (22-30) 12/05/16 10:46 Anion Gap 18 mmol/L 12/05/16 10:46 BUN 14 mg/dL (7-17) 12/05/16 10:46 Creatinine 3.7 mg/dL (0.7-1.2) H 12/05/16 10:46 Estimated GFR 16 ml/min 12/05/16 10:46 BUN/Creatinine Ratio 3.78 % 12/05/16 10:46 Glucose 118 mg/dL (65-100) H 12/05/16 10:46 POC Glucose 112 (70-105) H 12/05/16 21:20 Uric Acid 4.3 mg/dL (3.5-7.6) 12/04/16 14:17 Calcium 8.1 mg/dL (8.4-10.2) L 12/05/16 10:46 Phosphorus 2.40 mg/dL (2.5-4.5) L D 12/02/16 05:00 Iron 28 ug/dL (37-170) L 11/27/16 06:22 TIBC 87 mcg/dL (250-450) L 11/27/16 06:22 Total Bilirubin < 0.20 mg/dL (0.1-1.2) 11/23/16 23:39 AST 16 units/L (5-40) 11/23/16 23:39 ALT 25 units/L (7-56) 11/23/16 23:39 Alkaline Phosphatase 205 units/L (35-129) H 11/23/16 23:39 Total Creatine Kinase 65 units/L (30-135) 11/24/16 08:51 CK-MB (CK-2) 4.1 ng/mL (0.0-4.0) H 11/24/16 08:51 CK-MB (CK-2) Rel Index 6.3 (0-4) H 11/24/16 08:51 Troponin T 0.025 ng/mL (0.00-0.029) 11/26/16 Unknown Total Protein 6.5 g/dL (6.3-8.2) 11/23/16 23:39 Albumin 2.3 g/dL (3.9-5) L 11/23/16 23:39 Albumin/Globulin Ratio 0.5 % 11/23/16 23:39 Triglycerides 101 mg/dL (2-149) 11/24/16 05:25 Cholesterol 137 mg/dL (50-199) 11/24/16 05:25 LDL Cholesterol Direct 60 mg/dL (50-130) 11/24/16 05:25 HDL Cholesterol 57 mg/dL (40-59) 11/24/16 05:25 Cholesterol/HDL Ratio 2.40 % 11/24/16 05:25 Amylase 45 units/L (27-131) 11/23/16 23:39 Lipase 39 units/L (13-60) 11/23/16 23:39 Fluid Type Peritoneal 11/25/16 06:30 Fluid Color [place] 11/25/16 06:30 Fluid Appearance Cloudy 11/25/16 06:30 Fluid WBC 4750 /mm3 11/25/16 06:30 Fluid RBC 9600 /mm3 11/25/16 06:30 Fluid Diff Comment 11/25/16 06:30 Fluid Seg Neutrophils 90.0 % 11/25/16 06:30 Fluid Lymphocytes 5.0 % 11/25/16 06:30 Fluid Reactive Lymphs 0 % 11/25/16 06:30 Fluid Monocytes 5.0 % 11/25/16 06:30 Fluid Eosinophils 0 % 11/25/16 06:30 Fluid Basophils 0 % 11/25/16 06:30 Random Vancomycin 15.9 ug/mL (0-40.0) 12/04/16 05:08 Hepatitis A IgM Ab Non-reactive (NonReactive) 11/29/16 19:15 Hep Bs Antigen Non-reactive (Negative) 11/29/16 19:15 Hep B Core IgM Ab Non-reactive (NonReactive) 11/29/16 19:15 Hepatitis C Antibody Non-reactive (NonReactive) 11/29/16 19:15
[2016-12-06] MEDS: COUMADIN PO SCH (17:47)
[2016-12-06] MEDS ORDERED: VANCOMYCIN/NS 1 GM/250 ML 1 GM/250 ML BAG IV SCH (18:00)
[2016-12-06] MEDS: ELAVIL PO SCH (21:50)
[2016-12-07] MEDS: CEPHULAC PO SCH ×4 (00:24→17:24)
[2016-12-07] MEDS: APRESOLINE PO SCH ×3 (05:26→22:50)
[2016-12-07 05:48] LABS: Hematocrit 24.6 % (30.3-42.9); Hemoglobin 7.8 gm/dl (10.1-14.3)
[2016-12-07 05:54] LABS: INR 1.04 (0.87-1.13)
[2016-12-07 06:27] LABS: BUN/Creatinine Ratio 3.33; Calcium 7.8 mg/dL (8.4-10.2); Chloride 99.8 mmol/L (98-107); Phosphorous 2.2 mg/dL (2.5-4.5); Potassium 3.9 mmol/L (3.6-5.0)
[2016-12-07] MEDS: HEPARIN/ 0.45% NACL-25,000 UNIT/500 ML 25,000 UNIT/500 ML BAG IV SCH ×2 (06:35→17:24)
[2016-12-07] MEDS: NORVASC PO SCH (09:51)
[2016-12-07] MEDS: COLCRYS PO SCH (09:51)
[2016-12-07] MEDS: Renal Caps PO SCH (09:52)
[2016-12-07] MEDS: TOPROL XL PO SCH (09:52)
[2016-12-07] MEDS: IMDUR PO SCH (09:52)
[2016-12-07] MEDS: LEVAQUIN PO SCH (09:53)
[2016-12-07] MEDS: BENTYL PO SCH ×4 (10:00→22:51)
--- NOTE | 2016-12-07 12:02 | Progress Note ---
Assessment and Plan - Patient Problems (1) Pulmonary embolism Current Visit: No Status: Acute Qualifiers: Pulmonary embolism type: P Chronicity: C Acute cor pulmonale presence: A Plan to address problem: Awaiting INR level to reach goal range of 2-3 before can be discharged Current INR level today is 1.04 On Heparin drip bridging with Coumadin, now increased to 10 mg po daily (2) End-stage renal disease on hemodialysis Current Visit: Yes Status: Acute Plan to address problem: Received hemodialysis yesterday for UF and clearance. No acute indication for HD today. Peritoneal Dialysis Catheter removed on 12/02/16 due to Peritonitis On oral Levaquin 500 mg every 48 hours and Vancomycin IV being pulse dosed by pharmacy Patient is accepted at [facility] on TTS schedule at 10:45 a.m to receive outpatient dialysis treatments Fluid restriction of 1 liter per day Renally dose medications Obtain daily weights Monitor I/O's Continue on current hemodialysis regimen and adjust as needed (3) Anemia in chronic kidney disease (CKD) Current Visit: No Status: Acute Qualifiers: Chronic kidney disease stage: C Plan to address problem: Epogen 10,000 units SQ TIW (4) Hypertensive nephrosclerosis, 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 Current Visit: No Status: Acute Plan to address problem: Continue on anti-hypertensive agents (5) DM type 2 (diabetes mellitus, type 2) Current Visit: No Status: Chronic Qualifiers: Diabetes mellitus complication status: D Diabetes mellitus complication detail: D Diabetic retinopathy severity: D Proliferative retinopathy type: P Diabetes mellitus macular edema: D Diabetes mellitus long-term insulin use : D Laterality: L Chronic kidney disease stage: C Plan to address problem: On Insulin as per Attending Subjective Date of service: 12/07/16 Principal diagnosis: Peritonitis, ESRD Interval history: Patient seen sitting up in bed. Awake and alert. Wants to go home. Objective - Vital Signs Vital signs: Vital Signs - 12hr 12/07/16 12/07/16 05:26 08:30 Temperature 98.9 F Pulse Rate 74 Pulse Rate [ 77 Right From Monitor] Respiratory 20 Rate Blood Pressure 106/60 Blood Pressure 106/69 [Right Arm] O2 Sat by Pulse 98 Oximetry - General Appearance General appearance: well-developed, appears stated age EENT: ATNC, PERRL, hearing intact, vision intact, other (Right IJ perm-catheter working well.) Neck: no JVD, supple Respiratory: Present: Clear to Ascultation Cardiology: regular, S1S2 Gastrointestinal: normoactive bowel sounds Integumentary: warm and dry Neurologic: alert and oriented x3 Musculoskeletal: other (No edema. ) - Lab 12/07/16 04:52 12/07/16 04:52 Most recent lab results Calcium 7.8 mg/dL (8.4-10.2) L 12/07/16 04:52 Phosphorus 2.20 mg/dL (2.5-4.5) L 12/07/16 04:52
[2016-12-07] MEDS: ZOFRAN IV PRN ×2 (13:39→21:19)
[2016-12-07] MEDS: MORPHINE IV PRN ×2 (13:40→21:19)
--- NOTE | 2016-12-07 15:03 | Progress Note ---
Assessment and Plan Assessment and plan: Bilateral pulmonary emboli. Resume heparin drip for bridge to Coumadin. Subtherapeutic INR , target level 2 -3 Acute peritonitis. Peritoneal cultures positive for staph aureus , Continue current antibiotics End-stage renal disease on peritoneal dialysis. Patient with permacath placed. Outpatient hemodialysis arranged. PD catheter removed. Anemia of chronic kidney disease. Continue Epogen Hypertension. Continue antihypertensive medications. Diabetes mellitus type 2. Continue sliding-scale insulin and Accu-Cheks. Hyperlipidemia. Stable On Medications Hypothyroidism. Continue Synthroid Hyperkalemia. Resolved. Continue hemodialysis per nephrology. Gout. Stable DC planning to case management Patient will be discharged once INR is therapeutic between 2 and 3, an overlap of heparin and Coumadin for 5 days History Interval history: Patient seen and evaluated medical records reviewed No new events reported by the nursing staff Patient's INR remains subtherapeutic On heparin and Coumadin Patient feels better no new complaints Hospitalist Physical - Constitutional Vitals: Temp Pulse Resp BP Pulse Ox 98.9 F 77 20 106/69 98 12/07/16 08:30 12/07/16 08:30 12/07/16 08:30 12/07/16 08:30 12/07/16 08:30 General appearance: Present: no acute distress, well-nourished - EENT Eyes: Present: PERRL, EOM intact - Neck Neck: Present: supple, normal ROM - Respiratory Respiratory effort: normal Respiratory: bilateral: diminished, negative: rales, rhonchi, wheezing - Cardiovascular Rhythm: regular Heart Sounds: Present: S1 & S2 - Extremities Extremities: no ischemia, pulses intact, pulses symmetrical - Abdominal General gastrointestinal: soft, non-tender, non-distended, normal bowel sounds - Integumentary Integumentary: Present: clear, warm - Psychiatric Psychiatric: appropriate mood/affect, cooperative - Neurologic Neurologic: CNII-XII intact, moves all extremities Results - Labs CBC & Chem 7: 12/07/16 04:52 12/07/16 04:52 Labs: Laboratory Last Values WBC 9.9 K/mm3 (4.5-11.0) 12/05/16 10:46 RBC 3.05 M/mm3 (3.65-5.03) L 12/05/16 10:46 Hgb 7.8 gm/dl (10.1-14.3) L 12/07/16 04:52 Hct 24.6 % (30.3-42.9) L 12/07/16 04:52 MCV 86 fl (79-97) 12/05/16 10:46 MCH 28 pg (28-32) 12/05/16 10:46 MCHC 33 % (30-34) 12/05/16 10:46 RDW 16.5 % (13.2-15.2) H 12/05/16 10:46 Plt Count 236 K/mm3 (140-440) 12/07/16 04:52 Lymph % (Auto) 19.3 % (13.4-35.0) 11/30/16 05:11 [place] % (Auto) 7.2 % (0.0-7.3) 11/30/16 05:11 Eos % (Auto) 2.9 % (0.0-4.3) 11/30/16 05:11 Baso % (Auto) 0.8 % (0.0-1.8) 11/30/16 05:11 Lymph # 1.0 K/mm3 (1.2-5.4) L 11/30/16 05:11 [place] # 0.4 K/mm3 (0.0-0.8) 11/30/16 05:11 Eos # 0.2 K/mm3 (0.0-0.4) 11/30/16 05:11 Baso # 0.0 K/mm3 (0.0-0.1) 11/30/16 05:11 Add Manual Diff Complete 12/05/16 10:46 Total Counted 100 12/05/16 10:46 Seg Neutrophils % 69.8 % (40.0-70.0) 11/30/16 05:11 Seg Neuts % (Manual) 57.0 % (40.0-70.0) 12/05/16 10:46 Band Neutrophils % 9.0 % 12/05/16 10:46 Lymphocytes % (Manual) 25.0 % (13.4-35.0) 12/05/16 10:46 Reactive Lymphs % (Man) 1.0 % 12/05/16 10:46 Monocytes % (Manual) 4.0 % (0.0-7.3) 12/05/16 10:46 Eosinophils % (Manual) 0 % (0.0-4.3) 12/05/16 10:46 Basophils % (Manual) 0 % (0.0-1.8) 12/05/16 10:46 Metamyelocytes % 4.0 % 12/05/16 10:46 Myelocytes % 0 % 12/05/16 10:46 Promyelocytes % 0 % 12/05/16 10:46 Blast Cells % 0 % 12/05/16 10:46 Nucleated RBC % 4.0 % (0.0-0.9) H 12/05/16 10:46 Seg Neutrophils # 3.8 K/mm3 (1.8-7.7) 11/30/16 05:11 Seg Neutrophils # Man 5.6 K/mm3 (1.8-7.7) 12/05/16 10:46 Band Neutrophils # 0.9 K/mm3 12/05/16 10:46 Lymphocytes # (Manual) 2.5 K/mm3 (1.2-5.4) 12/05/16 10:46 Abs React Lymphs (Man) 0.1 K/mm3 12/05/16 10:46 Monocytes # (Manual) 0.4 K/mm3 (0.0-0.8) 12/05/16 10:46 Eosinophils # (Manual) 0.0 K/mm3 (0.0-0.4) 12/05/16 10:46 Basophils # (Manual) 0.0 K/mm3 (0.0-0.1) 12/05/16 10:46 Metamyelocytes # 0.4 K/mm3 12/05/16 10:46 Myelocytes # 0.0 K/mm3 12/05/16 10:46 Promyelocytes # 0.0 K/mm3 12/05/16 10:46 Blast Cells # 0.0 K/mm3 12/05/16 10:46 WBC Morphology Not Reportable 12/05/16 10:46 Hypersegmented Neuts Not Reportable 12/05/16 10:46 Hyposegmented Neuts Not Reportable 12/05/16 10:46 Hypogranular Neuts Not Reportable 12/05/16 10:46 Smudge Cells Not Reportable 12/05/16 10:46 Toxic Granulation Not Reportable 12/05/16 10:46 Toxic Vacuolation Not Reportable 12/05/16 10:46 Dohle Bodies Not Reportable 12/05/16 10:46 Pelger-Huet Anomaly Not Reportable 12/05/16 10:46 Jacob Rods Not Reportable 12/05/16 10:46 Platelet Estimate Appears normal 12/05/16 10:46 Clumped Platelets Not Reportable 12/05/16 10:46 Plt Clumps, EDTA Not Reportable 12/05/16 10:46 Large Platelets Not Reportable 12/05/16 10:46 Giant Platelets Not Reportable 12/05/16 10:46 Platelet Satelliting Not Reportable 12/05/16 10:46 Plt Morphology Comment Not Reportable 12/05/16 10:46 RBC Morphology Not Reportable 12/05/16 10:46 Dimorphic RBCs Not Reportable 12/05/16 10:46 Polychromasia Few 12/05/16 10:46 Hypochromasia 1+ 12/05/16 10:46 Poikilocytosis Few 12/05/16 10:46 Anisocytosis 2+ 12/05/16 10:46 Microcytosis Not Reportable 12/05/16 10:46 Macrocytosis Not Reportable 12/05/16 10:46 Spherocytes Not Reportable 12/05/16 10:46 Pappenheimer Bodies Not Reportable 12/05/16 10:46 Sickle Cells Not Reportable 12/05/16 10:46 Target Cells Not Reportable 12/05/16 10:46 Tear Drop Cells Few 12/05/16 10:46 Ovalocytes Not Reportable 12/05/16 10:46 Helmet Cells Not Reportable 12/05/16 10:46 Henriquez-[place] Bodies Not Reportable 12/05/16 10:46 [place] Rings Not Reportable 12/05/16 10:46 [place] Cells Not Reportable 12/05/16 10:46 Bite Cells Not Reportable 12/05/16 10:46 Crenated Cell Not Reportable 12/05/16 10:46 Elliptocytes Few 12/05/16 10:46 Acanthocytes (Spur) Not Reportable 12/05/16 10:46 Rouleaux Not Reportable 12/05/16 10:46 Hemoglobin C Crystals Not Reportable 12/05/16 10:46 Schistocytes Not Reportable 12/05/16 10:46 Malaria parasites Not Reportable 12/05/16 10:46 Jarad Bodies Not Reportable 12/05/16 10:46 Hem Pathologist Commnt No 12/05/16 10:46 PT 14.1 Sec. (12.2-14.9) 12/07/16 04:52 INR 1.04 (0.87-1.13) 12/07/16 04:52 APTT 46.0 Sec. (24.2-36.6) H 12/03/16 13:00 D-Dimer 787.66 ng/mlDDU (0-234) H 11/24/16 05:25 Heparin Anti-Xa Level 0.61 U.I./ml (0.3-0.7) 12/07/16 04:52 Sodium 139 mmol/L (137-145) 12/07/16 04:52 Potassium 3.9 mmol/L (3.6-5.0) 12/07/16 04:52 Chloride 99.8 mmol/L (98-107) 12/07/16 04:52 Carbon Dioxide 27 mmol/L (22-30) 12/07/16 04:52 Anion Gap 16 mmol/L 12/07/16 04:52 BUN 12 mg/dL (7-17) 12/07/16 04:52 Creatinine 3.6 mg/dL (0.7-1.2) H 12/07/16 04:52 Estimated GFR 16 ml/min 12/07/16 04:52 BUN/Creatinine Ratio 3.33 % 12/07/16 04:52 Glucose 122 mg/dL (65-100) H 12/07/16 04:52 POC Glucose 85 (70-105) 12/07/16 11:45 Uric Acid 4.3 mg/dL (3.5-7.6) 12/04/16 14:17 Calcium 7.8 mg/dL (8.4-10.2) L 12/07/16 04:52 Phosphorus 2.20 mg/dL (2.5-4.5) L 12/07/16 04:52 Iron 28 ug/dL (37-170) L 11/27/16 06:22 TIBC 87 mcg/dL (250-450) L 11/27/16 06:22 Total Bilirubin < 0.20 mg/dL (0.1-1.2) 11/23/16 23:39 AST 16 units/L (5-40) 11/23/16 23:39 ALT 25 units/L (7-56) 11/23/16 23:39 Alkaline Phosphatase 205 units/L (35-129) H 11/23/16 23:39 Total Creatine Kinase 65 units/L (30-135) 11/24/16 08:51 CK-MB (CK-2) 4.1 ng/mL (0.0-4.0) H 11/24/16 08:51 CK-MB (CK-2) Rel Index 6.3 (0-4) H 11/24/16 08:51 Troponin T 0.025 ng/mL (0.00-0.029) 11/26/16 Unknown Total Protein 6.5 g/dL (6.3-8.2) 11/23/16 23:39 Albumin 2.3 g/dL (3.9-5) L 11/23/16 23:39 Albumin/Globulin Ratio 0.5 % 11/23/16 23:39 Triglycerides 101 mg/dL (2-149) 11/24/16 05:25 Cholesterol 137 mg/dL (50-199) 11/24/16 05:25 LDL Cholesterol Direct 60 mg/dL (50-130) 11/24/16 05:25 HDL Cholesterol 57 mg/dL (40-59) 11/24/16 05:25 Cholesterol/HDL Ratio 2.40 % 11/24/16 05:25 Amylase 45 units/L (27-131) 11/23/16 23:39 Lipase 39 units/L (13-60) 11/23/16 23:39 Fluid Type Peritoneal 11/25/16 06:30 Fluid Color [place] 11/25/16 06:30 Fluid Appearance Cloudy 11/25/16 06:30 Fluid WBC 4750 /mm3 11/25/16 06:30 Fluid RBC 9600 /mm3 11/25/16 06:30 Fluid Diff Comment 11/25/16 06:30 Fluid Seg Neutrophils 90.0 % 11/25/16 06:30 Fluid Lymphocytes 5.0 % 11/25/16 06:30 Fluid Reactive Lymphs 0 % 11/25/16 06:30 Fluid Monocytes 5.0 % 11/25/16 06:30 Fluid Eosinophils 0 % 11/25/16 06:30 Fluid Basophils 0 % 11/25/16 06:30 Random Vancomycin 15.9 ug/mL (0-40.0) 12/04/16 05:08 Hepatitis A IgM Ab Non-reactive (NonReactive) 11/29/16 19:15 Hep Bs Antigen Non-reactive (Negative) 11/29/16 19:15 Hep B Core IgM Ab Non-reactive (NonReactive) 11/29/16 19:15 Hepatitis C Antibody Non-reactive (NonReactive) 11/29/16 19:15
[2016-12-07] MEDS ORDERED: HEPARIN/ 0.45% NACL-25,000 UNIT/500 ML 25,000 UNIT/500 ML BAG ONE (17:09)
[2016-12-07] MEDS: COUMADIN PO SCH (17:24)
[2016-12-07] MEDS: TYLENOL PO PRN (19:35)
[2016-12-07] MEDS: ELAVIL PO SCH (22:50)
[2016-12-08] MEDS ORDERED: AMBIEN PO ONE (00:44)
[2016-12-08] MEDS: CEPHULAC PO SCH ×2 (00:56→12:00)
[2016-12-08] MEDS: APRESOLINE PO SCH ×2 (05:39→14:00)
[2016-12-08 06:19] LABS: Hematocrit 23.8 % (30.3-42.9); Hemoglobin 7.7 gm/dl (10.1-14.3)
[2016-12-08 06:21] LABS: BUN/Creatinine Ratio 3.41; Calcium 8.1 mg/dL (8.4-10.2); Chloride 101.3 mmol/L (98-107); Potassium 4.1 mmol/L (3.6-5.0)
[2016-12-08 06:23] LABS: INR 1.16 (0.87-1.13)
[2016-12-08] MEDS ORDERED: PROCRIT SUB-Q SCH (09:03)
--- NOTE | 2016-12-08 09:05 | Progress Note ---
Assessment and Plan (1) Pulmonary embolism Current Visit: No Status: Acute Qualifiers: Pulmonary embolism type: P Chronicity: C Acute cor pulmonale presence: A Plan to address problem: Awaiting INR level to reach goal range of 2-3 before can be discharged On Heparin drip bridging with Coumadin (2) End-stage renal disease on hemodialysis Current Visit: Yes Status: Acute Plan to address problem: HD today for clearance and volume removal Peritoneal Dialysis Catheter removed on 12/02/16 due to Peritonitis On oral Levaquin 500 mg every 48 hours and Vancomycin IV being pulse dosed by pharmacy Patient is accepted at [facility] on TTS schedule at 10:45 a.m to receive outpatient dialysis treatments Fluid restriction of 1 liter per day Renally dose medications Obtain daily weights Monitor I/O's Continue on current hemodialysis regimen and adjust as needed (3) Anemia in chronic kidney disease (CKD) Current Visit: No Status: Acute Qualifiers: Chronic kidney disease stage: C Plan to address problem: will increase epogen to 20,000 units iron panel ordered (4) Hypertensive nephrosclerosis, 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 Current Visit: No Status: Acute Plan to address problem: Continue on anti-hypertensive agents (5) DM type 2 (diabetes mellitus, type 2) Current Visit: No Status: Chronic Qualifiers: Diabetes mellitus complication status: D Diabetes mellitus complication detail: D Diabetic retinopathy severity: D Proliferative retinopathy type: P Diabetes mellitus macular edema: D 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 Laterality: L Chronic kidney disease stage: C Plan to address problem: On Insulin as per primary team Subjective Date of service: 12/08/16 Principal diagnosis: Peritonitis, ESRD Interval history: denies overnight events Objective - Vital Signs Vital signs: Vital Signs - 12hr 12/07/16 12/07/16 12/08/16 22:50 23:50 05:39 Temperature 98.9 F Pulse Rate 82 80 Pulse Rate [ 82 Right From Monitor] Respiratory 16 Rate Blood Pressure 166/90 124/62 Blood Pressure 166/90 [Right Arm] O2 Sat by Pulse 93 Oximetry - General Appearance General appearance: well-nourished, obese EENT: ATNC, PERRL, mucous membranes moist Neck: no JVD, no carotid bruit Respiratory: Present: Clear to Ascultation, Normal Exam Cardiology: regular, S1S2 Gastrointestinal: normoactive bowel sounds, no tenderness, no distended, no masses, no guarding Integumentary: no rash, warm and dry Neurologic: no focal deficit, no asterixis, alert and oriented x3 Musculoskeletal: other (no edema in BLE) Psychiatric: mood/affect appropriate, cooperative - Lab 12/08/16 05:39 12/08/16 05:39 Most recent lab results Calcium 8.1 mg/dL (8.4-10.2) L 12/08/16 05:39 Phosphorus 2.20 mg/dL (2.5-4.5) L 12/07/16 04:52
[2016-12-08] MEDS: MORPHINE IV PRN (09:10)
[2016-12-08] MEDS: TOPROL XL PO SCH (09:11)
[2016-12-08] MEDS: Renal Caps PO SCH (09:11)
[2016-12-08] MEDS: ZOFRAN IV PRN (09:11)
[2016-12-08] MEDS: BENTYL PO SCH ×3 (09:12→17:10)
[2016-12-08] MEDS: NORVASC PO SCH (09:12)
[2016-12-08] MEDS: IMDUR PO SCH (09:12)
[2016-12-08] MEDS: COLCRYS PO SCH (09:16)
[2016-12-08] MEDS ORDERED: NACL 0.9 (PRIMING MACHINE ONLY DIALYSIS) MC ONE (12:46)
--- NOTE | 2016-12-08 14:40 | Discharge Summary ---
Providers - Providers Date of Admission: 11/24/16 04:57 Date of discharge: 12/08/16 Attending physician: SERJIO MIRZA 11/25/16 12:24 Consult to Physician [CONS] Routine Consulting Provider: NADIA HOLLIDAY Reason For Exam: abd pain Place consult to:: DR.C. EID Notified:: OFFICE Phone number called:: [phone] Was contact made?: Yes If yes, spoke with:: JAG Kay called:: 13:15 Comment:: JUAN JOSÉ NOTIFIED 11/25/16 13:34 Consult to Physician [CONS] Routine Consulting Provider: TAMARA ARAGON I Reason For Exam: malfunctioned PD cathter Place consult to:: DR. GARRETT Notified:: DR. GARRETT Time called:: 09:00 Comment:: SEEN PT 11/26/16 11/27/16 09:47 Consult to Physician [CONS] Routine Consulting Provider: MANNY PATRICIO Reason For Exam: permcath placement for HD initiation Place consult to:: DR. GERRY COLINDRES Notified:: CAMPBELL COLINDRES Phone number called:: [phone] Was contact made?: Yes If yes, spoke with:: SANG Kay called:: 10:25 Comment:: TYESHA NOTIFIED 11/27/16 09:48 Consult to Case Management [CONS] Routine Services Needed at Discharge: Other Notified:: COPY LEFT FOR CM Additional Physician Instructions: outpatient dialysis in [place] unit with transportation Address: [address] [place] [address] Primary care physician: CLAM DREDGER Hospitalization Condition: Fair Disposition: DC/TX-06 HOME UNDER HOME [facility] Core Measure Documentation - Palliative Care Palliative Care/ Comfort Measures: Not Applicable - Core Measures Any of the following diagnoses?: DVT/PE - VTE Discharge Requirements Deep Vein Thrombosis/Pulmonary Embolism Present on Admission: Yes Has pt received <5 days of overlap therapy or INR<2.0: Yes Anticoagulant overlap therapy prescribed at discharge: Yes Exam - Constitutional Vitals: Temp Pulse Resp BP Pulse Ox 98.4 F 77 16 128/70 93 12/08/16 12:00 12/08/16 13:15 12/08/16 12:00 12/08/16 13:15 12/07/16 23:50 General appearance: Present: no acute distress, well-nourished - EENT Eyes: Present: PERRL, EOM intact - Neck Neck: Present: supple, normal ROM - Respiratory Respiratory effort: normal Respiratory: bilateral: diminished, negative: rales, rhonchi, wheezing - Cardiovascular Rhythm: regular Heart Sounds: Present: S1 & S2 - Extremities Extremities: no ischemia, pulses intact, pulses symmetrical Peripheral Pulses: within normal limits - Abdominal General gastrointestinal: Present: soft, non-tender, non-distended, normal bowel sounds - Integumentary Integumentary: Present: clear, warm - Musculoskeletal Musculoskeletal: strength equal bilaterally - Psychiatric Psychiatric: appropriate mood/affect, cooperative - Neurologic Neurologic: CNII-XII intact Plan Activity: advance as tolerated Diet: renal Additional Instructions: Check INR during hemodialysis, target INR 2-3. Home health nurse to check INRs frequently. If you have bleeding, stopped Coumadin and Lovenox and contact M.D. Renal/hemodialysis per schedule. If your INR is more than 3, stopped Coumadin and Lovenox and contact M.D. Patient strongly advised to comply with medications, hemodialysis, and blood thinners, and checking of INR Follow up with: PRIMARY CARE, [Primary Care Provider] - 3-5 Days Forms: Warfarin Discharge Instruction Prescriptions: Albuterol Sulfate [Ventolin HFA] 2 puff IH Q4H PRN #1 pump PRN Reason: Shortness Of Breath Amitriptyline [Elavil] 75 mg PO DAILY #30 tablet Cetirizine HCl [24Hour Allergy] 10 mg PO DAILY #30 tablet Colchicine [Colcrys] 0.6 mg PO DAILY #30 tablet Doxepin [SINEquan] 25 mg PO DAILY #30 capsule Eletriptan HBr [Relpax] 20 mg PO Q4H #30 tablet hydrALAZINE [Apresoline TAB] 50 mg PO Q8HR #90 tablet Insulin Detemir [Levemir] 20 units SUB-Q QHS #1 vial ISOSORBIDE MONOnitrate [Imdur ER] 60 mg PO DAILY #30 tablet Levofloxacin [Levaquin TAB] 500 mg PO Q48HR #7 tablet Levothyroxine [Synthroid] 150 mcg PO DAILY@0600 #30 tablet Methadone [Dolophine] 10 mg PO TID #90 tablet Metoprolol [Lopressor TAB] 100 mg PO DAILY #30 tablet Omeprazole 40 mg PO DAILY #30 capsule. Rosuvastatin (Nf) [Crestor] 10 mg PO DAILY #30 tablet Tizanidine HCl [Zanaflex] 2 mg PO DAILY #30 capsule Topiramate [Topamax] 100 mg PO DAILY #30 tablet Warfarin [Coumadin] 10 mg PO QDAY #7 tablet
[2016-12-08 16:04] VITALS: BP 120/81
[2016-12-08] MEDS: HEPARIN IV PRN (16:47)
[2016-12-08] MEDS ORDERED: COUMADIN PO SCH (17:00)
[2016-12-08] MEDS: COUMADIN PO SCH (17:09)
== END 2016-12-08 17:37 | disposition home health service (06) | DRG 981 ==
LOC: ED 22:50 → 3A 11-24 04:57
PROVIDERS: ADMIT Internal Medicine; ATTEND Internal Medicine
PROC: 02H633Z Insertion of Infusion Device into Right Atrium, Percutaneous Approach (ICD-10-PCS; 2016-11-29)
PROC: B2141ZZ Fluoroscopy of Right Heart using Low Osmolar Contrast (ICD-10-PCS; 2016-11-29)
PROC: 0JH63XZ Insertion of Tunneled Vascular Access Device into Chest Subcutaneous Tissue and Fascia, Percutaneous Approach (ICD-10-PCS; 2016-11-29)
PROC: B244YZZ Ultrasonography of Right Heart using Other Contrast (ICD-10-PCS; 2016-11-29)
PROC: 5A1D60Z (ICD-10-PCS; 2016-12-01)
PROC: 0WPG03Z Removal of Infusion Device from Peritoneal Cavity, Open Approach (ICD-10-PCS; principal; 2016-12-02)
DX: T82.41XA Breakdown (mechanical) of vascular dialysis catheter, initial encounter (principal); A41.9 Sepsis, unspecified organism; N18.6 End stage renal disease; K65.9 Peritonitis, unspecified; G93.40 Encephalopathy, unspecified; I12.0 Hypertensive chronic kidney disease with 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; T82.7XXA Infection and inflammatory reaction due to other cardiac and vascular devices, implants and grafts, initial encounter; E11.65 Type 2 diabetes mellitus with hyperglycemia; E87.5 Hyperkalemia; E78.5 Hyperlipidemia, unspecified; E03.9 Hypothyroidism, unspecified; M10.9 Gout, unspecified; D63.1 Anemia in chronic kidney disease; E11.22 Type 2 diabetes mellitus with diabetic chronic kidney disease; Y84.8 Other medical procedures as the cause of abnormal reaction of the patient, or of later complication, without mention of misadventure at the time of the procedure; J45.909 Unspecified asthma, uncomplicated; E11.649 Type 2 diabetes mellitus with hypoglycemia without coma; G43.909 Migraine, unspecified, not intractable, without status migrainosus; E78.00 Pure hypercholesterolemia, unspecified; E66.9 Obesity, unspecified; Z90.49 Acquired absence of other specified parts of digestive tract; Z90.5 Acquired absence of kidney; Z86.718 Personal history of other venous thrombosis and embolism; Y92.89 Other specified places as the place of occurrence of the external cause; Z86.711 Personal history of pulmonary embolism; Z98.51 Tubal ligation status; Z99.2 Dependence on renal dialysis; Z82.49 Family history of ischemic heart disease and other diseases of the circulatory system; Z79.899 Other long term (current) drug therapy
CPT/HCPCS: 36415; 36558; 70450; 71020; 74176; 76937; 77001; 80048; 80053; 80061; 80074; 80202; 82150; 82550; 82553; 82962; 83550; 83690; 84100; 84484; 84550; 85007; 85014; 85018; 85025; 85049; 85379; 85520; 85610; 85730; 87076; 87116; 87186; 89051; 90732; 93005; 93010; 96365; 96375; C1750; J0610; J0885; J1100; J1170; J1644; J1815; J1956; J2250; J2270; J2370; J2405; J2704; J2710; J2997; J3010; J3370; J7030; J7040

== ENCOUNTER 2017-02-26 04:51 | Emergency (ER) | payer MEDICARE ==
[2017-02-26 05:42] LABS: Basophils % (Auto) 0.7 % (0.0-1.8); Eosinophils % (Auto) 3.5 % (0.0-4.3); Hematocrit 33.3 % (30.3-42.9); Hemoglobin 10.6 gm/dl (10.1-14.3); Mean Corpuscular HGB Conc 32 % (30-34); Mean Corpuscular Hemoglobin 30 pg (28-32); Mean Corpuscular Volume 94 fl (79-97); Platelet Count 245 K/mm3 (140-440); Red Blood Count 3.56 M/mm3 (3.65-5.03); Red Cell Distribution Width 17.3 % (13.2-15.2); White Blood Count 3.1 K/mm3 (4.5-11.0)
[2017-02-26 06:03] LABS: BUN/Creatinine Ratio 2.76; Potassium 3.5 mmol/L (3.6-5.0)
[2017-02-26] MEDS ORDERED: CATAPRES PO ONE (13:00)
[2017-02-26] MEDS ORDERED: MORPHINE IM ONE (13:01)
--- NOTE | 2017-02-26 13:05 | Emergency Department Report ---
ED General Adult HPI - General Chief complaint: Pain General Stated complaint: HAVING PAIN ALL OVER BODY FOR PAST 4 YRS. Time Seen by Provider: 02/26/17 12:45 Source: patient, RN notes reviewed, old records reviewed Mode of arrival: Wheelchair Limitations: No Limitations - History of Present Illness -: Gradual Improves with: none Worsens with: none Associated Symptoms: denies other symptoms. denies: confusion, chest pain, cough, diaphoresis, fever/chills - Related Data Previous Rx's Medication Instructions Recorded Last Taken Type Lactulose 20 gm PO DAILY #900 ml 11/19/16 Unknown Rx Albuterol Sulfate [Ventolin HFA] 2 puff IH Q4H PRN #1 pump 12/03/16 Unknown Rx Amitriptyline [Elavil] 75 mg PO DAILY #30 tablet 12/03/16 Unknown Rx Cetirizine HCl [24Hour Allergy] 10 mg PO DAILY #30 tablet 12/03/16 Unknown Rx Colchicine [Colcrys] 0.6 mg PO DAILY #30 tablet 12/03/16 Unknown Rx Doxepin [SINEquan] 25 mg PO DAILY #30 capsule 12/03/16 Unknown Rx Eletriptan HBr [Relpax] 20 mg PO Q4H #30 tablet 12/03/16 Unknown Rx ISOSORBIDE MONOnitrate [Imdur ER] 60 mg PO DAILY #30 tablet 12/03/16 Unknown Rx Insulin Detemir [Levemir] 20 units SUB-Q QHS #1 vial 12/03/16 Unknown Rx Levofloxacin [Levaquin TAB] 500 mg PO Q48HR #7 tablet 12/03/16 Unknown Rx Levothyroxine [Synthroid] 150 mcg PO DAILY@0600 #30 tablet 12/03/16 Unknown Rx Methadone [Dolophine] 10 mg PO TID #90 tablet 12/03/16 Unknown Rx Metoprolol [Lopressor TAB] 100 mg PO DAILY #30 tablet 12/03/16 Unknown Rx Omeprazole 40 mg PO DAILY #30 capsule. 12/03/16 Unknown Rx Rosuvastatin (Nf) [Crestor] 10 mg PO DAILY #30 tablet 12/03/16 Unknown Rx Tizanidine HCl [Zanaflex] 2 mg PO DAILY #30 capsule 12/03/16 Unknown Rx Topiramate [Topamax] 100 mg PO DAILY #30 tablet 12/03/16 Unknown Rx Warfarin [Coumadin] 10 mg PO QDAY #7 tablet 12/03/16 Unknown Rx hydrALAZINE [Apresoline TAB] 50 mg PO Q8HR #90 tablet 12/03/16 Unknown Rx Enoxaparin [Lovenox] 80 mg SQ DAILY #10 syringe 12/08/16 Unknown Rx Warfarin [Coumadin] 2.5 mg PO DAILY@1700 #7 tablet 12/08/16 Unknown Rx Warfarin [Coumadin] 10 mg PO DAILY@1700 #7 tablet 12/08/16 Unknown Rx Allergies Allergy/AdvReac Type Severity Reaction Status Date / Time hydrocodone bitartrate Allergy Hives Verified 10/31/16 00:57 [From Lortab] acetaminophen [From Percocet] AdvReac Hives Verified 10/31/16 00:57 codeine AdvReac Swelling Verified 10/31/16 00:57 oxycodone HCl [From Percocet] AdvReac Hives Verified 10/31/16 00:57 Penicillins AdvReac Swelling Verified 10/31/16 00:57 ED Review of Systems ROS: Stated complaint: HAVING PAIN ALL OVER BODY FOR PAST 4 YRS. Other details as noted in HPI Comment: Unobtainable due to pts medical conditions Constitutional: no symptoms reported, see HPI. denies: chills, fever Eyes: as per HPI, eye pain ENT: as per HPI. denies: ear pain, throat pain, dental pain Respiratory: no symptoms reported, see HPI. denies: cough, orthopnea, shortness of breath Cardiovascular: as per HPI. denies: chest pain, palpitations, dyspnea on exertion, orthopnea, edema, syncope, paroxysmal nocturnal dyspnea Endocrine: no symptoms reported, see HPI. denies: excessive sweating, flushing , intolerance to cold, intolerance to heat, increased hunger, increased thirst, increased urine, unexplained weight gain, unexplained weight loss Gastrointestinal: as per HPI. denies: abdominal pain, nausea, vomiting, diarrhea, constipation, hematemesis, melena Genitourinary: as per HPI. denies: urgency, dysuria, frequency, hematuria, discharge Musculoskeletal: as per HPI. denies: back pain, joint swelling, arthralgia Skin: as per HPI. denies: rash, lesions, change in color, change in hair/nails , pruritus Neurological: as per HPI. denies: headache, weakness, numbness, paresthesias, confusion Psychiatric: as per HPI. denies: anxiety, depression, auditory hallucinations, visual hallucinations, homicidal thoughts Hematological/Lymphatic: as per HPI. denies: easy bleeding, easy bruising, swollen glands ED Past Medical Hx - Past Medical History Previous Medical History?: Yes Hx Hypertension: Yes Hx Heart Attack/AMI: No Hx Congestive Heart Failure: No Hx Diabetes: Yes Hx Deep Vein Thrombosis: Yes Hx Liver Disease: No Hx Renal Disease: Yes (rt nephrectomy at 14 yo) Hx Sickle Cell Disease: No Hx Headaches / Migraines: Yes Hx Seizures: No Hx Asthma: Yes (inhaler prn, last used 1 m ago) Hx COPD: No Hx HIV: No Additional medical history: gout hyperthyroidism - Surgical History Past Surgical History?: Yes Hx Open Heart Surgery: No Hx Pacemaker: No Hx Internal Defibrillator: No Hx Cholecystectomy: Yes Additional Surgical History: umbilical hernia repair x2. tonsilectomy. left foot fracture/[place]. right kidney removal - Social History Smoking Status: Never Smoker Substance Use Type: None - Medications Home Medications: Home Medications Medication Instructions Recorded Confirmed Last Taken Type Lactulose 20 gm PO DAILY #900 ml 11/19/16 11/24/16 Unknown Rx Albuterol Sulfate [Ventolin HFA] 2 puff IH Q4H PRN #1 pump 12/03/16 Unknown Rx Amitriptyline [Elavil] 75 mg PO DAILY #30 tablet 12/03/16 Unknown Rx Cetirizine HCl [24Hour Allergy] 10 mg PO DAILY #30 tablet 12/03/16 Unknown Rx Colchicine [Colcrys] 0.6 mg PO DAILY #30 tablet 12/03/16 Unknown Rx Doxepin [SINEquan] 25 mg PO DAILY #30 capsule 12/03/16 Unknown Rx Eletriptan HBr [Relpax] 20 mg PO Q4H #30 tablet 12/03/16 Unknown Rx ISOSORBIDE MONOnitrate [Imdur ER] 60 mg PO DAILY #30 tablet 12/03/16 Unknown Rx Insulin Detemir [Levemir] 20 units SUB-Q QHS #1 vial 12/03/16 Unknown Rx Levofloxacin [Levaquin TAB] 500 mg PO Q48HR #7 tablet 12/03/16 Unknown Rx Levothyroxine [Synthroid] 150 mcg PO DAILY@0600 #30 tablet 12/03/16 Unknown Rx Methadone [Dolophine] 10 mg PO TID #90 tablet 12/03/16 Unknown Rx Metoprolol [Lopressor TAB] 100 mg PO DAILY #30 tablet 12/03/16 Unknown Rx Omeprazole 40 mg PO DAILY #30 capsule. 12/03/16 Unknown Rx Rosuvastatin (Nf) [Crestor] 10 mg PO DAILY #30 tablet 12/03/16 Unknown Rx Tizanidine HCl [Zanaflex] 2 mg PO DAILY #30 capsule 12/03/16 Unknown Rx Topiramate [Topamax] 100 mg PO DAILY #30 tablet 12/03/16 Unknown Rx Warfarin [Coumadin] 10 mg PO QDAY #7 tablet 12/03/16 Unknown Rx hydrALAZINE [Apresoline TAB] 50 mg PO Q8HR #90 tablet 12/03/16 Unknown Rx Enoxaparin [Lovenox] 80 mg SQ DAILY #10 syringe 12/08/16 Unknown Rx Warfarin [Coumadin] 2.5 mg PO DAILY@1700 #7 tablet 12/08/16 Unknown Rx Warfarin [Coumadin] 10 mg PO DAILY@1700 #7 tablet 12/08/16 Unknown Rx ED Physical Exam - General Limitations: No Limitations General appearance: alert, other (RESTING QUIETLY WHEN PROVIDER NOT IN ROOM. WHEN ENTERING ROOM SHE MOANS IN PAIN. STATES SHE HURTS EVERYWHERE. ) - Head Head exam: Present: atraumatic - Eye Eye exam: Present: PERRL - ENT ENT exam: Present: mucous membranes moist - Neck Neck exam: Present: normal inspection - Respiratory Respiratory exam: Present: normal lung sounds bilaterally. Absent: respiratory distress, wheezes, rales, stridor - Cardiovascular Cardiovascular Exam: Present: regular rate. Absent: normal rhythm, bradycardia , tachycardia, irregular rhythm - GI/Abdominal GI/Abdominal exam: Present: soft, normal bowel sounds. Absent: distended, tenderness, guarding, rebound, rigid, diminished bowel sounds - Rectal Rectal exam: Present: deferred - External exam: Present: normal external exam. Absent: erythema, swelling, lesions, lacerations, ecchymosis - Extremities Exam Extremities exam: Present: normal inspection - Back Exam Back exam: Present: normal inspection - Neurological Exam Neurological exam: Present: alert, oriented X3 - Psychiatric Psychiatric exam: Present: normal affect, normal mood, other (DRUG SEEKING BEHAVIOR, NO FALL OR TRAUMA. GEN PAIN. HAS BEEN HERE SINCE 0300 AND HAS NOT TAKEN AM MEDS) ED Course Vital Signs 02/26/17 04:59 Temperature 98.4 F Pulse Rate 94 H Respiratory 18 Rate Blood Pressure 156/107 O2 Sat by Pulse 100 Oximetry - Reevaluation(s) Reevaluation #1: 02/26/17 13:12 PT HERE BC SHE IS OUT OF HER METHADONE AND IS HAVING HER CHRONIC PAIN PAIN MEDS ARE GIVEN BY DR FINNEY SHE TOOK TO PHARM AND THEY SAID THEY ARE OUT SHE SAID ALL LOCAL PHARMS ARE OUT DISCUSSED HER COMPLIANCE W MEDS AND NEED FOR FU W PAIN MD VSS NAD LABS NOTED HD DUE TODAY SHE HAS LONG LIST OF ALLERGIES AND CAN ONLY TAKE MORPHINE AND METHADONE. DISCUSSED WITH DR DAMICO, SOURAV MEDICATE X 1 AND CAITLIN FOR PAIN MD FOLLOW UP PT WANTING BLANKET AND FOOD. ED Medical Decision Making - Lab Data Result diagrams: 02/26/17 05:16 02/26/17 05:16 - Medical Decision Making VSS. LABS NOTED OUT OF METHADONE WANTING RX FROM ER - Differential Diagnosis AC PAIN. GENERALIZED OUT OF METHADONE Critical care attestation.: If time is entered above; I have spent that time in minutes in the direct care of this critically ill patient, excluding procedure time. ED Disposition Clinical Impression: Chronic pain syndrome, Chronic kidney disease, stage 5, Diabetes, HTN ( hypertension), Drug-seeking behavior Disposition: DC-01 TO HOME OR SELFCARE Is pt being admited?: No Does the pt Need Aspirin: No Condition: Stable Instructions: Diabetes Mellitus Type 2 in Adults (ED), Chronic Back Pain (ED) Additional Instructions: SEE YOUR PCP AND PAIN MD FOR YOUR METHADONE WE DO NOT GIVE METHADONE IN ER FOLLOW FOR HD SCHEDULED TAKE YOUR HOME MEDS WRITTEN BY [facility] Referrals: PRIMARY CARE, [Primary Care Provider] - 3-5 Days Time of Disposition: 13:09
[2017-02-26 13:48] VITALS: BP 160/105
== END 2017-02-26 15:15 | disposition home or self-care (01) ==
LOC: ED 04:51
DX: M79.1 Myalgia (principal); G89.4 Chronic pain syndrome; Z76.5 Malingerer [conscious simulation]; E11.22 Type 2 diabetes mellitus with diabetic chronic kidney disease; I12.0 Hypertensive chronic kidney disease with 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; N18.5 Chronic kidney disease, stage 5
CPT/HCPCS: 36415; 80048; 85025; 96372; 99283; J2270

== ENCOUNTER 2017-04-04 05:49 | Day surgery (SDC) | payer MEDICARE ==
[2017-04-04] MEDS ORDERED: NACL 0.9% 1000 ML 1,000 ML IV SCH (06:00)
[2017-04-04] MEDS ORDERED: VANCOMYCIN/NS 1 GM/250 ML 1 GM/250 ML BAG IV NR (06:00)
[2017-04-04] MEDS ORDERED: VERSED IV NR (06:00)
[2017-04-04] MEDS ORDERED: PEPCID PO NR (06:00)
[2017-04-04] MEDS ORDERED: HEPARIN 10,000 UNITS/10 ML ONE (06:55)
[2017-04-04] MEDS ORDERED: NACL 0.9% 500 ML 500 ML ONE (06:56)
[2017-04-04] MEDS ORDERED: MARCAINE 0.5% 30 ML INFILTRATI ONE (06:56)
[2017-04-04] MEDS ORDERED: NITROGLYCERIN SYRINGE 0 ML ONE (06:57)
[2017-04-04] MEDS ORDERED: NITROGLYCERIN SYRINGE 3 ML ONE (06:57)
[2017-04-04] MEDS ORDERED: PAPAVERINE ONE (06:57)
[2017-04-04] MEDS ORDERED: PROTAMINE SULFATE ONE (06:58)
[2017-04-04] MEDS ORDERED: SODIUM BICARBONATE ONE ×2 (06:58)
[2017-04-04] MEDS ORDERED: XYLOCAINE 1%/ EPI 1:100,000 INFILTRATI ONE (06:59)
[2017-04-04] MEDS ORDERED: RIFADIN ONE (07:08)
--- NOTE | 2017-04-04 07:10 | Anesthesia Consultation ---
Anesthesia Consult and Med Hx Date of service: 04/04/17 - Airway Anesthetic Teeth Evaluation: Good ROM Head & Neck: Adequate Mental/Hyoid Distance: Adequate Mallampati Class: Class II Intubation Access Assessment: Good - Pulmonary Exam CTA: Yes - Cardiac Exam Cardiac Exam: RRR - Pre-Operative Health Status ASA Pre-Surgery Classification: ASA4 Proposed Anesthetic Plan: General - Pulmonary Hx Smoking: No Hx Asthma: Yes (inhaler prn, last used 1 m ago) COPD: No Hx Pneumonia: No - Cardiovascular System Hx Hypertension: Yes Hx Heart Attack/AMI: No Hx Angina: No Hx Pacemaker: No Hx Internal Defibrillator: No Hx Peripheral Vascular Disease: No (blood clot on heparin drip) - Central Nervous System Hx Seizures: No CVA: No Hx Back Pain: No (gout) Hx Psychiatric Problems: No - Endocrine Hx Renal Disease: Yes (rt nephrectomy at 14 yo) Hx End Stage Renal Disease: Yes (dialyse thur PD cath) Hx Liver Disease: No Hx Non-Insulin Dependent Diabetes: Yes Hx Hypothyroidism: Yes Hx Hyperthyroidism: Yes - Hematic Hx Anemia: Yes Hx Sickle Cell Disease: No - Other Systems Hx Obesity: Yes - Additional Comments Anesthesia Medical History Comments: NAC previously.
--- NOTE | 2017-04-04 07:11 | Anesthesia Day of Surgery ---
Anesthesia Day of Surgery - Day of Surgery Patient Examined: Yes Patient H&P Reviewed: Yes Patient is NPO: Yes Beta Blockers: Yes
[2017-04-04] MEDS ORDERED: PERCOCET 5/325 PO PRN (07:14)
[2017-04-04] MEDS ORDERED: DIPRIVAN 10 MG/ML IV ONE (07:24)
[2017-04-04] MEDS ORDERED: XYLOCAINE MPF 2% ONE (07:24)
[2017-04-04] MEDS ORDERED: DILAUDID ONE ×2 (07:25→10:35)
[2017-04-04] MEDS ORDERED: ZOFRAN ONE (07:26)
[2017-04-04] MEDS ORDERED: DECADRON ONE (07:26)
[2017-04-04] MEDS ORDERED: LOPRESSOR PO ONE (07:30)
[2017-04-04] MEDS ORDERED: ZOFRAN IV PRN (07:30)
[2017-04-04 07:40] LABS: Calcium 8.9 mg/dL (8.4-10.2); Chloride 97.2 mmol/L (98-107); Potassium 5.2 mmol/L (3.6-5.0)
[2017-04-04] MEDS ORDERED: RIFADIN 600 MG in NACL 0.9% 50 ML IR ONE (08:39)
[2017-04-04] MEDS ORDERED: MARCAINE 0.5% INFILTRATI ONE (08:39)
[2017-04-04] MEDS ORDERED: NACL 0.9% IR ONE (08:39)
[2017-04-04] MEDS ORDERED: HEPARIN 10,000 UNITS/10 ML 2,000 UNIT in NACL 0.9% 500 ML 500 ML IR ONE (08:39)
--- NOTE | 2017-04-04 10:15 | Short Stay Summary ---
Short Stay Documentation Date of service: 04/04/17 Narrative H&P: See H&P - History H&P: obtained from office - Allergies and Medications Current Medications: Allergies hydrocodone bitartrate [From Lortab] Allergy (Verified 10/31/16 00:57) Hives acetaminophen [From Percocet] Adverse Reaction (Verified 10/31/16 00:57) Hives codeine Adverse Reaction (Verified 10/31/16 00:57) Swelling oxycodone HCl [From Percocet] Adverse Reaction (Verified 10/31/16 00:57) Hives Penicillins Adverse Reaction (Verified 10/31/16 00:57) Swelling Home Medications Medication Instructions Recorded Confirmed Last Taken Type Lactulose 20 gm PO DAILY #900 ml 11/19/16 04/04/17 04/02/17 09:00 Rx Albuterol Sulfate [Ventolin HFA] 2 puff IH Q4H PRN #1 pump 12/03/16 02/26/17 09:00 Rx Amitriptyline [Elavil] 75 mg PO DAILY #30 tablet 12/03/16 02/26/17 04/02/17 09: 00 Rx Cetirizine HCl [24Hour Allergy] 10 mg PO DAILY #30 tablet 12/03/16 02/26/17 09:00 Rx Colchicine [Colcrys] 0.6 mg PO DAILY #30 tablet 12/03/16 02/26/17 04/02/17 09: 00 Rx Eletriptan HBr [Relpax] 20 mg PO Q4H #30 tablet 12/03/16 02/26/17 04/02/17 09: 00 Rx ISOSORBIDE MONOnitrate [Imdur ER] 60 mg PO DAILY #30 tablet 12/03/16 02/26/17 09:00 Rx Insulin Detemir [Levemir] 20 units SUB-Q QHS #1 vial 12/03/16 04/04/17 04/02/17 21:00 Rx Levofloxacin [Levaquin TAB] 500 mg PO Q48HR #7 tablet 12/03/16 02/26/17 09:00 Rx Levothyroxine [Synthroid] 150 mcg PO DAILY@0600 #30 tablet 12/03/16 02/26/17/17 09:00 Rx Methadone [Dolophine] 10 mg PO TID #90 tablet 12/03/16 04/04/17 04/02/17 09:00 Rx Metoprolol [Lopressor TAB] 100 mg PO DAILY #30 tablet 12/03/16 04/04/17 09:00 Rx Omeprazole 40 mg PO DAILY #30 capsule. 12/03/16 04/04/17 04/02/17 09:00 Rx Tizanidine HCl [Zanaflex] 2 mg PO DAILY #30 capsule 12/03/16 02/26/17 04/02/17 09:00 Rx Warfarin [Coumadin] 10 mg PO QDAY #7 tablet 12/03/16 04/04/17 Unknown Rx hydrALAZINE [Apresoline TAB] 50 mg PO Q8HR #90 tablet 12/03/16 02/26/17 09:00 Rx Enoxaparin [Lovenox] 80 mg SQ DAILY #10 syringe 12/08/16 02/26/17 03/30/17 09: 00 Rx Warfarin [Coumadin] 2.5 mg PO DAILY@1700 #7 tablet 12/08/16 02/26/17 04/02/17 09 :00 Rx Warfarin [Coumadin] 10 mg PO DAILY@1700 #7 tablet 12/08/16 04/04/17 Unknown Rx Active Medications Famotidine (Pepcid) 20 mg PO PREOP NR Stop: 04/04/17 23:59 Last Admin: 04/04/17 07:16 Dose: 20 mg Hydromorphone HCl (Dilaudid) 0.25 mg IV Q10MIN PRN PRN Reason: Pain, Moderate (4-6) Stop: 04/04/17 15:00 Sodium Chloride (Nacl 0.9% 1000 Ml) 1,000 mls @ 42 mls/hr IV DIRECT EMI Last Admin: 04/04/17 07:16 Dose: 42 mls/hr Vancomycin HCl (Vancomycin/Ns 1 Gm/250 Ml) 1 gm in 250 mls @ 166.667 mls/hr IV PREOP NR PRN Reason: Protocol Stop: 04/04/17 23:00 Last Admin: 04/04/17 07:55 Dose: 166.667 mls/hr Midazolam HCl (Versed) 2 mg IV PREOP NR Stop: 04/04/17 23:59 Last Admin: 04/04/17 07:17 Dose: 2 mg - Brief post op/procedure progress note Date of procedure: 04/04/17 Pre-op diagnosis: End-Stage Renal Disease Post-op diagnosis: same Procedure: Creation of Left Arm Axillary Artery to Axillary Vein Loop Graft with 4-7 Step Propaten Graft Anesthesia: GETA Findings: Brachial artery at the antecubital crease to small for creation of a forearm loop graft. Surgeon: GERRY COLINDRES Estimated blood loss: minimal Pathology: none - Disposition Condition at discharge: Good Disposition: DC-01 TO HOME OR SELFCARE Short Stay Discharge Plan Activity: other (no heavy lifting with his left arm) Wound: open to air, keep clean and dry, other (okay to wash the wound with soap and water but do not soak in water) Follow up with: VALENTIN LI MD [Primary Care Provider] - 7 Days GERRY COLINDRES MD [Staff Physician] - 14 Days
--- NOTE | 2017-04-04 10:20 | Operative Report ---
Operative Report Operative Report: Date of Procedure: 04/04/2017 Pre-operative Diagnosis: End-Stage Renal Disease Post-operative Diagnosis: Same Procedure(s): 1. The Left Axillary Artery to Axillary Vein Arteriovenous Loop Graft with 4-7 Propaten Step Graft Surgeon: Shashi Lujan M.D. Public Relations Account Supervisor: Desean Anesthesia: Gen. endotracheal anesthesia EBL: Minimal Counts: Correct Complications: None Condition: Stable Findings: Successful creation of left arm AV graft with palpable thrill within the case. Specimen: None Indication: The patient is a 51-year-old female with history of end-stage renal disease was currently on hemodialysis through a right internal jugular permacath. She is in need of long-term access and had a vein size in the demonstrated her veins were too small for creation of a fistula. She therefore will require a graft. She was given the risks, benefits, and alternative procedures and consented to the procedure. Description of Procedure: The patient was brought to the operating room and laid in supine position. After general endotracheal anesthesia was achieved the left arm was prepped and draped in normal sterile fashion. I initially began with a transverse incision below the antecubital crease and carried this down to the brachial artery and vein using sharp dissection. Evaluation of the brachial artery demonstrated that it was likely too small for creation of a forearm loop graft so I decided to create an upper arm loop graft. A longitudinal incision was graded on the medial aspect of the arm and carried down to the axillary vein using sharp dissection. This was dissected out circumferentially and the [place] was turned to the axillary artery. Axillary artery was dissected circumferentially and controlled with 2 vessels. I then use a Erin-Wick tunneler to create a tunnel and pulled the 4-7 Propaten Step Graft through the tunnel with the 4 mm portion of the graft on the medial aspect of the arm and the 7 mm portion anterolateral. A counterincision was created in the mid arm to assist with pulling the graft through the tunnel. I then put the vessel loops on tension to control flow in the axillary artery and created an arteriotomy using 11 blade and Justice scissors. I then created an end-to-side anastomosis using a 6- 0 Prolene in running fashion. After completing the anastomosis and released the vessel loops allow flow into the graft which had excellent flow and then I reclamped the graft near the arterial anastomosis. I then cut the venous portion of the graft to length and beveled and then controlled the axillary vein with a Satinsky clamp. I created a anatomy using 11 blade Justice scissors and the greater end-to-side anastomosis using a 6-0 Prolene in running fashion. Prior to completing the anastomosis as well as the vein as well as the arterial inflow of the graft and then reclamped the graft vein and flushed venotomy with heparinized saline. I then completed the anastomosis and removed all clamps allow flow into the graft was an excellent thrill. Hemostasis was achieved with a combination of clot and direct pressure. Once hemostasis was achieved all incisions were anesthetized with Marcaine and then closed in 2 layers using a 3-0 Vicryl in a running fashion the deep dermal layer and a 4-0 Monocryl in running fashion subcuticular and then dressed with Surgicel. The patient tolerated the procedure well. All sponge, needle, and instrument counts were correct. The patient was taken to recovery in stable condition.
[2017-04-04] MEDS: DILAUDID IV PRN ×4 (10:35→11:10)
[2017-04-04] MEDS ORDERED: PERCOCET 5/325 ONE (10:43)
--- NOTE | 2017-04-04 10:43 | Post Anesthesia Evaluation ---
- Post Anesthesia Evaluation Patient Participated: Yes Airway Patent: Yes Stable Respiratory Function: Yes Temp > 96.8F: Yes Pain Manageable: Yes Adequeate Hydration: Yes Anesthesia Complications: No
[2017-04-04 12:38] VITALS: BP 139/100
[2017-04-04] MEDS ORDERED: DILAUDID IV ONE (12:48)
== END 2017-04-04 13:17 | disposition home or self-care (01) ==
LOC: OR 05:49
PROVIDERS: ATTEND Surgery Vascular Surgery
DX: E11.22 Type 2 diabetes mellitus with diabetic chronic kidney disease (principal); N18.6 End stage renal disease; I12.0 Hypertensive chronic kidney disease with 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; D64.9 Anemia, unspecified; E78.00 Pure hypercholesterolemia, unspecified; Z79.01 Long term (current) use of anticoagulants; J45.909 Unspecified asthma, uncomplicated; Z98.51 Tubal ligation status; Z90.49 Acquired absence of other specified parts of digestive tract; Z98.890 Other specified postprocedural states; Z88.0 Allergy status to penicillin; Z86.718 Personal history of other venous thrombosis and embolism; Z88.6 Allergy status to analgesic agent; Z88.8 Allergy status to other drugs, medicaments and biological substances; Z79.4 Long term (current) use of insulin
CPT/HCPCS: 36415; 36830; 80048; 82962; C1757; C1768; J1100; J1170; J1644; J2250; J2405; J2704; J3370; J3490; J7030; J7040; J2440; J2720

== ENCOUNTER 2017-05-11 03:14 | Inpatient (IN) | payer MEDICARE ==
[2017-05-11 03:57] LABS: Basophils % (Auto) 0.9 % (0.0-1.8); Eosinophils % (Auto) 2.7 % (0.0-4.3); Hemoglobin 10.4 gm/dl (10.1-14.3); Mean Corpuscular HGB Conc 32 % (30-34); Mean Corpuscular Hemoglobin 30 pg (28-32); Mean Corpuscular Volume 94 fl (79-97); Platelet Count 180 K/mm3 (140-440); Red Blood Count 3.42 M/mm3 (3.65-5.03); Red Cell Distribution Width 19.4 % (13.2-15.2); White Blood Count 5.4 K/mm3 (4.5-11.0)
[2017-05-11 04:17] LABS: Albumin 4.4 g/dL (3.9-5); Albumin/Globulin Ratio 1.2 %; Bilirubin,Total 0.4 mg/dL (0.1-1.2); Calcium 8.5 mg/dL (8.4-10.2); Chloride 87.2 mmol/L (98-107); Potassium 4.8 mmol/L (3.6-5.0)
[2017-05-11] MEDS ORDERED: ZOFRAN IV ONE (09:43)
[2017-05-11] MEDS ORDERED: SUBLIMAZE IV ONE (09:43)
[2017-05-11 09:45] LABS: Bilirubin,Urine NEG (Negative); Blood,Urine NEG (Negative); Ketones,Urine NEG (Negative); Leukocyte Esterase,Urine NEG (Negative); Nitrite,Urine NEG (Negative); Urobilinogen,Urine < 2.0 mg/dL (<2.0)
[2017-05-11 09:46] LABS: Protein,Urine >500 mg/dL (Negative)
--- NOTE | 2017-05-11 09:55 | Emergency Department Report ---
HPI - General Chief Complaint: Rectal Pain Time Seen by Provider: 05/11/17 09:36 - HPI HPI: Room 1 The patient is a 51-year-old female presented with a chief complaint of abdominal pain. The patient states she came to the emergency department because she developed blood in her stool, and rectal pain in addition to abdominal pain since yesterday. Patient states her rectal pain feels like her hemorrhoids. Patient also complains of chronic pain in her "bones." She does admit to nausea but denies vomiting or diarrhea. Patient missed a subjective fever at home. Patient gives her pain a score of 50/10. The patient has a history of end-stage renal disease and was last dialyzed 05/10/2017 Location: Abdomen, rectum Duration: 2 days Quality: Pain Severity: 50/10 Modifying factors: [see above] Context: [see above] Mode of transportation: [not driving] ED Past Medical Hx - Past Medical History Previous Medical History?: Yes Hx Hypertension: Yes Hx Diabetes: Yes Hx Deep Vein Thrombosis: Yes Hx Renal Disease: Yes (rt nephrectomy at 14 yo) Hx Headaches / Migraines: Yes Hx Asthma: Yes (inhaler prn, last used 1 m ago) Additional medical history: gout hyperthyroidism - Surgical History Past Surgical History?: Yes Hx Cholecystectomy: Yes Additional Surgical History: umbilical hernia repair x2. tonsilectomy. left foot fracture/magdalena. right kidney removal - Family History Family history: no significant - Social History Smoking Status: Never Smoker - Medications Home Medications: Home Medications Medication Instructions Recorded Confirmed Last Taken Type Lactulose 20 gm PO DAILY #900 ml 11/19/16 04/04/17 04/02/17 09:00 Rx Albuterol Sulfate [Ventolin HFA] 2 puff IH Q4H PRN #1 pump 12/03/16 02/26/17 09:00 Rx Amitriptyline [Elavil] 75 mg PO DAILY #30 tablet 12/03/16 02/26/17 04/02/17 09: 00 Rx Cetirizine HCl [24Hour Allergy] 10 mg PO DAILY #30 tablet 12/03/16 02/26/17 09:00 Rx Colchicine [Colcrys] 0.6 mg PO DAILY #30 tablet 12/03/16 02/26/17 04/02/17 09: 00 Rx Eletriptan HBr [Relpax] 20 mg PO Q4H #30 tablet 12/03/16 02/26/17 04/02/17 09: 00 Rx ISOSORBIDE MONOnitrate [Imdur ER] 60 mg PO DAILY #30 tablet 12/03/16 02/26/17 09:00 Rx Insulin Detemir [Levemir] 20 units SUB-Q QHS #1 vial 12/03/16 04/04/17 04/02/17 21:00 Rx Levofloxacin [Levaquin TAB] 500 mg PO Q48HR #7 tablet 12/03/16 02/26/17 09:00 Rx Levothyroxine [Synthroid] 150 mcg PO DAILY@0600 #30 tablet 12/03/16 02/26/17 09:00 Rx Methadone [Dolophine] 10 mg PO TID #90 tablet 12/03/16 04/04/17 04/02/17 09:00 Rx Metoprolol [Lopressor TAB] 100 mg PO DAILY #30 tablet 12/03/16 04/04/17 09:00 Rx Omeprazole 40 mg PO DAILY #30 capsule. 12/03/16 04/04/17 04/02/17 09:00 Rx Tizanidine HCl [Zanaflex] 2 mg PO DAILY #30 capsule 12/03/16 02/26/17 04/02/17 09:00 Rx Warfarin [Coumadin] 10 mg PO QDAY #7 tablet 12/03/16 04/04/17 Unknown Rx hydrALAZINE [Apresoline TAB] 50 mg PO Q8HR #90 tablet 12/03/16 02/26/17 09:00 Rx Enoxaparin [Lovenox] 80 mg SQ DAILY #10 syringe 12/08/16 02/26/17 03/30/17 09: 00 Rx Warfarin [Coumadin] 2.5 mg PO DAILY@1700 #7 tablet 12/08/16 02/26/17 04/02/17 09 :00 Rx Warfarin [Coumadin] 10 mg PO DAILY@1700 #7 tablet 12/08/16 04/04/17 Unknown Rx ED Review of Systems ROS: Stated complaint: HEMORRHOIDS Other details as noted in HPI Constitutional: fever Eyes: denies: eye pain ENT: denies: ear pain Cardiovascular: denies: chest pain Gastrointestinal: abdominal pain, nausea, vomiting, other (rectal pain, rectal bleeding) Musculoskeletal: arthralgia, myalgia. denies: back pain Physical Exam - Physical Exam Vital Signs: Vital Signs 05/11/17 05/11/17 05/11/17 03:18 03:24 07:48 Temperature 98.1 F 98.1 F Pulse Rate 112 H 110 H Respiratory 20 17 17 Rate Blood Pressure 131/88 131/88 O2 Sat by Pulse 96 99 99 Oximetry Physical Exam: GENERAL: The patient is well-developed well-nourished female lying on stretcher appearing to be in mild discomfort. [] HEENT: Normocephalic. Atraumatic. Extraocular motions are intact. Patient has moist mucous membranes. NECK: Supple. Trachea midline CHEST/LUNGS: Clear to auscultation. There is no respiratory distress noted. HEART/CARDIOVASCULAR: Regular. There is no tachycardia. There is no gallop rub or murmur. ABDOMEN: Abdomen is soft, with tenderness to palpation in the epigastric region. Patient has normal bowel sounds. There is no abdominal distention. SKIN: There is no rash. There is no diaphoresis. NEURO: The patient is awake, alert, and oriented. The patient is cooperative. The patient has normal speech MUSCULOSKELETAL: There is no evidence of acute injury. RECTAL: No external hemorrhoids seen, no internal hemorrhoids palpated. Guaiac negative ED Course Vital Signs 05/11/17 05/11/17 05/11/17 03:18 03:24 07:48 Temperature 98.1 F 98.1 F Pulse Rate 112 H 110 H Respiratory 20 17 17 Rate Blood Pressure 131/88 131/88 O2 Sat by Pulse 96 99 99 Oximetry ED Medical Decision Making - Lab Data Result diagrams: 05/11/17 03:43 05/11/17 03:43 Laboratory Tests 05/11/17 05/11/17 05/11/17 03:43 03:43 09:25 WBC 5.4 RBC 3.42 L Hgb 10.4 Hct 32.0 MCV 94 MCH 30 MCHC 32 RDW 19.4 H Plt Count 180 Lymph % (Auto) 32.3 [place] % (Auto) 6.8 Eos % (Auto) 2.7 Baso % (Auto) 0.9 Lymph # 1.8 Ness # 0.4 Eos # 0.1 Baso # 0.0 Seg Neutrophils % 57.3 Seg Neutrophils # 3.1 Sodium 135 L Potassium 4.8 Chloride 87.2 L Carbon Dioxide 27 Anion Gap 26 BUN 19 H Creatinine 4.9 H Estimated GFR 11 BUN/Creatinine Ratio 4 Glucose 234 H Calcium 8.5 Total Bilirubin 0.40 AST 24 ALT 29 Alkaline Phosphatase 188 H Total Protein 8.0 Albumin 4.4 Albumin/Globulin Ratio 1.2 Lipase 129 H Urine Color Yellow Urine Turbidity Clear Urine pH 6.0 Ur Specific [place] 1.017 Urine Protein >500 Urine Glucose (UA) Neg Urine Ketones Neg Urine Blood Neg Urine Nitrite Neg Urine Bilirubin Neg Urine Urobilinogen < 2.0 Ur Leukocyte Esterase Neg Urine WBC (Auto) 1.0 Urine RBC (Auto) 1.0 U Epithel Cells (Auto) 5.0 - Differential Diagnosis pancreatitis, hemorrhoids, gastritis, gastroenteritis Critical care attestation.: If time is entered above; I have spent that time in minutes in the direct care of this critically ill patient, excluding procedure time. ED Disposition Clinical Impression: Acute abdominal pain, Acute pancreatitis, Rectal pain, Rectal bleeding Disposition: OP ADMIT IP TO THIS HOSP Is pt being admited?: Yes Does the pt Need Aspirin: No Condition: Fair Referrals: PRIMARY CARE, [Primary Care Provider] - 3-5 Days Time of Disposition: 10:03 (hospitalist paged)
[2017-05-11] MEDS ORDERED: CEPHULAC PR SCH (10:00)
[2017-05-11] MEDS ORDERED: DULCOLAX PR PRN (11:15)
[2017-05-11] MEDS ORDERED: TYLENOL PO PRN (11:15)
[2017-05-11] MEDS ORDERED: MILK OF MAGNESIA PO PRN (11:15)
--- NOTE | 2017-05-11 11:26 | History and Physical Report ---
History of Present Illness Date of examination: 05/11/17 Date of admission: 05/11/2017 Chief complaint: Abdominal pain History of present illness: Patient is a 51-year-old female with past medical history of hypertension, ESRD TTS, diabetes, hyperlipidemia, hypothyroidism, who present to the Emergency Department for upper abdominal pain. The patient states that for the past five days she has felt bloated and has had a decrease in appetite. Two days ago she began having intermittent abdominal pain that initially felt like gas pains but it has now progressed to being nearly constant. Since yesterday she has had severe nausea and but denies vomiting. Her last bowel movement yesterday. Initially, when she would eat the pain would increase;no reliving factors. Currently, the pain is described as a constant dull, diffuse pain that intermittently becomes sharp and well localized. The sharp pain tends to occur in different locations at different times. The intensity of the pain has been increasing over the past two days and on pain scale she now rates the pain at 8 out of 10. She reported melena but she thinks is due to hemorrhoids. She denies a recent history of fever, jaundice, pruritis, diarrhea, hemoptysis, diverticulitis, colon cancer, peptic ulcer disease, gastritis, acid reflux, gall bladder disease or cholelithiasis. She denies a history of smoking or alcohol consumption. Medications and Allergies Allergies Allergy/AdvReac Type Severity Reaction Status Date / Time hydrocodone bitartrate Allergy Hives Verified 10/31/16 00:57 [From Lortab] acetaminophen [From Percocet] AdvReac Hives Verified 10/31/16 00:57 codeine AdvReac Swelling Verified 10/31/16 00:57 oxycodone HCl [From Percocet] AdvReac Hives Verified 10/31/16 00:57 Penicillins AdvReac Swelling Verified 10/31/16 00:57 Home Medications Medication Instructions Recorded Confirmed Last Taken Type Lactulose 20 gm PO DAILY #900 ml 11/19/16 05/11/17 05/10/17 Rx Amitriptyline [Elavil] 75 mg PO DAILY #30 tablet 12/03/16 05/11/17 05/10/17 Rx Colchicine [Colcrys] 0.6 mg PO DAILY #30 tablet 12/03/16 05/11/17 05/10/17 Rx Eletriptan HBr [Relpax] 20 mg PO Q4H #30 tablet 12/03/16 05/11/17 05/10/17 Rx Levothyroxine [Synthroid] 150 mcg PO DAILY@0600 #30 tablet 12/03/16 05/11/17 Rx Methadone [Dolophine] 10 mg PO TID #90 tablet 12/03/16 05/11/17 05/10/17 Rx Metoprolol [Lopressor TAB] 100 mg PO DAILY #30 tablet 12/03/16 05/11/17 Rx Tizanidine HCl [Zanaflex] 2 mg PO DAILY #30 capsule 12/03/16 05/11/17 05/10/17 Rx Warfarin [Coumadin] 10 mg PO QDAY #7 tablet 12/03/16 05/11/17 05/10/17 Rx Insulin Aspart [NovoLOG Flexpen] 10 units SQ AC 05/11/17 05/11/17 05/10/17 History Insulin Detemir [Levemir] 50 units SUB-Q QHS 05/11/17 05/11/17 05/10/17 History Promethazine [Phenergan TAB] 25 mg PO Q6HR PRN 05/11/17 05/11/17 05/10/17 History Zolpidem [Ambien] 10 mg PO QHS 05/11/17 05/11/17 05/10/17 History amLODIPine [Norvasc] 10 mg PO DAILY 05/11/17 05/11/17 05/10/17 History cloNIDine [Catapres] 0.1 mg PO QHS 05/11/17 05/11/17 05/10/17 History Active Meds: Active Medications Acetaminophen (Tylenol) 650 mg PO Q4H PRN PRN Reason: Pain MILD(1-3)/Fever >100.5/LANDA Amitriptyline HCl (Elavil) 75 mg PO DAILY EMI Amlodipine Besylate (Norvasc) 10 mg PO DAILY EMI Bisacodyl (Dulcolax) 10 mg [place] QDAY PRN PRN Reason: Constipation unrelieved by MOM Clonidine HCl (Catapres) 0.1 mg PO QHS EMI Colchicine (Colcrys) 0.6 mg PO DAILY EMI Enoxaparin Sodium (Lovenox) 40 mg SUB-Q QDAY EMI Sodium Chloride (Nacl 0.9% 1000 Ml) 1,000 mls @ 75 mls/hr IV DIRECT EMI Insulin Detemir (Levemir) 50 units SUB-Q QHS EMI Lactulose (Cephulac) 20 gm [place] DAILY EMI Levothyroxine Sodium (Synthroid) 150 mcg PO DAILY@0600 EMI Magnesium Hydroxide (Milk Of Magnesia) 30 ml PO Q4H PRN PRN Reason: Constipation Methadone HCl (Dolophine) 10 mg PO TID EMI Metoprolol Tartrate (Lopressor) 100 mg PO DAILY EMI Miscellaneous Medication (Eletriptan Hbr [Relpax]) 20 mg PO Q4H EMI Miscellaneous Medication (Insulin Aspart [Novolog Flexpen]) 10 units SQ AC EMI Miscellaneous Medication (Tizanidine Hcl [Zanaflex]) 2 mg PO DAILY EMI Morphine Sulfate (Morphine) 2 mg IV Q4H PRN PRN Reason: Pain, Moderate (4-6) Exam - Constitutional Vitals: Temp Pulse Resp BP Pulse Ox 98.1 F 113 H 19 131/88 97 05/11/17 03:24 05/11/17 10:31 05/11/17 10:31 05/11/17 10:31 05/11/17 10:31 Results - Labs CBC & Chem 7: 05/11/17 03:43 05/11/17 03:43 Labs: Laboratory Last Values WBC 5.4 K/mm3 (4.5-11.0) 05/11/17 03:43 RBC 3.42 M/mm3 (3.65-5.03) L 05/11/17 03:43 Hgb 10.4 gm/dl (10.1-14.3) 05/11/17 03:43 Hct 32.0 % (30.3-42.9) 05/11/17 03:43 MCV 94 fl (79-97) 05/11/17 03:43 MCH 30 pg (28-32) 05/11/17 03:43 MCHC 32 % (30-34) 05/11/17 03:43 RDW 19.4 % (13.2-15.2) H 05/11/17 03:43 Plt Count 180 K/mm3 (140-440) 05/11/17 03:43 Lymph % (Auto) 32.3 % (13.4-35.0) 05/11/17 03:43 [place] % (Auto) 6.8 % (0.0-7.3) 05/11/17 03:43 Eos % (Auto) 2.7 % (0.0-4.3) 05/11/17 03:43 Baso % (Auto) 0.9 % (0.0-1.8) 05/11/17 03:43 Lymph # 1.8 K/mm3 (1.2-5.4) 05/11/17 03:43 [place] # 0.4 K/mm3 (0.0-0.8) 05/11/17 03:43 Eos # 0.1 K/mm3 (0.0-0.4) 05/11/17 03:43 Baso # 0.0 K/mm3 (0.0-0.1) 05/11/17 03:43 Seg Neutrophils % 57.3 % (40.0-70.0) 05/11/17 03:43 Seg Neutrophils # 3.1 K/mm3 (1.8-7.7) 05/11/17 03:43 Sodium 135 mmol/L (137-145) L 05/11/17 03:43 Potassium 4.8 mmol/L (3.6-5.0) 05/11/17 03:43 Chloride 87.2 mmol/L (98-107) L 05/11/17 03:43 Carbon Dioxide 27 mmol/L (22-30) 05/11/17 03:43 Anion Gap 26 mmol/L 05/11/17 03:43 BUN 19 mg/dL (7-17) H 05/11/17 03:43 Creatinine 4.9 mg/dL (0.7-1.2) H 05/11/17 03:43 Estimated GFR 11 ml/min 05/11/17 03:43 BUN/Creatinine Ratio 4 % 05/11/17 03:43 Glucose 234 mg/dL (65-100) H 05/11/17 03:43 Calcium 8.5 mg/dL (8.4-10.2) 05/11/17 03:43 Total Bilirubin 0.40 mg/dL (0.1-1.2) 05/11/17 03:43 AST 24 units/L (5-40) 05/11/17 03:43 ALT 29 units/L (7-56) 05/11/17 03:43 Alkaline Phosphatase 188 units/L (35-129) H 05/11/17 03:43 Total Protein 8.0 g/dL (6.3-8.2) 05/11/17 03:43 Albumin 4.4 g/dL (3.9-5) 05/11/17 03:43 Albumin/Globulin Ratio 1.2 % 05/11/17 03:43 Lipase 129 units/L (13-60) H 05/11/17 03:43 Urine Color Yellow (Yellow) 05/11/17 09:25 Urine Turbidity Clear (Clear) 05/11/17 09:25 Urine pH 6.0 (5.0-7.0) 05/11/17 09:25 Ur Specific [place] 1.017 (1.003-1.030) 05/11/17 09:25 Urine Protein >500 mg/dL (Negative) 05/11/17 09:25 Urine Glucose (UA) Neg mg/dL (Negative) 05/11/17 09:25 Urine Ketones Neg mg/dL (Negative) 05/11/17 09:25 Urine Blood Neg (Negative) 05/11/17 09:25 Urine Nitrite Neg (Negative) 05/11/17 09:25 Urine Bilirubin Neg (Negative) 05/11/17 09:25 Urine Urobilinogen < 2.0 mg/dL (<2.0) 05/11/17 09:25 Ur Leukocyte Esterase Neg (Negative) 05/11/17 09:25 Urine WBC (Auto) 1.0 /HPF (0.0-6.0) 05/11/17 09:25 Urine RBC (Auto) 1.0 /HPF (0.0-6.0) 05/11/17 09:25 U Epithel Cells (Auto) 5.0 /HPF (0-13.0) 05/11/17 09:25 Assessment and Plan Assessment and plan: Patient is a 51-year-old female with past medical history of hypertension, ESRD TTS, diabetes, hyperlipidemia, hypothyroidism, who present to the Emergency Department for upper abdominal pain. Abdominal Pain ?? Pancreatitis Admit to MED-SURG Nothing by mouth, reset the gut Started on IV hydration Patient-controlled Antiemetic Supportive care End-stage renal disease on dialysis Patient will have urgent dialysis today Nephrology consulted Diabetes mellitus Accu-Chek before meals and at bedtime Sliding scale insulin/NovoLog ADA carbohydrate consistent diet Hypertensive urgency Continue home antihypertensive medications Closely monitor blood pressure Mild Hyponatremia Patient will have HD that will correct it Closely monitor electrolytes Hypothyroidism Resume Synthroid DVT prophylaxis Heparin Advance Directives: Yes VTE prophylaxis?: Chemical Contraindication Mechanical VTE Prophylaxis: Treatment Not Indicated Plan of care discussed with patient/family: Yes
[2017-05-11] MEDS ORDERED: ELETRIPTAN HBR 20 MG PO SCH (11:30)
[2017-05-11] MEDS ORDERED: NON-FORMULARY (Insulin Aspart [Novolog Flexpen] 10 UNITS) SQ SCH (11:30)
--- NOTE | 2017-05-11 11:51 | Consultation ---
History of Present Illness - Reason for Consult Consult date: 05/11/17 end stage renal disease - History of Present Illness Ms Pride is a 51 y/o F with a PMH of ESRD on HD TTS, DM, HLD, Hypothyrodism, HTN who has been admitted to the [facility] with worsening belly pain along with nausea. Pt also reported having bloody stools. She denies vomiting, fever, SHOB , CP, diarrhea. Her apeitite has been low as well. Pt is on HD TTS outpatient. ROS: As in HPI otherwise 12 point review of systems -ve PAST MEDICAL HISTORY: ESRD on HD TTS, DM, HLD, Hypothyrodism, HTN PAST SURGICAL HISTORY: Nephrectomy, cholecystectomy, hernia repair, tonsillectomy, ankle, tubal ligation SOCIAL HISTORY: Denies alcohol, tobacco, drugs FAMILY HISTORY: Hypertension Medications and Allergies Allergies Allergy/AdvReac Type Severity Reaction Status Date / Time hydrocodone bitartrate Allergy Hives Verified 10/31/16 00:57 [From Lortab] acetaminophen [From Percocet] AdvReac Hives Verified 10/31/16 00:57 codeine AdvReac Swelling Verified 10/31/16 00:57 oxycodone HCl [From Percocet] AdvReac Hives Verified 10/31/16 00:57 Penicillins AdvReac Swelling Verified 10/31/16 00:57 Home Medications Medication Instructions Recorded Confirmed Last Taken Type Lactulose 20 gm PO DAILY #900 ml 11/19/16 05/11/17 05/10/17 Rx Amitriptyline [Elavil] 75 mg PO DAILY #30 tablet 12/03/16 05/11/17 05/10/17 Rx Colchicine [Colcrys] 0.6 mg PO DAILY #30 tablet 12/03/16 05/11/17 05/10/17 Rx Eletriptan HBr [Relpax] 20 mg PO Q4H #30 tablet 12/03/16 05/11/17 05/10/17 Rx Levothyroxine [Synthroid] 150 mcg PO DAILY@0600 #30 tablet 12/03/16 05/11/17 Rx Methadone [Dolophine] 10 mg PO TID #90 tablet 12/03/16 05/11/17 05/10/17 Rx Metoprolol [Lopressor TAB] 100 mg PO DAILY #30 tablet 12/03/16 05/11/17 Rx Tizanidine HCl [Zanaflex] 2 mg PO DAILY #30 capsule 12/03/16 05/11/17 05/10/17 Rx Warfarin [Coumadin] 10 mg PO QDAY #7 tablet 12/03/16 05/11/17 05/10/17 Rx Insulin Aspart [NovoLOG Flexpen] 10 units SQ AC 05/11/17 05/11/17 05/10/17 History Insulin Detemir [Levemir] 50 units SUB-Q QHS 05/11/17 05/11/17 05/10/17 History Promethazine [Phenergan TAB] 25 mg PO Q6HR PRN 05/11/17 05/11/17 05/10/17 History Zolpidem [Ambien] 10 mg PO QHS 05/11/17 05/11/17 05/10/17 History amLODIPine [Norvasc] 10 mg PO DAILY 05/11/17 05/11/17 05/10/17 History cloNIDine [Catapres] 0.1 mg PO QHS 05/11/17 05/11/17 05/10/17 History Active Meds: Active Medications Amitriptyline HCl (Elavil) 75 mg PO DAILY EMI Amlodipine Besylate (Norvasc) 10 mg PO DAILY EMI Bisacodyl (Dulcolax) 10 mg RI QDAY PRN PRN Reason: Constipation unrelieved by MOM Clonidine HCl (Catapres) 0.1 mg PO QHS EMI Colchicine (Colcrys) 0.6 mg PO DAILY [facility] Heparin Sodium (Porcine) (Heparin) 5,000 unit SUB-Q Q12HR [facility] Sodium Chloride (Nacl 0.9% 1000 Ml) 1,000 mls @ 75 mls/hr IV DIRECT EMI Insulin Detemir (Levemir) 50 units SUB-Q QHS [facility] Lactulose (Cephulac) 20 gm RI DAILY [facility] Levothyroxine Sodium (Synthroid) 150 mcg PO DAILY@0600 EMI Magnesium Hydroxide (Milk Of Magnesia) 30 ml PO Q4H PRN PRN Reason: Constipation Methadone HCl (Dolophine) 10 mg PO TID [facility] Metoprolol Tartrate (Lopressor) 100 mg PO DAILY [facility] Miscellaneous Medication (Eletriptan Hbr [Relpax]) 20 mg PO Q4H EMI Miscellaneous Medication (Insulin Aspart [Novolog Flexpen]) 10 units SQ AC EMI Miscellaneous Medication (Tizanidine Hcl [Zanaflex]) 2 mg PO DAILY [facility] Morphine Sulfate (Morphine) 2 mg IV Q4H PRN PRN Reason: Pain, Moderate (4-6) Zolpidem Tartrate (Ambien) 10 mg PO QHS EMI Exam - Vital Signs Vital signs: Vital Signs Temp Pulse Resp BP Pulse Ox 98.1 F 112 H 20 131/88 96 05/11/17 03:18 05/11/17 03:18 05/11/17 03:18 05/11/17 03:18 05/11/17 03:18 - Physical Exam Narrative exam: GE: AAOX3 HEENT: PERRLA Neck: Supple Chest: CTAB, RT CW TDC CVS: RRR Abd: Soft/NT/ND/BS+ Ext: No cce, LUE AVF Psyche: Appropriate mood Results - Lab Results 05/11/17 03:43 05/11/17 03:43 Most recent lab results Calcium 8.5 mg/dL (8.4-10.2) 05/11/17 03:43 Assessment and Plan ESRD on hemodialysis: -Gets TTS HD OP via LUE AVF/Rt CW TDC -No HD today. Plan for HD tomorrow. 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
[2017-05-11] MEDS ORDERED: NACL 0.9% 1000 ML 1,000 ML IV SCH (12:00)
[2017-05-11] MEDS: HEPARIN SUB-Q SCH ×2 (12:33→21:38)
--- NOTE | 2017-05-11 12:39 | Cat Scan Report ---
CT ABDOMEN AND PELVIS WITHOUT CONTRAST INDICATION: Pancreatitis. COMPARISON: 11/24/2016 FINDINGS: Noncontrast abdomen and pelvis CT performed. LUNG BASES: Smaller heart size, now normal. Anemia not excluded. Central catheter tip now noted in the right atrium. Stable 4-5 mm right lower lobe calcified granuloma and slight bibasilar scarring. Nonspecific distal esophageal wall prominence/thickening, not excluded for gastroesophageal reflux and/or hiatal hernia, amongst others. ABDOMEN: Please note that sensitivity to detect small visceral lesions is limited due to the absence of intravenous or oral contrast. Stable cholecystectomy clips and indeterminate 8mm hepatic hypodensity superiorly, axial image 37, series 2. Right hepatic lobe approximately 21 cm in midclavicular length. Otherwise grossly unremarkable unenhanced liver, spleen, nonaneurysmal abdominal aorta, IVC and the left kidney. Right kidney again absent with bowel occupying the fossa. Stable bilateral adrenal prominence/enlargement, left more than right, likely adenomatous hyperplasia and stable dating back to 08/17/2015. Few small, subcentimeter retroperitoneal lymph nodes again noted, the largest approximately 1 cm left paraaortic as on axial image 69, series 2. No ascites. Nonopacified GI tract evaluation limited, though grossly nonobstructive. Normal appendix. Moderate stool now noted throughout the colon and somewhat hyperdense distally/possible constipation. Interval removal of peritoneal dialysis catheter with improved mid to lower anterior abdominal wall stranding and umbilical hernia sac fluid. Specifically, pancreas again somewhat featureless with grossly normal size. No surrounding stranding. PELVIS: Grossly unremarkable uterus, adnexa/ovaries, non-opacified urinary bladder and the rectosigmoid. Few pelvic phleboliths. No free fluid or significant adenopathy. Small, 1.2 cm fat containing left inguinal region hernia, axial image 153, series 2 again noted. Moderate lower lumbar facet arthropathy, right more the left. Bilateral SI joint degenerative changes as well. Stable ventral wall hernia repair jerry. CONCLUSION: 1. No acute CT abnormality with interval removal of peritoneal dialysis catheter and improvement in subcutaneous stranding/umbilical hernia sac fluid, as described. Specifically, stable pancreatic CT appearance without surrounding inflammatory change. Please correlate. 2. Interval central catheter placement and improved cardiomegaly. 3. Various other findings, including cholecystectomy, ventral hernia repair, right nephrectomy, prominent/enlarged liver, old healed granulomatous disease and possible constipation, amongst others, as described. Thank you for the opportunity to participate in this patient's care.
[2017-05-11] MEDS ORDERED: NACL 0.9% 100 ML IV PRN (13:27)
[2017-05-11] MEDS: DOLOPHINE PO SCH ×2 (14:04→20:39)
[2017-05-11] MEDS ORDERED: D50W (25GM) Syringe IV PRN (14:40)
[2017-05-11] MEDS: ZOFRAN IM PRN (15:31)
[2017-05-11] MEDS ORDERED: HEPARIN ONE (16:20)
--- NOTE | 2017-05-11 16:33 | XRay Report ---
AP CHEST :05/11/17 03:14:00 CLINICAL: Difficulty breathing. COMPARISON:12/02/16 FINDINGS: Normal heart and pulmonary vasculature. A Vas-Cath tip is in the right atrium. The lungs are normally expanded and clear. The bones and soft tissues are normal. IMPRESSION: Normal chest with a Vas-Cath.No CHF or pneumonia.
[2017-05-11] MEDS: NOVOLOG SUB-Q SCH (18:07)
[2017-05-11] MEDS: MORPHINE IV PRN (18:37)
[2017-05-11] MEDS: AMBIEN PO SCH (21:36)
[2017-05-11] MEDS: CATAPRES PO SCH (21:36)
[2017-05-11] MEDS: LEVEMIR SUB-Q SCH (22:56)
[2017-05-12 05:54] LABS: Basophils % (Auto) 0.8 % (0.0-1.8); Eosinophils % (Auto) 4.4 % (0.0-4.3); Hematocrit 29.3 % (30.3-42.9); Hemoglobin 9.7 gm/dl (10.1-14.3); Mean Corpuscular HGB Conc 33 % (30-34); Mean Corpuscular Hemoglobin 31 pg (28-32); Mean Corpuscular Volume 94 fl (79-97); Platelet Count 161 K/mm3 (140-440); Red Blood Count 3.11 M/mm3 (3.65-5.03); Red Cell Distribution Width 19.1 % (13.2-15.2); White Blood Count 4.1 K/mm3 (4.5-11.0)
[2017-05-12 06:13] LABS: Calcium 8.3 mg/dL (8.4-10.2)
[2017-05-12 06:14] LABS: Chloride 91.6 mmol/L (98-107); Potassium 5.2 mmol/L (3.6-5.0)
[2017-05-12] MEDS: SYNTHROID PO SCH (06:23)
[2017-05-12] MEDS: NOVOLOG SUB-Q SCH ×3 (08:56→18:37)
[2017-05-12] MEDS: DOLOPHINE PO SCH ×3 (08:58→21:00)
[2017-05-12] MEDS: ZANAFLEX PO SCH (09:37)
[2017-05-12] MEDS: HEPARIN SUB-Q SCH ×2 (09:38→22:33)
[2017-05-12] MEDS: ELAVIL PO SCH (09:38)
[2017-05-12] MEDS ORDERED: NON-FORMULARY (Tizanidine Hcl [Zanaflex] 2 MG) PO SCH (10:00)
[2017-05-12] MEDS ORDERED: LOVENOX SUB-Q SCH (10:00)
--- NOTE | 2017-05-12 10:28 | Progress Note ---
Assessment and Plan ESRD on hemodialysis: -Gets TTS HD OP via LUE AVF/Rt CW TDC -HD today. TPA to TDC as clots in it. -Renally dose all meds Anemia of chronic disease due to ESRD: Possible Blood loss anemia due to GI bleed: -Epogen to keep Hg 10-12 -Transfusion PRN per primary -GI consulted. Essential Hypertension: -Titrate BP meds to keep SBP <140 Diabetes mellitus type 2 on insulin: -ISS -Per primary Hypothyrodism, chronic: -Synthroid Plan d/w Dr Grubbs and HD RN. Jayden Kay MD Nephrology, Hypertension, Dialysis, Transplantation Phone no: [phone] Subjective Date of service: 05/12/17 Interval history: Seen on HD. Denies CP/SHOB. Getting HD via Rt IJ TDC. Objective - Exam Narrative Exam: GE: AAOX3 HEENT: PERRLA Neck: Supple Chest: CTAB, RT CW TDC CVS: RRR Abd: Soft/NT/ND/BS+ Ext: No cce, LUE AVF Psyche: Appropriate mood - Vital Signs Vital signs: Vital Signs - 12hr 05/12/17 05/12/17 05/12/17 01:00 01:04 05:14 Temperature 97.9 F 122.0 F H 97.9 F Pulse Rate 97 H Respiratory 18 18 Rate Blood Pressure 106/70 93/53 O2 Sat by Pulse 96 Oximetry 05/12/17 07:18 Temperature 98.2 F Pulse Rate 104 H Respiratory 20 Rate Blood Pressure 120/72 O2 Sat by Pulse 97 Oximetry - Lab 05/12/17 05:07 05/12/17 05:07 Most recent lab results Calcium 8.3 mg/dL (8.4-10.2) L 05/12/17 05:07
--- NOTE | 2017-05-12 11:33 | Gastroenterology Consultation ---
<JONH RAMACHANDRAN - Last Filed: 05/12/17 11:45> History of Present Illness - Reason for Consult Consult date: 05/12/17 anemia, abd pain, blood in stool Requesting physician: COCO OAKLEY - History of Present Illness Patient is a 51 y/o female with PMH of ESRD, DM, HLD, hypothyroidism, HTN, DVT ( on coumadin), and chronic pain (on methadone) who presented to the ED with c/o upper abd pain and blood in her stool. She is previously known to our service with last consult 10/2016 for anemia with recommendations for an outpatient EGD/ colonoscopy, however she never followed up in clinic. Today she was resting in bed while receiving dialysis. No acute distress. Reports constant generalized abd pain with more focal pain in epigastric area that is non-radiating with no alleviating or aggravating factors and black stools x 4 days. No hematemesis or hematochezia. No active signs of bleeding this am. Denies CP, SOB, dizziness, N/ V, diarrhea, or constipation. No NSAID use. No hx of liver disease. Past History Past Medical History: diabetes, DVT, ESRD, hypertension, hyperlipidemia, hypothyroidism, other ( chronic pain ) Past Surgical History: cholecystectomy, hernia repair, tonsillectomy, Other ( left foot fracture, tubal ligation, nephrectomy) Social history: denies: smoking, alcohol abuse Family history: hypertension Medications and Allergies Allergies Allergy/AdvReac Type Severity Reaction Status Date / Time hydrocodone bitartrate Allergy Hives Verified 10/31/16 00:57 [From Lortab] acetaminophen [From Percocet] AdvReac Hives Verified 10/31/16 00:57 codeine AdvReac Swelling Verified 10/31/16 00:57 oxycodone HCl [From Percocet] AdvReac Hives Verified 10/31/16 00:57 Penicillins AdvReac Swelling Verified 10/31/16 00:57 Home Medications Medication Instructions Recorded Confirmed Last Taken Type Lactulose 20 gm PO DAILY #900 ml 11/19/16 05/11/17 05/10/17 Rx Amitriptyline [Elavil] 75 mg PO DAILY #30 tablet 12/03/16 05/11/17 05/10/17 Rx Colchicine [Colcrys] 0.6 mg PO DAILY #30 tablet 12/03/16 05/11/17 05/10/17 Rx Eletriptan HBr [Relpax] 20 mg PO Q4H #30 tablet 12/03/16 05/11/17 05/10/17 Rx Levothyroxine [Synthroid] 150 mcg PO DAILY@0600 #30 tablet 12/03/16 05/11/17 Rx Methadone [Dolophine] 10 mg PO TID #90 tablet 12/03/16 05/11/17 05/10/17 Rx Metoprolol [Lopressor TAB] 100 mg PO DAILY #30 tablet 12/03/16 05/11/17 Rx Tizanidine HCl [Zanaflex] 2 mg PO DAILY #30 capsule 12/03/16 05/11/17 05/10/17 Rx Warfarin [Coumadin] 10 mg PO QDAY #7 tablet 12/03/16 05/11/17 05/10/17 Rx Insulin Aspart [NovoLOG Flexpen] 10 units SQ AC 05/11/17 05/11/17 05/10/17 History Insulin Detemir [Levemir] 50 units SUB-Q QHS 05/11/17 05/11/17 05/10/17 History Promethazine [Phenergan TAB] 25 mg PO Q6HR PRN 05/11/17 05/11/17 05/10/17 History Zolpidem [Ambien] 10 mg PO QHS 05/11/17 05/11/17 05/10/17 History amLODIPine [Norvasc] 10 mg PO DAILY 05/11/17 05/11/17 05/10/17 History cloNIDine [Catapres] 0.1 mg PO QHS 05/11/17 05/11/17 05/10/17 History Active Meds: Active Medications Amitriptyline HCl (Elavil) 75 mg PO DAILY [facility] Last Admin: 05/12/17 09:38 Dose: 75 mg Amlodipine Besylate (Norvasc) 10 mg PO DAILY [facility] Bisacodyl (Dulcolax) 10 mg [place] QDAY PRN PRN Reason: Constipation unrelieved by MOM Clonidine HCl (Catapres) 0.1 mg PO QHS [facility] Last Admin: 05/11/17 21:36 Dose: 0.1 mg Colchicine (Colcrys) 0.6 mg PO DAILY [facility] Dextrose (D50w (25gm) Syringe) 50 ml IV PRN PRN PRN Reason: Hypoglycemia Heparin Sodium (Porcine) (Heparin) 5,000 unit SUB-Q Q12HR [facility] Last Admin: 05/12/17 09:38 Dose: 5,000 unit Sodium Chloride (Nacl 0.9% 1000 Ml) 1,000 mls @ 75 mls/hr IV DIRECT [facility] Sodium Chloride (Nacl 0.9%) 100 mls @ 999 mls/hr IV SYED PRN PRN Reason: Hypotension Influenza Virus Vaccine Quadrival (Fluarix Quad [id number](36 Mos+) 0.5 ml IM .ONCE ONE Stop: 05/12/17 12:01 Insulin Aspart (Novolog) 10 units SUB-Q AC [facility] Last Admin: 05/12/17 08:56 Dose: Not Given Insulin Detemir (Levemir) 50 units SUB-Q QHS [facility] Last Admin: 05/11/17 22:56 Dose: Not Given Lactulose (Cephulac) 20 gm PO QOD [facility] Levothyroxine Sodium (Synthroid) 150 mcg PO DAILY@0600 [facility] Last Admin: 05/12/17 06:23 Dose: 150 mcg Magnesium Hydroxide (Milk Of Magnesia) 30 ml PO Q4H PRN PRN Reason: Constipation Methadone HCl (Dolophine) 10 mg PO TID [facility] Last Admin: 05/12/17 08:58 Dose: 10 mg Metoprolol Tartrate (Lopressor) 100 mg PO DAILY [facility] Miscellaneous Medication (Eletriptan Hbr [Relpax]) 20 mg PO Q4H [facility] Last Admin: 05/11/17 12:33 Dose: Not Given Morphine Sulfate (Morphine) 2 mg IV Q4H PRN PRN Reason: Pain, Moderate (4-6) Last Admin: 05/11/17 18:37 Dose: 2 mg Ondansetron HCl (Zofran) 4 mg IM Q4H PRN PRN Reason: Nausea And Vomiting Last Admin: 05/11/17 15:31 Dose: 4 mg Pneumococcal Polyvalent Vaccine (Pneumovax 23) 0.5 ml IM .ONCE ONE Stop: 05/12/17 12:01 Tizanidine HCl (Zanaflex) 2 mg PO QDAY [facility] Last Admin: 05/12/17 09:37 Dose: 2 mg Zolpidem Tartrate (Ambien) 10 mg PO QHS [facility] Last Admin: 05/11/17 21:36 Dose: 10 mg Review of Systems - Review of Systems All systems: negative Gastrointestinal: abdominal pain, melena Exam - Constitutional Vital Signs: Temp Pulse Resp BP Pulse Ox 98.2 F 104 H 20 120/72 97 05/12/17 07:18 05/12/17 07:18 05/12/17 07:18 05/12/17 07:18 05/12/17 07:18 General appearance: no acute distress, obese - EENT Eyes: PERRL, EOM intact - Respiratory Respiratory: bilateral: CTA - Cardiovascular Rhythm: regular Heart Sounds: Present: S1 & S2 - Gastrointestinal General gastrointestinal: Present: soft, tender (epigastric and mild diffuse tenderness), non-distended, normal bowel sounds - Integumentary Integumentary: Present: warm, dry - Labs CBC & Chem 7: 05/12/17 05:07 05/12/17 05:07 Lab Results: Laboratory Results - last 24 hr 05/11/17 05/11/17 05/12/17 17:07 22:57 05:07 WBC 4.1 L RBC 3.11 L Hgb 9.7 L Hct 29.3 L MCV 94 MCH 31 MCHC 33 RDW 19.1 H Plt Count 161 Lymph % (Auto) 39.4 H [place] % (Auto) 7.1 Eos % (Auto) 4.4 H Baso % (Auto) 0.8 Lymph # 1.6 [place] # 0.3 Eos # 0.2 Baso # 0.0 Seg Neutrophils % 48.3 Seg Neutrophils # 2.0 Sodium Potassium Chloride Carbon Dioxide Anion Gap BUN Creatinine Estimated GFR BUN/Creatinine Ratio Glucose POC Glucose 142 H 153 H Calcium 05/12/17 05/12/17 05:07 05:39 WBC RBC Hgb Hct MCV MCH MCHC RDW Plt Count Lymph % (Auto) [place] % (Auto) Eos % (Auto) Baso % (Auto) Lymph # [place] # Eos # Baso # Seg Neutrophils % Seg Neutrophils # Sodium 139 Potassium 5.2 H Chloride 91.6 L Carbon Dioxide 30 Anion Gap 23 BUN 28 H Creatinine 6.6 H Estimated GFR 8 BUN/Creatinine Ratio 4 Glucose 85 POC Glucose 87 Calcium 8.3 L Assessment and Plan 1.anemia 2.abd pain 3.melena 4.ESRD -afebrile -WBC 4.1 -stool occult negative -abd CT showed no acute abnormality -HGB 9.7 -no active signs of bleeding overnight or this am -continue to monitor H/H and transfuse as needed -hold blood thinning medications -will schedule for EGD and colonoscopy in am -will start on PPI -clear liquids today then NPO after MN -PT/INR in am <NOE SUÁREZ - Last Filed: 05/12/17 21:20> Medications and Allergies Active Meds: Active Medications Amitriptyline HCl (Elavil) 75 mg PO DAILY [facility] Last Admin: 05/12/17 09:38 Dose: 75 mg Amlodipine Besylate (Norvasc) 10 mg PO DAILY [facility] Last Admin: 05/12/17 15:37 Dose: Not Given Bisacodyl (Dulcolax) 10 mg [place] QDAY PRN PRN Reason: Constipation unrelieved by MOM Clonidine HCl (Catapres) 0.1 mg PO QHS [facility] Last Admin: 05/11/17 21:36 Dose: 0.1 mg Colchicine (Colcrys) 0.6 mg PO DAILY [facility] Last Admin: 05/12/17 15:53 Dose: 0.6 mg Dextrose (D50w (25gm) Syringe) 50 ml IV PRN PRN PRN Reason: Hypoglycemia Heparin Sodium (Porcine) (Heparin) 5,000 unit SUB-Q Q12HR [facility] Last Admin: 05/12/17 09:38 Dose: 5,000 unit Heparin Sodium (Porcine) (Heparin) 5,000 unit IV SYED PRN PRN Reason: hemodialysis Last Admin: 05/12/17 14:10 Dose: 5,000 unit Sodium Chloride (Nacl 0.9% 1000 Ml) 1,000 mls @ 75 mls/hr IV DIRECT [facility] Sodium Chloride (Nacl 0.9%) 100 mls @ 999 mls/hr IV SYED PRN PRN Reason: Hypotension Insulin Aspart (Novolog) 10 units SUB-Q AC [facility] Last Admin: 05/12/17 18:37 Dose: Not Given Insulin Detemir (Levemir) 50 units SUB-Q QHS [facility] Last Admin: 05/11/17 22:56 Dose: Not Given Lactulose (Cephulac) 20 gm PO QOD [facility] Levothyroxine Sodium (Synthroid) 150 mcg PO DAILY@0600 [facility] Last Admin: 05/12/17 06:23 Dose: 150 mcg Magnesium Hydroxide (Milk Of Magnesia) 30 ml PO Q4H PRN PRN Reason: Constipation Methadone HCl (Dolophine) 10 mg PO TID [facility] Last Admin: 05/12/17 18:37 Dose: Not Given Metoprolol Tartrate (Lopressor) 100 mg PO DAILY [facility] Last Admin: 05/12/17 15:37 Dose: Not Given Miscellaneous Medication (Eletriptan Hbr [Relpax]) 20 mg PO Q4H [facility] Last Admin: 05/11/17 12:33 Dose: Not Given Morphine Sulfate (Morphine) 2 mg IV Q4H PRN PRN Reason: Pain, Moderate (4-6) Last Admin: 05/12/17 15:43 Dose: 2 mg Ondansetron HCl (Zofran) 4 mg IM Q4H PRN PRN Reason: Nausea And Vomiting Last Admin: 05/12/17 15:53 Dose: 4 mg Pantoprazole Sodium (Protonix) 40 mg IV QDAY [facility] Last Admin: 05/12/17 15:53 Dose: 40 mg Tizanidine HCl (Zanaflex) 2 mg PO QDAY [facility] Last Admin: 05/12/17 09:37 Dose: 2 mg Zolpidem Tartrate (Ambien) 10 mg PO QHS [facility] Last Admin: 05/11/17 21:36 Dose: 10 mg Exam - Constitutional Vital Signs: Temp Pulse Resp BP Pulse Ox 98.1 F 81 20 131/73 67 L 05/12/17 16:16 05/12/17 16:16 05/12/17 16:16 05/12/17 16:16 05/12/17 16:16 - Labs CBC & Chem 7: 05/12/17 05:07 05/12/17 05:07 Lab Results: Laboratory Results - last 24 hr 05/11/17 05/12/17 05/12/17 22:57 05:07 05:07 WBC 4.1 L RBC 3.11 L Hgb 9.7 L Hct 29.3 L MCV 94 MCH 31 MCHC 33 RDW 19.1 H Plt Count 161 Lymph % (Auto) 39.4 H [place] % (Auto) 7.1 Eos % (Auto) 4.4 H Baso % (Auto) 0.8 Lymph # 1.6 [place] # 0.3 Eos # 0.2 Baso # 0.0 Seg Neutrophils % 48.3 Seg Neutrophils # 2.0 Sodium 139 Potassium 5.2 H Chloride 91.6 L Carbon Dioxide 30 Anion Gap 23 BUN 28 H Creatinine 6.6 H Estimated GFR 8 BUN/Creatinine Ratio 4 Glucose 85 POC Glucose 153 H Calcium 8.3 L 05/12/17 05/12/17 05:39 16:45 WBC RBC Hgb Hct MCV MCH MCHC RDW Plt Count Lymph % (Auto) [place] % (Auto) Eos % (Auto) Baso % (Auto) Lymph # [place] # Eos # Baso # Seg Neutrophils % Seg Neutrophils # Sodium Potassium Chloride Carbon Dioxide Anion Gap BUN Creatinine Estimated GFR BUN/Creatinine Ratio Glucose POC Glucose 87 175 H Calcium Assessment and Plan Patient seen and examined. Agree with note by Jonh Ramachandran. Patient eating at the time of exam w/o complaints of n/v or sig abd pain. + chronic anemia, reports episodes of gi bleeding (maroon and dark appearing stools) prior to admission. EGD/colonoscopy as above.
[2017-05-12] MEDS ORDERED: GOLYTELY PO ONE (11:52)
[2017-05-12] MEDS ORDERED: Fluarix Quad 2017-2018(36 MOS+ IM ONE (12:00)
[2017-05-12] MEDS ORDERED: PNEUMOVAX 23 IM ONE (12:00)
[2017-05-12] MEDS ORDERED: WATER FOR INJ (PF) 10 ML ONE (12:01)
[2017-05-12] MEDS ORDERED: CATHFLO ONE (12:01)
--- NOTE | 2017-05-12 13:07 | Progress Note ---
Assessment and Plan Assessment and plan: Abdominal pain GI bleed Anemia ESRD on hemodialysis - Continue hemodialysis, nephrology is following - H&H is stable - GI consulted and recommended, clear liquid diet, nothing by mouth after midnight, EGD and colonoscopy tomorrow DVT prophylaxis - SCDs because the patient has GI bleed Disposition - Continue inpatient care History Interval history: Patient was seen and evaluated this morning, Patient was lying comfortably. Hospitalist Physical - Physical exam Narrative exam: Not in cardiopulmonary distress. The patient is obese. Vital signs as documented. Head exam is unremarkable. No scleral icterus . Neck is without jugular venous distension, thyromegaly, or carotid bruits. Lungs are clear to auscultation. Cardiac exam reveals regular rate and Rhythm. First and second heart sounds normal. No murmurs, rubs or gallops. Abdominal exam reveals normal bowel sounds, no masses, no organomegaly and no aortic enlargement. Extremities are nonedematous and both femoral and pedal pulses are normal. WATER SYSTEMS ENGINEER: Alert and oriented 3. No focal weakness. - Constitutional Vitals: Temp Pulse Resp BP Pulse Ox 98.2 F 100 H 18 92/51 97 05/12/17 10:10 05/12/17 11:45 05/12/17 10:10 05/12/17 11:45 05/12/17 07:18 Results - Labs CBC & Chem 7: 05/12/17 05:07 05/12/17 05:07 Labs: Laboratory Last Values WBC 4.1 K/mm3 (4.5-11.0) L 05/12/17 05:07 RBC 3.11 M/mm3 (3.65-5.03) L 05/12/17 05:07 Hgb 9.7 gm/dl (10.1-14.3) L 05/12/17 05:07 Hct 29.3 % (30.3-42.9) L 05/12/17 05:07 MCV 94 fl (79-97) 05/12/17 05:07 MCH 31 pg (28-32) 05/12/17 05:07 MCHC 33 % (30-34) 05/12/17 05:07 RDW 19.1 % (13.2-15.2) H 05/12/17 05:07 Plt Count 161 K/mm3 (140-440) 05/12/17 05:07 Lymph % (Auto) 39.4 % (13.4-35.0) H 05/12/17 05:07 [place] % (Auto) 7.1 % (0.0-7.3) 05/12/17 05:07 Eos % (Auto) 4.4 % (0.0-4.3) H 05/12/17 05:07 Baso % (Auto) 0.8 % (0.0-1.8) 05/12/17 05:07 Lymph # 1.6 K/mm3 (1.2-5.4) 05/12/17 05:07 [place] # 0.3 K/mm3 (0.0-0.8) 05/12/17 05:07 Eos # 0.2 K/mm3 (0.0-0.4) 05/12/17 05:07 Baso # 0.0 K/mm3 (0.0-0.1) 05/12/17 05:07 Seg Neutrophils % 48.3 % (40.0-70.0) 05/12/17 05:07 Seg Neutrophils # 2.0 K/mm3 (1.8-7.7) 05/12/17 05:07 Sodium 139 mmol/L (137-145) 05/12/17 05:07 Potassium 5.2 mmol/L (3.6-5.0) H 05/12/17 05:07 Chloride 91.6 mmol/L (98-107) L 05/12/17 05:07 Carbon Dioxide 30 mmol/L (22-30) 05/12/17 05:07 Anion Gap 23 mmol/L 05/12/17 05:07 BUN 28 mg/dL (7-17) H 05/12/17 05:07 Creatinine 6.6 mg/dL (0.7-1.2) H 05/12/17 05:07 Estimated GFR 8 ml/min 05/12/17 05:07 BUN/Creatinine Ratio 4 % 05/12/17 05:07 Glucose 85 mg/dL (65-100) 05/12/17 05:07 POC Glucose 87 (70-105) 05/12/17 05:39 Calcium 8.3 mg/dL (8.4-10.2) L 05/12/17 05:07 Total Bilirubin 0.40 mg/dL (0.1-1.2) 05/11/17 03:43 AST 24 units/L (5-40) 05/11/17 03:43 ALT 29 units/L (7-56) 05/11/17 03:43 Alkaline Phosphatase 188 units/L (35-129) H 05/11/17 03:43 Total Protein 8.0 g/dL (6.3-8.2) 05/11/17 03:43 Albumin 4.4 g/dL (3.9-5) 05/11/17 03:43 Albumin/Globulin Ratio 1.2 % 05/11/17 03:43 Lipase 129 units/L (13-60) H 05/11/17 03:43 Urine Color Yellow (Yellow) 05/11/17 09:25 Urine Turbidity Clear (Clear) 05/11/17 09:25 Urine pH 6.0 (5.0-7.0) 05/11/17 09:25 Ur Specific [place] 1.017 (1.003-1.030) 05/11/17 09:25 Urine Protein >500 mg/dL (Negative) 05/11/17 09:25 Urine Glucose (UA) Neg mg/dL (Negative) 05/11/17 09:25 Urine Ketones Neg mg/dL (Negative) 05/11/17 09:25 Urine Blood Neg (Negative) 05/11/17 09:25 Urine Nitrite Neg (Negative) 05/11/17 09:25 Urine Bilirubin Neg (Negative) 05/11/17 09:25 Urine Urobilinogen < 2.0 mg/dL (<2.0) 05/11/17 09:25 Ur Leukocyte Esterase Neg (Negative) 05/11/17 09:25 Urine WBC (Auto) 1.0 /HPF (0.0-6.0) 05/11/17 09:25 Urine RBC (Auto) 1.0 /HPF (0.0-6.0) 05/11/17 09:25 U Epithel Cells (Auto) 5.0 /HPF (0-13.0) 05/11/17 09:25
[2017-05-12] MEDS ORDERED: CATHFLO IV STA (13:15)
[2017-05-12] MEDS: HEPARIN IV PRN (14:10)
[2017-05-12] MEDS: LOPRESSOR PO SCH (15:37)
[2017-05-12] MEDS: NORVASC PO SCH (15:37)
[2017-05-12] MEDS: MORPHINE IV PRN (15:43)
[2017-05-12] MEDS: PROTONIX IV SCH (15:53)
[2017-05-12] MEDS: ZOFRAN IM PRN ×2 (15:53→22:24)
[2017-05-12] MEDS: COLCRYS PO SCH (15:53)
[2017-05-12] MEDS: AMBIEN PO SCH (22:16)
[2017-05-12] MEDS: CATAPRES PO SCH (22:30)
[2017-05-12] MEDS: LEVEMIR SUB-Q SCH (22:33)
[2017-05-13 06:01] LABS: Basophils % (Auto) 0.8 % (0.0-1.8); Eosinophils % (Auto) 4.1 % (0.0-4.3); Hematocrit 28.6 % (30.3-42.9); Hemoglobin 9.5 gm/dl (10.1-14.3); Mean Corpuscular HGB Conc 33 % (30-34); Mean Corpuscular Hemoglobin 31 pg (28-32); Mean Corpuscular Volume 94 fl (79-97); Platelet Count 135 K/mm3 (140-440); Red Blood Count 3.06 M/mm3 (3.65-5.03); Red Cell Distribution Width 18.8 % (13.2-15.2); White Blood Count 4.9 K/mm3 (4.5-11.0)
[2017-05-13] MEDS: SYNTHROID PO SCH (06:10)
[2017-05-13 06:12] LABS: INR 0.97 (0.87-1.13)
[2017-05-13 07:06] LABS: Anion Gap TNR mmol/L; BUN/Creatinine Ratio TNR; Blood Urea Nitrogen TNR mg/dL (7-17); Carbon Dioxide TNR mmol/L (22-30); Chloride TNR mmol/L (98-107); Glucose TNR mg/dL (65-100); Potassium TNR mmol/L (3.6-5.0); Sodium TNR mmol/L (137-145)
[2017-05-13 07:07] LABS: Calcium TNR mg/dL (8.4-10.2)
[2017-05-13] MEDS: MORPHINE IV PRN ×2 (07:30→18:02)
[2017-05-13] MEDS: ZOFRAN IM PRN (07:30)
[2017-05-13] MEDS: NOVOLOG SUB-Q SCH ×3 (07:52→17:45)
[2017-05-13] MEDS: DOLOPHINE PO SCH ×3 (07:54→22:20)
[2017-05-13 08:18] LABS: Calcium 8.5 mg/dL (8.4-10.2); Chloride 92.9 mmol/L (98-107); Potassium 5.2 mmol/L (3.6-5.0)
[2017-05-13] MEDS ORDERED: CEPHULAC PO SCH (10:00)
--- NOTE | 2017-05-13 10:01 | Progress Note ---
Assessment and Plan ESRD on hemodialysis: -Gets TTS HD OP via LUE AVF/Rt CW TDC -s/p HD yesterday, no HD today, HD tomorrow if still inpatient. Will eval for HD need daily. -Renally dose all meds Anemia of chronic disease due to ESRD: Possible Blood loss anemia due to GI bleed: -Epogen to keep Hg 10-12 -Transfusion PRN per primary -GI consulted. s/p EGD today, could not do Colonoscopy due to poor prep. Essential Hypertension: -Titrate BP meds to keep SBP <140 Diabetes mellitus type 2 on insulin: -ISS -Per primary Hypothyrodism, chronic: -Synthroid Jayden Kay MD Nephrology, Hypertension, Dialysis, Transplantation Phone no: [phone] Subjective Date of service: 05/13/17 Interval history: s/p EGD today, denies CP/SHOB. Objective - Exam Narrative Exam: GE: AAOX3 HEENT: PERRLA Neck: Supple Chest: CTAB, RT CW TDC CVS: RRR Abd: Soft/NT/ND/BS+ Ext: No cce, LUE AVF Psyche: Appropriate mood - Vital Signs Vital signs: Vital Signs - 12hr 05/12/17 05/13/17 05/13/17 22:30 01:15 07:30 Temperature 99.2 F Pulse Rate 104 H 126 H Respiratory 18 18 Rate Blood Pressure 92/54 98/62 O2 Sat by Pulse 97 Oximetry 05/13/17 08:04 Temperature 97.6 F Pulse Rate 101 H Respiratory 20 Rate Blood Pressure 130/83 O2 Sat by Pulse 43 L Oximetry - Lab 05/13/17 05:08 05/13/17 07:39 Most recent lab results Calcium 8.5 mg/dL (8.4-10.2) 05/13/17 07:39
[2017-05-13] MEDS ORDERED: WATER FOR IRRIG STERILE ONE (10:02)
[2017-05-13] MEDS ORDERED: WATER FOR IRRIG STERILE IR ONE (10:02)
[2017-05-13] MEDS: PROTONIX IV SCH (10:04)
[2017-05-13] MEDS ORDERED: DIPRIVAN 10 MG/ML IV ONE ×3 (10:39)
--- NOTE | 2017-05-13 10:40 | Anesthesia Consultation ---
Anesthesia Consult and Med Hx Date of service: 05/13/17 - Airway Anesthetic Teeth Evaluation: Good ROM Head & Neck: Adequate Mental/Hyoid Distance: Adequate Mallampati Class: Class III Intubation Access Assessment: Possibly Difficult - Pulmonary Exam CTA: Yes - Cardiac Exam Cardiac Exam: RRR - Pre-Operative Health Status ASA Pre-Surgery Classification: ASA4 Proposed Anesthetic Plan: MAC - Pulmonary Hx Smoking: No Hx Asthma: Yes (last used inhaler 1 year ago) COPD: No Hx Pneumonia: No - Cardiovascular System Hx Hypertension: Yes Hx Heart Attack/AMI: No Hx Angina: No Hx Pacemaker: No Hx Internal Defibrillator: No Hx Peripheral Vascular Disease: No (blood clot on heparin drip) - Central Nervous System Hx Seizures: No CVA: No Hx Back Pain: No (gout) Hx Psychiatric Problems: No - Endocrine Hx Renal Disease: Yes (rt nephrectomy at 14 yo) Hx End Stage Renal Disease: Yes Hx Liver Disease: No Hx Non-Insulin Dependent Diabetes: Yes Hx Hypothyroidism: Yes - Hematic Hx Anemia: Yes Hx Sickle Cell Disease: No - Other Systems Hx Cancer: No Hx Obesity: Yes - Additional Comments Anesthesia Medical History Comments: NAC
--- NOTE | 2017-05-13 10:40 | Anesthesia Day of Surgery ---
Anesthesia Day of Surgery - Day of Surgery Patient Examined: Yes Patient H&P Reviewed: Yes Patient is NPO: Yes
[2017-05-13] MEDS: HEPARIN SUB-Q SCH ×2 (11:05→22:18)
--- NOTE | 2017-05-13 11:12 | Post Operative Note ---
Date of procedure: 05/13/17 Pre-op diagnosis: chronic anemia, dark stools Post-op diagnosis: other (gastric erosions, mild esophagitis) Findings: EGD: Esophagus: mild esophagitis in lower third of esophagus Stomach: few clean based superficial erosions in the antrum. Biopsies obtained to r/o HP. Duodenum: villous blunting appearance, otherwise normal appearing duodenum. Biopsies obtained. Colonoscopy: procedure aborted at transverse colon due to poor prep (large amount of brown solid stool). Procedure: EGD biopsies Colonoscopy - incomplete, aborted due to poor prep Anesthesia: MAC Surgeon: NOE SUÁREZ Estimated blood loss: minimal Pathology: list (Jar A - duodenal biopsies, Jar B - gastric bx's) Specimen disposition: to lab Condition: stable Disposition: floor
[2017-05-13] MEDS ORDERED: NACL 0.9% 1000 ML 1,000 ML IV SCH (12:00)
--- NOTE | 2017-05-13 12:29 | Post Anesthesia Evaluation ---
- Post Anesthesia Evaluation Patient Participated: Yes Airway Patent: Yes Stable Respiratory Function: Yes Nausea/Vomiting: No Temp > 96.8F: Yes Pain Manageable: Yes Adequeate Hydration: Yes Anesthesia Complications: No Block Receding Appropriately: Not Applicable Patient on Ventilator: No
[2017-05-13] MEDS: LOPRESSOR PO SCH (13:32)
[2017-05-13] MEDS: ZANAFLEX PO SCH (13:32)
[2017-05-13] MEDS: ELAVIL PO SCH (13:33)
[2017-05-13] MEDS: NORVASC PO SCH (13:33)
--- NOTE | 2017-05-13 13:35 | Progress Note ---
Assessment and Plan Assessment and plan: Abdominal pain GI bleed Anemia ESRD on hemodialysis - Continue hemodialysis, nephrology is following - H&H is stable - GI consulted and recommended, patient is going to have EGD and colonoscopy this morning. DVT prophylaxis - SCDs because the patient has GI bleed Disposition - Continue inpatient care History Interval history: Patient was seen and evaluated this morning, Patient didn't have any complaints. Hospitalist Physical - Physical exam Narrative exam: Not in cardiopulmonary distress. The patient is obese. Vital signs as documented. Head exam is unremarkable. No scleral icterus . Neck is without jugular venous distension, thyromegaly, or carotid bruits. Lungs are clear to auscultation. Cardiac exam reveals regular rate and Rhythm. First and second heart sounds normal. No murmurs, rubs or gallops. Abdominal exam reveals normal bowel sounds, no masses, no organomegaly and no aortic enlargement. Extremities are nonedematous and both femoral and pedal pulses are normal. HOMEOPATHIC DOCTOR: Alert and oriented 3. No focal weakness. - Constitutional Vitals: Temp Pulse Resp BP Pulse Ox 98.2 F 97 H 14 116/71 97 05/13/17 11:13 05/13/17 12:00 05/13/17 12:00 05/13/17 12:00 05/13/17 12:00 Results - Labs CBC & Chem 7: 05/13/17 05:08 05/13/17 07:39 Labs: Laboratory Last Values WBC 4.9 K/mm3 (4.5-11.0) 05/13/17 05:08 RBC 3.06 M/mm3 (3.65-5.03) L 05/13/17 05:08 Hgb 9.5 gm/dl (10.1-14.3) L 05/13/17 05:08 Hct 28.6 % (30.3-42.9) L 05/13/17 05:08 MCV 94 fl (79-97) 05/13/17 05:08 MCH 31 pg (28-32) 05/13/17 05:08 MCHC 33 % (30-34) 05/13/17 05:08 RDW 18.8 % (13.2-15.2) H 05/13/17 05:08 Plt Count 135 K/mm3 (140-440) L 05/13/17 05:08 Lymph % (Auto) 22.0 % (13.4-35.0) 05/13/17 05:08 [place] % (Auto) 5.3 % (0.0-7.3) 05/13/17 05:08 Eos % (Auto) 4.1 % (0.0-4.3) 05/13/17 05:08 Baso % (Auto) 0.8 % (0.0-1.8) 05/13/17 05:08 Lymph # 1.1 K/mm3 (1.2-5.4) L 05/13/17 05:08 [place] # 0.3 K/mm3 (0.0-0.8) 05/13/17 05:08 Eos # 0.2 K/mm3 (0.0-0.4) 05/13/17 05:08 Baso # 0.0 K/mm3 (0.0-0.1) 05/13/17 05:08 Seg Neutrophils % 67.8 % (40.0-70.0) 05/13/17 05:08 Seg Neutrophils # 3.3 K/mm3 (1.8-7.7) 05/13/17 05:08 PT 13.4 Sec. (12.2-14.9) 05/13/17 05:08 INR 0.97 (0.87-1.13) 05/13/17 05:08 Sodium 139 mmol/L (137-145) 05/13/17 07:39 Potassium 5.2 mmol/L (3.6-5.0) H 05/13/17 07:39 Chloride 92.9 mmol/L (98-107) L 05/13/17 07:39 Carbon Dioxide 27 mmol/L (22-30) 05/13/17 07:39 Anion Gap 24 mmol/L 05/13/17 07:39 BUN 23 mg/dL (7-17) H 05/13/17 07:39 Creatinine 5.9 mg/dL (0.7-1.2) H 05/13/17 07:39 Estimated GFR 9 ml/min 05/13/17 07:39 BUN/Creatinine Ratio 4 % 05/13/17 07:39 Glucose 129 mg/dL (65-100) H 05/13/17 07:39 POC Glucose 57 (70-105) L 05/13/17 12:14 Calcium 8.5 mg/dL (8.4-10.2) 05/13/17 07:39 Total Bilirubin 0.40 mg/dL (0.1-1.2) 05/11/17 03:43 AST 24 units/L (5-40) 05/11/17 03:43 ALT 29 units/L (7-56) 05/11/17 03:43 Alkaline Phosphatase 188 units/L (35-129) H 05/11/17 03:43 Total Protein 8.0 g/dL (6.3-8.2) 05/11/17 03:43 Albumin 4.4 g/dL (3.9-5) 05/11/17 03:43 Albumin/Globulin Ratio 1.2 % 05/11/17 03:43 Lipase 129 units/L (13-60) H 05/11/17 03:43 Urine Color Yellow (Yellow) 05/11/17 09:25 Urine Turbidity Clear (Clear) 05/11/17 09:25 Urine pH 6.0 (5.0-7.0) 05/11/17 09:25 Ur Specific [place] 1.017 (1.003-1.030) 05/11/17 09:25 Urine Protein >500 mg/dL (Negative) 05/11/17 09:25 Urine Glucose (UA) Neg mg/dL (Negative) 05/11/17 09:25 Urine Ketones Neg mg/dL (Negative) 05/11/17 09:25 Urine Blood Neg (Negative) 05/11/17 09:25 Urine Nitrite Neg (Negative) 05/11/17 09:25 Urine Bilirubin Neg (Negative) 05/11/17 09:25 Urine Urobilinogen < 2.0 mg/dL (<2.0) 05/11/17 09:25 Ur Leukocyte Esterase Neg (Negative) 05/11/17 09:25 Urine WBC (Auto) 1.0 /HPF (0.0-6.0) 05/11/17 09:25 Urine RBC (Auto) 1.0 /HPF (0.0-6.0) 05/11/17 09:25 U Epithel Cells (Auto) 5.0 /HPF (0-13.0) 05/11/17 09:25
--- NOTE | 2017-05-13 15:25 | Operative Report ---
Operative Report Operative Report: EGD PROCEDURE NOTE (with biopsies) DATE OF PROCEDURE: 05/13/2017 ENDOSCOPIST: Josse Manuel PRE-OP DIAGNOSIS: anemia, gi bleed POST-OP DIAGNOSIS: esophagitis, erosive gastritis ANESTHESIA: MAC COMPLICATIONS: no immediate complications ESTIMATED BLOOD LOSS: minimal PROCEDURE: After consent was obtained, the patient was placed in the left lateral decubitus position. The fujinon endoscope was inserted into the patient's mouth under direct vision, and advanced to the 2nd portion of the duodenum without difficulty. The patient tolerated the procedure well. The views of the mucosa were good. The patient's vital signs were monitored continuously throughout the procedure. FINDINGS: There was mild esophagitis in the lower third of the esophagus. Otherwise, the esophagus appeared normal. There were a few, small superficial erosions in the antrum of the stomach. No high risk bleeding stigmata were seen. Random biopsies were obtained to evaluate for H pylori. There was villous blunting appearance in the 2nd portion of the duodenum of unclear significance. Biopsies were obtained. Otherwise, the duodenum appeared normal. IMPRESSION: 1. Mild esophagitis 2. Erosive gastritis - biopsied. RECOMMENDATIONS: -follow-up pathology -avoid NSAID medications -PPI ac bk -treat for HP if positive -colonoscopy to follow
--- NOTE | 2017-05-13 15:28 | Operative Report ---
Operative Report Operative Report: COLONOSCOPY PROCEDURE NOTE DATE OF PROCEDURE: 05/13/2017 ENDOSCOPIST: Josse Manuel PRE-OP DIAGNOSIS: Anemia, GI bleed POST-OP DIAGNOSIS: poor prep, procedure aborted ANESTHESIA: MAC COMPLICATIONS: no immediate complications ESTIMATED BLOOD LOSS: none PROCEDURE: After consent was obtained, the patient was placed in the left lateral decubitus position. The fujinon colonoscope was inserted into the rectum under direct vision, and advanced to the transverse colon. The procedure was intentionally aborted due to poor prep (large amount of solid brown stool throughout the visualized portion of colon). FINDINGS: Poor prep, procedure aborted at suspected transverse colon (large amount of solid brown stool throughout visualized portion of colon). There was no signs of blood or recent bleeding. IMPRESSION: 1. Incomplete colonoscopy due to poor prep RECOMMENDATIONS: -patient will need repeat colonoscopy for screening purposes and anemia work- up. This can be done as outpatient with 2 day/constipation prep as there has been no signs of bleeding since admission -okay to restart diet -follow-up in GI clinic in 2-3 weeks followed by outpatient colonoscopy (1-2 months) Will sign off, please call as needed or with questions.
[2017-05-13] MEDS: COLCRYS PO SCH (18:02)
[2017-05-13] MEDS: PROCRIT SUB-Q SCH (18:02)
[2017-05-13] MEDS: CATAPRES PO SCH (22:18)
[2017-05-13] MEDS: AMBIEN PO SCH (22:21)
[2017-05-13] MEDS: LEVEMIR SUB-Q SCH (22:22)
[2017-05-14] MEDS: ZOFRAN IM PRN ×2 (02:16→13:54)
[2017-05-14] MEDS: MORPHINE IV PRN ×2 (02:20→12:57)
[2017-05-14] MEDS: SYNTHROID PO SCH (06:36)
[2017-05-14] MEDS: NOVOLOG SUB-Q SCH ×4 (07:35→18:12)
[2017-05-14] MEDS: DOLOPHINE PO SCH ×2 (08:55→13:55)
--- NOTE | 2017-05-14 10:36 | Discharge Summary ---
Providers - Providers Date of Admission: 05/11/17 11:16 Attending physician: COCO OAKLEY MD 05/11/17 10:03 Consult to Physician [CONS] Urgent Consulting Provider: TIMOTHY CABALLERO Reason For Exam: end-stage renal disease Place consult to:: NEPHRO Notified:: Y If yes, spoke with:: DR JEWELL Time called:: 12:30 05/12/17 08:47 Consult to Physician [CONS] Routine Consulting Provider: NOE SUÁREZ Reason For Exam: anemia, abdominal pain, bloody stools Place consult to:: REYNA/JONH RAMACHANDRAN Notified:: JONH Time called:: 09:45 Primary care physician: [facility] PROVIDER Hospitalization Reason for admission: abdominal pain, hyerkalemia, rectal bleeding,ESRD on HD Condition: Fair Pertinent studies: CT abdomen and pelvis no acute abnormalities that can explain the acute abdominal pain Hospital course: Patient is a 51-year-old female with past medical history of hypertension, ESRD TTS, diabetes, hyperlipidemia, hypothyroidism, who present to the Emergency Department for upper abdominal pain. The patient states that for the past five days she has felt bloated and has had a decrease in appetite. Two days ago she began having intermittent abdominal pain that initially felt like gas pains but it has now progressed to being nearly constant. Since yesterday she has had severe nausea and but denies vomiting. Her last bowel movement yesterday. Initially, when she would eat the pain would increase;no reliving factors. Currently, the pain is described as a constant dull, diffuse pain that intermittently becomes sharp and well localized. The sharp pain tends to occur in different locations at different times. The intensity of the pain has been increasing over the past two days and on pain scale she now rates the pain at 8 out of 10. She reported melena but she thinks is due to hemorrhoids. She denies a recent history of fever, jaundice, pruritis, diarrhea, hemoptysis, diverticulitis, colon cancer, peptic ulcer disease, gastritis, acid reflux, gall bladder disease or cholelithiasis. She denies a history of smoking or alcohol consumption. Patient was complaining dark stool and GI was consulted and did EGD but couldn 't finish the colonoscopy because of poor prep. Nephrology is consulted and continue her hemodialysis. Patient is hemodynamically stable at the time of discharge. She had this scheduled to see Jocelyn roberson in 2 weeks for another colonoscopy. H&H was stable. Patient's medications were updated at the time of discharge. Patient is on Coumadin and advised her to hold her Coumadin if she continued to have dark stool. Patient was advised to follow-up with her PCP within one week. Disposition: DC-30 STILL A PATIENT Time spent for discharge: 31 minutes - Discharge Diagnoses (1) Acute abdominal pain Status: Acute (2) Rectal bleeding Status: Acute (3) End-stage renal disease on hemodialysis Status: Acute (4) Hyperkalemia Status: Acute Core Measure Documentation - Palliative Care Palliative Care/ Comfort Measures: Not Applicable - Core Measures Any of the following diagnoses?: none Exam - Physical Exam Narrative exam: Not in cardiopulmonary distress. The patient is obese. Vital signs as documented. Head exam is unremarkable. No scleral icterus . Neck is without jugular venous distension, thyromegaly, or carotid bruits. Lungs are clear to auscultation. Cardiac exam reveals regular rate and Rhythm. First and second heart sounds normal. No murmurs, rubs or gallops. Abdominal exam reveals normal bowel sounds, no masses, no organomegaly and no aortic enlargement. Extremities are nonedematous and both femoral and pedal pulses are normal. MATERIAL DAMAGE APPRAISER: Alert and oriented 3. No focal weakness. - Constitutional Vitals: Temp Pulse Resp BP Pulse Ox 97.9 F 85 14 108/64 94 05/14/17 07:07 05/14/17 07:07 05/14/17 07:07 05/14/17 07:07 05/14/17 07:07 Plan Activity: no restrictions Weight Bearing Status: Full Weight Bearing Diet: low fat, low cholesterol, low salt, renal Additional Instructions: Please follow @[facility] in 1 week Follow up with: AMY FARRAR MD [Primary Care Provider] - 3-5 Days NOE SUÁREZ MD [Staff Physician] - 14 Days Prescriptions: Methadone [Dolophine] 10 mg PO TID #15 tablet
[2017-05-14 10:59] LABS: Calcium 8.1 mg/dL (8.4-10.2); Chloride 92.6 mmol/L (98-107); Potassium 4.9 mmol/L (3.6-5.0)
[2017-05-14] MEDS ORDERED: PROTONIX PO SCH (12:00)
[2017-05-14] MEDS: HEPARIN SUB-Q SCH (12:04)
--- NOTE | 2017-05-14 12:39 | Progress Note ---
Assessment and Plan - Patient Problems (1) Rectal bleeding Current Visit: Yes Status: Acute Plan to address problem: CBC pending today Yesterday's Hgb level was 9.5 S/p colonoscopy procedure on 05/13/17 aborted secondary to poor prep, will need repeat colonoscopy as an outpatient, follow up with GI in 2-3 weeks S/p EGD on 05/13/17 showed Mild esophagitis and erosive gastritis which was biopsied (2) Anemia in chronic kidney disease (CKD) Current Visit: No Status: Acute Plan to address problem: CBC pending today Epogen dosing during HD for anemia management (3) End-stage renal disease on hemodialysis Current Visit: No Status: Acute Plan to address problem: Hemodialysis today for ultrafiltration and clearance Assess need for HD on daily basis Renally dose medications Decrease amlodipine to 5 mg orally once a day given marginal blood pressure in the high 90s to low 100s systolic Possible discharge home today after HD. Patient will need to resume regular outpatient dialysis schedule once she is discharged Obtain daily weight Strict intake and output Renal plan discussed with Dr Garnica Continue supportive therapy (4) Hypertensive heart and CKD, ESRD on dialysis Current Visit: Yes Status: Acute Plan to address problem: Blood pressure marginal in the high 90s to low 100s systolic Decrease amlodipine to 5 mg orally once a day, also on lopressor 100 mg orally once a day and clonidine 0.1 mg orally at bedtime (5) DM type 2 (diabetes mellitus, type 2) Current Visit: No Status: Chronic Plan to address problem: On insulin As per Primary team Subjective Date of service: 05/14/17 Interval history: Patient reports feeling ok today, states she will be getting discharged home after HD today, eating lunch. No family at bedside Objective - Vital Signs Vital signs: Vital Signs - 12hr 05/14/17 05/14/17 04:22 07:07 Temperature 98.5 F 97.9 F Pulse Rate 85 85 Respiratory 16 14 Rate Blood Pressure 94/56 108/64 O2 Sat by Pulse 99 94 Oximetry - General Appearance General appearance: well-nourished (no acute distress) EENT: ATNC Neck: no JVD Respiratory: Present: Other (Lung sounds decreased bilaterally, unlabored) Cardiology: regular, S1S2, other (ACCESS: Right Perm Catheter intact; Left AVF with positive thrill and bruit noted) Gastrointestinal: normoactive bowel sounds Integumentary: warm and dry Neurologic: alert and oriented x3 Musculoskeletal: other (no edema to both lower extremities) Psychiatric: mood/affect appropriate, cooperative - Lab 05/13/17 05:08 05/14/17 10:18 Most recent lab results Calcium 8.1 mg/dL (8.4-10.2) L 05/14/17 10:18
[2017-05-14] MEDS ORDERED: NACL 0.9 (PRIMING MACHINE ONLY DIALYSIS) MC ONE (15:50)
[2017-05-14] MEDS: PROCRIT SUB-Q SCH (15:57)
[2017-05-14] MEDS: HEPARIN IV PRN (15:59)
[2017-05-14] MEDS ORDERED: NORVASC PO SCH (16:00)
[2017-05-14 18:10] VITALS: BP 140/80
[2017-05-14] MEDS: ELAVIL PO SCH (18:20)
[2017-05-14] MEDS: LOPRESSOR PO SCH (18:20)
[2017-05-14] MEDS: ZANAFLEX PO SCH (18:21)
[2017-05-14] MEDS: COLCRYS PO SCH (18:23)
== END 2017-05-14 18:40 | disposition home or self-care (01) | DRG 377 ==
LOC: ED 03:14 → 3A 11:16
PROVIDERS: ADMIT Internal Medicine; ATTEND Internal Medicine
PROC: 5A1D70Z Performance of Urinary Filtration, Intermittent, Less than 6 Hours Per Day (ICD-10-PCS; 2017-05-12)
PROC: 3E0234Z Introduction of Serum, Toxoid and Vaccine into Muscle, Percutaneous Approach (ICD-10-PCS; 2017-05-12)
PROC: 0DB98ZX Excision of Duodenum, Via Natural or Artificial Opening Endoscopic, Diagnostic (ICD-10-PCS; principal; 2017-05-13)
PROC: 0DB68ZX Excision of Stomach, Via Natural or Artificial Opening Endoscopic, Diagnostic (ICD-10-PCS; 2017-05-13)
PROC: 0DJD8ZZ Inspection of Lower Intestinal Tract, Via Natural or Artificial Opening Endoscopic (ICD-10-PCS; 2017-05-13)
PROC: 5A1D70Z Performance of Urinary Filtration, Intermittent, Less than 6 Hours Per Day (ICD-10-PCS; 2017-05-14)
DX: K62.5 Hemorrhage of anus and rectum (principal); K85.90 Acute pancreatitis without necrosis or infection, unspecified; N18.6 End stage renal disease; E87.1 Hypo-osmolality and hyponatremia; D62 Acute posthemorrhagic anemia; I13.11 Hypertensive heart and chronic kidney disease without heart failure, with stage 5 chronic kidney disease, or end stage renal disease; K64.9 Unspecified hemorrhoids; I16.0 Hypertensive urgency; E03.9 Hypothyroidism, unspecified; D63.1 Anemia in chronic kidney disease; G43.909 Migraine, unspecified, not intractable, without status migrainosus; J45.909 Unspecified asthma, uncomplicated; M10.9 Gout, unspecified; E87.5 Hyperkalemia; E11.22 Type 2 diabetes mellitus with diabetic chronic kidney disease; Z90.49 Acquired absence of other specified parts of digestive tract; Z90.89 Acquired absence of other organs; Z99.2 Dependence on renal dialysis; Z98.51 Tubal ligation status; Z90.5 Acquired absence of kidney; Z82.49 Family history of ischemic heart disease and other diseases of the circulatory system; Z88.0 Allergy status to penicillin; Z88.5 Allergy status to narcotic agent; Z88.6 Allergy status to analgesic agent; Z79.4 Long term (current) use of insulin; Z79.899 Other long term (current) drug therapy; Z86.718 Personal history of other venous thrombosis and embolism; Z79.01 Long term (current) use of anticoagulants; Z23 Encounter for immunization; K20.8 Other esophagitis; K25.9 Gastric ulcer, unspecified as acute or chronic, without hemorrhage or perforation
CPT/HCPCS: 36415; 71010; 74176; 80048; 80053; 81001; 82271; 82962; 83690; 85025; 85610; 88305; 88342; 90471; 90686; 90732; 96372; 96374; 96375; C9113; G0008; G0009; J0885; J1644; J1815; J1818; J2270; J2405; J2704; J2997; J3010; J7030

== ENCOUNTER 2017-09-20 05:58 | Emergency (ER) | payer MEDICARE ==
[2017-09-20 06:08] VITALS: BP 138/85
--- NOTE | 2017-09-20 08:43 | XRay Report ---
Lumbar spine: Back pain. AP and lateral views demonstrates mild traction spurs inferiorly from L2-L4. The vertebral height, alignment, and interspace distances are well preserved in the lateral projection. There is a mild levocurvature in the AP projection. The bones are well-mineralized. The patient has a surgical mesh over the pelvis and cholecystectomy clips. Impression: Degenerative spondylosis. No evidence of acute change.
[2017-09-20] MEDS ORDERED: TORADOL IM ONE (10:36)
--- NOTE | 2017-09-20 10:40 | Emergency Department Report ---
ED Back Pain/Injury HPI - General Chief Complaint: Back Pain/Injury Stated Complaint: BODY PAIN Time Seen by Provider: 09/20/17 09:40 Source: patient Limitations: No Limitations - History of Present Illness Initial Comments: This is a 52-year-old female nontoxic, well nourished in appearance, no acute signs of distress presents to the ED with c/o of chronic lower back pain 5 years. Patient stated that she follows a pain specialist they've requested her to receive an x-ray and she has no follow-up yet. Patient stated that her pain specialist prescribes her methadone and she ran out and is requesting for a refill. Patient stated that pain radiates toward her left lower extremity. Patient denies any new trauma. Patient denies any bladder or bowel stability. Patient denies any chest pain, short of breath, fever, chills, nausea, vomiting , headache or stiff neck. Patient denies any urinary symptoms. Patient states allergies to Percocet, Lortab, and codeine. Past medical history includes asthma, DVT, diabetes, headache, hypertension, gout, low back pain. MD Complaint: back pain -: year(s) (5) Similar Symptoms Previously: Yes Radiation: left leg Severity: mild Severity scale (0 -10): 8 Quality: aching Consistency: constant Improves With: none Worsens With: none Associated Symptoms: denies other symptoms. denies: confusion, weakness, chest pain, numbness, difficulty walking, cough, difficulty urinating, diaphoresis, incontinence, fever/chills, constipation, headaches, abdominal pain, loss of appetite, malaise, nausea/vomiting, rash, seizure, shortness of breath, syncope - Related Data Home Medications Medication Instructions Recorded Confirmed Last Taken Detemir (Nf) [Levemir (Nf)] 50 units SUB-Q QHS 05/11/17 05/11/17 05/10/17 Insulin Aspart [NovoLOG Flexpen] 10 units SQ AC 05/11/17 05/11/17 05/10/17 Promethazine [Phenergan TAB] 25 mg PO Q6HR PRN 05/11/17 05/11/17 05/10/17 Zolpidem [Ambien] 10 mg PO QHS 05/11/17 05/11/17 05/10/17 amLODIPine [Norvasc] 10 mg PO DAILY 05/11/17 05/11/17 05/10/17 cloNIDine [Catapres] 0.1 mg PO QHS 05/11/17 05/11/17 05/10/17 Previous Rx's Medication Instructions Recorded Last Taken Type Lactulose 20 gm PO DAILY #900 ml 11/19/16 05/10/17 Rx Amitriptyline [Elavil] 75 mg PO DAILY #30 tablet 12/03/16 05/10/17 Rx Colchicine [Colcrys] 0.6 mg PO DAILY #30 tablet 12/03/16 05/10/17 Rx Eletriptan HBr [Relpax] 20 mg PO Q4H #30 tablet 12/03/16 05/10/17 Rx Levothyroxine [Synthroid] 150 mcg PO DAILY@0600 #30 tablet 12/03/16 05/10/17 Rx Metoprolol [Lopressor TAB] 100 mg PO DAILY #30 tablet 12/03/16 05/10/17 Rx Tizanidine HCl [Zanaflex] 2 mg PO DAILY #30 capsule 12/03/16 05/10/17 Rx Warfarin [Coumadin] 10 mg PO QDAY #7 tablet 12/03/16 05/10/17 Rx Methadone [Dolophine] 10 mg PO TID #15 tablet 05/14/17 Unknown Rx Cyclobenzaprine [Flexeril] 10 mg PO QHS PRN #7 tablet 09/20/17 Unknown Rx Ibuprofen [Motrin] 600 mg PO Q8H PRN #30 tablet 09/20/17 Unknown Rx Allergies Allergy/AdvReac Type Severity Reaction Status Date / Time hydrocodone bitartrate Allergy Hives Verified 10/31/16 00:57 [From Lortab] acetaminophen [From Percocet] AdvReac Hives Verified 10/31/16 00:57 codeine AdvReac Swelling Verified 10/31/16 00:57 oxycodone HCl [From Percocet] AdvReac Hives Verified 10/31/16 00:57 Penicillins AdvReac Swelling Verified 10/31/16 00:57 ED Review of Systems ROS: Stated complaint: BODY PAIN Other details as noted in HPI Constitutional: denies: chills, fever Eyes: denies: eye pain, eye discharge, vision change ENT: denies: ear pain, throat pain Respiratory: denies: cough, shortness of breath, wheezing Cardiovascular: denies: chest pain, palpitations Endocrine: no symptoms reported Gastrointestinal: denies: abdominal pain, nausea, diarrhea Genitourinary: denies: urgency, dysuria, discharge Musculoskeletal: back pain. denies: joint swelling, arthralgia Skin: denies: rash, lesions Neurological: denies: headache, weakness, paresthesias Psychiatric: denies: anxiety, depression Hematological/Lymphatic: denies: easy bleeding, easy bruising ED Past Medical Hx - Past Medical History Previous Medical History?: Yes Hx Hypertension: Yes Hx Heart Attack/AMI: No Hx Congestive Heart Failure: No Hx Diabetes: Yes Hx Deep Vein Thrombosis: Yes Hx Liver Disease: No Hx Renal Disease: Yes (rt nephrectomy at 14 yo) Hx Sickle Cell Disease: No Hx Headaches / Migraines: Yes Hx Seizures: No Hx Asthma: Yes (last used inhaler 1 year ago) Hx COPD: No Hx HIV: No Additional medical history: gout hyperthyroidism - Surgical History Hx Open Heart Surgery: No Hx Pacemaker: No Hx Internal Defibrillator: No Hx Cholecystectomy: Yes Additional Surgical History: umbilical hernia repair x2. tonsilectomy. left foot fracture/[place]. right kidney removal - Social History Smoking Status: Never Smoker Substance Use Type: None - Medications Home Medications: Home Medications Medication Instructions Recorded Confirmed Last Taken Type Lactulose 20 gm PO DAILY #900 ml 11/19/16 05/11/17 05/10/17 Rx Amitriptyline [Elavil] 75 mg PO DAILY #30 tablet 12/03/16 05/11/17 05/10/17 Rx Colchicine [Colcrys] 0.6 mg PO DAILY #30 tablet 12/03/16 05/11/17 05/10/17 Rx Eletriptan HBr [Relpax] 20 mg PO Q4H #30 tablet 12/03/16 05/11/17 05/10/17 Rx Levothyroxine [Synthroid] 150 mcg PO DAILY@0600 #30 tablet 12/03/16 05/11/17 Rx Metoprolol [Lopressor TAB] 100 mg PO DAILY #30 tablet 12/03/16 05/11/17 Rx Tizanidine HCl [Zanaflex] 2 mg PO DAILY #30 capsule 12/03/16 05/11/17 05/10/17 Rx Warfarin [Coumadin] 10 mg PO QDAY #7 tablet 12/03/16 05/11/17 05/10/17 Rx Detemir (Nf) [Levemir (Nf)] 50 units SUB-Q QHS 05/11/17 05/11/17 05/10/17 History Insulin Aspart [NovoLOG Flexpen] 10 units SQ AC 05/11/17 05/11/17 05/10/17 History Promethazine [Phenergan TAB] 25 mg PO Q6HR PRN 05/11/17 05/11/17 05/10/17 History Zolpidem [Ambien] 10 mg PO QHS 05/11/17 05/11/17 05/10/17 History amLODIPine [Norvasc] 10 mg PO DAILY 05/11/17 05/11/17 05/10/17 History cloNIDine [Catapres] 0.1 mg PO QHS 05/11/17 05/11/17 05/10/17 History Methadone [Dolophine] 10 mg PO TID #15 tablet 05/14/17 Unknown Rx Cyclobenzaprine [Flexeril] 10 mg PO QHS PRN #7 tablet 09/20/17 Unknown Rx Ibuprofen [Motrin] 600 mg PO Q8H PRN #30 tablet 09/20/17 Unknown Rx ED Physical Exam - General Limitations: No Limitations General appearance: alert, in no apparent distress - Head Head exam: Present: atraumatic, normocephalic - Eye Eye exam: Present: normal appearance Pupils: Present: normal accommodation - ENT ENT exam: Present: normal exam, mucous membranes moist - Neck Neck exam: Present: normal inspection, full ROM - Respiratory Respiratory exam: Present: normal lung sounds bilaterally. Absent: respiratory distress, wheezes, rales, rhonchi, stridor - Cardiovascular Cardiovascular Exam: Present: regular rate, normal rhythm. Absent: irregular rhythm, systolic murmur, diastolic murmur, rubs, gallop - GI/Abdominal GI/Abdominal exam: Present: soft, normal bowel sounds - Extremities Exam Extremities exam: Present: normal inspection, full ROM, normal capillary refill - Back Exam Back exam: Present: normal inspection, full ROM, paraspinal tenderness (lumbar spine). Absent: tenderness, CVA tenderness (R), CVA tenderness (L), muscle spasm, vertebral tenderness, rash noted - Expanded Back Exam Expanded Back exam: Absent: saddle anesthesia Back exam: Negative Straight Leg Raising: Left, Right - Neurological Exam Neurological exam: Present: alert, oriented X3, normal gait - Psychiatric Psychiatric exam: Present: normal affect, normal mood - Skin Skin exam: Present: warm, dry, intact, normal color. Absent: rash ED Course Vital Signs 09/20/17 09/20/17 06:03 06:05 Temperature 98.5 F 98.5 F Pulse Rate 112 H 110 H Respiratory 18 17 Rate Blood Pressure 138/85 138/85 O2 Sat by Pulse 99 99 Oximetry - Reevaluation(s) Reevaluation #1: 09/20/17 10:38 Patient is speaking in full sentences with no signs of distress noted. ED Medical Decision Making - Medical Decision Making This is a 52-year-old female that presents with chronic low back pain. Patient is stable and was examined by me. No signs or symptoms of cauda equina syndrome. Patient denies any urinary symptoms. Patient did receive Toradol 30 mg IM in the ED which based symptoms had resolved and subsided. I will discharge patient with Flexeril and Motrin. Patient was referred to Follow-up with a primary care doctor in 3-5 days or if symptoms worsen and continue return to emergency room as soon as possible. At time of discharge, the patient does not seem toxic or ill in appearance. No acute signs of distress noted. Patient agrees to discharge treatment plan of care. No further questions noted by the patient. Critical care attestation.: If time is entered above; I have spent that time in minutes in the direct care of this critically ill patient, excluding procedure time. ED Disposition Clinical Impression: Chronic back pain Qualifiers: Back pain location: low back pain Back pain laterality: left Sciatica presence : with sciatica Sciatica laterality: sciatica of left side Qualified Code(s): M54.42 - Lumbago with sciatica, left side; G89.29 - Other chronic pain Disposition: - TO HOME OR SELFCARE Is pt being admited?: No Does the pt Need Aspirin: No Condition: Stable Instructions: Chronic Back Pain (ED) Additional Instructions: Follow-up with your primary care doctor in 3-5 days or if symptoms worsen such as bladder or bowel stability, chest pain, short of breath, numbness or tingling sensation in extremities, headache, dizziness, visual changes, nausea vomiting, or abdominal pain, return back to emergency room as was possible. Take ibuprofen and Flexeril as prescribed. Do not operate heavy machinery while taking Flexeril due to sedation Prescriptions: Cyclobenzaprine [Flexeril] 10 mg PO QHS PRN #7 tablet PRN Reason: Muscle Spasm Ibuprofen [Motrin] 600 mg PO Q8H PRN #30 tablet PRN Reason: Pain Referrals: PRIMARY MD LENI [Primary Care Provider] - 3-5 Days CLAUDIA MOHR MD [Staff Physician] - 3-5 Days ELDER HIGGINS MD [Referring] - 3-5 Days [facility] [Provider Group] - 3-5 Days [facility] [Outside] - 3-5 Days [facility] [Outside] - 3-5 Days
== END 2017-09-20 11:03 | disposition home or self-care (01) ==
LOC: ED 05:58
DX: M54.42 Lumbago with sciatica, left side (principal); G89.29 Other chronic pain; I10 Essential (primary) hypertension; E11.9 Type 2 diabetes mellitus without complications; J45.909 Unspecified asthma, uncomplicated
CPT/HCPCS: 72100; 96372; 99283; J1885

== ENCOUNTER 2017-10-06 09:48 | Outpatient (CLI) | payer MEDICARE ==
--- NOTE | 2017-10-06 23:10 | XRay Report ---
FINAL REPORT PROCEDURE: XR SPINE THORACIC 2V TECHNIQUE: Thoracic spine radiographs, including AP and lateral projections. CPT 99458 HISTORY: PAIN IN THORACIC SPINE COMPARISON: No prior studies are available for comparison. FINDINGS: Alignment: Normal . Vertebral body height: Normal . Disk spaces: Normal . Fracture(s): None . Bone mineralization: Normal . IMPRESSION: Normal Examination.
--- NOTE | 2017-10-06 23:11 | XRay Report ---
FINAL REPORT PROCEDURE: XR SPINE CERVICAL 4-5V TECHNIQUE: Cervical spine complete, including AP, lateral, open-mouth odontoid, oblique and flexion and extension studies. CPT 80629 HISTORY: PAIN IN CERVICAL SPINE COMPARISON: No prior studies are available for comparison. FINDINGS: Prevertebral soft tissues: Normal . Alignment in neutral position: Normal . Vertebral body movement with flexion and extension: Physiologic . Vertebral body heights/Disk spaces: Normal . Fracture(s): None . Neural foramina: Normal . Facets: Normal . Bone mineralization: Normal . IMPRESSION: Normal Examination
== END 2017-10-06 09:49 | disposition home or self-care (01) ==
LOC: XRAY 09:48
PROVIDERS: ATTEND Physical Medicine & Rehabilitation
DX: M54.6 Pain in thoracic spine (principal); M54.2 Cervicalgia
CPT/HCPCS: 72050; 72070

== ENCOUNTER 2017-10-17 12:50 | Emergency (ER) | payer MEDICARE ==
[2017-10-17 13:20] VITALS: BP 137/84
[2017-10-17] MEDS ORDERED: NACL 0.9% 1000 ML 1,000 ML IV ONE (13:26)
[2017-10-17 14:11] LABS: Hematocrit 24.7 % (30.3-42.9); Hemoglobin 8.2 gm/dl (10.1-14.3); Mean Corpuscular HGB Conc 33 % (30-34); Mean Corpuscular Hemoglobin 33 pg (28-32); Mean Corpuscular Volume 99 fl (79-97); Platelet Count 248 K/mm3 (140-440); Red Blood Count 2.49 M/mm3 (3.65-5.03); Red Cell Distribution Width 17.4 % (13.2-15.2)
[2017-10-17 14:21] LABS: INR 0.91 (0.87-1.13)
[2017-10-17 14:22] LABS: Partial Thromboplastin Time 28.5 Sec. (24.2-36.6)
[2017-10-17 15:07] LABS: Anisocytosis 1+; Band Neutrophils # (Manual) 0.1 K/mm3; Basophils % (Manual) 0 % (0.0-1.8); Monocytes % (Manual) 0 % (0.0-7.3); Total Cells Counted 100
[2017-10-17 15:08] LABS: Hypochromasia Rare; Ovalocytes 1+; Poikilocytosis 1+; Tear Drop Cells Rare
[2017-10-17 15:53] LABS: Albumin 4.4 g/dL (3.9-5); Calcium 9.9 mg/dL (8.4-10.2)
--- NOTE | 2017-10-17 16:15 | Emergency Department Report ---
- General Chief complaint: Weakness Stated complaint: LOW BLOOD Time Seen by Provider: 10/17/17 14:23 Source: patient Mode of arrival: Ambulatory Limitations: No Limitations - History of Present Illness Initial comments: Patient is a 52-year-old female who is presenting with possible low hemoglobin. Patient is dialysis patient and was told on Tuesday that her hemoglobin was low and that she needed to come to the hospital to have a blood transfusion. Patient states her hemoglobin was 7.4 to time. Patient states normally after dialysis she feels worn out for roughly 24 hours. Patient denies any chest pain shortness of breath fevers chills nausea vomiting at this time. Patient states she feels well today. - Related Data Home Medications Medication Instructions Recorded Confirmed Last Taken Detemir (Nf) [Levemir (Nf)] 50 units SUB-Q QHS 05/11/17 05/11/17 05/10/17 Insulin Aspart [NovoLOG Flexpen] 10 units SQ AC 05/11/17 05/11/17 05/10/17 Promethazine [Phenergan TAB] 25 mg PO Q6HR PRN 05/11/17 05/11/17 05/10/17 Zolpidem [Ambien] 10 mg PO QHS 05/11/17 05/11/17 05/10/17 amLODIPine [Norvasc] 10 mg PO DAILY 05/11/17 05/11/17 05/10/17 cloNIDine [Catapres] 0.1 mg PO QHS 05/11/17 05/11/17 05/10/17 Previous Rx's Medication Instructions Recorded Last Taken Type Lactulose 20 gm PO DAILY #900 ml 11/19/16 05/10/17 Rx Amitriptyline [Elavil] 75 mg PO DAILY #30 tablet 12/03/16 05/10/17 Rx Colchicine [Colcrys] 0.6 mg PO DAILY #30 tablet 12/03/16 05/10/17 Rx Eletriptan HBr [Relpax] 20 mg PO Q4H #30 tablet 12/03/16 05/10/17 Rx Levothyroxine [Synthroid] 150 mcg PO DAILY@0600 #30 tablet 12/03/16 05/10/17 Rx Metoprolol [Lopressor TAB] 100 mg PO DAILY #30 tablet 12/03/16 05/10/17 Rx Tizanidine HCl [Zanaflex] 2 mg PO DAILY #30 capsule 12/03/16 05/10/17 Rx Warfarin [Coumadin] 10 mg PO QDAY #7 tablet 12/03/16 05/10/17 Rx Methadone [Dolophine] 10 mg PO TID #15 tablet 05/14/17 Unknown Rx Cyclobenzaprine [Flexeril] 10 mg PO QHS PRN #7 tablet 09/20/17 Unknown Rx Ibuprofen [Motrin] 600 mg PO Q8H PRN #30 tablet 09/20/17 Unknown Rx Docusate Sodium [Colace] 100 mg PO BID #30 capsule 10/17/17 Unknown Rx Ferrous Sulfate [Iron] 325 mg PO BID #30 tablet 10/17/17 Unknown Rx Allergies Allergy/AdvReac Type Severity Reaction Status Date / Time hydrocodone bitartrate Allergy Hives Verified 10/31/16 00:57 [From Lortab] acetaminophen [From Percocet] AdvReac Hives Verified 10/31/16 00:57 codeine AdvReac Swelling Verified 10/31/16 00:57 oxycodone HCl [From Percocet] AdvReac Hives Verified 10/31/16 00:57 Penicillins AdvReac Swelling Verified 10/31/16 00:57 ED Review of Systems ROS: Stated complaint: LOW BLOOD Other details as noted in HPI Comment: All other systems reviewed and negative ED Past Medical Hx - Past Medical History Hx Hypertension: Yes Hx Heart Attack/AMI: No Hx Congestive Heart Failure: No Hx Diabetes: Yes Hx Deep Vein Thrombosis: Yes Hx Liver Disease: No Hx Renal Disease: Yes (rt nephrectomy at 14 yo) Hx Sickle Cell Disease: No Hx Headaches / Migraines: Yes Hx Seizures: No Hx Asthma: Yes (last used inhaler 1 year ago) Hx COPD: No Hx HIV: No Additional medical history: gout hyperthyroidism,anemia - Surgical History Hx Open Heart Surgery: No Hx Pacemaker: No Hx Internal Defibrillator: No Hx Cholecystectomy: Yes Additional Surgical History: umbilical hernia repair x2. tonsilectomy. left foot fracture/magdalena. right kidney removal - Social History Smoking Status: Unknown if ever smoked Substance Use Type: None - Medications Home Medications: Home Medications Medication Instructions Recorded Confirmed Last Taken Type Lactulose 20 gm PO DAILY #900 ml 11/19/16 05/11/17 05/10/17 Rx Amitriptyline [Elavil] 75 mg PO DAILY #30 tablet 12/03/16 05/11/17 05/10/17 Rx Colchicine [Colcrys] 0.6 mg PO DAILY #30 tablet 12/03/16 05/11/17 05/10/17 Rx Eletriptan HBr [Relpax] 20 mg PO Q4H #30 tablet 12/03/16 05/11/17 05/10/17 Rx Levothyroxine [Synthroid] 150 mcg PO DAILY@0600 #30 tablet 12/03/16 05/11/17 Rx Metoprolol [Lopressor TAB] 100 mg PO DAILY #30 tablet 12/03/16 05/11/17 Rx Tizanidine HCl [Zanaflex] 2 mg PO DAILY #30 capsule 12/03/16 05/11/17 05/10/17 Rx Warfarin [Coumadin] 10 mg PO QDAY #7 tablet 12/03/16 05/11/17 05/10/17 Rx Detemir (Nf) [Levemir (Nf)] 50 units SUB-Q QHS 05/11/17 05/11/17 05/10/17 History Insulin Aspart [NovoLOG Flexpen] 10 units SQ AC 05/11/17 05/11/17 05/10/17 History Promethazine [Phenergan TAB] 25 mg PO Q6HR PRN 05/11/17 05/11/17 05/10/17 History Zolpidem [Ambien] 10 mg PO QHS 05/11/17 05/11/17 05/10/17 History amLODIPine [Norvasc] 10 mg PO DAILY 05/11/17 05/11/17 05/10/17 History cloNIDine [Catapres] 0.1 mg PO QHS 05/11/17 05/11/17 05/10/17 History Methadone [Dolophine] 10 mg PO TID #15 tablet 05/14/17 Unknown Rx Cyclobenzaprine [Flexeril] 10 mg PO QHS PRN #7 tablet 09/20/17 Unknown Rx Ibuprofen [Motrin] 600 mg PO Q8H PRN #30 tablet 09/20/17 Unknown Rx Docusate Sodium [Colace] 100 mg PO BID #30 capsule 10/17/17 Unknown Rx Ferrous Sulfate [Iron] 325 mg PO BID #30 tablet 10/17/17 Unknown Rx ED Physical Exam - General Limitations: No Limitations General appearance: alert, in no apparent distress - Head Head exam: Present: atraumatic, normocephalic - Eye Eye exam: Present: normal appearance - ENT ENT exam: Present: mucous membranes moist - Neck Neck exam: Present: normal inspection - Respiratory Respiratory exam: Present: normal lung sounds bilaterally. Absent: respiratory distress - Cardiovascular Cardiovascular Exam: Present: regular rate, normal rhythm. Absent: systolic murmur, diastolic murmur, rubs, gallop - GI/Abdominal GI/Abdominal exam: Present: soft, normal bowel sounds - Extremities Exam Extremities exam: Present: normal inspection - Back Exam Back exam: Present: normal inspection - Neurological Exam Neurological exam: Present: alert, oriented X3 - Psychiatric Psychiatric exam: Present: normal affect, normal mood - Skin Skin exam: Present: warm, dry, intact, normal color. Absent: rash ED Course Vital Signs 10/17/17 13:16 Temperature 98.8 F Pulse Rate 110 H Respiratory 18 Rate Blood Pressure 137/84 O2 Sat by Pulse 98 Oximetry ED Medical Decision Making - Lab Data Result diagrams: 10/17/17 13:45 10/17/17 13:45 - Medical Decision Making Patient's hemoglobin is above 8 today. Patient is having no symptoms at this time. Patient does not be a criteria for an emergent blood transfusion. Patient will be started on iron pills it would be discharged home at this time. Critical care attestation.: If time is entered above; I have spent that time in minutes in the direct care of this critically ill patient, excluding procedure time. ED Disposition Clinical Impression: Anemia Qualifiers: Anemia type: iron deficiency Iron deficiency anemia type: other iron deficiency Qualified Code(s): D50.8 - Other iron deficiency anemias Disposition: DC- TO HOME OR SELFCARE Is pt being admited?: No Does the pt Need Aspirin: No Condition: Stable Instructions: Iron Deficiency Anemia (ED) Additional Instructions: Hemoglobin today was 8.2 Prescriptions: Docusate Sodium [Colace] 100 mg PO BID #30 capsule Ferrous Sulfate [Iron] 325 mg PO BID #30 tablet Referrals: PRIMARY CARE, [Primary Care Provider] - 3-5 Days
== END 2017-10-17 16:22 | disposition home or self-care (01) ==
LOC: ED 12:50
DX: D64.9 Anemia, unspecified (principal); E11.9 Type 2 diabetes mellitus without complications; G43.909 Migraine, unspecified, not intractable, without status migrainosus; J45.909 Unspecified asthma, uncomplicated; Z86.718 Personal history of other venous thrombosis and embolism; Z90.49 Acquired absence of other specified parts of digestive tract; Z88.6 Allergy status to analgesic agent; Z79.4 Long term (current) use of insulin
CPT/HCPCS: 36415; 80053; 83690; 85007; 85025; 85610; 85730; 86850; 86900; 86901; 96360; 96361; 99283; J7030

== ENCOUNTER 2017-10-18 08:30 | Outpatient (CLI) | payer MEDICARE ==
--- NOTE | 2017-10-18 16:46 | Mammography Report ---
BILATERAL DIGITAL SCREENING MAMMOGRAM WITH CAD:10/18/17 08:15:00 CLINICAL: Baseline screening. FINDINGS: The breasts are heterogeneously dense, which may obscure small masses. Subtle left asymmetries require additional imaging.No architectural distortion or suspicious calcifications. The right breast is negative. IMPRESSION: Left asymmetries requiring further workup. BI-RADS CATEGORY: 0 -- Needs Additional Imaging RECOMMENDATION: Recall for left lateral and spot compression MLO and CC views views and left breast ultrasound. ACR BI-RADS MAMMOGRAPHIC CODES: 0 = Needs additional imaging evaluation; 1 = Negative; 2 = Benign; 3 = Probably benign; 4 = Suspicious; 5 = Malignant; 6 = Known biopsy-proven malignancy COMMENT: 1. Dense breast tissue, i.e., adenosis, fibrocystic changes, etc., may obscure an underlying neoplasm. 2. Approximately 10% of cancers are not detected with mammography. 3. A negative mammography report should not delay biopsy if a clinically suspicious mass is present.
== END 2017-10-18 08:31 | disposition home or self-care (01) ==
LOC: MAMMO 08:30
PROVIDERS: ATTEND Physical Medicine & Rehabilitation
DX: Z12.31 Encounter for screening mammogram for malignant neoplasm of breast (principal)
CPT/HCPCS: 77067

== ENCOUNTER 2017-12-14 08:28 | Inpatient (IN) | payer MEDICARE ==
[2017-12-14 09:01] LABS: Basophils % (Auto) 1.1 % (0.0-1.8); Eosinophils # (Auto) 0.1 K/mm3 (0.0-0.4); Eosinophils % (Auto) 2.4 % (0.0-4.3); Hematocrit 25.9 % (30.3-42.9); Hemoglobin 8.4 gm/dl (10.1-14.3); Lymphocytes # (Auto) 1.4 K/mm3 (1.2-5.4); Lymphocytes % (Auto) 39.1 % (13.4-35.0); Mean Corpuscular HGB Conc 32 % (30-34); Mean Corpuscular Hemoglobin 33 pg (28-32); Mean Corpuscular Volume 101 fl (79-97); Monocytes # (Auto) 0.2 K/mm3 (0.0-0.8); Monocytes % (Auto) 6.9 % (0.0-7.3); Platelet Count 226 K/mm3 (140-440); Red Blood Count 2.56 M/mm3 (3.65-5.03); Red Cell Distribution Width 18.1 % (13.2-15.2)
[2017-12-14 09:20] LABS: Albumin 4.5 g/dL (3.9-5)
[2017-12-14 09:25] LABS: Calcium 12.9 mg/dL (8.4-10.2)
--- NOTE | 2017-12-14 10:22 | Emergency Department Report ---
ED General Adult HPI - General Chief complaint: Abdominal Pain Stated complaint: BODYACHES Time Seen by Provider: 12/14/17 10:07 Source: patient Mode of arrival: Ambulatory Limitations: No Limitations - History of Present Illness Initial comments: This is a 52-year-old end-stage renal patient on dialysis with a history of poor compliance. She states her last dialysis was on Tuesday. She presents to the emergency department today complaining of diffuse body aches. She states that her left hip is painful as well as of both her feet. She has diffuse pain. She is reticent to admit that she is already on methadone for chronic pain. She is also a diabetic and consequently likely has a diabetic neuropathy as well. She is usually dialyzed in [place] at [facility]. She is a former patient of Dr. Garnica group but states she no longer goes to them. I have discussed this with Dr. Walden who is forestry consultant for the emergency department. I believe it is appropriate for the on-call forensic chemist to consult on this patient. Dr. Walden was in agreement. The patient did not request Dr. Garnica's group. In any case she is in need of dialysis. She is found to have substantial hypercalcemia. I asked her if she was taking anything for her calcium. The patient is a poor historian but she states not. The patient has a history of hypo-thyroidism I believe after thyroid surgery. Her exact history is somewhat unclear. -: days(s) Associated Symptoms: denies other symptoms - Related Data Home Medications Medication Instructions Recorded Confirmed Last Taken Detemir (Nf) [Levemir (Nf)] 50 units SUB-Q QHS 05/11/17 05/11/17 05/10/17 Insulin Aspart [NovoLOG Flexpen] 10 units SQ AC 05/11/17 05/11/17 05/10/17 Promethazine [Phenergan TAB] 25 mg PO Q6HR PRN 05/11/17 05/11/17 05/10/17 Zolpidem [Ambien] 10 mg PO QHS 05/11/17 05/11/17 05/10/17 amLODIPine [Norvasc] 10 mg PO DAILY 05/11/17 05/11/17 05/10/17 cloNIDine [Catapres] 0.1 mg PO QHS 05/11/17 05/11/17 05/10/17 Previous Rx's Medication Instructions Recorded Last Taken Type Lactulose 20 gm PO DAILY #900 ml 11/19/16 05/10/17 Rx Amitriptyline [Elavil] 75 mg PO DAILY #30 tablet 12/03/16 05/10/17 Rx Colchicine [Colcrys] 0.6 mg PO DAILY #30 tablet 12/03/16 05/10/17 Rx Eletriptan HBr [Relpax] 20 mg PO Q4H #30 tablet 12/03/16 05/10/17 Rx Levothyroxine [Synthroid] 150 mcg PO DAILY@0600 #30 tablet 12/03/16 05/10/17 Rx Metoprolol [Lopressor TAB] 100 mg PO DAILY #30 tablet 12/03/16 05/10/17 Rx Tizanidine HCl [Zanaflex] 2 mg PO DAILY #30 capsule 12/03/16 05/10/17 Rx Warfarin [Coumadin] 10 mg PO QDAY #7 tablet 12/03/16 05/10/17 Rx Methadone [Dolophine] 10 mg PO TID #15 tablet 05/14/17 Unknown Rx Cyclobenzaprine [Flexeril] 10 mg PO QHS PRN #7 tablet 09/20/17 Unknown Rx Ibuprofen [Motrin] 600 mg PO Q8H PRN #30 tablet 09/20/17 Unknown Rx Docusate Sodium [Colace] 100 mg PO BID #30 capsule 10/17/17 Unknown Rx Ferrous Sulfate [Iron] 325 mg PO BID #30 tablet 10/17/17 Unknown Rx Allergies Allergy/AdvReac Type Severity Reaction Status Date / Time hydrocodone bitartrate Allergy Hives Verified 10/31/16 00:57 [From Lortab] ibuprofen Allergy Rash Verified 12/14/17 08:31 acetaminophen [From Percocet] AdvReac Hives Verified 10/31/16 00:57 codeine AdvReac Swelling Verified 10/31/16 00:57 oxycodone HCl [From Percocet] AdvReac Hives Verified 10/31/16 00:57 Penicillins AdvReac Swelling Verified 10/31/16 00:57 ED Review of Systems ROS: Stated complaint: BODYACHES Other details as noted in HPI ED Past Medical Hx - Past Medical History Previous Medical History?: Yes Hx Hypertension: Yes Hx Heart Attack/AMI: No Hx Congestive Heart Failure: No Hx Diabetes: Yes Hx Deep Vein Thrombosis: Yes Hx Liver Disease: No Hx Renal Disease: Yes (rt nephrectomy at 14 yo) Hx Sickle Cell Disease: No Hx Headaches / Migraines: Yes Hx Seizures: No Hx Asthma: Yes (last used inhaler 1 year ago) Hx COPD: No Hx HIV: No Additional medical history: gout hyperthyroidism,anemia - Surgical History Past Surgical History?: Yes Hx Open Heart Surgery: No Hx Pacemaker: No Hx Internal Defibrillator: No Hx Cholecystectomy: Yes Additional Surgical History: umbilical hernia repair x2. tonsilectomy. left foot fracture/mag[place]. right kidney removal - Social History Smoking Status: Never Smoker Substance Use Type: None - Medications Home Medications: Home Medications Medication Instructions Recorded Confirmed Last Taken Type Lactulose 20 gm PO DAILY #900 ml 11/19/16 05/11/17 05/10/17 Rx Amitriptyline [Elavil] 75 mg PO DAILY #30 tablet 12/03/16 05/11/17 05/10/17 Rx Colchicine [Colcrys] 0.6 mg PO DAILY #30 tablet 12/03/16 05/11/17 05/10/17 Rx Eletriptan HBr [Relpax] 20 mg PO Q4H #30 tablet 12/03/16 05/11/17 05/10/17 Rx Levothyroxine [Synthroid] 150 mcg PO DAILY@0600 #30 tablet 12/03/16 05/11/17 Rx Metoprolol [Lopressor TAB] 100 mg PO DAILY #30 tablet 12/03/16 05/11/17 Rx Tizanidine HCl [Zanaflex] 2 mg PO DAILY #30 capsule 12/03/16 05/11/17 05/10/17 Rx Warfarin [Coumadin] 10 mg PO QDAY #7 tablet 12/03/16 05/11/17 05/10/17 Rx Detemir (Nf) [Levemir (Nf)] 50 units SUB-Q QHS 05/11/17 05/11/17 05/10/17 History Insulin Aspart [NovoLOG Flexpen] 10 units SQ AC 05/11/17 05/11/17 05/10/17 History Promethazine [Phenergan TAB] 25 mg PO Q6HR PRN 05/11/17 05/11/17 05/10/17 History Zolpidem [Ambien] 10 mg PO QHS 05/11/17 05/11/17 05/10/17 History amLODIPine [Norvasc] 10 mg PO DAILY 05/11/17 05/11/17 05/10/17 History cloNIDine [Catapres] 0.1 mg PO QHS 05/11/17 05/11/17 05/10/17 History Methadone [Dolophine] 10 mg PO TID #15 tablet 05/14/17 Unknown Rx Cyclobenzaprine [Flexeril] 10 mg PO QHS PRN #7 tablet 09/20/17 Unknown Rx Ibuprofen [Motrin] 600 mg PO Q8H PRN #30 tablet 09/20/17 Unknown Rx Docusate Sodium [Colace] 100 mg PO BID #30 capsule 10/17/17 Unknown Rx Ferrous Sulfate [Iron] 325 mg PO BID #30 tablet 10/17/17 Unknown Rx ED Physical Exam - General Limitations: No Limitations ED Course Vital Signs 12/14/17 12/14/17 08:31 10:18 Temperature 97.9 F Pulse Rate 108 H Respiratory 20 18 Rate Blood Pressure 147/107 O2 Sat by Pulse 93 Oximetry - Reevaluation(s) Reevaluation #1: The patient was seen by Dr. Walden who initiated dialysis orders. She was admitted by Dr. Valle to the hospitalist service. 12/14/17 11:41 ED Medical Decision Making - Lab Data Result diagrams: 12/14/17 08:41 12/14/17 08:41 Laboratory Results - last 24 hr 12/14/17 12/14/17 12/14/17 08:41 08:41 08:41 WBC 3.6 L RBC 2.56 L Hgb 8.4 L Hct 25.9 L MCV 101 H MCH 33 H MCHC 32 RDW 18.1 H Plt Count 226 Lymph % (Auto) 39.1 H [place] % (Auto) 6.9 Eos % (Auto) 2.4 Baso % (Auto) 1.1 Lymph # 1.4 [place] # 0.2 Eos # 0.1 Baso # 0.0 Seg Neutrophils % 50.5 Seg Neutrophils # 1.8 Sodium 143 Potassium 4.2 Chloride 100.2 Carbon Dioxide 18 L Anion Gap 29 BUN 53 H Creatinine 11.2 H Estimated GFR 4 BUN/Creatinine Ratio 5 Glucose 94 Calcium 12.9 H* Total Bilirubin 0.40 AST 53 H ALT 88 H Alkaline Phosphatase 181 H Total Protein 7.6 Albumin 4.5 Albumin/Globulin Ratio 1.5 Lipase 129 H HCG, Qual Negative - EKG Data -: EKG Interpreted by Me EKG shows normal: sinus rhythm, axis, intervals, QRS complexes, ST-T waves Rate: normal - EKG Data Interpretation: no acute changes, LVH - Radiology Data interpreted by me: Chest x-ray demonstrates cardiomegaly without decompensation Critical Care Time: Yes Critical care time in (mins) excluding proc time.: 45 Critical care attestation.: If time is entered above; I have spent that time in minutes in the direct care of this critically ill patient, excluding procedure time. ED Disposition Clinical Impression: End-stage renal disease needing dialysis, Hypercalcemia Disposition: OP ADMIT IP TO THIS HOSP Is pt being admited?: Yes Does the pt Need Aspirin: Yes Condition: Stable Instructions: Abdominal Pain (ED) Referrals: PRIMARY CARE, [Primary Care Provider] - 3-5 Days Time of Disposition: 11:41
[2017-12-14] MEDS ORDERED: DILAUDID IV ONE (10:40)
[2017-12-14] MEDS ORDERED: ZOFRAN IV ONE (10:40)
--- NOTE | 2017-12-14 11:32 | XRay Report ---
AP CHEST: HISTORY: Hypertension AP view of the chest demonstrates a normal mediastinal and cardiac contour with clear lungs and normal bony and soft tissue structures. IMPRESSION: No acute cardiopulmonary process identified.
[2017-12-14] MEDS ORDERED: NACL 0.9% 100 ML IV PRN (13:35)
[2017-12-14 14:32] LABS: INR 0.93 (0.87-1.13)
--- NOTE | 2017-12-14 15:36 | Consultation ---
History of Present Illness - Reason for Consult Consult date: 12/14/17 - History of Present Illness pt was seen and examined in ER. Discussed with Dr. Matthew--ER doctor. Ca-12.9-- recheck. Missed HD on Tuesday, goes to [place] dialysis [facility]. consult dictated Medications and Allergies Allergies Allergy/AdvReac Type Severity Reaction Status Date / Time ibuprofen Allergy Mild Rash Verified 12/14/17 13:41 hydrocodone bitartrate Allergy Hives Verified 12/14/17 13:41 [From Lortab] acetaminophen [From Percocet] AdvReac Hives Verified 12/14/17 13:41 codeine AdvReac Swelling Verified 12/14/17 13:41 oxycodone HCl [From Percocet] AdvReac Hives Verified 12/14/17 13:41 Penicillins AdvReac Swelling Verified 12/14/17 13:41 Home Medications Medication Instructions Recorded Confirmed Last Taken Type Lactulose 20 gm PO DAILY #900 ml 11/19/16 05/11/17 05/10/17 Rx Amitriptyline [Elavil] 75 mg PO DAILY #30 tablet 12/03/16 05/11/17 05/10/17 Rx Colchicine [Colcrys] 0.6 mg PO DAILY #30 tablet 12/03/16 05/11/17 05/10/17 Rx Eletriptan HBr [Relpax] 20 mg PO Q4H #30 tablet 12/03/16 05/11/17 05/10/17 Rx Levothyroxine [Synthroid] 150 mcg PO DAILY@0600 #30 tablet 12/03/16 05/11/17 Rx Metoprolol [Lopressor TAB] 100 mg PO DAILY #30 tablet 12/03/16 05/11/17 Rx Tizanidine HCl [Zanaflex] 2 mg PO DAILY #30 capsule 12/03/16 05/11/17 05/10/17 Rx Warfarin [Coumadin] 10 mg PO QDAY #7 tablet 12/03/16 05/11/17 05/10/17 Rx Detemir (Nf) [Levemir (Nf)] 50 units SUB-Q QHS 05/11/17 05/11/17 05/10/17 History Insulin Aspart [NovoLOG Flexpen] 10 units SQ AC 05/11/17 05/11/17 05/10/17 History Promethazine [Phenergan TAB] 25 mg PO Q6HR PRN 05/11/17 05/11/17 05/10/17 History Zolpidem [Ambien] 10 mg PO QHS 05/11/17 05/11/17 05/10/17 History amLODIPine [Norvasc] 10 mg PO DAILY 05/11/17 05/11/17 05/10/17 History cloNIDine [Catapres] 0.1 mg PO QHS 05/11/17 05/11/17 05/10/17 History Methadone [Dolophine] 10 mg PO TID #15 tablet 05/14/17 Unknown Rx Cyclobenzaprine [Flexeril] 10 mg PO QHS PRN #7 tablet 09/20/17 Unknown Rx Ibuprofen [Motrin] 600 mg PO Q8H PRN #30 tablet 09/20/17 Unknown Rx Docusate Sodium [Colace] 100 mg PO BID #30 capsule 10/17/17 Unknown Rx Ferrous Sulfate [Iron] 325 mg PO BID #30 tablet 10/17/17 Unknown Rx Active Meds: Active Medications Sodium Chloride (Nacl 0.9%) 100 mls @ 999 mls/hr IV SYED PRN PRN Reason: Hypotension Exam - Constitutional Vitals: Temp Pulse Resp BP Pulse Ox 98.6 F 103 H 16 154/94 93 12/14/17 13:12 12/14/17 13:12 12/14/17 13:12 12/14/17 13:12 12/14/17 08:31 Results - Labs CBC & Chem 7: 12/14/17 08:41 12/14/17 08:41 Labs: Abnormal lab results 12/14/17 12/14/17 12/14/17 Range/Units 08:41 08:41 08:41 WBC 3.6 L (4.5-11.0) K/mm3 RBC 2.56 L (3.65-5.03) M/mm3 Hgb 8.4 L (10.1-14.3) gm/dl Hct 25.9 L (30.3-42.9) % MCV 101 H (79-97) fl MCH 33 H (28-32) pg RDW 18.1 H (13.2-15.2) % Lymph % (Auto) 39.1 H (13.4-35.0) % Carbon Dioxide 18 L (22-30) mmol/L BUN 53 H (7-17) mg/dL Creatinine 11.2 H (0.7-1.2) mg/dL Calcium 12.9 H* (8.4-10.2) mg/dL Phosphorus 6.10 H (2.5-4.5) mg/dL AST 53 H (5-40) units/L ALT 88 H (7-56) units/L Alkaline Phosphatase 181 H (35-129) units/L Lipase 129 H (13-60) units/L PTH Intact (15-65) pg/mL 12/14/17 12/14/17 12/14/17 Range/Units 11:38 Unknown Unknown WBC (4.5-11.0) K/mm3 RBC (3.65-5.03) M/mm3 Hgb (10.1-14.3) gm/dl Hct (30.3-42.9) % MCV (79-97) fl MCH (28-32) pg RDW (13.2-15.2) % Lymph % (Auto) (13.4-35.0) % Carbon Dioxide (22-30) mmol/L BUN (7-17) mg/dL Creatinine (0.7-1.2) mg/dL Calcium 12.2 H* (8.4-10.2) mg/dL Phosphorus 6.00 H (2.5-4.5) mg/dL AST (5-40) units/L ALT (7-56) units/L Alkaline Phosphatase (35-129) units/L Lipase (13-60) units/L PTH Intact 419.8 H (15-65) pg/mL
[2017-12-14] MEDS ORDERED: NACL 0.9 (PRIMING MACHINE ONLY DIALYSIS) MC ONE (15:45)
[2017-12-14 16:54] LABS: Hepatitis A Antibody IgM Non-Reactive (NonReactive); Hepatitis B Core IgM Non-Reactive (NonReactive); Hepatitis B Surface Antigen Non-Reactive (Negative); Hepatitis C Virus Antibody Non-Reactive (NonReactive)
[2017-12-14] MEDS ORDERED: CEPHULAC PO ONE (19:38)
[2017-12-14] MEDS: MORPHINE IV PRN (21:41)
--- NOTE | 2017-12-14 21:57 | Consultation ---
RENAL CONSULTATION REASON FOR CONSULTATION: Renal failure and hypercalcemia. HISTORY OF PRESENT ILLNESS: This 52-year-old Afro-[place] female with end-stage renal disease, diabetes, hypertension, was brought to the Emergency Room with complaints of diffuse body aches. Discussed with the ER physician, Dr. Matthew. The patient was reported to have calcium level of 12.9. The patient complains of left leg, back, hips hurting for the past 3 weeks. The patient states that she has been on hemodialysis for the past 8-1/2 months. She was born with 1 kidney. History of diabetes and hypertension. The patient currently gets dialysis at [facility] under the care of Dr. Mcneil. The patient goes to dialysis on Tuesday, Tuesday, and Tuesday, but missed the dialysis on past Tuesday due to attending a family reunion. PAST MEDICAL HISTORY: ESRD, diabetes, hypertension, chronic pain, history of right nephrectomy. PERSONAL HISTORY: Denies smoking, alcohol, or drug abuse. FAMILY HISTORY: No family history of kidney failure. ALLERGIES: IBUPROFEN, HYDROCODONE, ACETAMINOPHEN, CODEINE. HOME MEDICATIONS: Reviewed. REVIEW OF SYSTEMS: The patient complains of chronic pain and pain worse for the past 3 weeks in the left leg, back, and hips. Denies chest pain or shortness of breath. Denies abdomen pain, nausea, or vomiting. Feels tired. Denies dysuria or hematuria. Other review of systems reviewed and negative. PHYSICAL EXAMINATION: GENERAL: The patient is alert, oriented, well-developed female, not in acute distress. VITAL SIGNS: Blood pressure 147/107, pulse 108, temperature 97.9, afebrile. HEENT: Normocephalic. Conjunctivae pale. Lips noncyanotic. NECK: No JVD, no thyroid enlargement. LUNGS: Clear. HEART: S1, S2 regular. No pericardial rub. ABDOMEN: Soft, bowel sounds present, nontender. No liver or spleen palpable. EXTREMITIES: No significant edema. Left arm AV fistula has bruit and thrill. LABORATORY DATA: WBC 3.6, hemoglobin 8.4, hematocrit 25.9, platelets 226. Sodium 143, potassium 4.2, chloride 100, CO2 18, BUN 53, creatinine 11.2, calcium 12.9, AST 53, ALT 88, alkaline phosphatase 181. PTH 419, albumin 4.5. ASSESSMENT: 1. End-stage renal disease, missed dialysis on 12/12/2017. 2. Hypercalcemia. The patient denies taking any calcium supplements. 3. Chronic pain. 4. Elevated liver enzymes (acute transaminitis). 5. Anemia in chronic kidney disease. PLAN: Hemodialysis as ordered. Recheck calcium level. Avoid calcium supplements. Use low calcium bath for hemodialysis. Monitor calcium levels closely. Also, check on phosphorus and PTH levels. Check workup for hypercalcemia. Chest x-ray was reported to have no acute findings. JOB# [id number] DEBIK/NTS
--- NOTE | 2017-12-15 01:09 | History and Physical Report ---
History of Present Illness Date of examination: 12/15/17 Date of admission: 12/14/17 11:43 Chief complaint: CC SOB sec to missed HD History of present illness: History of Present Illness: 52-year-old end-stage renal patient on dialysis with a history of poor compliance --states her last dialysis was on Tuesday. Missed HD on Tuesday due to family reunion.Has SOB at minimal exertion. .No chest pain.She is usually dialyzed in [place] at [facility]. She is a former patient of Dr. Nahun moura. No recent travel. Likes missing HD on minimal excuse. No fever or chills Past Medical History Previous Medical History?: Yes Hx Hypertension: Yes Hx Diabetes: Yes Hx Deep Vein Thrombosis: Yes Hx Renal Disease: Yes (rt nephrectomy at 14 yo) Hx Asthma: Yes (last used inhaler 1 year ago) Additional medical history: gout hyperthyroidism,anemia Surgical History Past Surgical History?: Yes Hx Cholecystectomy: Yes Additional Surgical History: umbilical hernia repair x2. tonsilectomy. left foot fracture/magdalena. right kidney removal Social History Smoking Status: Never Smoker Substance Use Type: None Family history: Htn Medications: Home Medications: Home Medications Medication Instructions Recorded Confirmed Last Taken Type Lactulose 20 gm PO DAILY #900 ml 11/19/16 05/11/17 05/10/17 Rx Amitriptyline [Elavil] 75 mg PO DAILY #30 tablet 12/03/16 05/11/17 05/10/17 Rx Colchicine [Colcrys] 0.6 mg PO DAILY #30 tablet 12/03/16 05/11/17 05/10/17 Rx Eletriptan HBr [Relpax] 20 mg PO Q4H #30 tablet 12/03/16 05/11/17 05/10/17 Rx Levothyroxine [Synthroid] 150 mcg PO DAILY@0600 #30 tablet 12/03/16 05/11/17 Rx Metoprolol [Lopressor TAB] 100 mg PO DAILY #30 tablet 12/03/16 05/11/17 Rx Tizanidine HCl [Zanaflex] 2 mg PO DAILY #30 capsule 12/03/16 05/11/17 05/10/17 Rx Warfarin [Coumadin] 10 mg PO QDAY #7 tablet 12/03/16 05/11/17 05/10/17 Rx Detemir (Nf) [Levemir (Nf)] 50 units SUB-Q QHS 05/11/17 05/11/17 05/10/17 History Insulin Aspart [NovoLOG Flexpen] 10 units SQ AC 05/11/17 05/11/17 05/10/17 History Promethazine [Phenergan TAB] 25 mg PO Q6HR PRN 05/11/17 05/11/17 05/10/17 History Zolpidem [Ambien] 10 mg PO QHS 05/11/17 05/11/17 05/10/17 History amLODIPine [Norvasc] 10 mg PO DAILY 05/11/17 05/11/17 05/10/17 History cloNIDine [Catapres] 0.1 mg PO QHS 05/11/17 05/11/17 05/10/17 History Methadone [Dolophine] 10 mg PO TID #15 tablet 05/14/17 Unknown Rx Cyclobenzaprine [Flexeril] 10 mg PO QHS PRN #7 tablet 09/20/17 Unknown Rx Ibuprofen [Motrin] 600 mg PO Q8H PRN #30 tablet 09/20/17 Unknown Rx Docusate Sodium [Colace] 100 mg PO BID #30 capsule 10/17/17 Unknown Rx Ferrous Sulfate [Iron] 325 mg PO BID #30 tablet 10/17/17 Unknown Rx Review of Systems ROS: Stated complaint: BODYACHES Other details as noted in HPI Medications and Allergies Allergies Allergy/AdvReac Type Severity Reaction Status Date / Time ibuprofen Allergy Mild Rash Verified 12/14/17 13:41 hydrocodone bitartrate Allergy Hives Verified 12/14/17 13:41 [From Lortab] acetaminophen [From Percocet] AdvReac Hives Verified 12/14/17 13:41 codeine AdvReac Swelling Verified 12/14/17 13:41 oxycodone HCl [From Percocet] AdvReac Hives Verified 12/14/17 13:41 Penicillins AdvReac Swelling Verified 12/14/17 13:41 Home Medications Medication Instructions Recorded Confirmed Last Taken Type Lactulose 20 gm PO DAILY #900 ml 11/19/16 12/14/17 05/10/17 Rx Amitriptyline [Elavil] 75 mg PO DAILY #30 tablet 12/03/16 12/14/17 05/10/17 Rx Colchicine [Colcrys] 0.6 mg PO DAILY #30 tablet 12/03/16 12/14/17 05/10/17 Rx Eletriptan HBr [Relpax] 20 mg PO Q4H #30 tablet 12/03/16 12/14/17 05/10/17 Rx Levothyroxine [Synthroid] 150 mcg PO DAILY@0600 #30 tablet 12/03/16 12/14/17 Rx Metoprolol [Lopressor TAB] 100 mg PO DAILY #30 tablet 12/03/16 12/14/17 Rx Tizanidine HCl [Zanaflex] 2 mg PO DAILY #30 capsule 12/03/16 12/14/17 05/10/17 Rx Warfarin [Coumadin] 10 mg PO QDAY #7 tablet 12/03/16 12/14/17 05/10/17 Rx Detemir (Nf) [Levemir (Nf)] 50 units SUB-Q QHS 05/11/17 12/14/17 05/10/17 History Insulin Aspart [NovoLOG Flexpen] 10 units SQ AC 05/11/17 12/14/17 05/10/17 History Promethazine [Phenergan TAB] 25 mg PO Q6HR PRN 05/11/17 12/14/17 05/10/17 History Zolpidem [Ambien] 10 mg PO QHS 05/11/17 12/14/17 05/10/17 History amLODIPine [Norvasc] 10 mg PO DAILY 05/11/17 12/14/17 05/10/17 History cloNIDine [Catapres] 0.1 mg PO QHS 05/11/17 12/14/17 05/10/17 History Methadone [Dolophine] 10 mg PO TID #15 tablet 05/14/17 12/14/17 Unknown Rx Cyclobenzaprine [Flexeril] 10 mg PO QHS PRN #7 tablet 09/20/17 12/14/17 Unknown Rx Ibuprofen [Motrin] 600 mg PO Q8H PRN #30 tablet 09/20/17 12/14/17 Unknown Rx Docusate Sodium [Colace] 100 mg PO BID #30 capsule 10/17/17 12/14/17 Unknown Rx Ferrous Sulfate [Iron] 325 mg PO BID #30 tablet 10/17/17 12/14/17 Unknown Rx Active Meds: Active Medications Sodium Chloride (Nacl 0.9%) 100 mls @ 999 mls/hr IV SYED PRN PRN Reason: Hypotension Morphine Sulfate (Morphine) 2 mg IV Q3H PRN PRN Reason: Pain, Moderate (4-6) Last Admin: 12/14/17 21:41 Dose: 2 mg Exam - Constitutional Vitals: Temp Pulse Resp BP Pulse Ox 99.1 F 113 H 18 116/68 96 12/14/17 17:47 12/14/17 17:47 12/14/17 21:41 12/14/17 17:47 12/14/17 17:47 General appearance: Present: mild distress, well-nourished - EENT Eyes: Present: PERRL ENT: hearing intact, clear oral mucosa - Neck Neck: Present: supple, normal ROM - Respiratory Respiratory effort: normal Respiratory: bilateral: CTA - Cardiovascular Heart rate: 80 Rhythm: regular Heart Sounds: Present: S1 & S2. Absent: rub, click - Extremities Extremities: no ischemia, pulses intact, pulses symmetrical, No edema Peripheral Pulses: within normal limits - Abdominal General gastrointestinal: Present: soft, non-tender, non-distended, normal bowel sounds Female genitourinary: Present: normal - Rectal Rectal Exam: deferred - Integumentary Integumentary: Present: clear, warm, dry - Musculoskeletal Musculoskeletal: gait normal, strength equal bilaterally - Psychiatric Psychiatric: appropriate mood/affect, intact judgment & insight - Neurologic Neurologic: CNII-XII intact, moves all extremities - Allied Health Allied health notes reviewed: nursing, case management Results - Labs CBC & Chem 7: 12/14/17 08:41 12/14/17 08:41 Labs: Laboratory Last Values WBC 3.6 K/mm3 (4.5-11.0) L 12/14/17 08:41 RBC 2.56 M/mm3 (3.65-5.03) L 12/14/17 08:41 Hgb 8.4 gm/dl (10.1-14.3) L 12/14/17 08:41 Hct 25.9 % (30.3-42.9) L 12/14/17 08:41 MCV 101 fl (79-97) H 12/14/17 08:41 MCH 33 pg (28-32) H 12/14/17 08:41 MCHC 32 % (30-34) 12/14/17 08:41 RDW 18.1 % (13.2-15.2) H 12/14/17 08:41 Plt Count 226 K/mm3 (140-440) 12/14/17 08:41 Lymph % (Auto) 39.1 % (13.4-35.0) H 12/14/17 08:41 [place] % (Auto) 6.9 % (0.0-7.3) 12/14/17 08:41 Eos % (Auto) 2.4 % (0.0-4.3) 12/14/17 08:41 Baso % (Auto) 1.1 % (0.0-1.8) 12/14/17 08:41 Lymph # 1.4 K/mm3 (1.2-5.4) 12/14/17 08:41 Thomas # 0.2 K/mm3 (0.0-0.8) 12/14/17 08:41 Eos # 0.1 K/mm3 (0.0-0.4) 12/14/17 08:41 Baso # 0.0 K/mm3 (0.0-0.1) 12/14/17 08:41 Seg Neutrophils % 50.5 % (40.0-70.0) 12/14/17 08:41 Seg Neutrophils # 1.8 K/mm3 (1.8-7.7) 12/14/17 08:41 PT 12.9 Sec. (12.2-14.9) 12/14/17 13:58 INR 0.93 (0.87-1.13) 12/14/17 13:58 Sodium 143 mmol/L (137-145) 12/14/17 08:41 Potassium 4.2 mmol/L (3.6-5.0) 12/14/17 08:41 Chloride 100.2 mmol/L (98-107) 12/14/17 08:41 Carbon Dioxide 18 mmol/L (22-30) L 12/14/17 08:41 Anion Gap 29 mmol/L 12/14/17 08:41 BUN 53 mg/dL (7-17) H 12/14/17 08:41 Creatinine 11.2 mg/dL (0.7-1.2) H 12/14/17 08:41 Estimated GFR 4 ml/min 12/14/17 08:41 BUN/Creatinine Ratio 5 % 12/14/17 08:41 Glucose 94 mg/dL (65-100) 12/14/17 08:41 POC Glucose 166 (70-105) H 12/14/17 22:10 Calcium 12.2 mg/dL (8.4-10.2) H* 12/14/17 Unknown Phosphorus 6.00 mg/dL (2.5-4.5) H 12/14/17 Unknown Total Bilirubin 0.40 mg/dL (0.1-1.2) 12/14/17 08:41 AST 53 units/L (5-40) H 12/14/17 08:41 ALT 88 units/L (7-56) H 12/14/17 08:41 Alkaline Phosphatase 181 units/L (35-129) H 12/14/17 08:41 Total Protein 7.6 g/dL (6.3-8.2) 12/14/17 08:41 Albumin 4.5 g/dL (3.9-5) 12/14/17 08:41 Albumin/Globulin Ratio 1.5 % 12/14/17 08:41 Lipase 129 units/L (13-60) H 12/14/17 08:41 HCG, Qual Negative (Negative) 12/14/17 08:41 PTH Intact 419.8 pg/mL (15-65) H 12/14/17 11:38 Hepatitis A IgM Ab Non-reactive (NonReactive) 12/14/17 15:56 Hep Bs Antigen Non-reactive (Negative) 12/14/17 15:56 Hep B Core IgM Ab Non-reactive (NonReactive) 12/14/17 15:56 Hepatitis C Antibody Non-reactive (NonReactive) 12/14/17 15:56 - Imaging and Cardiology EKG: report reviewed (Sinus tachycardia HR of 102) Chest x-ray: report reviewed Imaging and Cardiology: CXR IMPRESSION: No acute cardiopulmonary process identified. Assessment and Plan Advance Directives: Yes (Full code) VTE prophylaxis?: Chemical Plan of care discussed with patient/family: Yes - Patient Problems (1) Volume overload Current Visit: Yes Status: Acute Qualifiers: Hypervolemia type: unspecified Qualified Code(s): E87.70 - Fluid overload, unspecified Plan to address problem: Emergent HD Nephrology consulted (2) End-stage renal disease needing dialysis Current Visit: Yes Status: Chronic Plan to address problem: Undergoing HD today Needs to be compliant Counselled (3) Hypercalcemia Current Visit: Yes Status: Acute Plan to address problem: Patient has High pTH levels May have parathyroid Adenoma Scan for Parathyroid Adenoma Will defer to Nephrology reg Surgery consult Dr Denton has done Parathyroid surgeries in the past and still has privileges in [facility] (4) Hypothyroidism Current Visit: No Status: Chronic Qualifiers: Hypothyroidism type: unspecified Qualified Code(s): E03.9 - Hypothyroidism , unspecified Plan to address problem: Cont Synthyroid (5) IDDM (insulin dependent diabetes mellitus) Current Visit: Yes Status: Chronic Plan to address problem: Cont Home Insulin and coverage Check A1c (6) HTN (hypertension) Current Visit: Yes Status: Chronic Qualifiers: Hypertension type: essential hypertension Qualified Code(s): I10 - Essential (primary) hypertension Plan to address problem: Cont antihypertensives (7) Anticoagulation goal of INR 2 to 3 Current Visit: Yes Status: Chronic Plan to address problem: Cont Coumadin For DVt Maybe discontinued (8) Chronic pain Current Visit: Yes Status: Chronic Qualifiers: Chronic pain type: chronic pain syndrome Qualified Code(s): G89.4 - Chronic pain syndrome Plan to address problem: On Methadone (9) Muscle spasm Current Visit: Yes Status: Chronic Plan to address problem: On Flexeril (10) DVT prophylaxis Current Visit: No Status: Acute Plan to address problem: Cont Heparin
[2017-12-15] MEDS ORDERED: FLEXERIL PO PRN (01:10)
[2017-12-15] MEDS ORDERED: PHENERGAN PO PRN (01:10)
[2017-12-15] MEDS ORDERED: MOTRIN PO PRN (01:10)
[2017-12-15] MEDS ORDERED: ZOFRAN IV PRN (01:14)
[2017-12-15] MEDS ORDERED: PERCOCET 5/325 PO PRN (01:14)
[2017-12-15] MEDS ORDERED: TYLENOL PO PRN (01:14)
[2017-12-15] MEDS ORDERED: SODIUM CHLORIDE FLUSH SYRINGE 10 ML IV PRN (01:14)
[2017-12-15] MEDS ORDERED: ELETRIPTAN HBR 20 MG PO SCH (01:15)
[2017-12-15] MEDS: MORPHINE IV PRN (04:11)
[2017-12-15] MEDS: SYNTHROID PO SCH (06:46)
[2017-12-15] MEDS ORDERED: NON-FORMULARY (Insulin Aspart [Novolog Flexpen] 10 UNITS) SQ SCH (07:30)
--- NOTE | 2017-12-15 08:00 | Progress Note ---
Assessment and Plan Assessment and plan: 52-year-old end-stage renal patient on dialysis with a history of poor compliance --states her last dialysis was on Tuesday. Missed HD on Tuesday due to family reunion. pw SOB at minimal exertion. .No chest pain.She is usually dialyzed in [place] at [facility]. She is a former patient of Dr. Nahun moura. Past Medical History; htn, dm, hx of dvt, asthma (mild intermittent), gout, Hyperthyroidism, anemia, esrd (sp R nephrectomy 1 year ago) CXR IMPRESSION: No acute cardiopulmonary process identified. Assessment and Plan Volume overload Emergent HD Nephrology consulted End-stage renal disease needing dialysis with poor adherence to HD Undergoing HD today Needs to be compliant Counselled Hypercalcemia/Hyperparathyroidism Outpatient endocrine fup refer to Dr Erin Mchugh, (spoke to her, she is accepting new patients) Hypothyroidism check TFTs Cont Synthyroid IDDM (insulin dependent diabetes mellitus) Cont Home Insulin and coverage A1c is 7.9 HTN (hypertension) Cont antihypertensives Hx of DVT, Anticoagulation goal of INR 2 to 3 continue coumadin Chronic pain On Methadone Muscle spasm On Flexeril DVT prophylaxis Cont Heparin History Interval history: Review of systems Constitutional: No fevers, no malaise, no joint pains CVS: No chest pain, no orthopnea, no dyspnea on exertion, no pedal edema GI: No abdominal pain, no diarrhea, no vomiting, no constipation Respiratory: No shortness of breath, no wheezing, no coughing Hospitalist Physical - Physical exam Narrative exam: General.: Appears well, no distress, nontoxic HEENT: Moist mucous membranes, extraocular muscles intact, no lymphadenopathy Neck: supple Cardiac: S1-S2 heard Lungs: clear to auscultation bilaterally Abdomen: soft , nontender, nondistended, bowel sounds positive Extremities: no edema clubbing or cyanosis Skin: no rash or lesions Neurologic: no gross focal deficits Psych: appropriate behavior, appropriate mood, corporative, judgment intact - Constitutional Vitals: Temp Pulse Resp BP Pulse Ox 97.9 F 103 H 18 144/86 96 12/15/17 05:24 12/15/17 05:24 12/15/17 05:24 12/15/17 05:24 12/15/17 05:24 General appearance: Present: mild distress, well-nourished Results - Labs CBC & Chem 7: 12/14/17 08:41 12/14/17 08:41 Labs: Laboratory Last Values WBC 3.6 K/mm3 (4.5-11.0) L 12/14/17 08:41 RBC 2.56 M/mm3 (3.65-5.03) L 12/14/17 08:41 Hgb 8.4 gm/dl (10.1-14.3) L 12/14/17 08:41 Hct 25.9 % (30.3-42.9) L 12/14/17 08:41 MCV 101 fl (79-97) H 12/14/17 08:41 MCH 33 pg (28-32) H 12/14/17 08:41 MCHC 32 % (30-34) 12/14/17 08:41 RDW 18.1 % (13.2-15.2) H 12/14/17 08:41 Plt Count 226 K/mm3 (140-440) 12/14/17 08:41 Lymph % (Auto) 39.1 % (13.4-35.0) H 12/14/17 08:41 [place] % (Auto) 6.9 % (0.0-7.3) 12/14/17 08:41 Eos % (Auto) 2.4 % (0.0-4.3) 12/14/17 08:41 Baso % (Auto) 1.1 % (0.0-1.8) 12/14/17 08:41 Lymph # 1.4 K/mm3 (1.2-5.4) 12/14/17 08:41 [place] # 0.2 K/mm3 (0.0-0.8) 12/14/17 08:41 Eos # 0.1 K/mm3 (0.0-0.4) 12/14/17 08:41 Baso # 0.0 K/mm3 (0.0-0.1) 12/14/17 08:41 Seg Neutrophils % 50.5 % (40.0-70.0) 12/14/17 08:41 Seg Neutrophils # 1.8 K/mm3 (1.8-7.7) 12/14/17 08:41 PT 12.9 Sec. (12.2-14.9) 12/14/17 13:58 INR 0.93 (0.87-1.13) 12/14/17 13:58 Sodium 143 mmol/L (137-145) 12/14/17 08:41 Potassium 4.2 mmol/L (3.6-5.0) 12/14/17 08:41 Chloride 100.2 mmol/L (98-107) 12/14/17 08:41 Carbon Dioxide 18 mmol/L (22-30) L 12/14/17 08:41 Anion Gap 29 mmol/L 12/14/17 08:41 BUN 53 mg/dL (7-17) H 12/14/17 08:41 Creatinine 11.2 mg/dL (0.7-1.2) H 12/14/17 08:41 Estimated GFR 4 ml/min 12/14/17 08:41 BUN/Creatinine Ratio 5 % 12/14/17 08:41 Glucose 94 mg/dL (65-100) 12/14/17 08:41 POC Glucose 136 (70-105) H 12/15/17 07:40 Hemoglobin A1c 7.9 % (4-6) H 12/14/17 08:41 Calcium 12.2 mg/dL (8.4-10.2) H* 12/14/17 Unknown Phosphorus 6.00 mg/dL (2.5-4.5) H 12/14/17 Unknown Total Bilirubin 0.40 mg/dL (0.1-1.2) 12/14/17 08:41 AST 53 units/L (5-40) H 12/14/17 08:41 ALT 88 units/L (7-56) H 12/14/17 08:41 Alkaline Phosphatase 181 units/L (35-129) H 12/14/17 08:41 Total Protein 7.6 g/dL (6.3-8.2) 12/14/17 08:41 Albumin 4.5 g/dL (3.9-5) 12/14/17 08:41 Albumin/Globulin Ratio 1.5 % 12/14/17 08:41 Lipase 129 units/L (13-60) H 12/14/17 08:41 HCG, Qual Negative (Negative) 12/14/17 08:41 PTH Intact 419.8 pg/mL (15-65) H 12/14/17 11:38 Hepatitis A IgM Ab Non-reactive (NonReactive) 12/14/17 15:56 Hep Bs Antigen Non-reactive (Negative) 12/14/17 15:56 Hep B Core IgM Ab Non-reactive (NonReactive) 12/14/17 15:56 Hepatitis C Antibody Non-reactive (NonReactive) 12/14/17 15:56
[2017-12-15] MEDS: HumaLOG SUB-Q SCH ×3 (08:47→18:51)
[2017-12-15] MEDS: DOLOPHINE PO SCH ×3 (08:54→22:06)
--- NOTE | 2017-12-15 08:55 | Progress Note ---
Assessment and Plan - Patient Problems (1) End-stage renal disease needing dialysis Current Visit: Yes Status: Chronic Plan to address problem: S/P HD yesterday. Calcium level down today. Noted significantly elevated TSH-- adjust thyroid dose per hospitalist. HD on M/W/F. Renal diet. (2) Hypercalcemia Current Visit: Yes Status: Acute (3) IDDM (insulin dependent diabetes mellitus) Current Visit: Yes Status: Chronic (4) Hypothyroidism Current Visit: No Status: Chronic Qualifiers: Hypothyroidism type: unspecified Qualified Code(s): E03.9 - Hypothyroidism , unspecified (5) HTN (hypertension) Current Visit: Yes Status: Chronic Qualifiers: Hypertension type: essential hypertension Qualified Code(s): I10 - Essential (primary) hypertension (6) Chronic pain Current Visit: Yes Status: Chronic Qualifiers: Chronic pain type: chronic pain syndrome Qualified Code(s): G89.4 - Chronic pain syndrome (7) Physical deconditioning Current Visit: Yes Status: Acute Subjective Date of service: 12/15/17 Interval history: c/o weakness, tired of hurting , hurts on walking Objective - Vital Signs Vital signs: Vital Signs - 12hr 12/14/17 12/14/17 12/15/17 21:41 22:58 04:11 Temperature 98.3 F Pulse Rate 99 H Respiratory 18 16 18 Rate Blood Pressure 87/59 O2 Sat by Pulse 92 Oximetry 12/15/17 05:24 Temperature 97.9 F Pulse Rate 103 H Respiratory 18 Rate Blood Pressure 144/86 O2 Sat by Pulse 96 Oximetry - General Appearance General appearance: well-developed, chronically ill EENT: mucous membranes moist Neck: no JVD Respiratory: Present: Clear to Ascultation Cardiology: regular, systolic murmur Gastrointestinal: normoactive bowel sounds Neurologic: alert and oriented x3 Musculoskeletal: other (no edema) Psychiatric: depressed, cooperative - Lab 12/14/17 08:41 12/15/17 08:25 Most recent lab results Calcium 12.2 mg/dL (8.4-10.2) H* 12/14/17 Unknown Phosphorus 6.00 mg/dL (2.5-4.5) H 12/14/17 Unknown
[2017-12-15 09:20] LABS: Calcium 9.7 mg/dL (8.4-10.2)
[2017-12-15] MEDS: FEOSOL PO SCH ×2 (09:28→22:06)
[2017-12-15] MEDS: ELAVIL PO SCH (09:28)
[2017-12-15] MEDS: NORVASC PO SCH ×2 (09:28→14:06)
[2017-12-15] MEDS: HEPARIN SUB-Q SCH ×2 (09:28→22:06)
[2017-12-15] MEDS: LOPRESSOR PO SCH (09:28)
[2017-12-15] MEDS: COLACE PO SCH ×2 (09:29→22:06)
[2017-12-15] MEDS: SODIUM CHLORIDE FLUSH SYRINGE 10 ML IV SCH ×2 (09:29→22:45)
[2017-12-15] MEDS: CEPHULAC PO SCH (09:29)
[2017-12-15] MEDS ORDERED: COLCHICINE PO SCH (10:00)
[2017-12-15] MEDS ORDERED: ZANAFLEX PO SCH (10:00)
[2017-12-15] MEDS ORDERED: CEPHULAC PR SCH (10:00)
--- NOTE | 2017-12-15 15:28 | Nuclear Medicine Report ---
NUCLEAR MEDICINE PARATHYROID SCAN: History: Elevated PTH levels FINDINGS: The initial scintigraphic images of the thyroid bed demonstrate normal and symmetric uptake of the radiotracer in the thyroid bed. Normal salivary and mediastinal activity is identified. The delayed images demonstrate normal washout of the radiotracer from the thyroid bed. No persistent activity is identified to suggest a parathyroid adenoma. IMPRESSION: Normal parathyroid scan.
[2017-12-15] MEDS: COUMADIN PO SCH (18:45)
[2017-12-15] MEDS ORDERED: DETEMIR SUB-Q SCH (22:00)
[2017-12-15] MEDS ORDERED: AMBIEN PO SCH (22:00)
[2017-12-15] MEDS ORDERED: CATAPRES PO SCH (22:00)
[2017-12-15] MEDS ORDERED: LANTUS SUB-Q SCH (22:00)
[2017-12-16] MEDS: SYNTHROID PO SCH (05:41)
[2017-12-16 06:20] LABS: Basophils # (Auto) 0.1 K/mm3 (0.0-0.1); Basophils % (Auto) 1.1 % (0.0-1.8); Eosinophils # (Auto) 0.1 K/mm3 (0.0-0.4); Eosinophils % (Auto) 1.3 % (0.0-4.3); Hematocrit 24.8 % (30.3-42.9); Hemoglobin 8.1 gm/dl (10.1-14.3); Lymphocytes # (Auto) 1.5 K/mm3 (1.2-5.4); Lymphocytes % (Auto) 32.3 % (13.4-35.0); Mean Corpuscular HGB Conc 33 % (30-34); Mean Corpuscular Hemoglobin 33 pg (28-32); Mean Corpuscular Volume 102 fl (79-97); Monocytes # (Auto) 0.2 K/mm3 (0.0-0.8); Monocytes % (Auto) 5.2 % (0.0-7.3); Platelet Count 209 K/mm3 (140-440); Red Blood Count 2.43 M/mm3 (3.65-5.03); Red Cell Distribution Width 18.3 % (13.2-15.2)
[2017-12-16 06:33] LABS: INR 0.96 (0.87-1.13)
[2017-12-16 06:42] LABS: Albumin 4.6 g/dL (3.9-5); Calcium 9.8 mg/dL (8.4-10.2)
[2017-12-16] MEDS: HumaLOG SUB-Q SCH ×3 (07:30→16:30)
[2017-12-16] MEDS: HEPARIN SUB-Q SCH (10:19)
[2017-12-16] MEDS: DOLOPHINE PO SCH ×2 (10:21→13:59)
[2017-12-16] MEDS: CEPHULAC PO SCH (10:23)
[2017-12-16] MEDS: FEOSOL PO SCH (10:24)
[2017-12-16] MEDS: ELAVIL PO SCH (10:24)
[2017-12-16] MEDS: COLACE PO SCH (10:24)
[2017-12-16] MEDS: NORVASC PO SCH (10:25)
[2017-12-16] MEDS: LOPRESSOR PO SCH (10:25)
[2017-12-16] MEDS: SODIUM CHLORIDE FLUSH SYRINGE 10 ML IV SCH (10:25)
--- NOTE | 2017-12-16 12:55 | Discharge Summary ---
Providers - Providers Date of Admission: 12/14/17 11:43 Attending physician: RODRIGUE ARAUJO MD 12/14/17 10:52 Consult to Physician [CONS] Urgent Comment: DR FISHER NOTIFIED 1030 Consulting Provider: KEERTHI FISHER Physician Instructions: Reason For Exam: hypercalcemia and needs dialysis 12/15/17 Consult to Case Management [CONS] Routine Services Needed at Discharge: Home Health Services Notified:: COPY GIVEN TO Primary care physician: FILM COLOR TESTER Hospitalization Condition: Stable Hospital course: 77-year-old man with history of COPD, chronic bronchitis presented with shortness of breath. He was treated with steroids and nebulizers and antibiotics. Patient improved. His medications and optimize her hips are slightly discharged. He was weaned off oxygen prior to discharge. Discharge diagnoses Acute respiratory failure with hypoxia Acute exacerbation of COPD Hypertension CAD Hyperlipidemia Disposition: DC-30 STILL A PATIENT Time spent for discharge: 33 minutes Core Measure Documentation - Palliative Care Palliative Care/ Comfort Measures: Not Applicable - Core Measures Any of the following diagnoses?: none Exam - Constitutional Vitals: Temp Pulse Resp BP Pulse Ox 97.7 F 75 14 106/45 95 12/16/17 08:18 12/16/17 06:31 12/16/17 08:18 12/16/17 12:00 12/16/17 06:31 General appearance: Present: no acute distress, well-nourished - EENT Eyes: Present: PERRL ENT: hearing intact, clear oral mucosa - Neck Neck: Present: supple, normal ROM - Respiratory Respiratory effort: normal Respiratory: bilateral: CTA - Cardiovascular Heart Sounds: Present: S1 & S2. Absent: rub, click - Extremities Extremities: pulses symmetrical, No edema Peripheral Pulses: within normal limits - Abdominal General gastrointestinal: Present: soft, non-tender, non-distended, normal bowel sounds Female genitourinary: Present: normal - Integumentary Integumentary: Present: clear, warm, dry - Musculoskeletal Musculoskeletal: gait normal, strength equal bilaterally - Psychiatric Psychiatric: appropriate mood/affect, intact judgment & insight - Neurologic Neurologic: CNII-XII intact, moves all extremities Plan Follow up with: PRIMARY CARE, [Primary Care Provider] - 3-5 Days Forms: Warfarin Discharge Instruction
--- NOTE | 2017-12-16 14:34 | Progress Note ---
Assessment and Plan impression * End-stage renal disease * Hypercalcemia * Chronic pain * Deconditioning * Hypertension * Diabetes * Anemia * hyperkalemia * Metabolic acidosis Recommendations * Patient is scheduled for hemodialysis today * her hyperkalemia and acidosis should be corrected with Dialysis * Continue dialysis on MWF schedule * her hypercalcemia has been corrected * Procrit with dialysis * Adjust diet and meds for ESRD * Binders with diet * Avoid nephrotoxins * No IV, BP or venipuncture in her access arm Subjective Date of service: 12/16/17 Interval history: patient is comfortable. Denies any shortness of breath Objective - Vital Signs Vital signs: Vital Signs - 12hr 12/16/17 12/16/17 12/16/17 06:00 06:31 08:18 Temperature 97.5 F L 97.7 F Pulse Rate 75 Respiratory 14 14 Rate Blood Pressure 74/47 145/124 Blood Pressure 83/61 [Right] O2 Sat by Pulse 95 Oximetry 12/16/17 12:00 Temperature Pulse Rate Respiratory Rate Blood Pressure 106/45 Blood Pressure [Right] O2 Sat by Pulse Oximetry - General Appearance General appearance: well-developed, well-nourished, appears stated age EENT: PERRL, mucous membranes moist Neck: no JVD, no thyromegaly, no carotid bruit, supple Respiratory: Present: Clear to Ascultation Cardiology: regular, normal heart rate Gastrointestinal: normal, normoactive bowel sounds Integumentary: no rash, other (AV fistula left arm. Good bruit and thrill) - Lab 12/16/17 05:43 12/16/17 05:43 Most recent lab results Calcium 9.8 mg/dL (8.4-10.2) 12/16/17 05:43 Phosphorus 6.00 mg/dL (2.5-4.5) H 12/14/17 Unknown
[2017-12-16] MEDS: COUMADIN PO SCH (17:00)
[2017-12-16 17:59] VITALS: BP 101/53
[2017-12-16] MEDS ORDERED: NACL 0.9 (PRIMING MACHINE ONLY DIALYSIS) MC ONE (20:24)
== END 2017-12-16 18:59 | disposition home health service (06) | DRG 189 ==
LOC: ED 08:28 → 3A 11:43
PROVIDERS: ADMIT Internal Medicine; ATTEND Internal Medicine
PROC: 5A1D70Z Performance of Urinary Filtration, Intermittent, Less than 6 Hours Per Day (ICD-10-PCS; principal; 2017-12-14)
PROC: 5A1D70Z Performance of Urinary Filtration, Intermittent, Less than 6 Hours Per Day (ICD-10-PCS; 2017-12-16)
DX: J96.01 Acute respiratory failure with hypoxia (principal); N18.6 End stage renal disease; I12.0 Hypertensive chronic kidney disease with 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; E87.2 Acidosis; J44.1 Chronic obstructive pulmonary disease with (acute) exacerbation; E87.5 Hyperkalemia; E87.70 Fluid overload, unspecified; E83.52 Hypercalcemia; E03.9 Hypothyroidism, unspecified; G89.29 Other chronic pain; E11.22 Type 2 diabetes mellitus with diabetic chronic kidney disease; E78.5 Hyperlipidemia, unspecified; M10.9 Gout, unspecified; M62.838 Other muscle spasm; G43.909 Migraine, unspecified, not intractable, without status migrainosus; D63.8 Anemia in other chronic diseases classified elsewhere; I25.10 Atherosclerotic heart disease of native coronary artery without angina pectoris; Z79.4 Long term (current) use of insulin; Z86.718 Personal history of other venous thrombosis and embolism; Z90.5 Acquired absence of kidney; Z90.49 Acquired absence of other specified parts of digestive tract; Z79.899 Other long term (current) drug therapy
CPT/HCPCS: 36415; 71045; 78070; 80048; 80053; 80074; 82310; 82962; 83036; 83690; 83970; 84100; 84436; 84439; 84443; 84703; 85025; 85610; 93005; 93010; 96374; 96375; A9500; J1170; J1644; J1815; J2270; J2405; J7030

== ENCOUNTER 2018-02-06 01:46 | Emergency (ER) | payer MEDICARE ==
[2018-02-06 04:15] VITALS: BP 104/62
--- NOTE | 2018-02-06 05:04 | XRay Report ---
FINAL REPORT EXAM: XR FOOT 3+V LT HISTORY: right foot pain and ankle deformity COMPARISONS: None. FINDINGS: Three nonweightbearing views right foot There is soft tissue swelling over the lateral malleolus. A distal fibular fracture is suggested on oblique view. No fracture or gross malalignment in the right foot. Mild 1st metatarsophalangeal osteoarthrosis. IMPRESSION: Focal soft tissue swelling over the lateral malleolus with suggested distal fibular fracture. The bones of the right foot appear intact.
--- NOTE | 2018-02-06 08:35 | XRay Report ---
RIGHT TIBIA/FIBULA: History: Pain right lower leg A mildly comminuted and displaced fracture of the distal fibula is identified just proximal to the right ankle joint. No evidence for calcified callous. The tibia is intact. There is moderate distal soft tissue swelling. IMPRESSION: Fracture, distal fibula.
--- NOTE | 2018-02-06 09:03 | Emergency Department Report ---
ED Lower Extremity HPI - General Chief Complaint: Extremity Injury, Lower Stated Complaint: RT ANKLE PAIN Time Seen by Provider: 02/06/18 07:18 Source: patient Mode of arrival: Stretcher Limitations: No Limitations - History of Present Illness Initial Comments: This is a 52-year-old -[place] female who presents with right lower extremity pain from ankle to foot from a fall this morning. Patient states she was cleaning her home and attempt to stand up feel for. Patient states she heard a pop and felt severe pain with attempted to standing. Patient reports pain is 10 out of 10 on pain scale and sharp and achy. Patient states the pain is worse with movement, weightbearing, and palpation. She states she is unable to move right ankle and apply pressure. There is some swelling without bruising. Patient denies deformity, loss of consciousness, erythema, numbness or tingling. MD Complaint: ankle injury -: This morning Injury: Ankle: Right Type of Injury: hyperflexion Place: home Severity: severe Severity scale (0 -10): 10 Improves With: nothing Worsens With: weight bearing, movement, palpation Context: fall Associated Symptoms: snap/pop sensation, swelling, unable to bear weight. denies: numbness, able to partially bear weight, ambulatory - Related Data Home Medications Medication Instructions Recorded Confirmed Last Taken Detemir (Nf) [Levemir (Nf)] 50 units SUB-Q QHS 05/11/17 12/14/17 05/10/17 Insulin Aspart [NovoLOG Flexpen] 10 units SQ AC 05/11/17 12/14/17 05/10/17 Promethazine [Phenergan TAB] 25 mg PO Q6HR PRN 05/11/17 12/14/17 05/10/17 Zolpidem [Ambien] 10 mg PO QHS 05/11/17 12/14/17 05/10/17 amLODIPine [Norvasc] 10 mg PO DAILY 05/11/17 12/14/17 05/10/17 cloNIDine [Catapres] 0.1 mg PO QHS 05/11/17 12/14/17 05/10/17 Previous Rx's Medication Instructions Recorded Last Taken Type Lactulose 20 gm PO DAILY #900 ml 11/19/16 05/10/17 Rx Amitriptyline [Elavil] 75 mg PO DAILY #30 tablet 12/03/16 05/10/17 Rx Colchicine [Colcrys] 0.6 mg PO DAILY #30 tablet 12/03/16 05/10/17 Rx Eletriptan HBr [Relpax] 20 mg PO Q4H #30 tablet 12/03/16 05/10/17 Rx Levothyroxine [Synthroid] 150 mcg PO DAILY@0600 #30 tablet 12/03/16 05/10/17 Rx Metoprolol [Lopressor TAB] 100 mg PO DAILY #30 tablet 12/03/16 05/10/17 Rx Tizanidine HCl [Zanaflex] 2 mg PO DAILY #30 capsule 12/03/16 05/10/17 Rx Warfarin [Coumadin] 10 mg PO QDAY #7 tablet 12/03/16 05/10/17 Rx Methadone [Dolophine] 10 mg PO TID #15 tablet 05/14/17 Unknown Rx Cyclobenzaprine [Flexeril 10 MG 10 mg PO QHS PRN #7 tablet 09/20/17 Unknown Rx TAB] Ibuprofen [Motrin 600 MG tab] 600 mg PO Q8H PRN #30 tablet 09/20/17 Unknown Rx Docusate Sodium [Colace CAP] 100 mg PO BID #30 capsule 10/17/17 Unknown Rx Ferrous Sulfate [Iron] 325 mg PO BID #30 tablet 10/17/17 Unknown Rx Cyclobenzaprine [Flexeril 10 MG 10 mg PO TID PRN #12 tablet 02/06/18 Unknown Rx TAB] Allergies Allergy/AdvReac Type Severity Reaction Status Date / Time ibuprofen Allergy Mild Rash Verified 12/14/17 13:41 hydrocodone bitartrate Allergy Hives Verified 12/14/17 13:41 [From Lortab] acetaminophen [From Percocet] AdvReac Hives Verified 12/14/17 13:41 codeine AdvReac Swelling Verified 12/14/17 13:41 oxycodone HCl [From Percocet] AdvReac Hives Verified 12/14/17 13:41 Penicillins AdvReac Swelling Verified 12/14/17 13:41 ED Review of Systems ROS: Stated complaint: RT ANKLE PAIN Other details as noted in HPI Constitutional: denies: chills, fever Respiratory: denies: cough, shortness of breath, wheezing Cardiovascular: denies: chest pain, palpitations Gastrointestinal: denies: abdominal pain, nausea, diarrhea Musculoskeletal: arthralgia (right ankle and foot pain). denies: back pain, joint swelling Skin: denies: rash, lesions Neurological: denies: headache, weakness, paresthesias Psychiatric: denies: anxiety, depression ED Past Medical Hx - Past Medical History Hx Hypertension: Yes Hx Heart Attack/AMI: No Hx Congestive Heart Failure: No Hx Diabetes: Yes Hx Deep Vein Thrombosis: Yes Hx Liver Disease: No Hx Renal Disease: Yes Hx Sickle Cell Disease: No Hx Headaches / Migraines: Yes Hx Seizures: No Hx Asthma: Yes (last used inhaler 1 year ago) Hx COPD: No Hx HIV: No Additional medical history: gout hyperthyroidism,anemia - Surgical History Hx Open Heart Surgery: No Hx Pacemaker: No Hx Internal Defibrillator: No Hx Cholecystectomy: Yes Additional Surgical History: umbilical hernia repair x2. tonsilectomy. left foot fracture/[place]. right kidney removal - Social History Smoking Status: Never Smoker Substance Use Type: None - Medications Home Medications: Home Medications Medication Instructions Recorded Confirmed Last Taken Type Lactulose 20 gm PO DAILY #900 ml 11/19/16 12/14/17 05/10/17 Rx Amitriptyline [Elavil] 75 mg PO DAILY #30 tablet 12/03/16 12/14/17 05/10/17 Rx Colchicine [Colcrys] 0.6 mg PO DAILY #30 tablet 12/03/16 12/14/17 05/10/17 Rx Eletriptan HBr [Relpax] 20 mg PO Q4H #30 tablet 12/03/16 12/14/17 05/10/17 Rx Levothyroxine [Synthroid] 150 mcg PO DAILY@0600 #30 tablet 12/03/16 12/14/17 Rx Metoprolol [Lopressor TAB] 100 mg PO DAILY #30 tablet 12/03/16 12/14/17 Rx Tizanidine HCl [Zanaflex] 2 mg PO DAILY #30 capsule 12/03/16 12/14/17 05/10/17 Rx Warfarin [Coumadin] 10 mg PO QDAY #7 tablet 12/03/16 12/14/17 05/10/17 Rx Detemir (Nf) [Levemir (Nf)] 50 units SUB-Q QHS 05/11/17 12/14/17 05/10/17 History Insulin Aspart [NovoLOG Flexpen] 10 units SQ AC 05/11/17 12/14/17 05/10/17 History Promethazine [Phenergan TAB] 25 mg PO Q6HR PRN 05/11/17 12/14/17 05/10/17 History Zolpidem [Ambien] 10 mg PO QHS 05/11/17 12/14/17 05/10/17 History amLODIPine [Norvasc] 10 mg PO DAILY 05/11/17 12/14/17 05/10/17 History cloNIDine [Catapres] 0.1 mg PO QHS 05/11/17 12/14/17 05/10/17 History Methadone [Dolophine] 10 mg PO TID #15 tablet 05/14/17 12/14/17 Unknown Rx Cyclobenzaprine [Flexeril 10 MG 10 mg PO QHS PRN #7 tablet 09/20/17 12/14/17 Unknown Rx TAB] Ibuprofen [Motrin 600 MG tab] 600 mg PO Q8H PRN #30 tablet 09/20/17 12/14/17 Unknown Rx Docusate Sodium [Colace CAP] 100 mg PO BID #30 capsule 10/17/17 12/14/17 Unknown Rx Ferrous Sulfate [Iron] 325 mg PO BID #30 tablet 10/17/17 12/14/17 Unknown Rx Cyclobenzaprine [Flexeril 10 MG 10 mg PO TID PRN #12 tablet 02/06/18 Unknown Rx TAB] ED Physical Exam - General Limitations: No Limitations General appearance: alert, in no apparent distress, obese - Respiratory Respiratory exam: Present: normal lung sounds bilaterally. Absent: respiratory distress - Cardiovascular Cardiovascular Exam: Present: regular rate, normal rhythm. Absent: systolic murmur, diastolic murmur, rubs, gallop - GI/Abdominal GI/Abdominal exam: Present: soft, normal bowel sounds - Extremities Exam Extremities exam: Present: tenderness, normal capillary refill. Absent: full ROM, calf tenderness - Expanded Lower Extremity Exam Right Upper Leg exam: Present: normal inspection, full ROM Knee exam: Present: normal inspection, full ROM Lower Leg exam: Present: normal inspection, full ROM Ankle exam: Present: tenderness (lateral malleolus tenderness swelling), swelling (lateral malleolus). Absent: full ROM, abrasion, laceration, ecchymosis, deformity, crepidus, dislocation, erythema Foot/Toe exam: Present: normal inspection, full ROM Neuro vascular tendon exam: Present: no vascular compromise Gait: Positive: unable to bear weight - Neurological Exam Neurological exam: Present: alert, oriented X3 - Psychiatric Psychiatric exam: Present: normal affect, normal mood - Skin Skin exam: Present: warm, dry, intact, normal color. Absent: rash ED Course Vital Signs 02/06/18 02/06/18 01:53 04:03 Temperature 98.7 F Pulse Rate 83 83 Respiratory 18 Rate Blood Pressure 95/64 104/62 O2 Sat by Pulse 97 Oximetry ED Lower Extremity MDM - Radiology Data Radiology results: report reviewed, image reviewed RIGHT TIBIA/FIBULA: History: Pain right lower leg A mildly comminuted and displaced fracture of the distal fibula is identified just proximal to the right ankle joint. No evidence for calcified callous. The tibia is intact. There is moderate distal soft tissue swelling. IMPRESSION: Fracture, distal fibula. FINAL REPORT EXAM: XR FOOT 3+V LT HISTORY: right foot pain and ankle deformity COMPARISONS: None. FINDINGS: Three nonweightbearing views right foot There is soft tissue swelling over the lateral malleolus. A distal fibular fracture is suggested on oblique view. No fracture or gross malalignment in the right foot. Mild 1st metatarsophalangeal osteoarthrosis. IMPRESSION: Focal soft tissue swelling over the lateral malleolus with suggested distal fibular fracture. The bones of the right foot appear intact. - Medical Decision Making Patient was examined by myself and fast track. Vitals are normal and patient is in no acute distress. Obtained a x-rays of the right tibia-fibula and right foot. X-rays dictated by radiologist and report any images reviewed by myself. There is a distal fibular fracture to right. A posterior leg splint applied to right lower extremity and given crutches with education. Consult to renal social worker for help care at home. Patient informed of results. Start cyclobenzaprine for pain. Patient will continue to take medication prescribed from pain management to control pain. Referrals to orthopedic surgery for continuance of care. Patient discharged home in stable condition. Follow up with PCP in 2-3 days. Critical care attestation.: If time is entered above; I have spent that time in minutes in the direct care of this critically ill patient, excluding procedure time. ED Disposition Clinical Impression: Right foot pain Fracture of fibula, distal, right, closed Qualifiers: Encounter type: initial encounter Fracture morphology: other fracture Qualified Code(s): S82.831A - Other fracture of upper and lower end of right fibula, initial encounter for closed fracture Right ankle pain Qualifiers: Chronicity: acute Qualified Code(s): M25.571 - Pain in right ankle and joints of right foot Disposition: TO HOME OR SELFCARE Is pt being admited?: No Does the pt Need Aspirin: No Condition: Stable Instructions: Ankle Fracture (ED) Additional Instructions: Avoid applying weight to right lower extremity. Follow up with Orthopedic surgery for continuos of care in 24 to 48 hours. Continue taking current prescribed pain medication from pain management. Prescriptions: Cyclobenzaprine [Flexeril 10 MG TAB] 10 mg PO TID PRN #12 tablet PRN Reason: Muscle Spasm Referrals: TOMI LUIS MD [Staff Physician] - 3-[address] [facility] [Provider Group] - 3-5 Days Time of Disposition: 09:54 Print Language: MALAYSIAN
[2018-02-06] MEDS ORDERED: MORPHINE IM ONE (09:23)
== END 2018-02-06 10:48 | disposition home or self-care (01) ==
LOC: ED 01:46
DX: S82.831A Other fracture of upper and lower end of right fibula, initial encounter for closed fracture (principal); I10 Essential (primary) hypertension; E11.9 Type 2 diabetes mellitus without complications; G43.909 Migraine, unspecified, not intractable, without status migrainosus; J45.909 Unspecified asthma, uncomplicated; M10.9 Gout, unspecified; E05.90 Thyrotoxicosis, unspecified without thyrotoxic crisis or storm; Z86.718 Personal history of other venous thrombosis and embolism; Z90.49 Acquired absence of other specified parts of digestive tract; Z90.89 Acquired absence of other organs; W18.39XA Other fall on same level, initial encounter; Y93.89 Activity, other specified; Y92.098 Other place in other non-institutional residence as the place of occurrence of the external cause; Y99.8 Other external cause status
CPT/HCPCS: 29515; 73590; 73630; 82962; 96372; 99284; J2270